=== PATIENT | male | born 1945 | race Caucasian/White ===

== ENCOUNTER 2018-07-23 14:40 | Inpatient (IN) | payer MEDICARE, MEDICAID ==
[~2018-07-23] VITALS: Ht 175.3 cm; Wt 59.0 kg
[~2018-07-23 14:40] MED LIST: ACHD5005 PO; ANXIETY MEDICATION; BUPR150T PO; FLUO20CA25 PO; GABA300T; MORP15TA PO; NAPR-684 PO; OXYC1TAB25 PO; SOLI10TA4 PO; ZOLP10TA5 PO
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
--- OUTSIDE RECORDS SUMMARY | 2018-07-23 14:48 | XMS REPORT ---
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 198292653 Problem Diabetes E11.9 Active 67230701 ALLERGIES No Information ENCOUNTERS Encounter Location Date Diagnosis [place] [address] [address] Feb, Depressive disorder, not elsewhere classified F32.9 and Mild cognitive impairment G31.84 [place] [address] [address] Feb, Foot callus L84 [place] [address] [address]- [address] Jan, Muscular dystrophies G71.0 [place] [address] [address]- 240[address] Jan, [place] [address] 23117- 9334 Jan, [place] [address] [address]- 3166 Jan, Callus of foot L84 ; Nail hypertrophy L60.2 and Self-care deficit for hygiene R46.[address] [address]- [address] December, [facility] [address] [place] [id number] [place] [address] 17379- 6152 December, Callus of foot L84 ; Nail hypertrophy L60.2 ; Self-care deficit for hygiene R46.0 ; Controlled type 2 diabetes mellitus without complication, unspecified whether long-term insulin use E11.9 and Muscular dystrophies G71.0 [facility] [address] [address]- [address] December, Muscular dystrophies G71.0 [facility] [address] [address] December, 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 [facility] [address] [address]- [address] Nov, [facility] [address] [address]- 6141 Nov, [facility] [address] 26[address]- 9519 Nov, Muscular dystrophies G71.0 [place] [address] [address]- 4[address] Oct, Muscular dystrophies G71.0 [facility] [address] [address]67- 9948 Aug, Muscular dystrophies G71.0 [facility] [address] [address] 07 Jul, 2017 Urinary tract infection without hematuria, site unspecified N39.0 [facility] [address] [address] 04 Jul, 2017 Urinary tract infection without hematuria, site unspecified N39.0 [facility] [address] [address]- 1392 May, Muscular dystrophies G71.0 [facility] [address] 34046- 4532 Apr, Muscular dystrophies G71.0 [facility] [address] [place] [id number] [place] [address] 10728- 3680 Mar, Muscular dystrophies G71.0 [facility] [address] [place] [id number] [place] [address] 78777- 0391 Feb, [facility] [address] [place] [id number] [place] [address] 71302- 9684 Feb, Muscular dystrophies G71.0 [facility] [address] [place] [id number] [place] [address] 34055- 5605 Jan, Muscular dystrophies G71.0 and Diabetes E11.9 [facility] [address] [place] [id number] [place] [address] 84909- 7314 Nov, [facility] [address] [place] [id number] [place] [address] 35376- 5205 Nov, [facility] [address] [place] [id number] [place] [address] 81464- 8787 Oct, [facility] [address] [place] [id number] [place] [address] 98035- 8172 Sep, [facility] [id number] [place] [address] 06812- 7264 Sep, [facility] [address] [place] [id number] [place] [address] 05970- 8766 Aug, [facility] [address] [address] Jul, [facility] [address] [place] [id number] [place] [address] 18533- 3833 Jul, [facility] [address] [address]- 9[address] Jun, [facility] [id number] [place] [address] 348396 -4908 May, Dysuria R30.0 and Cystitis N30.90 [facility] [address] [place] [id number] [place] [address] 14531- 4682 May, [facility] [address] [place] [id number] [place] [address] 24562- 6983 May, [facility] [address] [place] [id number] [place] [address] 08264- 0537 May, [facility] [address] [place] [id number] [place] [address] 46659- 9310 May, [facility] [address] [place] [id number] [place] [address] 20416- 6250 Mar, Muscular dystrophies G71.0 [facility] [address] [place] [id number] [place] [address] 30172- 6927 Feb, Muscular dystrophies G71.0 [facility] [address] [place] [id number] [place] [address] 17319- 5055 Feb, [facility] [address] [place] [id number] [place] [address] 07702- 0379 Jan, Muscular dystrophies G71.0 [facility] [address] [place] [id number] [place] [address] 69504- 0843 December, Open bite of left upper arm, initial encounter S41.152A [facility] [address] [place] [id number] [place] [address] 37026 -0911 December, [facility] [address] [place] [id number] [place] [address] 47143- 8495 Nov, [facility] [address] [place] [id number] [place] [address] 51282- 6088 Nov, [facility] [address] [place] [id number] [place] [address] 84426- 5376 Oct, [facility] [address] [place] [id number] [place] [address] 31094- 1234 Oct, Diabetes type 2, controlled E11.9 and Polyneuropathy G62.9 [facility] [address] [place] [id number] [place] [address] 20563- 0513 Sep, [facility] [address] [place] [id number] [place] [address] 36614- 3588 Aug, [facility] [address] [place] [id number] [place] [address] 94072- 8853 Aug, [facility] [address] [place] [id number] [place] [address] 23912- 4355 Jul, [facility] [address] [place] [id number] [place] [address] 14269- 6102 Jul, [facility] [address] [place] [id number] [place] [address] 21933- 4622 Jul, [facility] [address] [place] [id number] [place] [address] 03289- 8833 Jun, [facility] [address] [place] [id number] [place] [address] 37471- 2944 Jun, Foot deformity M21.969 [facility] [address] [place] [id number] [place] [address] 08388- 7533 May, [facility] [address] [place] [id number] [place] [address] 82407- 8857 May, [facility] [address] [place] [id number] [place] [address] 15407- 7941 May, [facility] [address] [place] [id number] [place] [address] 86636- 1469 Apr, Diabetes with renal manifestations, type II or unspecified type, not stated as uncontrolled 250.40 and Unsteady gait 781.2 [facility] [address] [place] [id number] [place] [address] 14664- 6092 16 Apr, 2015 [facility] [address] [place] [id number] [place] [address] 51746- 7309 Apr, [facility] [place] [facility] [address] [id number] [place] [address]- 6079 Mar, [facility] [place] [facility] [address] [id number] [place] [address]- 5674 Feb, [facility] [place] [facility] [address] [id number] [place] [address]- 5593 Jan, [facility] [place] [facility] [address] [id number] [place] [address]- 9449 Jan, [facility] [place] [facility] [address] [id number] [place] [address]- 2618 December, [facility] [place] [facility] [address] [id number] [place] [address]- 2958 Nov, [facility] [place] [facility] [address] [id number] [place] [address]- 4286 Nov, [facility] [place] [facility] [address] [id number] [place] [address]- 5075 Oct, [facility] [place] [facility] [address] [id number] [place] [address]- 1693 Oct, [facility] [place] [facility] [address] [id number] [place] [address]- 5283 Oct, [facility] [place] [facility] [address] [id number] [place] [address]- 9512 Oct, [facility] [place] [facility] [address] [id number] [address]- 2537 Oct, [facility] [place] [facility] [address] [id number] [place] [address]- 1967 Oct, [facility] [place] [facility] [address] [id number] [place] [address]- 5876 Sep, [facility] [place] [facility] [address] [id number] [place] [address]- 7045 Sep, [facility] [place] [facility] [address] [id number] [place] [address]- 2846 Sep, [facility] [place] [facility] [address] [id number] [place] [address]- 1087 Sep, [facility] [place] [facility] [address] [id number] [place] [address]- 4592 Aug, [facility] [place] [facility] [address] [id number] [place] [address]- 3204 Aug, [facility] [place] [facility] [address] [id number] [place] [address]- 6726 Aug, [facility] [place] [facility] [address] [id number] [place] [address]- 3157 Aug, [facility] [place] [facility] [address] [id number] [place] [address]- 4090 Jul, [facility] [place] [facility] [address] [id number] [place] [address]- 2784 Jul, [facility] [place] [facility] [address] [id number] [place] [address]- 9054 Jul, [facility] [place] [facility] [address] [id number] [place] [address]- 1765 Jul, [facility] [place] [facility] [address] [facility] [id number] [place] [address]- 4911 Jun, [facility] [place] [facility] [address] [id number] [place] [address]- 4714 Jun, [facility] [place] [facility] [address] [id number] [place] [address]- 0546 Jun, [facility] [place] [facility] [address] [id number] [place] [address]- 5709 Jun, [facility] [place] [facility] [address] [id number] [place] 9927 May, [facility] [place] [facility] [address] [id number] [place] [address]- 9249 May, [facility] [place] [facility] [address] [id number] [place] [address]- 1496 May, [facility] [place] [facility] [address] [id number] [place] [address]- 5399 May, [facility] [place] [facility] [address] [id number] [place] [address]- 3384 Apr, [facility] [place] [facility] [address] [id number] [place] [address]- 7456 Apr, [facility] [place] [facility] [address] [id number] [place] [address]- 9162 Apr, [facility] [place] [facility] [address] [id number] [place] [address]- 4114 Mar, [facility] [place] [facility] [address] [id number] [place] [address]- 6985 Mar, [facility] [place] [facility] [address] [id number] [place] [address]- 6792 Mar, [facility] [place] [facility] [address] [id number] [place] [address]- 8177 Mar, [facility] [place] [facility] [address] [id number] [place] [address]- 6168 Feb, [facility] [place] [facility] [address] [id number] [place] [address]- 8582 Feb, [facility] [place] [facility] [address] [id number] [place] [address]- 1295 Feb, [facility] [place] [facility] [address] [id number] [place] [address]- 4035 Feb, [facility] [place] [facility] [address] [id number] [place] [address]- 5206 Jan, [facility] [place] [facility] [address] [id number] [place] [address]- 1178 Jan, [facility] [place] [facility] [address] [id number] [place] [address]- 2893 December, [facility] [place] [facility] [address] [id number] [place] [address]- 8283 December, [facility] [place] [facility] [address] [id number] [place] 0980 Nov, [facility] [place] [facility] [address] [id number] [place] [address]- 6441 Nov, [facility] [place] [facility] [address] [id number] [place] [address]- 2980 Oct, [facility] [place] [facility] [address] [id number] [place] [address]- 9321 Oct, [facility] [place] [facility] [address] [id number] [place] [address]- 9480 Oct, [facility] [place] [facility] [address] [id number] [place] [address]- 8785 Oct, [facility] [place] [facility] [address] [id number] [place] [address]- 9850 Sep, [facility] [place] [facility] [address] [id number] [place] [address]- 7256 Sep, [facility] [place] [facility] [address] [id number] [place] [address]- 0304 Aug, [facility] [place] [facility] [address] [id number] [place] [address]- 8555 Aug, [facility] [place] [facility] [address] [id number] [place] [address]- 8390 Aug, [facility] [place] [facility] [address] [id number] [place] [address]- 1625 Aug, [facility] [place] [facility] [address] [id number] [place] [address]- 1164 Aug, [facility] [place] [facility] [address] [id number] [place] [address]- 1317 Aug, [facility] [place] [facility] [address] [id number] [place] [address]- 9966 Jul, [facility] [place] [facility] [address] [id number] [place] [address]- 7379 Jul, [facility] [place] [facility] [address] [id number] [place] [address]- 9885 Jul, [facility] [place] [facility] [address] [id number] [place] [address]- 2632 Jun, [facility] [place] [facility] [address] [id number] [place] [address]- 5136 Jun, [facility] [place] [facility] [address] [id number] [place] [address]- 2993 Jun, [facility] [place] [facility] [address] [id number] [place] [address]- 0850 Jun, [facility] [place] [facility] [address] [id number] [place] [address]- 7635 May, [facility] [place] [facility] [address] [id number] [place] [address]- 6521 May, [facility] [place] [facility] [address] [id number] [place] [address]- 5310 May, [facility] [place] [facility] [address] [id number] [place] 8501 May, [facility] [place] [facility] [address] [id number] [place] [address]- 3177 Apr, 2012 [facility] [place] [facility] [address] [id number] [place] [address]- 6213 Apr, 2012 [facility] [place] [facility] [address] [id number] [place] [address]- 1526 Apr, 2012 [facility] [place] [facility] [address] [id number] [place] [address]- 2546 Apr, 2012 [facility] [place] [facility] [address] [id number] [place] [address]- 1165 Apr, [facility] [address] [id number] [place] [address]- 5839 Mar, [facility] [place] [facility] [address] [id number] [place] [address]- 0178 Mar, [facility] [place] [facility] [address] [id number] [place] [address]- 1809 Mar, [facility] [place] [facility] [address] [id number] [place] [address]- 0202 Mar, [facility] [place] [facility] [address] [id number] [place] [address]- 3353 Feb, [facility] [place] [facility] [address] [id number] [place] [address]- 1317 Feb, [facility] [place] [facility] [address] [id number] [place] [address]- 4547 Jan, [facility] [place] [facility] [address] [id number] [place] [address]- 4329 Jan, [facility] [place] [facility] [address] [id number] [place] [address]- 8729 Jan, [facility] [place] [facility] [address] [id number] [place] [address]- 9125 Jan, [facility] [place] [facility] [address] [id number] [place] [address]- 5573 December, [facility] [place] [facility] [address] [id number], [place] [address]- 1908 December, [facility] [place] [facility] [address] [id number] [place] [address]- 4921 Nov, [facility] [place] [facility] [address] [id number] [place] [address]- 7950 Nov, [facility] [place] [facility] [address] [id number] [place] [address]- 7355 Nov, [facility] [place] [facility] [address] [id number] [place] [address]- 4946 08 Oct, 2012 [facility] [place] [facility] [address] [id number] [place] [address]- 2624 Oct, [facility] [place] [facility] [address] [id number] [place] [address]- 4386 07 Sep, 2012 [facility] [place] [facility] [address] [id number] [place] [address]- 5526 07 Sep, 2012 [facility] [place] [facility] [address] [id number] [place] [address]- 0122 Aug, [facility] [place] [facility] [address] [id number] [place] [address]- 8935 Aug, [facility] [place] [facility] [address] [id number] [place] [address]- 1766 Jul, [facility] [place] [facility] [address] [id number] [place] [address]- 9771 Jul, [facility] [place] [facility] [address] [id number] [place] [address]- 2029 Jul, [facility] [place] [facility] [address] [id number] [place] [address]- 4271 Jul, [facility] [place] [facility] [address] [id number] [place] [address]- 3703 Jul, [facility] [place] [facility] [address] [id number] [place] [address]- 4266 Jul, [facility] [place] [facility] [address] [id number] [place] [address]- 0991 Jun, [facility] [place] [facility] [address] [id number] [place] [address]- 2958 Jun, [facility] [place] [facility] [address] [id number] [place] [address]- 7066 Jun, [facility] [place] [facility] [address] [id number] [place] [address]- 0383 Jun, [facility] [place] [facility] [address] [id number] [place] [address] 2542 Jun, [facility] [place] [facility] [address] [id number] [place] [address]- 6418 Jun, [facility] [place] [facility] [address] [id number] [place] [address]- 9773 May, [facility] [place] [facility] [address] [id number] [place] [address]- 2461 May, [facility] [place] [facility] [address] [id number] [place] [address]- 8931 May, [facility] [place] [facility] [address] [id number] [place] [address]- 2550 May, [facility] [place] [facility] [address] [id number] [place] [address]- 5732 May, [facility] [place] [facility] [address] [id number] [place] [address]- 3202 May, [facility] [place] [facility] [address] [id number] [place] [address]- 5116 May, [facility] [place] [facility] [address] [id number] [place] [address]- 8941 May, [facility] [place] [facility] [address] [id number] [place] [address]- 0388 May, [facility] [place] [facility] [address] [id number] [place] [address]- 0329 Apr, [facility] [place] [facility] [address] [id number] [place] [address]- 3261 Apr, [facility] [place] [facility] [address] [id number] [place] [address]- 0056 Mar, [facility] [place] [facility] [address] [id number] [place] [address]- 2801 Mar, [facility] [place] [facility] [address] [id number] [place] [address]- 4789 15 Mar, 2012 [facility] [place] [facility] [address] [id number] [place] [address]- 0005 Mar, [facility] [place] [facility] [address] [id number] [place] [address]- 1197 Mar, [facility] [place] [facility] [address] [id number] [place] [address]- 8727 Mar, [facility] [place] [facility] [address] [id number] [place] [address] Mar, [facility] [place] [facility] [address] [id number] [place] [address] Mar, [facility] [place] [facility] [address] [id number] [place] [address] Mar, [facility] [place] [facility] [address] [id number] [place] [address] Feb, [facility] [place] [facility] [address] [id number] [place] [address] Feb, [facility] [place] [facility] [address] [id number] [place] [address] Feb, [facility] [place] [facility] [address] [id number] [place] [address] Feb, [facility] [place] [facility] [address] [id number] [place] [address] Jan, [facility] [place] [facility] [address] [id number] [place] [address] December, [facility] [place] [facility] [address] [id number] [place] [address] December, [facility] [place] [facility] [address] [id number] [place] [address] December, [facility] [place] [facility] [address] [id number] [place] [address] Nov, [facility] [place] [facility] [address] [id number] [place] [address] 17 Nov, 2011 [facility] [address] [id number] [place] [address] 16 Nov, 2011 [facility] [place] [facility] [address] [id number] [place] [address] 16 Nov, 2011 [facility] [address] [id number] [place] [address] Oct, [facility] [address] [id number] [place] [address] 15 Sep, 2011 [facility] [address] [id number] [place] [address] 08 Sep, 2011 [facility] [address] [id number] [place] [address] 16 Aug, 2011 [facility] [address] [id number] [place] [address] Aug, [facility] [address] [id number] [place] [address] Aug, [facility] [address] [id number] [place] [address] Aug, [facility] [address] [id number] [place] [address] Aug, [facility] [address] [id number] [place] [address] Jul, [facility] [address] [id number] [place] [address] Jul, [facility] [place] [facility] [address] [id number] [place] [address] Jul, [facility] [facility] [address] [id number] [place] [address] Jul, [facility] [facility] [address] [id number] [place] [address] Jun, [facility] [place] [facility] [address] [id number] [place] [address] 17 Jun, 2011 [facility] [place] [facility] [address] [id number] [place] [address]- [address] 16 Jun, 2011 [facility] [place] [facility] [address] [id number] [place] [address] 16 Jun, 2011 [facility] [place] [facility] [address] [id number] [place] [address]- [address] 28 May, 2011 [facility] [place] [facility] [address] [id number] [place] [address] 28 May, 2011 [facility] [place] [facility] [address] [id number] [place] [address] Aug, [facility] [place] [facility] [address] [id number] [place] [address]- [address] Jul, [facility] [place] [facility] [address] [id number] [place] [address] Jun, [facility] [place] [facility] [address] [id number] [place] [address]36 May, [facility] [place] [facility] [address] [id number] [place] [address]- [address] May, [facility] [place] [facility] [address] [id number] [place] [address] May, [facility] [place] [facility] [address] [id number], [place] [address] December, [facility] [place] [facility] [address] [id number] [place] [address]- [address] Jul, [facility] [place] [facility] [address] [id number] [place] [address]- [address] Jul, [facility] [place] [facility] [address] [id number] [place] [address]- [address]267 Jul, [facility] [place] [facility] [address] [facility] [id number] [place] [address] 30 Jun, 2009 [facility] [address] [facility] [id number], [place] [address] Jun, [facility] [address] [facility] [id number] [address] Jun, [facility] [address] [facility] [id number], [place] [address] Jun, [facility] [address] [facility] [id number] [address] May, IMMUNIZATIONS No Known Immunizations SOCIAL HISTORY Never Assessed REASON FOR VISIT intake PLAN OF CARE VITAL SIGNS MEDICATIONS Medication Instructions Dosage Frequency Start Date End Date Duration Status Gabapentin 300 MG 2 capsules 12h Active Ambien 10 MG Orally Once a day 1 tablet at bedtime 24h 30 days Active VESIcare 10 MG TAKE ONE TABLET BY MOUTH ONCE DAILY 30 Active MS Contin 15 mg Orally Once a day 1 tablet 24h Jan, 28 days Active Percocet 5-325 MG Orally 2 times a day 1 tablet as needed 12h Jan, 28 days Active Finasteride 5 MG TAKE ONE TABLET BY MOUTH ONCE DAILY 30 Active Fluoxetine HCl 20 mg Orally Once a day TAKE ONE CAPSULE BY MOUTH IN THE MORNING 24h 30 Active RESULTS No Results PROCEDURES Procedure Date Ordered Result Body Site [facility] VISIT MENTAL HEALTH ESTAB PT February 12, 2018 Psych diagnostic evaluation, established patient February 12, 2018 INSTRUCTIONS MEDICATIONS ADMINISTERED No Known Medications [...]
--- OUTSIDE RECORDS SUMMARY | 2018-07-23 14:48 | XMS REPORT ---
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 663958890 Problem Unsteady gait R26.81 Active 56090786 Problem Depressive disorder, not elsewhere classified F32.9 Active 28070038 Problem Mild cognitive impairment G31.84 Active [id number] ALLERGIES No Information ENCOUNTERS Encounter Location Date Diagnosis [place] [id number] [place] [address] 16367- 7199 Jun, [place] [id number] [place] [address] 83252- 6551 May, [place] [id number] [place] [address] 35959- 0459 May, Major depressive disorder, single episode, mild F32.0 ; Low back pain M54.5 ; Other chronic pain G89.29 ; Encounter for immunization Z23 and Diabetes E11.9 [facility] [address] [address] Apr, Strain of lumbar region, initial encounter S39.012A [facility] [id number] [place] [address] 79676- 1474 Feb, Depressive disorder, not elsewhere classified F32.9 and Mild cognitive impairment G31.84 [place] [address] 58130- 8727 Feb, Foot callus L84 [place] [address] 36114- 7878 Jan, Muscular dystrophies G71.0 [facility] [address] 07892- 7262 Jan, [place] [address] 96396- 5480 Jan, [facility] [address] 66165- 1169 Jan, Callus of foot L84 ; Nail hypertrophy L60.2 and Self-care deficit for hygiene R46.0 [place] [address] 26370- 0665 December, [place] [address] 52544- 9513 December, Callus of foot L84 ; Nail hypertrophy L60.2 ; Self-care deficit for hygiene R46.0 ; Controlled type 2 diabetes mellitus without complication, 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 [facility] [address] 71781- 9048 Nov, [place] [address] 87434- 9782 Nov, [facility] [address] 34270- 2819 Nov, Muscular dystrophies G71.0 [place] [address] 24826- 8874 Oct, Muscular dystrophies G71.0 [facility] [id number] [place] [address] 07250- 3206 Aug, Muscular dystrophies G71.0 [facility] [id number] [place] [address] 859991 -7931 Jul, Urinary tract infection without hematuria, site unspecified N39.[address] [facility] [id number] [place] [address] 21262 -9996 Jul, Urinary tract infection without hematuria, site unspecified N39.0 [facility] [id number] [place] [address] 21034- 3569 May, Muscular dystrophies G71.0 [facility] [id number] [place] [address] 30834- 9790 Apr, Muscular dystrophies G71.0 [facility] [id number] [place] [address] 46268- 6150 Mar, Muscular dystrophies G71.0 [facility] [id number] [place] [address] 71875- 1136 Feb, [facility] [id number] [place] [address] 93288- 6253 Feb, Muscular dystrophies G71.0 [facility] [id number] [place] [address] 52969- 4749 Jan, Muscular dystrophies G71.0 and Diabetes E11.9 [facility] [id number] [place] [address] 81828- 1394 Nov, [facility] [id number] [place] [address] 74700- 4242 Nov, [facility] [id number] [place] [address] 73815- 9367 Oct, [facility] [id number] [place] [address] 455210- 8339 Sep, [facility] [address] [address]- 6050 Sep, [facility] [id number] [place] [address] 71517- 0180 Aug, [facility] [id number] [place] [address] 742253- 6401 Jul, [facility] [id number] [place] [address] 597385- 2003 Jul, [facility] [id number] [place] [address] 250122- 2501 Jun, [facility] [id number] [place] [address] 06690 -6826 May, Dysuria R30.0 and Cystitis N30.90 [facility] [id number] [place] [address] 40656- 0558 May, [facility] [id number] [place] [address] 19029- 8863 May, [facility] [id number] [place] [address] 65031- 9687 May, [facility] [address] [address]- 1145 May, [facility] [id number] [place] [address] 20835- 2282 Mar, Muscular dystrophies G71.0 [facility] [address] [address]- 9448 Feb, Muscular dystrophies G71.0 [facility] [id number] [place] [address] 161820- 4816 Feb, [facility] [address] [address]- 2173 Jan, Muscular dystrophies G71.0 [facility] [address] [address]- 7233 December, Open bite of left upper arm, initial encounter S41.152A [facility] [address], [place] [address] -9961 December, [facility] [address] [address]- 0724 Nov, [facility] [id number] [address]- 7988 Nov, [facility] [id number] [place] [address] 25896- 9923 Oct, [facility] [id number] [place] [address] 90111- 9285 Oct, Diabetes type 2, controlled E11.9 and Polyneuropathy G62.9 [facility] [id number] [place] [address] 55332- 4518 Sep, [facility] [address] [address]- 5481 Aug, [facility] [id number] [place] [address] 81692- 8478 Aug, [facility] [address] [address]- 6333 Jul, [facility] [id number] [address]- 8480 Jul, [facility] [address], [place] [address]- 9074 Jul, [facility] [address], [place] [address]- 1393 Jun, [facility] [address] [address]- 6451 Jun, Foot deformity M21.969 [facility] [id number] [address]- 7441 May, [facility] [address] [address]- 2756 May, [facility] [id number] [address]- 6224 May, [facility] [id number] [place] [address] 08670- 1669 Apr, Diabetes with renal manifestations, type II or unspecified type, not stated as uncontrolled 250.40 and Unsteady gait 781.2 [facility] [id number] [place] [address] 56928- 5737 Apr, [facility] [id number] [place] [address] 14341- 8336 Apr, [facility] [id number] [place] [address] 83654- 4003 Mar, [facility] [address] [address]- 4664 Feb, [facility] [address] [address]- 7133 Jan, [facility] [address] [address]- 6541 Jan, [facility] [address] [address]- 7708 December, [facility] [address] [address]- 8047 Nov, [facility] [address], [place] [address]- 4262 Nov, [facility] [address], [place] [address]- 8025 Oct, [facility] [address] [address]- 5744 Oct, [facility] [place] [facility] [address] [id number] [place] [address]- 8844 Oct, [facility] [place] [facility] [address] [id number] [place] [address]- 8905 Oct, [facility] [place] [facility] [address] [id number] [place] [address]- 4862 Oct, [facility] [place] [facility] [address] [id number] [place] [address]- 8582 Oct, [facility] [place] [facility] [address] [id number] [place] [address]- 8176 Sep, [facility] [place] [facility] [address] [id number] [place] [address]- 6390 Sep, [facility] [place] [facility] [address] [id number] [place] [address]- 9792 Sep, [facility] [place] [facility] [address] [id number] [place] [address]- 0736 Sep, [facility] [place] [facility] [address] [id number] [place] [address]- 8564 Aug, [facility] [place] [facility] [address] [id number] [place] [address]- 6420 Aug, [facility] [place] [facility] [address] [id number] [place] [address]- 1565 Aug, [facility] [place] [facility] [address] [id number] [place] [address]- 0179 Aug, [facility] [place] [facility] [address] [id number] [place] [address]- 4929 Jul, [facility] [place] [facility] [address] [id number] [place] [address]- 9731 Jul, [facility] [place] [facility] [address] [id number] [place] [address]- 3234 Jul, [facility] [place] [facility] [address] [id number] [address]- 3254 Jul, [facility] [place] [facility] [address] [id number] [place] [address]- 2943 Jun, [facility] [place] [facility] [address] [id number] [place] [address]- 9430 Jun, [facility] [place] [facility] [address] [id number] [place] [address]- 2577 Jun, [facility] [place] [facility] [address] [id number] [place] [address]- 2958 Jun, [facility] [place] [facility] [address] [id number] [place] [address]- 2132 May, [facility] [place] [facility] [address] [id number] [place] [address]- 7545 May, [facility] [place] [facility] [address] [facility] [id number] [place] [address]- 3817 May, [facility] [place] [facility] [address] [id number] [place] [address]- 3740 May, [facility] [place] [facility] [address] [facility] [id number] [place] [address]- 8241 Apr, [facility] [place] [facility] [address] [facility] [id number] [place] [address]- 0307 Apr, [facility] [place] [facility] [address] [id number] [place] [address]- 1380 Apr, [facility] [place] [facility] [address] [id number] [place] [address]- 5977 Mar, [facility] [place] [facility] [address] [id number] [place] [address]- 5445 Mar, [facility] [place] [facility] [address] [id number] [place] [address]- 5777 Mar, [facility] [place] [facility] [address] [facility] [id number] [place] [address]- 0378 Mar, [facility] [place] [facility] [address] [id number] [place] [address]- 3312 Feb, [facility] [place] [facility] [address] [id number] [place] [address]- 9207 Feb, [facility] [place] [facility] [address] [id number] [place] [address]- 3506 Feb, [facility] [place] [facility] [address] [id number] [place] [address]- 6526 Feb, [facility] [place] [facility] [address] [id number] [place] [address]- 4391 Jan, [facility] [place] [facility] [address] [id number] [place] [address]- 2262 Jan, [facility] [place] [facility] [address] [id number] [place] [address]- 9365 December, [facility] [place] [facility] [address] [id number] [place] [address]- 1026 December, [facility] [place] [facility] [address] [id number] [place] [address]- 5896 Nov, [facility] [place] [facility] [address] [id number] [place] [address]- 1729 Nov, [facility] [place] [facility] [address] [id number] [place] [address]- 0241 Oct, [facility] [place] [facility] [address] [id number] [place] [address]- 2643 Oct, [facility] [place] [facility] [address] [id number] [place] [address]- 8331 Oct, [facility] [place] [facility] [address] [id number] [place] [address]- 6829 Oct, [facility] [place] [facility] [address] [id number] [place] [address]- 8346 Sep, [facility] [place] [facility] [address] [id number] [place] [address]- 5648 Sep, [facility] [place] [facility] [address] [id number] [place] [address]- 3364 Aug, [facility] [place] [facility] [address] [id number] [place] [address]- 4016 Aug, [facility] [place] [facility] [address] [facility] [id number] [place] [address]- 9651 Aug, [facility] [place] [facility] [address] [id number] [place] [address]- 4210 Aug, [facility] [place] [facility] [address] [id number] [place] [address]- 8523 Aug, [facility] [place] [facility] [address] [facility] [id number] [place] [address]- 4216 Aug, [facility] [place] [facility] [address] [facility] [id number] [address]- 5143 Jul, [facility] [place] [facility] [address] [id number], [place] [address]- 0220 Jul, [facility] [place] [facility] [address] [facility] [id number] [address]- 2633 Jul, [facility] [place] [facility] [address] [facility] [id number] [address]- 8764 Jun, [facility] [place] [facility] [address] [facility] [id number], [place] [address]- 5028 Jun, [facility] [place] [facility] [address] [id number], [place] [address]- 2546 Jun, [facility] [place] [facility] [address] [id number] [address]- 2543 Jun, [facility] [place] [facility] [address] [facility] [id number] [address]- 2546 May, [facility] [place] [facility] [address] [facility] [id number] [address]- 2546 May, [facility] [place] [facility] [address] [id number] [place] [address]- 4231 May, [facility] [place] [facility] [address] [id number] [place] [address]- 1908 May, [facility] [place] [facility] [address] [id number] [place] [address]- 7876 Apr, 2012 [facility] [place] [facility] [address] [id number] [place] [address]- 9497 Apr, 2012 [facility] [place] [facility] [address] [id number] [place] [address]- 6676 Apr, 2012 [facility] [place] [facility] [address] [id number] [place] [address]- 7714 Apr, [facility] [place] [facility] [address] [id number] [place] [address]- 7348 Apr, [facility] [place] [facility] [address] [id number] [place] [address]- 5533 Mar, [facility] [place] [facility] [address] [id number] [place] [address]- 1081 Mar, [facility] [place] [facility] [address] [id number] [place] [address]- 7926 Mar, [facility] [place] [facility] [address] [id number] [place] [address]- 5290 Mar, [facility] [place] [facility] [address] [id number] [place] [address]- 8443 Feb, [facility] [place] [facility] [address] [id number] [place] [address]- 0842 Feb, [facility] [place] [facility] [address] [id number] [place] [address]- 7425 Jan, [facility] [place] [facility] [address] [id number] [place] [address]- 8246 Jan, [facility] [place] [facility] [address] [id number] [place] [address]- 1795 Jan, [facility] [place] [facility] [address] [id number] [place] [address]- 2101 Jan, [facility] [address] [id number] [place] [address]- 6811 December, [facility] [address] [id number] [place] [address]- 0891 December, [facility] [address] [id number] [place] [address]- 0637 Nov, [facility] [address] [id number] [place] [address]- 5059 Nov, [facility] [address] [id number] [place] [address]- 5135 Nov, [facility] [address] [id number] [place] [address]- 8985 Oct, [facility] [address] [id number] [place] [address]- 0268 Oct, [facility] [address] [id number] [place] [address]- 9019 Sep, [facility] [address] [id number] [place] [address]- 9625 Sep, [facility] [address] [id number] [place] [address]- 5325 Aug, [facility] [address] [id number], [place] [address]- 3694 Aug, [facility] [place] [facility] [address] [id number] [place] [address]- 1733 Jul, [facility] [place] [facility] [address] [id number] [place] [address]- 5782 Jul, [facility] [address] [id number] [place] [address]- 6234 Jul, [facility] [address] [id number] [address]- 5781 Jul, [facility] [place] [facility] [address] [id number] [place] [address]- 3441 Jul, [facility] [place] [facility] [address] [facility] [id number] [place] [address]- 7493 Jul, [facility] [place] [facility] [address] [facility] [id number] [place] [address]- 8317 Jun, [facility] [place] [facility] [address] [id number] [place] [address]- 6167 Jun, [facility] [place] [facility] [address] [facility] [id number] [place] [address]- 8411 Jun, [facility] [place] [facility] [address] [facility] [id number] [place] [address]- 8407 Jun, [facility] [place] [facility] [id number] [place] [address]- 9687 Jun, [facility] [place] [facility] [address] [facility] [id number] [place] [address]- 1168 Jun, [facility] [place] [facility] [address] [facility] [id number], [place] [address]- 4796 May, [facility] [place] [facility] [address] [facility] [id number] [place] [address] May, [facility] [place] [facility] [address] [facility] [id number] [address] May, [facility] [place] [facility] [address] [id number] [address] May, [facility] [place] [facility] [address] [facility] [facility] [id number] [address] May, [facility] [place] [facility] [address] [facility] [facility] [id number], [place] [address] May, [facility] [place] [facility] [address] [facility] [facility] [id number], [place] [address] May, [facility] [place] [facility] [address] [id number] [place] [address] 05 May, 2012 [facility] [place] [facility] [address] [id number] [place] [address] 02 May, 2012 [facility] [place] [facility] [address] [id number] [place] [address] 18 Apr, 2012 [facility] [place] [facility] [address] [id number] [place] [address] 17 Apr, 2012 [facility] [place] [facility] [address] [id number] [place] [address] Mar, [facility] [place] [facility] [address] [id number] [place] [address] Mar, [facility] [place] [facility] [address] [id number] [place] [address] 15 Mar, 2012 [facility] [place] [facility] [address] [id number] [place] [address] 14 Mar, 2012 [facility] [place] [facility] [address] [id number] [place] [address] Mar, [facility] [place] [facility] [address] [id number] [place] [address] Mar, [facility] [place] [facility] [address] [id number] [place] [address] Mar, [facility] [place] [facility] [address] [id number] [place] [address] Mar, [facility] [place] [facility] [address] [id number] [place] [address] Mar, [facility] [place] [facility] [address] [id number] [place] [address] Feb, [facility] [place] [facility] [address] [id number] [place] [address] 16 Feb, 2012 [facility] [place] [facility] [address] [id number] [place] [address] Feb, [facility] [address] [id number] [place] [address] Feb, [facility] [place] [facility] [address] [id number] [place] [address] Jan, [facility] [place] [facility] [address] [id number] [place] [address] December, [facility] [place] [facility] [address] [id number] [place] [address] December, [facility] [place] [facility] [address] [id number] [place] [address] December, [facility] [place] [facility] [address] [id number] [place] [address] Nov, [facility] [place] [facility] [address] [id number] [place] [address] Nov, [facility] [place] [facility] [address] [id number] [place] [address] Nov, [facility] [place] [facility] [address] [id number] [place] [address] 7981 Nov, [facility] [place] [facility] [address] [id number] [place] [address] Oct, [facility] [place] [facility] [address] [id number] [place] [address] 15 Sep, 2011 [facility] [place] [facility] [address] [id number] [place] [address] Sep, [facility] [place] [facility] [address] [id number] [place] [address] Aug, [facility] [place] [facility] [address] [id number] [place] [address]271 Aug, [facility] [place] [facility] [address] [id number] [place] [address] Aug, [facility] [place] [facility] [address] [id number] [place] [address] 10 Aug, 2011 [facility] [address] [id number] [place] [address] Aug, [facility] [place] [facility] [address] [id number] [place] [address]367 30 Jul, 2011 [facility] [place] [facility] [address] [id number] [place] [address] 113[address] 30 Jul, 2011 [facility] [place] [facility] [address] [id number] [place] [address] Jul, [facility] [place] [facility] [address] [id number] [place] [address] 05 Jul, 2011 [facility] [place] [facility] [address] [id number] [place] [address] 29 Jun, 2011 [facility] [place] [facility] [address] [id number] [place] [address]- 4414 17 Jun, 2011 [facility] [place] [facility] [address] [id number] [place] [address]- 4847 16 Jun, 2011 [facility] [place] [facility] [address] [id number] [place] [address]16 16 Jun, 2011 [facility] [place] [facility] [address] [id number] [place] [address] 3119 May, [facility] [place] [facility] [address] [id number] [place] [address] 68[address] 28 May, 2011 [facility] [place] [facility] [address] [id number] [place] [address] Aug, [facility] [place] [facility] [address] [id number] [place] [address] Jul, [facility] [place] [facility] [address] [id number] [place] [address]- 65[address] Jun, [facility] [place] [facility] [address] [id number] [place] [address] May, [facility] [id number] [address] May, [facility] [id number] [address] May, [facility] [facility] [id number] [address] December, [facility] [id number] [place] [id number] Jul, [facility] [id number] [address] Jul, [facility] [id number] [place] [id number] Jul, [facility] [id number] [address] Jun, [facility] [id number] [place] [address] Jun, [facility] [id number] [address] Jun, [facility] [id number] [address] Jun, [facility] [id number] [address] May, IMMUNIZATIONS No Known Immunizations SOCIAL HISTORY Never Assessed REASON FOR VISIT Medication question PLAN OF CARE VITAL SIGNS MEDICATIONS Unknown Medications RESULTS No Results PROCEDURES No Known procedures INSTRUCTIONS MEDICATIONS ADMINISTERED No Known Medications MEDICAL [...]
--- OUTSIDE RECORDS SUMMARY | 2018-07-23 14:49 | XMS REPORT ---
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 081399089 Problem Diabetes E11.9 Active [id number] ALLERGIES No Known Allergies ENCOUNTERS Encounter Location Date Diagnosis [place] [address] [address] Apr, [place] [address] [address]- 6577 Feb, Depressive disorder, not elsewhere classified F32.9 and Mild cognitive impairment G31.84 [place] [address] [place] [id number] [place] [address] 23034- 1382 Feb, Foot callus L84 [place] [address] [address]- [address]233 Jan, Muscular dystrophies G71.0 [place] [address] [address]- 0794 Jan, [place] [address] 98323- 4564 Jan, [place] [address] [address]- 6826 Jan, Callus of foot L84 ; Nail hypertrophy L60.2 and Self-care deficit for hygiene R46.0 [facility] [address] [place] [id number] [place] [address] 40279- 6778 December, [facility] [address] [place] [id number] [place] [address] 29018- 8903 December, Callus of foot L84 ; Nail hypertrophy L60.2 ; Self-care deficit for hygiene R46.0 ; Controlled type 2 diabetes mellitus without complication, unspecified whether long-term insulin use E11.9 and Muscular dystrophies G71.0 [place] [address] [place] [id number] [place] [address] 56029- 3267 December, Muscular dystrophies G71.0 [facility] [address] [place] [id number] [place] [address] 70648 -6728 December, 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 [place] [address] [place] [id number] [place] [address] 26649- 0940 Nov, [place] [address] [place] [id number] [place] [address] 95968- 9333 Nov, [place] [address] [place] [id number] [place] [address] 29320- 6444 Nov, Muscular dystrophies G71.0 [place] [address] [place] [id number] [place] [address] 96760- 0932 Oct, Muscular dystrophies G71.0 [place] [address] [place] [id number] [place] [address] 38209- 7481 Aug, Muscular dystrophies G71.0 [facility] [address] [place] [id number] [place] [address] 84033 -8597 Jul, Urinary tract infection without hematuria, site unspecified N39.0 [facility] [address] [place] [id number] [place] [address] 94087 -1026 04 Jul, 2017 Urinary tract infection without hematuria, site unspecified N39.0 [place] [address] [place] [id number] [place] [address] 34376- 4941 May, Muscular dystrophies G71.0 [facility] [address] [facility] [id number] [place] [address], [place] [address]- 4697 Apr, Muscular dystrophies G71.0 [facility] [address] [facility] [id number] [place] [address], [place] [address]- 2546 Mar, Muscular dystrophies G71.0 [facility] [address] [place] [id number] [place] [address], [place] [address]- 6567 Feb, [facility] [address] [facility] [id number] [place] [address], [place] [address]- 4429 Feb, Muscular dystrophies G71.0 [facility] [address] [place] [id number] [place] [address], [place] [address]- 7956 Jan, Muscular dystrophies G71.0 and Diabetes E11.9 [facility] [address] [place] [id number] [place] [address], [place] [address]- 5611 Nov, [facility] [address] [place] [id number] [place] [address], [place] [address]- 4729 Nov, [facility] [address] [place] [id number] [place] [address], [place] [address]- 9918 Oct, [facility] [address] [address]- 8846 Sep, [facility] [id number] [place] [address], [place] [address]- 7581 Sep, [facility] [address] [address]- 7834 Aug, [facility] [address] [place] [id number] [place] [address], [place] [address]- 8869 Jul, [facility] [address] [place] [address]- 2546 Jul, [facility] [id number] [place] [address] 42778- 5421 Jun, [facility] [address] [place] [id number] [address] May, Dysuria R30.0 and Cystitis N30.90 [facility] [address] [place] [id number] [place] [address] 74009- 6124 May, [facility] [address] [place] [id number] [place] [address] 16230- 6446 May, [facility] [address] [place] [id number] [place] [address] 49540- 8877 May, [facility] [address] [place] [id number] [place] [address] 63326- 7633 May, [facility] [address] [place] [id number] [place] [address] 74305- 6150 Mar, Muscular dystrophies G71.0 [facility] [address] [place] [id number] [place] [address] 19800- 4516 Feb, Muscular dystrophies G71.0 [facility] [address] [place] [id number] [place] [address] 06044- 2465 Feb, [facility] [address] [place] [id number] [place] [address] 42431- 8366 Jan, Muscular dystrophies G71.0 [facility] [address] [place] [id number] [place] [address] 48332- 7482 December, Open bite of left upper arm, initial encounter S41.152A [facility] [address] [address] December, [facility] [address] [place] [id number] [place] [address] 78899- 8719 Nov, [facility] [address] [place] [id number] [place] [address] 58792- 1056 Nov, [facility] [address] [place] [id number] [place] [address] 34865- 0057 Oct, [facility] [id number] [place] [address] 28828- 5793 Oct, Diabetes type 2, controlled E11.9 and Polyneuropathy G62.9 [facility] [address] [place] [id number] [place] [address] 58619- 8496 Sep, [facility] [address] [place] [id number] [place] [address] 81819- 7499 Aug, [facility] [address] [place] [id number] [place] [address] 99086- 7541 Aug, [facility] [address] [place] [id number] [place] [address] 18850- 7877 Jul, [facility] [address] [place] [id number] [place] [address] 90461- 2979 Jul, [facility] [address] [place] [id number] [place] [address] 28762- 6744 Jul, [facility] [address] [place] [id number] [place] [address] 07838- 8714 Jun, [facility] [address] [place] [id number] [place] [address] 90135- 1952 Jun, Foot deformity M21.969 [facility] [address] [place] [id number] [place] [address] 02079- 4885 May, [facility] [address] [place] [id number] [place] [address] 23952- 1395 May, [facility] [id number] [place] [address] 53320- 7656 May, [facility] [address] [place] [id number] [place] [address] 47167- 2946 Apr, Diabetes with renal manifestations, type II or unspecified type, not stated as uncontrolled 250.40 and Unsteady gait 781.2 [facility] [address] [place] [id number] [place] [address] 87977- 3223 Apr, [facility] [place] [facility] [address] [id number] [place] [address]- 4787 09 Apr, 2015 [facility] [place] [facility] [address] [id number] [place] [address]- 8416 Mar, [facility] [place] [facility] [address] [id number] [place] [address]- 3936 Feb, [facility] [place] [facility] [address] [id number] [place] [address]- 1506 Jan, [facility] [place] [facility] [address] [id number] [place] [address]- 0038 Jan, [facility] [place] [facility] [address] [id number] [place] [address]- 5436 December, [facility] [place] [facility] [address] [id number] [place] [address]- 9583 Nov, [facility] [place] [facility] [address] [id number] [place] [address]- 0775 Nov, [facility] [place] [facility] [address] [id number] [place] [address]- 6991 Oct, [facility] [place] [facility] [address] [id number] [address]- 0250 Oct, [facility] [place] [facility] [address] [facility] [id number] [address]- 0556 Oct, [facility] [place] [facility] [address] [id number] [address]- 8896 Oct, [facility] [place] [facility] [address] [id number] [place] [address]- 9781 Oct, [facility] [place] [facility] [address] [id number] [place] [address]- 2636 Oct, [facility] [place] [facility] [address] [id number] [place] [address]- 3996 Sep, [facility] [place] [facility] [address] [id number] [address]- 6632 Sep, [facility] [place] [facility] [address] [id number] [place] [address]- 3420 Sep, [facility] [place] [facility] [address] [id number] [place] [address]- 3024 Sep, [facility] [place] [facility] [address] [id number] [place] [address]- 7661 Aug, [facility] [place] [facility] [address] [id number] [place] [address]- 7851 Aug, [facility] [place] [facility] [address] [id number] [place] [address]- 6364 Aug, [facility] [place] [facility] [address] [id number] [place] [address]- 4013 Aug, [facility] [place] [facility] [address] [id number] [place] [address]- 2857 Jul, [facility] [place] [facility] [address] [id number] [place] [address]- 4469 Jul, [facility] [place] [facility] [address] [id number] [place] [address]- 8758 Jul, [facility] [place] [facility] [address] [facility] [id number] [place] [address]- 1460 Jul, [facility] [place] [facility] [address] [id number] [place] [address]- 8983 Jun, [facility] [place] [facility] [address] [id number] [place] [address]- 6360 Jun, [facility] [place] [facility] [address] [id number] [place] [address]- 9856 Jun, [facility] [place] [facility] [address] [id number] [place] [address]- 7418 Jun, [facility] [place] [facility] [address] [id number] [place] [address]- 6664 May, [facility] [place] [facility] [address] [id number] [place] [address]- 7975 May, [facility] [place] [facility] [address] [id number] [place] [address]- 4271 May, [facility] [place] [facility] [address] [id number] [place] [address]- 4393 May, [facility] [place] [facility] [address] [id number] [place] [address]- 7046 Apr, [facility] [place] [facility] [address] [id number] [place] [address]- 9430 Apr, [facility] [place] [facility] [address] [id number] [place] [address]- 9821 Apr, [facility] [place] [facility] [address] [id number] [place] [address]- 7413 Mar, [facility] [place] [facility] [address] [id number] [place] [address]- 8559 Mar, [facility] [place] [facility] [address] [id number] [place] [address]- 9343 Mar, [facility] [place] [facility] [address] [id number] [place] [address]- 3968 Mar, [facility] [place] [facility] [address] [id number] [place] [address]- 3555 Feb, [facility] [place] [facility] [address] [id number] [place] [address]- 5009 Feb, [facility] [place] [facility] [address] [id number] [place] [address]- 9717 Feb, [facility] [place] [facility] [address] [id number] [place] [address]- 0773 Feb, [facility] [place] [facility] [address] [id number] [place] [address]- 4788 Jan, [facility] [place] [facility] [address] [id number] [address]- 5268 Jan, [facility] [place] [facility] [address] [id number] [place] [address]- 1523 December, [facility] [place] [facility] [address] [id number] [place] [address]- 9828 December, [facility] [place] [facility] [address] [id number] [place] [address]- 0333 Nov, [facility] [place] [facility] [address] [id number] [place] [address]- 9371 Nov, [facility] [place] [facility] [address] [id number] [place] [address]- 3984 Oct, [facility] [place] [facility] [address] [id number] [place] [address]- 8846 Oct, [facility] [place] [facility] [address] [id number] [place] [address]- 0337 Oct, [facility] [place] [facility] [address] [id number] [place] [address]- 5046 Oct, [facility] [place] [facility] [address] [id number] [place] [address]- 3000 Sep, [facility] [place] [facility] [address] [id number] [place] [address]- 4944 Sep, [facility] [place] [facility] [address] [id number] [place] [address]- 1068 Aug, [facility] [place] [facility] [address] [id number] [place] [address]- 3409 Aug, [facility] [place] [facility] [address] [id number] [place] [address]- 3221 Aug, [facility] [place] [facility] [address] [id number] [place] [address]- 0589 Aug, [facility] [place] [facility] [address] [id number] [place] [address]- 6171 Aug, [facility] [place] [facility] [address] [id number] [place] [address]- 1740 Aug, [facility] [address] [id number] [place] [address]- 6202 Jul, [facility] [place] [facility] [address] [id number] [place] [address]- 8280 Jul, [facility] [address] [id number] [place] [address]- 0601 Jul, [facility] [place] [facility] [address] [id number] [place] [address]- 1772 Jun, [facility] [address] [id number] [place] [address]- 0656 Jun, [facility] [address] [id number] [place] [address]- 4124 Jun, [facility] [address] [id number] [place] [address]- 2364 Jun, [facility] [address] [id number] [place] [address]- 6818 May, [facility] [place] [facility] [address] [id number] [place] [address]- 8877 May, [facility] [address] [id number] [place] [address]- 5042 May, [facility] [place] [facility] [address] [id number] [place] [address]- 2044 May, [facility] [address] [id number] [place] [address]- 4132 Apr, [facility] [place] [facility] [address] [id number] [place] [address]- 6043 Apr, 2012 [facility] [place] [facility] [address] [id number] [place] [address]- 6116 Apr, [facility] [place] [facility] [address] [id number] [place] [address]- 0219 Apr, [facility] [place] [facility] [address] [id number] [place] [address]- 9986 Apr, [facility] [place] [facility] [address] [id number] [place] [address]- 5050 Mar, [facility] [place] [facility] [address] [id number] [place] [address]- 5667 Mar, [facility] [place] [facility] [address] [id number] [place] [address]- 1261 Mar, [facility] [place] [facility] [address] [id number] [place] [address]- 8018 Mar, [facility] [place] [facility] [address] [id number] [place] [address]- 4215 Feb, [facility] [place] [facility] [address] [id number] [place] [address]- 5726 Feb, [facility] [place] [facility] [address] [id number] [place] [address]- 3628 Jan, [facility] [place] [facility] [address] [id number] [place] [address]- 2854 Jan, [facility] [place] [facility] [address] [id number] [place] [address]- 9009 Jan, [facility] [place] [facility] [address] [id number] [place] [address]- 6694 Jan, [facility] [place] [facility] [address] [id number] [place] [address]- 0908 December, [facility] [place] [facility] [address] [id number] [place] [address]- 1327 December, [facility] [place] [facility] [address] [id number] [place] [address]- 5889 Nov, [facility] [place] [facility] [address] [id number] [place] [address]- 0582 Nov, [facility] [place] [facility] [address] [id number] [place] [address]- 0445 04 Nov, 2012 [facility] [address] [id number] [place] [address]- 3675 08 Oct, 2012 [facility] [place] [facility] [address] [id number] [place] [address]- 8466 06 Oct, 2012 [facility] [address] [id number] [place] [address]- 2456 07 Sep, 2012 [facility] [place] [facility] [address] [id number] [place] [address]- 1548 07 Sep, 2012 [facility] [address] [id number] [place] [address]- 1372 Aug, [facility] [place] [facility] [address] [id number] [place] [address]- 6417 Aug, [facility] [address] [id number] [place] [address]- 3291 10 Jul, 2012 [facility] [address] [id number] [place] [address]- 3870 Jul, [facility] [address] [id number] [place] [address]- 1137 Jul, [facility] [address] [id number] [place] [address]- 5201 Jul, [facility] [address] [id number] [place] [address]- 6926 Jul, [facility] [place] [facility] [address] [id number] [place] [address]- 7370 Jul, [facility] [place] [facility] [address] [id number] [place] [address]- 5748 Jun, [facility] [place] [facility] [address] [id number] [place] [address]- 3131 Jun, [facility] [place] [facility] [address] [id number] [place] [address]- 9233 Jun, [facility] [place] [facility] [address] [id number] [place] [address]- 7125 Jun, [facility] [place] [facility] [address] [id number] [place] [address]- 5143 Jun, [facility] [place] [facility] [address] [id number] [place] [address]- 2184 Jun, [facility] [place] [facility] [address] [id number] [place] [address]- 4160 May, [facility] [place] [facility] [address] [id number] [place] [address]- 3317 May, [facility] [place] [facility] [address] [id number] [place] [address]- 7330 May, [facility] [place] [facility] [address] [id number] [place] [address]- 5476 May, [facility] [place] [facility] [address] [id number] [place] [address]- 1233 May, [facility] [place] [facility] [address] [id number] [place] [address]- 7842 May, [facility] [place] [facility] [address] [id number] [place] [address]- 5[address] May, [facility] [place] [facility] [address] [id number] [place] [address] May, [facility] [place] [facility] [address] [id number] [place] [address] May, [facility] [place] [facility] [address] [id number] [place] [address] Apr, [facility] [place] [facility] [address] [id number] [place] [address] Apr, [facility] [place] [facility] [address] [id number] [place] [address] Mar, [facility] [place] [facility] [address] [id number] [place] [address] Mar, [facility] [place] [facility] [address] [id number] [place] [address] Mar, [facility] [place] [facility] [address] [id number] [place] [address] Mar, [facility] [place] [facility] [address] [id number] [place] [address] Mar, [facility] [place] [facility] [address] [id number] [place] [address] Mar, [facility] [place] [facility] [address] [id number] [place] [address] Mar, [facility] [place] [facility] [address] [id number] [place] [address] Mar, [facility] [place] [facility] [address] [id number] [place] [address] Mar, [facility] [place] [facility] [address] [id number] [place] [address] Feb, [facility] [place] [facility] [address] [id number] [place] [address] Feb, [facility] [place] [facility] [address] [id number] [place] [address] Feb, [facility] [place] [facility] [address] [id number] [place] [address] Feb, [facility] [place] [facility] [address] [id number] [place] [address] Jan, [facility] [place] [facility] [address] [id number] [place] [address] December, [facility] [place] [facility] [address] [id number] [place] [address]- [address] December, [facility] [place] [facility] [address] [id number] [place] [address]- [address] December, [facility] [place] [facility] [address] [id number] [place] [address] 19 Nov, 2011 [facility] [address] [id number] [place] [address] 17 Nov, 2011 [facility] [address] [id number] [place] [address]- [address]16 16 Nov, 2011 [facility] [address] [id number] [place] [address] 16 Nov, 2011 [facility] [address] [id number] [place] [address] 07 Oct, 2011 [facility] [address] [id number] [place] [address] 15 Sep, 2011 [facility] [address] [id number] [place] [address] 08 Sep, 2011 [facility] [address] [id number] [place] [address] 16 Aug, 2011 [facility] [address] [id number] [place] [address]- [address]98 Aug, [facility] [address] [id number] [place] [address] Aug, [facility] [address] [id number] [place] [address] Aug, [facility] [address] [id number] [place] [address] Aug, [facility] [address] [id number] [place] [address] Jul, [facility] [place] [facility] [address] [id number] [place] [address]- [address] Jul, [facility] [address] [id number] [place] [address]- [address] Jul, [facility] [address] [id number] [place] [address]- [address] Jul, [facility] [place] [facility] [address] [id number] [place] [address]- [address] 29 Jun, 2011 [facility] [place] [facility] [address] [id number] [place] [address]- [address]36 Jun, [facility] [place] [facility] [address] [id number] [place] [address]- [address] Jun, [facility] [place] [facility] [address] [id number] [place] [address]- [address] Jun, [facility] [place] [facility] [address] [id number] [place] [address] May, [facility] [place] [facility] [address] [id number] [place] [address] 8614 May, [facility] [place] [facility] [address] [id number] [place] [address] Aug, [facility] [place] [facility] [address] [id number] [place] [address]- [address] Jul, [facility] [place] [facility] [address] [id number] [place] [address]- 3068 Jun, [facility] [place] [facility] [address] [id number] [place] [address]388 May, [facility] [place] [facility] [address] [id number] [place] [address]- 7925 May, [facility] [place] [facility] [address] [id number] [place] [address]- 9418 May, [facility] [place] [facility] [address] [id number] [place] [address] December, [facility] [place] [facility] [address] [id number] [place] [address]- [address] Jul, [facility] [place] [facility] [address] [id number] [place] [address]- 133[address] Jul, [facility] [place] [facility] [address] [id number] [place] [address] Jul, [facility] [id number] [address] Jun, [facility] [address] [id number] [address] Jun, [facility] [id number] [place] [address] Jun, [facility] [id number] [place] [address] Jun, [facility] [id number] [place] [address]- [birth year] May, IMMUNIZATIONS No Known Immunizations SOCIAL HISTORY Never Assessed REASON FOR VISIT Callus Debulking -Manjit KESSLER PLAN OF CARE Activity Details Follow Up 2 Months Reason:callus debulking Future/Pending Procedure DEBRIDE SKIN TISSUE VITAL SIGNS Height 69 in 2018-02-06 Weight 141 lbs 2018-02-06 Temperature 98.1 degrees Fahrenheit 2018-02-06 Heart Rate 64 bpm 2018-02-06 Respiratory Rate 20 2018-02-06 Oximetry on room air:96 % 2018-02-06 BMI 20.82 kg/m2 2018-02-06 Blood pressure systolic 110 mmHg 2018-02-06 Blood pressure diastolic 60 mmHg 2018-02-06 MEDICATIONS Medication Instructions Dosage Frequency Start Date End Date Duration Status MS Contin 15 mg Orally Once a day 1 tablet 24h Jan, 28 days Active Percocet 5-325 MG Orally 2 times a day 1 tablet as needed 12h Jan, 28 days Active Ambien 10 MG Orally Once a day 1 tablet at bedtime 24h 30 days Active VESIcare 10 MG TAKE ONE TABLET BY MOUTH ONCE DAILY 30 Active Fluoxetine HCl 20 mg Orally Once a day TAKE ONE CAPSULE BY MOUTH IN THE MORNING 24h 30 Active Finasteride 5 MG TAKE ONE TABLET BY MOUTH ONCE DAILY 30 Active Gabapentin 300 MG 2 capsules 12h Active RESULTS No Results PROCEDURES Procedure Date Ordered Result Body Site DEBRIDE SKIN/TISSUE February 06, 2018 [facility] VISIT ESTABLISHED PATIENT February 06, 2018 INSTRUCTIONS MEDICATIONS ADMINISTERED No Known Medications [...]
--- OUTSIDE RECORDS SUMMARY | 2018-07-23 14:49 | XMS REPORT ---
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 619781003 Problem Diabetes E11.9 Active [id number] ALLERGIES No Information ENCOUNTERS Encounter Location Date Diagnosis [place] [address] [address] Apr, [place] [address] 279[address]- 8889 Feb, Depressive disorder, not elsewhere classified F32.9 and Mild cognitive impairment G31.84 [place] [address] [place] [id number] [place] [address] 05131- 3373 Feb, Foot callus L84 [place] [address] [address]- 5960 Jan, Muscular dystrophies G71.0 [place] [address] [address]157- 5331 Jan, [place] [address] [address]- 7354 Jan, [place] [address] 7[address]- 3792 Jan, Callus of foot L84 ; Nail hypertrophy L60.2 and Self-care deficit for hygiene R46.0 [facility] [address] [place] [id number] [place] [address] 15147- 7942 December, [facility] [address] [place] [id number] [place] [address] 85827- 4088 December, Callus of foot L84 ; Nail hypertrophy L60.2 ; Self-care deficit for hygiene R46.0 ; Controlled type 2 diabetes mellitus without complication, unspecified whether skilled nursing insulin use E11.9 and Muscular dystrophies G71.0 [facility] [address] [place] [id number] [place] [address] 09086- 3013 December, Muscular dystrophies G71.0 [facility] [address] [place] [id number] [place] [address] 68795 -0791 December, 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 [place] [address] [place] [id number] [place] [address] 47487- 8286 Nov, [place] [address] [place] [id number] [place] [address] 24384- 6330 Nov, [place] [address] [place] [id number] [place] [address] 38156- 0017 Nov, Muscular dystrophies G71.0 [facility] [address] [place] [id number] [place] [address] 38939- 5275 Oct, Muscular dystrophies G71.0 [place] [address] [place] [id number] [place] [address] 78809- 8028 Aug, Muscular dystrophies G71.0 [facility] [address] [place] [id number] [place] [address] 27267 -4544 Jul, Urinary tract infection without hematuria, site unspecified N39.0 [facility] [address] [place] [id number] [place] [address] 08164 -2055 04 Jul, 2017 Urinary tract infection without hematuria, site unspecified N39.0 [facility] [address] [place] [id number] [place] [address] 67433- 6709 May, Muscular dystrophies G71.0 [facility] [address] [facility] [id number] [place] [address]- 6666 Apr, Muscular dystrophies G71.0 [facility] [address] [facility] [id number] [place] [address]- 5146 Mar, Muscular dystrophies G71.0 [facility] [address] [place] [id number] [place] [address], [place] [address]- 0721 Feb, [facility] [address] [facility] [id number] [place] [address], [place] [address]- 0256 Feb, Muscular dystrophies G71.0 [facility] [address] [place] [id number] [place] [address], [place]- 4504 Jan, Muscular dystrophies G71.0 and Diabetes E11.9 [facility] [address] [place] [id number] [place] [address], [place] [address]- 2849 Nov, [facility] [id number] [place] [address]- 4564 Nov, [facility] [id number] [place] [address], [place] 3472 Oct, [facility] [id number] [place] [address]- 7685 Sep, [facility] [id number] [place] [address]- 9646 Sep, [facility] [address] [place] [id number] [address]- 6313 Aug, [facility] [id number] [place] [address]- 7924 Jul, [facility] [id number] [place] [address]- 8936 Jul, [facility] [address] [address]- 6521 Jun, [facility] [address] [address]774 May, Dysuria R30.0 and Cystitis N30.90 [facility] [address] [place] [id number] [place] [address] 32178- 0726 May, [facility] [address] [place] [id number] [place] [address] 39209- 6283 May, [facility] [address] [place] [id number] [place] [address] 40055- 0219 May, [facility] [address] [place] [id number] [place] [address] 28554- 1977 May, [facility] [address] [place] [id number] [place] [address] 13875- 1310 Mar, Muscular dystrophies G71.0 [facility] [address] [place] [id number] [place] [address] 05039- 3012 Feb, Muscular dystrophies G71.0 [facility] [address] [place] [id number] [place] [address] 08895- 1643 Feb, [facility] [address] [place] [id number] [place] [address] 02489- 0228 Jan, Muscular dystrophies G71.0 [facility] [address] [place] [id number] [place] [address] 42264- 4590 December, Open bite of left upper arm, initial encounter S41.152A [facility] [address] [address]695 December, [facility] [address] [place] [id number] [place] [address] 85268- 7096 Nov, [facility] [address] [place] [id number] [place] [address] 87268- 2719 Nov, [facility] [address] [place] [id number] [place] [address] 76887- 6134 Oct, [facility] [id number] [place] [address] 51720- 6018 Oct, Diabetes type 2, controlled E11.9 and Polyneuropathy G62.9 [facility] [address] [place] [id number] [place] [address] 76077- 5271 Sep, [facility] [address] [place] [id number] [place] [address] 43573- 9330 Aug, [facility] [address] [place] [id number] [place] [address] 74162- 2118 Aug, [facility] [address] [place] [id number] [place] [address] 27014- 9336 Jul, [facility] [address] [place] [id number] [place] [address] 67101- 6450 Jul, [facility] [address] [place] [id number] [place] [address] 40656- 6473 Jul, [facility] [address] [place] [id number] [place] [address] 68877- 5008 Jun, [facility] [address] [place] [id number] [place] [address] 25215- 6240 Jun, Foot deformity M21.969 [facility] [address] [place] [id number] [place] [address] 68622- 4551 May, [facility] [address] [place] [id number] [place] [address] 39719- 8352 May, [facility] [id number] [place] [address] 23488- 4780 May, [facility] [address] [place] [id number] [place] [address] 77656- 0640 Apr, Diabetes with renal manifestations, type II or unspecified type, not stated as uncontrolled 250.40 and Unsteady gait 781.2 [facility] [address] [place] [id number] [place] [address] 11899- 4284 Apr, [facility] [place] [facility] [address] [id number] [place] [address]- 5340 09 Apr, 2015 [facility] [place] [facility] [address] [id number] [place] [address]- 7106 Mar, [facility] [place] [facility] [address] [id number] [place] [address] 2546 Feb, [facility] [place] [facility] [address] [id number] [place] [address] 2548 Jan, [facility] [place] [facility] [address] [id number] [place] [address]- 5002 Jan, [facility] [place] [facility] [address] [id number] [place] [address]- 2493 December, [facility] [place] [facility] [address] [id number] [place] [address]- 8449 Nov, [facility] [place] [facility] [address] [id number] [place] [address]- 0675 Nov, [facility] [place] [facility] [address] [id number] [place] [address]- 2533 Oct, [facility] [place] [facility] [address] [id number] [place] [address]- 4072 Oct, [facility] [place] [facility] [address] [id number] [place] [address]- 4877 Oct, [facility] [place] [facility] [address] [id number] [address]- 3924 Oct, [facility] [place] [facility] [address] [id number] [place] [address]- 6447 Oct, [facility] [place] [facility] [address] [id number] [place] [address]- 1946 Oct, [facility] [place] [facility] [address] [id number] [address]- 0556 Sep, [facility] [place] [facility] [address] [id number] [address]- 9941 Sep, [facility] [place] [facility] [address] [id number] [place] [address]- 4229 Sep, [facility] [place] [facility] [address] [id number] [place] [address]- 7625 Sep, [facility] [place] [facility] [address] [id number] [place] [address]- 7228 Aug, [facility] [place] [facility] [address] [id number] [place] [address]- 9492 Aug, [facility] [place] [facility] [address] [id number] [place] [address]- 2595 Aug, [facility] [place] [facility] [address] [id number] [place] [address]- 7914 Aug, [facility] [place] [facility] [address] [id number] [place] [address]- 4073 Jul, [facility] [place] [facility] [address] [id number] [place] [address]- 9561 Jul, [facility] [place] [facility] [address] [id number] [place] [address]- 5787 Jul, [facility] [place] [facility] [address] [facility] [id number] [place] [address]- 2537 Jul, [facility] [place] [facility] [address] [id number] [place] [address]- 4605 Jun, [facility] [place] [facility] [address] [id number] [place] [address]- 2486 Jun, [facility] [place] [facility] [address] [id number] [place] [address]- 3607 Jun, [facility] [place] [facility] [address] [id number] [place] [address]- 8320 Jun, [facility] [place] [facility] [address] [facility] [id number] [place] [address]- 3465 May, [facility] [place] [facility] [address] [id number] [place] [address]- 9646 May, [facility] [place] [facility] [address] [id number] [place] [address]- 9850 May, [facility] [place] [facility] [address] [id number] [place] 2427 May, [facility] [place] [facility] [address] [id number] [place] [address]- 2869 Apr, [facility] [place] [facility] [address] [id number] [place] [address]- 7727 Apr, [facility] [place] [facility] [address] [id number] [place] [address]- 3826 Apr, [facility] [place] [facility] [address] [id number] [place] [address]- 8226 Mar, [facility] [place] [facility] [address] [id number] [place] [address]- 0714 Mar, [facility] [place] [facility] [address] [id number] [place] [address]- 4058 Mar, [facility] [place] [facility] [address] [id number] [place] [address]- 9103 Mar, [facility] [place] [facility] [address] [id number] [place] [address]- 0086 Feb, [facility] [place] [facility] [address] [id number] [place] [address]- 8904 Feb, [facility] [place] [facility] [address] [id number] [place] [address]- 0293 Feb, [facility] [place] [facility] [address] [id number] [place] [address]- 1843 Feb, [facility] [place] [facility] [address] [id number] [place] [address]- 7740 Jan, [facility] [place] [facility] [address] [id number] [place] [address]- 4731 Jan, [facility] [place] [facility] [address] [id number] [place] [address]- 6560 December, [facility] [place] [facility] [address] [id number] [place] [address]- 3254 December, [facility] [place] [facility] [address] [id number] [place] [address]- 4297 Nov, [facility] [place] [facility] [address] [id number] [place] [address]- 9905 Nov, [facility] [place] [facility] [address] [id number] [place] [address]- 2089 Oct, [facility] [place] [facility] [address] [id number] [place] [address]- 2303 Oct, [facility] [place] [facility] [address] [id number] [place] [address]- 5815 Oct, [facility] [place] [facility] [address] [id number] [place] [address]- 7170 Oct, [facility] [place] [facility] [address] [id number] [place] [address]- 2268 Sep, [facility] [place] [facility] [address] [id number] [place] [address]- 7100 Sep, [facility] [place] [facility] [address] [id number] [place] [address]- 9787 Aug, [facility] [place] [facility] [address] [id number] [place] [address]- 0939 Aug, [facility] [place] [facility] [address] [id number] [place] [address]- 4417 Aug, [facility] [place] [facility] [address] [id number] [place] [address]- 4861 Aug, [facility] [place] [facility] [address] [id number] [place] [address]- 1756 Aug, [facility] [place] [facility] [address] [id number] [place] [address]- 2582 Aug, [facility] [address] [id number] [place] [address]- 7270 Jul, [facility] [place] [facility] [address] [id number] [place] [address]- 5102 Jul, [facility] [address] [id number] [place] [address]- 4191 Jul, [facility] [place] [facility] [address] [id number] [place] [address]- 1341 Jun, [facility] [address] [id number] [place] [address]- 0358 Jun, [facility] [address] [id number] [place] [address]- 3364 Jun, [facility] [address] [id number] [place] [address]- 4681 Jun, [facility] [address] [id number] [place] [address]- 5335 May, [facility] [address] [id number] [place] [address]- 5477 May, [facility] [address] [id number] [place] [address]- 7386 May, [facility] [place] [facility] [address] [id number] [place] [address]- 4011 May, [facility] [address] [id number] [place] [address]- 8994 Apr, [facility] [place] [facility] [address] [id number] [place] [address]- 0738 Apr, [facility] [place] [facility] [address] [id number] [place] [address]- 7387 Apr, [facility] [place] [facility] [address] [id number] [place] [address]- 5919 Apr, [facility] [place] [facility] [address] [id number] [place] [address]- 9307 Apr, [facility] [place] [facility] [address] [id number] [place] [address]- 7076 Mar, [facility] [place] [facility] [address] [id number] [place] [address]- 1295 Mar, [facility] [place] [facility] [address] [id number] [place] [address]- 4289 Mar, [facility] [place] [facility] [address] [id number] [place] 4833 Mar, [facility] [place] [facility] [address] [id number] [place] [address]- 2308 Feb, [facility] [place] [facility] [address] [id number] [place] [address]- 8860 Feb, [facility] [place] [facility] [address] [id number] [place] [address]- 9157 Jan, [facility] [place] [facility] [address] [id number] [place] [address]- 0111 Jan, [facility] [place] [facility] [address] [id number] [place] [address]- 3535 Jan, [facility] [place] [facility] [address] [id number], [place] [address]- 7787 Jan, [facility] [place] [facility] [address] [id number], [place] [address]- 6880 December, [facility] [place] [facility] [address] [id number] [place] [address]- 1188 December, [facility] [place] [facility] [address] [id number] [place] [address]- 6358 Nov, [facility] [place] [facility] [address] [id number], [place] [address]- 1138 Nov, [facility] [place] [facility] [address] [id number], [place] [address]- 3439 04 Nov, 2012 [facility] [address] [id number] [place] [address]- 2342 08 Oct, 2012 [facility] [place] [facility] [address] [id number] [place] [address]- 6906 06 Oct, 2012 [facility] [address] [id number] [place] [address]- 0126 07 Sep, 2012 [facility] [place] [facility] [address] [id number] [place] [address]- 2114 07 Sep, 2012 [facility] [address] [id number] [place] [address]- 6461 08 Aug, 2012 [facility] [place] [facility] [address] [facility] [id number] [place] [address]- 6689 Aug, [facility] [address] [id number] [place] [address]- 9632 10 Jul, 2012 [facility] [place] [facility] [address] [id number] [place] [address]- 9416 Jul, [facility] [address] [id number] [place] [address]- 5999 Jul, [facility] [address] [facility] [id number] [place] [address]- 7979 Jul, [facility] [address] [id number] [place] [address]- 4477 Jul, [facility] [place] [facility] [address] [facility] [id number] [place] [address]- 2543 Jul, [facility] [place] [facility] [address] [id number] [place] [address]- 2474 Jun, [facility] [place] [facility] [address] [id number] [place] [address]- 8723 Jun, [facility] [place] [facility] [address] [facility] [id number] [place] [address]- 0173 Jun, [facility] [place] [facility] [address] [id number] [place] [address]- 8745 Jun, [facility] [place] [facility] [address] [id number] [place] [address]- 2407 Jun, [facility] [place] [facility] [address] [id number] [place] [address]- 0117 Jun, [facility] [place] [facility] [address] [id number] [place] [address]- 8733 May, [facility] [place] [facility] [address] [id number] [place] [address]- 2324 May, [facility] [place] [facility] [address] [id number] [place] [address]- 2625 May, [facility] [place] [facility] [address] [id number] [place] [address]- 0593 May, [facility] [place] [facility] [address] [id number] [place] [address] May, [facility] [place] [facility] [address] [id number] [place] [address] May, [facility] [place] [facility] [address] [id number] [place] [address] May, [facility] [place] [facility] [address] [id number] [place] [address] May, [facility] [place] [facility] [address] [id number] [place] [address] May, [facility] [place] [facility] [address] [id number] [place] [address] Apr, [facility] [place] [facility] [address] [id number] [place] [address] Apr, [facility] [place] [facility] [address] [id number] [place] [address] Mar, [facility] [place] [facility] [address] [id number] [place] [address] Mar, [facility] [place] [facility] [address] [id number] [place] [address] Mar, [facility] [place] [facility] [address] [id number] [place] [address] Mar, [facility] [place] [facility] [address] [id number] [place] [address] Mar, [facility] [place] [facility] [address] [id number] [place] [address] Mar, [facility] [place] [facility] [address] [id number] [place] [address] Mar, [facility] [place] [facility] [address] [id number] [place] [address] Mar, [facility] [place] [facility] [address] [id number] [place] [address] Mar, [facility] [place] [facility] [address] [id number] [place] [address] Feb, [facility] [place] [facility] [address] [id number] [place] [address] Feb, [facility] [place] [facility] [address] [id number] [place] [address] Feb, [facility] [place] [facility] [address] [id number] [place] [address] Feb, [facility] [place] [facility] [address] [id number] [place] [address] Jan, [facility] [place] [facility] [address] [id number] [place] [address] December, [facility] [place] [facility] [address] [id number] [place] [address] December, [facility] [place] [facility] [address] [id number] [place] [address] December, [facility] [place] [facility] [address] [id number] [place] [address] 19 Nov, 2011 [facility] [address] [id number] [place] [address] 17 Nov, 2011 [facility] [address] [id number] [place] [address] 16 Nov, 2011 [facility] [address] [id number] [place] [address]- [address]16 16 Nov, 2011 [facility] [address] [id number] [place] [address]- [address] Oct, [facility] [address] [id number] [place] [address] 15 Sep, 2011 [facility] [address] [id number] [place] [address] 08 Sep, 2011 [facility] [address] [id number] [place] [address] 16 Aug, 2011 [facility] [address] [id number] [place] [address] Aug, [facility] [address] [id number] [place] [address] Aug, [facility] [address] [id number] [place] [address] Aug, [facility] [address] [id number] [place] [address] Aug, [facility] [address] [id number] [place] [address] Jul, [facility] [address] [id number] [place] [address] Jul, [facility] [address] [id number] [place] [address] Jul, [facility] [address] [id number] [place] [address] Jul, [facility] [place] [facility] [address] [id number] [place] [address]- [address] 29 Jun, 2011 [facility] [place] [facility] [address] [id number] [place] [address]- [address] Jun, [facility] [place] [facility] [address] [id number] [place] [address]- [address] Jun, [facility] [place] [facility] [address] [id number] [place] [address] Jun, [facility] [place] [facility] [address] [id number] [place] [address]- [address] May, [facility] [place] [facility] [address] [id number] [place] [address] May, [facility] [place] [facility] [address] [id number] [place] [address]257 Aug, [facility] [place] [facility] [address] [id number] [place] [address] Jul, [facility] [place] [facility] [address] [id number] [place] [address]- 49[address] Jun, [facility] [place] [facility] [address] [id number], [place] [address] May, [facility] [place] [facility] [address] [id number], [place] [address] May, [facility] [place] [facility] [address] [id number], [place] [address] May, [facility] [place] [facility] [address] [id number] [place] [address] 287[address] December, [facility] [place] [facility] [address] [id number] [place] [address]60 Jul, [facility] [place] [facility] [address] [id number], [place] [address] Jul, [facility] [place] [facility] [address] [id number], [place] [address] Jul, [facility] [address] [facility] [id number] [address] Jun, [facility] [address] [facility] [id number], [place] [address] Jun, [facility] [address] [facility] [id number], [place] [address] Jun, [facility] [address] [facility] [id number], [place] [address] Jun, [facility] [address] [facility] [id number], [place] [address] May, IMMUNIZATIONS No Known Immunizations SOCIAL HISTORY Never Assessed REASON FOR VISIT Controlled Med Refill PLAN OF CARE VITAL SIGNS MEDICATIONS Medication Instructions Dosage Frequency Start Date End Date Duration Status MS Contin 15 mg Orally Once a day 1 tablet 24h Jan, 28 days Active Percocet 5-325 MG Orally 2 times a day 1 tablet as needed 12h Jan, 28 days Active RESULTS No Results PROCEDURES No Known procedures [...]
--- OUTSIDE RECORDS SUMMARY | 2018-07-23 14:49 | XMS REPORT ---
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 731178708 Problem Diabetes E11.9 Active 16352303 ALLERGIES No Information ENCOUNTERS Encounter Location Date Diagnosis [place] [address] [address]- [address] Apr, [place] [address] 4[address]- 6984 Feb, Depressive disorder, not elsewhere classified F32.9 and Mild cognitive impairment G31.84 [place] [address] [place] [id number] [place] [address] 11130- 6161 Feb, Foot callus L84 [place] [address] 30523- 3679 Jan, Muscular dystrophies G71.0 [place] [address] 39302- 6242 Jan, [place] [address] 78379- 2657 Jan, [place] [address] 42308- 1478 Jan, Callus of foot L84 ; Nail hypertrophy L60.2 and Self-care deficit for hygiene R46.0 [facility] [address] [place] [id number] [place] [address] 75300- 3724 December, [facility] [address] [place] [id number] [place] [address] 84483- 6926 December, Callus of foot L84 ; Nail hypertrophy L60.2 ; Self-care deficit for hygiene R46.0 ; Controlled type 2 diabetes mellitus without complication, unspecified whether snf insulin use E11.9 and Muscular dystrophies G71.0 [facility] [address] [place] [id number] [place] [address] 59465- 2489 December, Muscular dystrophies G71.[address] 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 [place] [address] [place] [id number] [place] [address] 13357- 2010 Nov, [place] [address] [place] [id number] [place] [address] 61493- 5145 Nov, [place] [address] [place] [id number] [place] [address] 53377- 7458 Nov, Muscular dystrophies G71.0 [facility] [address] [place] [id number] [place] [address] 27213- 0210 Oct, Muscular dystrophies G71.0 [place] [address] [place] [id number] [place] [address] 59221- 6218 Aug, Muscular dystrophies G71.0 [facility] [address] [place] [id number] [place] [address] 38160 -6121 Jul, Urinary tract infection without hematuria, site unspecified N39.[address] [facility] [address] [place] [id number] [place] [address] 99491 -3643 04 Jul, 2017 Urinary tract infection without hematuria, site unspecified N39.0 [facility] [address] [place] [id number] [place] [address] 89771- 3199 May, Muscular dystrophies G71.0 [facility] [address] [facility] [id number] [place] [address]- 7656 Apr, Muscular dystrophies G71.0 [facility] [address] [facility] [id number] [place] [address]- 8586 Mar, Muscular dystrophies G71.0 [facility] [address] [place] [address] [id number] [place] [address], [place] [address]- 7688 Feb, [facility] [address] [facility] [id number] [place] [address], [place] [address]- 5836 Feb, Muscular dystrophies G71.0 [facility] [address] [place] [id number] [place] [address], [place] 9271 Jan, Muscular dystrophies G71.0 and Diabetes E11.9 [facility] [address] [place] [id number] [place] [address], [place] [address]- 5708 Nov, [facility] [id number] [place] [address]- 2852 Nov, [facility] [id number] [place] [address], [place]- 4255 Oct, [facility] [id number] [place] [address]- 9762 Sep, [facility] [id number] [place] [address]- 6225 Sep, [facility] [address] [place] [id number] [address] 1898 Aug, [facility] [id number] [place] [address]- 9681 Jul, [facility] [id number] [address]- 3716 Jul, [facility] [address] [address]- 6117 Jun, [facility] [address] [address]5 May, Dysuria R30.0 and Cystitis N30.90 [facility] [address] [place] [id number] [place] [address] 37347- 3624 May, [facility] [address] [place] [id number] [place] [address] 48439- 8872 May, [facility] [address] [place] [id number] [place] [address] 19306- 3129 May, [facility] [address] [place] [id number] [place] [address] 95097- 5503 May, [facility] [address] [place] [id number] [place] [address] 08002- 8064 Mar, Muscular dystrophies G71.0 [facility] [address] [place] [id number] [place] [address] 85026- 4111 Feb, Muscular dystrophies G71.0 [facility] [address] [place] [id number] [place] [address] 08981- 2460 Feb, [facility] [address] [place] [id number] [place] [address] 02201- 1119 Jan, Muscular dystrophies G71.0 [facility] [address] [place] [id number] [place] [address] 51969- 0878 December, Open bite of left upper arm, initial encounter S41.152A [facility] [address] [address] December, [facility] [address] [place] [id number] [place] [address] 25568- 4037 Nov, [facility] [address] [place] [id number] [place] [address] 29471- 5842 Nov, [facility] [address] [place] [id number] [place] [address] 16076- 4732 Oct, [facility] [id number] [place] [address] 95663- 3192 Oct, Diabetes type 2, controlled E11.9 and Polyneuropathy G62.9 [facility] [address] [place] [id number] [place] [address] 10566- 6950 Sep, [facility] [address] [place] [id number] [place] [address] 49574- 8201 Aug, [facility] [address] [place] [id number] [place] [address] 11077- 7647 Aug, [facility] [address] [place] [id number] [place] [address] 12946- 2683 Jul, [facility] [address] [place] [id number] [place] [address] 39001- 5650 Jul, [facility] [address] [place] [id number] [place] [address] 31411- 4398 Jul, [facility] [address] [place] [id number] [place] [address] 97166- 6748 Jun, [facility] [address] [place] [id number] [place] [address] 43689- 3271 Jun, Foot deformity M21.969 [facility] [address] [place] [id number] [place] [address] 40594- 4742 May, [facility] [address] [place] [id number] [place] [address] 66315- 0126 May, [facility] [id number] [place] [address] 23122- 0073 May, [facility] [address] [place] [id number] [place] [address] 99661- 7136 Apr, Diabetes with renal manifestations, type II or unspecified type, not stated as uncontrolled 250.40 and Unsteady gait 781.2 [facility] [address] [place] [id number] [place] [address] 00815- 2310 Apr, [facility] [place] [facility] [address] [id number] [place] [address]- 0957 09 Apr, 2015 [facility] [place] [facility] [address] [id number] [place] [address]- 9506 Mar, [facility] [place] [facility] [address] [id number] [place] [address] 2546 Feb, [facility] [place] [facility] [address] [id number] [place] [address] 2545 Jan, [facility] [place] [facility] [address] [id number] [place] [address]- 0420 Jan, [facility] [place] [facility] [address] [id number] [place] [address]- 7109 December, [facility] [place] [facility] [address] [id number] [place] [address]- 6362 Nov, [facility] [place] [facility] [address] [id number] [place] [address]- 4687 Nov, [facility] [place] [facility] [address] [id number] [place] [address]- 2535 Oct, [facility] [place] [facility] [address] [id number] [place] [address]- 6758 Oct, [facility] [place] [facility] [address] [id number] [place] [address]- 3156 Oct, [facility] [place] [facility] [address] [id number], [place] [address]- 2266 Oct, [facility] [place] [facility] [address] [id number] [place] [address]- 7927 Oct, [facility] [place] [facility] [address] [id number] [place] [address]- 6226 Oct, [facility] [place] [facility] [address] [id number], [place] [address]- 4506 Sep, [facility] [place] [facility] [address] [id number], [place] [address]- 3155 Sep, [facility] [place] [facility] [address] [id number] [place] [address]- 0872 Sep, [facility] [place] [facility] [address] [id number] [place] [address]- 7209 Sep, [facility] [place] [facility] [address] [id number] [place] [address]- 7460 Aug, [facility] [place] [facility] [address] [id number] [place] [address]- 2156 Aug, [facility] [place] [facility] [address] [id number] [place] [address]- 8043 Aug, [facility] [place] [facility] [address] [id number] [place] [address]- 7485 Aug, [facility] [place] [facility] [address] [id number] [place] [address]- 8392 Jul, [facility] [place] [facility] [address] [id number] [place] [address]- 5260 Jul, [facility] [place] [facility] [address] [id number] [place] [address]- 6995 Jul, [facility] [place] [facility] [address] [facility] [id number] [place] [address]- 4940 Jul, [facility] [place] [facility] [address] [id number] [place] [address]- 1184 Jun, [facility] [place] [facility] [address] [id number] [place] [address]- 8154 Jun, [facility] [place] [facility] [address] [id number] [place] [address]- 3598 Jun, [facility] [place] [facility] [address] [id number] [place] [address]- 6065 Jun, [facility] [place] [facility] [address] [facility] [id number] [place] [address]- 7727 May, [facility] [place] [facility] [address] [id number] [place] [address]- 0765 May, [facility] [place] [facility] [address] [id number] [place] [address]- 3651 May, [facility] [place] [facility] [address] [id number] [place] 6801 May, [facility] [place] [facility] [address] [id number] [place] [address]- 8320 Apr, [facility] [place] [facility] [address] [id number] [place] [address]- 2273 Apr, [facility] [place] [facility] [address] [id number] [place] [address]- 5563 Apr, [facility] [place] [facility] [address] [id number] [place] [address]- 6237 Mar, [facility] [place] [facility] [address] [id number] [place] [address]- 8276 Mar, [facility] [place] [facility] [address] [id number] [place] [address]- 9438 Mar, [facility] [place] [facility] [address] [id number] [place] [address]- 8817 Mar, [facility] [place] [facility] [address] [id number] [place] [address]- 6219 Feb, [facility] [place] [facility] [address] [id number] [place] [address]- 5386 Feb, [facility] [place] [facility] [address] [id number] [place] [address]- 6084 Feb, [facility] [place] [facility] [address] [id number] [place] [address]- 4985 Feb, [facility] [place] [facility] [address] [id number] [place] [address]- 3952 Jan, [facility] [place] [facility] [address] [id number] [place] [address]- 7720 Jan, [facility] [place] [facility] [address] [id number] [place] [address]- 1864 December, [facility] [place] [facility] [address] [id number] [place] [address]- 4969 December, [facility] [place] [facility] [address] [id number] [place] [address]- 2814 Nov, [facility] [place] [facility] [address] [id number] [place] [address]- 3883 Nov, [facility] [place] [facility] [address] [id number] [place] [address]- 5412 Oct, [facility] [place] [facility] [address] [id number] [place] [address]- 2700 Oct, [facility] [place] [facility] [address] [id number] [place] [address]- 9050 Oct, [facility] [place] [facility] [address] [id number] [place] [address]- 3534 Oct, [facility] [place] [facility] [address] [id number] [place] [address]- 1893 Sep, [facility] [place] [facility] [address] [id number] [place] [address]- 8210 Sep, [facility] [place] [facility] [address] [id number] [place] [address]- 6017 Aug, [facility] [place] [facility] [address] [id number] [place] [address]- 0402 Aug, [facility] [place] [facility] [address] [id number] [place] [address]- 5518 Aug, [facility] [place] [facility] [address] [id number] [place] [address]- 4592 Aug, [facility] [place] [facility] [address] [id number] [place] [address]- 2945 Aug, [facility] [place] [facility] [address] [id number] [place] [address]- 7513 Aug, [facility] [address] [id number] [place] [address]- 3623 Jul, [facility] [place] [facility] [address] [id number] [place] [address]- 7009 Jul, [facility] [address] [id number] [place] [address]- 5628 Jul, [facility] [place] [facility] [address] [id number] [place] [address]- 1006 Jun, [facility] [address] [id number] [place] [address]- 7426 Jun, [facility] [address] [id number] [place] [address]- 9604 Jun, [facility] [address] [id number] [place] [address]- 8118 Jun, [facility] [address] [id number] [place] [address]- 3952 May, [facility] [address] [id number] [place] [address]- 6359 May, [facility] [address] [id number] [place] [address]- 4845 May, [facility] [place] [facility] [address] [id number] [place] [address]- 2873 May, [facility] [address] [id number] [place] [address]- 8477 Apr, [facility] [place] [facility] [address] [id number] [place] [address]- 3308 Apr, [facility] [place] [facility] [address] [id number] [place] [address]- 6545 Apr, [facility] [place] [facility] [address] [id number] [place] [address]- 9346 Apr, [facility] [place] [facility] [address] [id number] [place] [address]- 8707 Apr, [facility] [place] [facility] [address] [id number] [place] [address]- 4504 Mar, [facility] [place] [facility] [address] [id number] [place] [address]- 9336 Mar, [facility] [place] [facility] [address] [id number] [place] [address]- 8761 Mar, [facility] [place] [facility] [address] [id number] [place] 5705 Mar, [facility] [place] [facility] [address] [id number] [place] [address]- 6597 Feb, [facility] [place] [facility] [address] [id number] [place] [address]- 5806 Feb, [facility] [place] [facility] [address] [id number] [place] [address]- 0803 Jan, [facility] [place] [facility] [address] [id number] [place] [address]- 5127 Jan, [facility] [place] [facility] [address] [id number] [place] [address]- 3506 Jan, [facility] [place] [facility] [address] [id number], [place] [address]- 5958 Jan, [facility] [place] [facility] [address] [id number], [place] [address]- 7635 December, [facility] [place] [facility] [address] [id number] [place] [address]- 6844 December, [facility] [place] [facility] [address] [id number] [place] [address]- 4433 Nov, [facility] [place] [facility] [address] [id number], [place] [address]- 6805 Nov, [facility] [place] [facility] [address] [id number], [place] [address]- 6434 04 Nov, 2012 [facility] [address] [id number] [place] [address]- 3015 08 Oct, 2012 [facility] [place] [facility] [address] [id number] [place] [address]- 1726 06 Oct, 2012 [facility] [address] [id number] [place] [address]- 9586 07 Sep, 2012 [facility] [place] [facility] [address] [id number] [place] [address]- 4438 07 Sep, 2012 [facility] [address] [id number] [place] [address]- 0373 08 Aug, 2012 [facility] [place] [facility] [address] [facility] [id number] [place] [address]- 6712 Aug, [facility] [address] [id number] [place] [address]- 0790 10 Jul, 2012 [facility] [place] [facility] [address] [id number] [place] [address]- 3061 Jul, [facility] [address] [id number] [place] [address]- 6860 Jul, [facility] [address] [facility] [id number] [place] [address]- 7630 Jul, [facility] [address] [id number] [place] [address]- 7128 Jul, [facility] [place] [facility] [address] [facility] [id number] [place] [address]- 254 Jul, [facility] [place] [facility] [address] [id number] [place] [address]- 3451 Jun, [facility] [place] [facility] [address] [id number] [place] [address]- 6013 Jun, [facility] [place] [facility] [address] [facility] [id number] [place] [address]- 2379 Jun, [facility] [place] [facility] [address] [id number] [place] [address]- 5198 Jun, [facility] [place] [facility] [address] [id number] [place] [address]- 8746 Jun, [facility] [place] [facility] [address] [id number] [place] [address]- 6116 Jun, [facility] [place] [facility] [address] [id number] [place] [address]- 7496 May, [facility] [place] [facility] [address] [id number] [place] [address]- 2355 May, [facility] [place] [facility] [address] [id number] [place] [address]- 2993 May, [facility] [place] [facility] [address] [id number] [place] [address]- 8359 May, [facility] [place] [facility] [address] [id number] [place] [address]- 1818 May, [facility] [place] [facility] [address] [id number] [place] [address]- 2201 May, [facility] [place] [facility] [address] [id number] [place] [address]- 3580 May, [facility] [place] [facility] [address] [id number] [place] [address]- 7701 May, [facility] [place] [facility] [address] [id number] [place] [address]- 1070 May, [facility] [place] [facility] [address] [id number] [place] [address]- 6567 Apr, [facility] [place] [facility] [address] [id number] [place] [address]- 9584 Apr, [facility] [place] [facility] [address] [id number] [place] [address]- 3701 Mar, [facility] [place] [facility] [address] [id number] [place] [address]- 5784 Mar, [facility] [place] [facility] [address] [id number] [place] [address]- 4628 Mar, [facility] [place] [facility] [address] [id number] [place] [address] Mar, [facility] [place] [facility] [address] [id number] [place] [address] Mar, [facility] [place] [facility] [address] [id number] [place] [address] Mar, [facility] [place] [facility] [address] [id number] [place] [address] Mar, [facility] [place] [facility] [address] [id number] [place] [address] Mar, [facility] [place] [facility] [address] [id number] [place] [address] Mar, [facility] [place] [facility] [address] [id number] [place] [address] Feb, [facility] [place] [facility] [address] [id number] [place] [address] Feb, [facility] [place] [facility] [address] [id number] [place] [address] Feb, [facility] [place] [facility] [address] [id number] [place] [address] Feb, [facility] [place] [facility] [address] [id number] [place] [address] Jan, [facility] [place] [facility] [address] [id number] [place] [address] December, [facility] [place] [facility] [address] [id number] [place] [address] December, [facility] [place] [facility] [address] [id number] [place] [address] December, [facility] [place] [facility] [address] [id number] [place] [address] 19 Nov, 2011 [facility] [address] [id number] [place] [address] 17 Nov, 2011 [facility] [address] [id number] [place] [address] 16 Nov, 2011 [facility] [address] [id number] [place] [address] 16 Nov, 2011 [facility] [address] [id number] [place] [address] Oct, [facility] [address] [id number] [place] [address] 15 Sep, 2011 [facility] [address] [id number] [place] [address] 08 Sep, 2011 [facility] [address] [id number] [place] [address] 16 Aug, 2011 [facility] [address] [id number] [place] [address] Aug, [facility] [address] [id number] [place] [address] Aug, [facility] [address] [id number] [place] [address] Aug, [facility] [address] [id number] [place] [address] Aug, [facility] [address] [id number] [place] [address] Jul, [facility] [address] [id number] [place] [address] Jul, [facility] [address] [id number] [place] [address] Jul, [facility] [address] [id number] [place] [address] Jul, [facility] [place] [facility] [address] [id number] [place] [address] 29 Jun, 2011 [facility] [place] [facility] [address] [id number] [place] [address] Jun, [facility] [place] [facility] [address] [id number] [place] [address] Jun, [facility] [place] [facility] [address] [id number] [place] [address] Jun, [facility] [place] [facility] [address] [id number] [place] [address] May, [facility] [place] [facility] [address] [id number] [place] [address] May, [facility] [place] [facility] [address] [id number] [place] [address] Aug, [facility] [place] [facility] [address] [id number] [place] [address] Jul, [facility] [place] [facility] [address] [id number] [place] [address] Jun, [facility] [place] [facility] [address] [id number], [place] [address] May, [facility] [place] [facility] [address] [id number], [place] [address] May, [facility] [place] [facility] [address] [id number], [place] [address] May, [facility] [place] [facility] [address] [id number] [place] [address] December, [facility] [place] [facility] [address] [id number] [place] [address] Jul, [facility] [place] [facility] [address] [id number], [place] [address] Jul, [facility] [place] [facility] [address] [id number], [place] [address] Jul, [facility] [address] [facility] [id number], [place] [address] Jun, [facility] [address] [facility] [id number], [place] [address] Jun, [facility] [address] [facility] [id number], [place] [address] Jun, [facility] [address] [id number], [place] [address] Jun, [facility] [address] [facility] [id number], [place] [address] May, IMMUNIZATIONS No Known Immunizations SOCIAL HISTORY Never Assessed REASON FOR VISIT Requests return call PLAN OF CARE VITAL SIGNS MEDICATIONS Unknown [...]
[2018-07-23] MEDS ORDERED: NS IV 500 ML 500 ML IV ONE (14:50)
[2018-07-23] MEDS ORDERED: TETANUS,DIPTH,PERTUSS P/F (BOOSTRIX) 0.5 ML VIAL IM STA (14:50)
[2018-07-23] MEDS ORDERED: L.E.T. SYRINGE 5 ML MM STA (14:50)
--- OUTSIDE RECORDS SUMMARY | 2018-07-23 14:50 | XMS REPORT ---
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 590767093 Problem Diabetes E11.9 Active 26619375 ALLERGIES No Known Allergies ENCOUNTERS Encounter Location Date Diagnosis [place] [address] [address] Apr, [place] [address] [address] Feb, Depressive disorder, not elsewhere classified F32.9 and Mild cognitive impairment G31.84 [place] [address] [place] [id number] [place] [address] 58933- 8928 Feb, Foot callus L84 [place] [address] [address] Jan, Muscular dystrophies G71.0 [place] [address] [address]- 6[address] Jan, [place] [address] [address]- [address] Jan, [place] [address] [address]- [address] Jan, Callus of foot L84 ; Nail hypertrophy L60.2 and Self-care deficit for hygiene R46.0 [facility] [address] [place] [id number] [place] [address] 57494- 2653 December, [facility] [address] [place] [id number] [place] [address] 86121- 8432 December, Callus of foot L84 ; Nail hypertrophy L60.2 ; Self-care deficit for hygiene R46.0 ; Controlled type 2 diabetes mellitus without complication, unspecified whether usp insulin use E11.9 and Muscular dystrophies G71.0 [place] [address] [place] [id number] [place] [address] 77421- 7797 December, Muscular dystrophies G71.0 [facility] [address] [place] [id number] [place] [address] 00496 -7012 December, 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 [place] [address] [place] [id number] [place] [address] 99753- 4939 Nov, [place] [address] [place] [id number] [place] [address] 17298- 1374 Nov, [place] [address] [place] [id number] [place] [address] 84068- 9443 Nov, Muscular dystrophies G71.0 [place] [address] [place] [id number] [place] [address] 67008- 7764 Oct, Muscular dystrophies G71.0 [place] [address] [place] [id number] [place] [address] 14525- 3448 Aug, Muscular dystrophies G71.0 [facility] [address] [place] [id number] [place] [address] 13708 -6978 Jul, Urinary tract infection without hematuria, site unspecified N39.0 [facility] [address] [place] [id number] [place] [address] 61338 -7236 04 Jul, 2017 Urinary tract infection without hematuria, site unspecified N39.0 [place] [address] [place] [id number] [place] [address] 80140- 4101 May, Muscular dystrophies G71.0 [facility] [address] [facility] [id number] [place] [address], [place] [address]- 0733 Apr, Muscular dystrophies G71.0 [facility] [address] [facility] [id number] [place] [address], [place] [address]- 2546 Mar, Muscular dystrophies G71.0 [facility] [address] [place] [id number] [place] [address], [place] [address]- 8986 Feb, [facility] [address] [facility] [id number] [place] [address], [place] [address]- 4034 Feb, Muscular dystrophies G71.0 [facility] [address] [place] [id number] [place] [address], [place] [address]- 2862 Jan, Muscular dystrophies G71.0 and Diabetes E11.9 [facility] [address] [place] [id number] [place] [address], [place] [address]- 6164 Nov, [facility] [address] [place] [id number] [place] [address], [place] [address]- 5549 Nov, [facility] [address] [place] [id number] [place] [address], [place] [address]- 0153 Oct, [facility] [id number] [place] [address]- 0924 Sep, [facility] [id number] [place] [address], [place] [address]- 3527 Sep, [facility] [address] [address]- 7443 Aug, [facility] [address] [place] [id number] [place] [address], [place] [address]- 9116 Jul, [facility] [id number] [place] [address]- 2546 Jul, [facility] [id number] [place] [address] 62630- 5067 Jun, [facility] [address] [place] [id number] [address] May, Dysuria R30.0 and Cystitis N30.90 [facility] [address] [place] [id number] [place] [address] 68789- 3667 May, [facility] [address] [place] [id number] [place] [address] 22394- 3829 May, [facility] [address] [place] [id number] [place] [address] 18352- 7619 May, [facility] [address] [place] [id number] [place] [address] 80162- 3230 May, [facility] [address] [place] [id number] [place] [address] 78521- 7301 Mar, Muscular dystrophies G71.0 [facility] [address] [place] [id number] [place] [address] 19136- 0331 Feb, Muscular dystrophies G71.0 [facility] [address] [place] [id number] [place] [address] 93027- 8902 Feb, [facility] [address] [place] [id number] [place] [address] 29606- 1368 Jan, Muscular dystrophies G71.0 [facility] [address] [place] [id number] [place] [address] 68666- 3910 December, Open bite of left upper arm, initial encounter S41.152A [facility] [address] [address] December, [facility] [address] [place] [id number] [place] [address] 24180- 0347 Nov, [facility] [address] [place] [id number] [place] [address] 07340- 5904 Nov, [facility] [address] [place] [id number] [place] [address] 68391- 4192 Oct, [facility] [id number] [place] [address] 64549- 9812 Oct, Diabetes type 2, controlled E11.9 and Polyneuropathy G62.9 [facility] [address] [place] [id number] [place] [address] 28503- 5923 Sep, [facility] [address] [place] [id number] [place] [address] 95803- 3342 Aug, [facility] [address] [place] [id number] [place] [address] 25278- 1345 Aug, [facility] [address] [place] [id number] [place] [address] 28841- 0437 Jul, [facility] [address] [place] [id number] [place] [address] 22024- 1213 Jul, [facility] [address] [place] [id number] [place] [address] 84793- 2695 Jul, [facility] [address] [place] [id number] [place] [address] 61994- 3096 Jun, [facility] [address] [place] [id number] [place] [address] 07417- 3585 Jun, Foot deformity M21.969 [facility] [address] [place] [id number] [place] [address] 90664- 4155 May, [facility] [address] [place] [id number] [place] [address] 62707- 0002 May, [facility] [id number] [place] [address] 92908- 8093 May, [facility] [address] [place] [id number] [place] [address] 04472- 9277 Apr, Diabetes with renal manifestations, type II or unspecified type, not stated as uncontrolled 250.40 and Unsteady gait 781.2 [facility] [address] [place] [id number] [place] [address] 22572- 3823 Apr, [facility] [place] [facility] [address] [id number] [place] [address]- 0509 09 Apr, 2015 [facility] [place] [facility] [address] [id number] [place] [address]- 9576 Mar, [facility] [place] [facility] [address] [id number] [place] [address]- 1076 Feb, [facility] [place] [facility] [address] [id number] [place] [address]- 5706 Jan, [facility] [place] [facility] [address] [id number] [place] [address]- 1835 Jan, [facility] [place] [facility] [address] [id number] [place] [address]- 6116 December, [facility] [place] [facility] [address] [id number] [place] [address]- 8341 Nov, [facility] [place] [facility] [address] [id number] [place] [address]- 6782 Nov, [facility] [place] [facility] [address] [id number] [place] [address]- 4674 Oct, [facility] [place] [facility] [address] [id number] [place] [address]- 7259 Oct, [facility] [place] [facility] [address] [facility] [id number] [address]- 4356 Oct, [facility] [place] [facility] [address] [id number] [address]- 7556 Oct, [facility] [place] [facility] [address] [id number] [place] [address]- 5265 Oct, [facility] [place] [facility] [address] [id number] [place] [address]- 4316 Oct, [facility] [place] [facility] [address] [id number] [place] [address]- 5316 Sep, [facility] [place] [facility] [address] [id number] [place] [address]- 1640 Sep, [facility] [place] [facility] [address] [id number] [place] [address]- 1810 Sep, [facility] [place] [facility] [address] [id number] [place] [address]- 1379 Sep, [facility] [place] [facility] [address] [id number] [place] [address]- 5276 Aug, [facility] [place] [facility] [address] [id number] [place] [address]- 0777 Aug, [facility] [place] [facility] [address] [id number] [place] [address]- 6732 Aug, [facility] [place] [facility] [address] [id number] [place] [address]- 3309 Aug, [facility] [place] [facility] [address] [id number] [place] [address]- 8621 Jul, [facility] [place] [facility] [address] [id number] [place] [address]- 6669 Jul, [facility] [place] [facility] [address] [id number] [place] [address]- 0581 Jul, [facility] [place] [facility] [address] [facility] [id number] [place] [address]- 4047 Jul, [facility] [place] [facility] [address] [id number] [place] [address]- 2550 Jun, [facility] [place] [facility] [address] [id number] [place] [address]- 0327 Jun, [facility] [place] [facility] [address] [id number] [place] [address]- 9451 Jun, [facility] [place] [facility] [address] [id number] [place] [address]- 1391 Jun, [facility] [place] [facility] [address] [id number] [place] [address]- 8685 May, [facility] [place] [facility] [address] [id number] [place] [address]- 5864 May, [facility] [place] [facility] [address] [id number] [place] [address]- 4185 May, [facility] [place] [facility] [address] [id number] [place] [address]- 9274 May, [facility] [place] [facility] [address] [id number] [place] [address]- 1848 Apr, [facility] [place] [facility] [address] [id number] [place] [address]- 1645 Apr, [facility] [place] [facility] [address] [id number] [place] [address]- 1799 Apr, [facility] [place] [facility] [address] [id number] [place] [address]- 4720 Mar, [facility] [place] [facility] [address] [id number] [place] [address]- 9916 Mar, [facility] [place] [facility] [address] [id number] [place] [address]- 3576 Mar, [facility] [place] [facility] [address] [id number] [place] [address]- 6770 Mar, [facility] [place] [facility] [address] [id number] [place] [address]- 3490 Feb, [facility] [place] [facility] [address] [id number] [place] [address]- 2982 Feb, [facility] [place] [facility] [address] [id number] [place] [address]- 9481 Feb, [facility] [place] [facility] [address] [id number] [place] [address]- 9751 Feb, [facility] [place] [facility] [address] [id number] [place] [address]- 1942 Jan, [facility] [place] [facility] [address] [id number] [address]- 1936 Jan, [facility] [place] [facility] [address] [id number] [place] [address]- 6618 December, [facility] [place] [facility] [address] [id number] [place] [address]- 6525 December, [facility] [place] [facility] [address] [id number] [place] [address]- 6039 Nov, [facility] [place] [facility] [address] [id number] [place] [address]- 3347 Nov, [facility] [place] [facility] [address] [id number] [place] [address]- 4958 Oct, [facility] [place] [facility] [address] [id number] [place] [address]- 1696 Oct, [facility] [place] [facility] [address] [id number] [place] [address]- 3279 Oct, [facility] [place] [facility] [address] [id number] [place] [address]- 6432 Oct, [facility] [place] [facility] [address] [id number] [place] [address]- 0219 Sep, [facility] [place] [facility] [address] [id number] [place] [address]- 9710 Sep, [facility] [place] [facility] [address] [id number] [place] [address]- 4609 Aug, [facility] [place] [facility] [address] [id number] [place] [address]- 2259 Aug, [facility] [place] [facility] [address] [id number] [place] [address]- 6744 Aug, [facility] [place] [facility] [address] [id number] [place] [address]- 4931 Aug, [facility] [place] [facility] [address] [id number] [place] [address]- 1434 Aug, [facility] [place] [facility] [address] [id number] [place] [address]- 7915 Aug, [facility] [address] [id number] [place] [address]- 9683 Jul, [facility] [place] [facility] [address] [id number] [place] [address]- 3092 Jul, [facility] [address] [id number] [place] [address]- 2567 Jul, [facility] [place] [facility] [address] [id number] [place] [address]- 6167 Jun, [facility] [address] [id number] [place] [address]- 2039 Jun, [facility] [address] [id number] [place] [address]- 7414 Jun, [facility] [address] [id number] [place] [address]- 8107 Jun, [facility] [address] [id number] [place] [address]- 4654 May, [facility] [place] [facility] [address] [id number] [place] [address]- 7965 May, [facility] [address] [id number] [place] [address]- 9283 May, [facility] [place] [facility] [address] [id number] [place] [address]- 7811 May, [facility] [address] [id number] [place] [address]- 9212 Apr, [facility] [place] [facility] [address] [id number] [place] [address]- 5774 Apr, 2012 [facility] [place] [facility] [address] [id number] [place] [address]- 7143 Apr, [facility] [place] [facility] [address] [id number] [place] [address]- 8277 Apr, [facility] [place] [facility] [address] [id number] [place] [address]- 2682 Apr, [facility] [place] [facility] [address] [id number] [place] [address]- 6600 Mar, [facility] [place] [facility] [address] [id number] [place] [address]- 6246 Mar, [facility] [place] [facility] [address] [id number] [place] [address]- 9415 Mar, [facility] [place] [facility] [address] [id number] [place] [address]- 0547 Mar, [facility] [place] [facility] [address] [id number] [place] [address]- 2168 Feb, [facility] [place] [facility] [address] [id number] [place] [address]- 4781 Feb, [facility] [place] [facility] [address] [id number] [place] [address]- 4205 Jan, [facility] [place] [facility] [address] [id number] [place] [address]- 9395 Jan, [facility] [place] [facility] [address] [id number] [place] [address]- 8001 Jan, [facility] [place] [facility] [address] [id number] [place] [address]- 0501 Jan, [facility] [place] [facility] [address] [id number] [place] [address]- 0721 December, [facility] [place] [facility] [address] [id number] [place] [address]- 8941 December, [facility] [place] [facility] [address] [id number] [place] [address]- 6091 Nov, [facility] [place] [facility] [address] [id number] [place] [address]- 3039 Nov, [facility] [place] [facility] [address] [id number] [place] [address]- 3026 04 Nov, 2012 [facility] [address] [id number] [place] [address]- 1545 08 Oct, 2012 [facility] [place] [facility] [address] [id number] [place] [address]- 8196 06 Oct, 2012 [facility] [address] [id number] [place] [address]- 5446 07 Sep, 2012 [facility] [place] [facility] [address] [id number] [place] [address]- 7633 07 Sep, 2012 [facility] [address] [id number] [place] [address]- 1374 Aug, [facility] [place] [facility] [address] [id number] [place] [address]- 0097 Aug, [facility] [address] [id number] [place] [address]- 6584 10 Jul, 2012 [facility] [address] [id number] [place] [address]- 3839 Jul, [facility] [address] [id number] [place] [address]- 6636 Jul, [facility] [address] [id number] [place] [address]- 4976 Jul, [facility] [address] [id number] [place] [address]- 4316 Jul, [facility] [place] [facility] [address] [id number] [place] [address]- 4565 Jul, [facility] [place] [facility] [address] [id number] [place] [address]- 8192 Jun, [facility] [place] [facility] [address] [id number] [place] [address]- 4364 Jun, [facility] [place] [facility] [address] [id number] [place] [address]- 1012 Jun, [facility] [place] [facility] [address] [id number] [place] [address]- 7447 Jun, [facility] [place] [facility] [address] [id number] [place] [address]- 0011 Jun, [facility] [place] [facility] [address] [id number] [place] [address]- 0262 Jun, [facility] [place] [facility] [address] [id number] [place] [address]- 4330 May, [facility] [place] [facility] [address] [id number] [place] [address]- 0004 May, [facility] [place] [facility] [address] [id number] [place] [address]- 7301 May, [facility] [place] [facility] [address] [id number] [place] [address]- 5692 May, [facility] [place] [facility] [address] [id number] [place] [address]- 3645 May, [facility] [place] [facility] [address] [id number] [place] [address]- 8988 May, [facility] [place] [facility] [address] [id number] [place] [address]- 3745 May, [facility] [place] [facility] [address] [id number] [place] [address]- 0108 May, [facility] [place] [facility] [address] [id number] [place] [address]- 1620 May, [facility] [place] [facility] [address] [id number] [place] [address] Apr, [facility] [place] [facility] [address] [id number] [place] [address] Apr, [facility] [place] [facility] [address] [id number] [place] [address] Mar, [facility] [place] [facility] [address] [id number] [place] [address] Mar, [facility] [place] [facility] [address] [id number] [place] [address] Mar, [facility] [place] [facility] [address] [id number] [place] [address] Mar, [facility] [place] [facility] [address] [id number] [place] [address] Mar, [facility] [place] [facility] [address] [id number] [place] [address] Mar, [facility] [place] [facility] [address] [id number] [place] [address] Mar, [facility] [place] [facility] [address] [id number] [place] [address] Mar, [facility] [place] [facility] [address] [id number] [place] [address] Mar, [facility] [place] [facility] [address] [id number] [place] [address] Feb, [facility] [place] [facility] [address] [id number] [place] [address] Feb, [facility] [place] [facility] [address] [id number] [place] [address] Feb, [facility] [place] [facility] [address] [id number] [place] [address] Feb, [facility] [place] [facility] [address] [id number] [place] [address] Jan, [facility] [place] [facility] [address] [id number] [place] [address] December, [facility] [place] [facility] [address] [id number] [place] [address]- [address] December, [facility] [place] [facility] [address] [id number] [place] [address]- [address] December, [facility] [place] [facility] [address] [id number] [place] [address] 19 Nov, 2011 [facility] [address] [id number] [place] [address] 17 Nov, 2011 [facility] [address] [id number] [place] [address] 16 Nov, 2011 [facility] [address] [id number] [place] [address] 16 Nov, 2011 [facility] [address] [id number] [place] [address] 07 Oct, 2011 [facility] [address] [id number] [place] [address] 15 Sep, 2011 [facility] [address] [id number] [place] [address] 08 Sep, 2011 [facility] [address] [id number] [place] [address] 16 Aug, 2011 [facility] [address] [id number] [place] [address] Aug, [facility] [address] [id number] [place] [address] Aug, [facility] [address] [id number] [place] [address] Aug, [facility] [address] [id number] [place] [address] Aug, [facility] [address] [id number] [place] [address] Jul, [facility] [place] [facility] [address] [id number] [place] [address] Jul, [facility] [address] [id number] [place] [address] Jul, [facility] [address] [id number] [place] [address] Jul, [facility] [place] [facility] [address] [id number] [place] [address] 29 Jun, 2011 [facility] [place] [facility] [address] [id number] [place] [address] Jun, [facility] [place] [facility] [address] [id number] [place] [address] Jun, [facility] [place] [facility] [address] [id number] [place] [address] Jun, [facility] [place] [facility] [address] [id number] [place] [address] May, [facility] [place] [facility] [address] [id number] [place] [address] May, [facility] [place] [facility] [address] [id number] [place] [address] Aug, [facility] [place] [facility] [address] [id number] [place] [address] Jul, [facility] [place] [facility] [address] [id number] [place] [address] Jun, [facility] [place] [facility] [address] [id number] [place] [address] May, [facility] [place] [facility] [address] [id number] [place] [address] May, [facility] [place] [facility] [address] [id number] [place] [address] May, [facility] [place] [facility] [address] [id number] [place] [address] December, [facility] [place] [facility] [address] [id number] [place] [address] Jul, [facility] [place] [facility] [address] [id number] [place] [address] Jul, [facility] [place] [facility] [address] [id number] [place] [address] Jul, [facility] [id number] [address] Jun, [facility] [address] [id number] [address] Jun, [facility] [id number] [address] Jun, [facility] [id number] [place] [phone] Jun, [facility] [id number] [place] [phone] May, IMMUNIZATIONS No Known Immunizations SOCIAL HISTORY Never Assessed REASON FOR VISIT Callus Debulking - Nan KESSLER PLAN OF CARE Activity Details Future/Pending Procedure DEBRIDE SKIN TISSUE Future/Pending Procedure TRIM NAIL(S) VITAL SIGNS Height 69 in 2018-01-09 Weight 136.6 lbs 2018-01-09 Temperature 97.8 degrees Fahrenheit 2018-01-09 Heart Rate 60 bpm 2018-01-09 Respiratory Rate 20 2018-01-09 BMI 20.17 kg/m2 2018-01-09 Blood pressure systolic 100 mmHg 2018-01-09 Blood pressure diastolic 52 mmHg 2018-01-09 MEDICATIONS Medication Instructions Dosage Frequency Start Date End Date Duration Status Ambien 10 MG Orally Once a day 1 tablet at bedtime 24h 30 days Active MS Contin 15 mg Orally Once a day 1 tablet 24h Nov, 28 days Active Percocet 5-325 MG Orally 2 times a day 1 tablet as needed 12h Nov, 28 days Active Gabapentin 300 MG 2 capsules 12h Active Fluoxetine HCl 20 mg Orally Once a day TAKE ONE CAPSULE BY MOUTH IN THE MORNING 24h 30 Active VESIcare 10 MG TAKE ONE TABLET BY MOUTH ONCE DAILY 30 Active Finasteride 5 MG TAKE ONE TABLET BY MOUTH ONCE DAILY 30 Active RESULTS No Results PROCEDURES Procedure Date Ordered Result Body Site DEBRIDE SKIN/TISSUE January 09, 2018 TRIM NAIL(S) January 09, 2018 [facility] VISIT ESTABLISHED PATIENT January 09, 2018 INSTRUCTIONS MEDICATIONS ADMINISTERED No Known Medications [...]
--- OUTSIDE RECORDS SUMMARY | 2018-07-23 14:50 | XMS REPORT ---
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 532982585 Problem Diabetes E11.9 Active 38575317 ALLERGIES No Information ENCOUNTERS Encounter Location Date Diagnosis [place] [address] [address]- [address] Apr, [place] [address] 10988- 0453 Feb, Depressive disorder, not elsewhere classified F32.9 and Mild cognitive impairment G31.84 [place] [address] [address] [place] [id number] [place] [address] 35821- 5944 Feb, Foot callus L84 [place] [address] 17011- 5080 Jan, Muscular dystrophies G71.0 [place] [address] 73176- 6636 Jan, [place] [address] 40440- 0669 Jan, [place] [address] 48780- 2507 Jan, Callus of foot L84 ; Nail hypertrophy L60.2 and Self-care deficit for hygiene R46.0 [facility] [address] [place] [id number] [place] [address] 12595- 6572 December, [facility] [address] [place] [id number] [place] [address] 79989- 2792 December, Callus of foot L84 ; Nail hypertrophy L60.2 ; Self-care deficit for hygiene R46.0 ; Controlled type 2 diabetes mellitus without complication, unspecified whether prison insulin use E11.9 and Muscular dystrophies G71.0 [facility] [address] [place] [id number] [place] [address] 23520- 4499 December, Muscular dystrophies G71.0 [facility] [address] [place] [id number] [place] [address] 09930 -8237 December, 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 [place] [address] [place] [id number] [place] [address] 59103- 4773 Nov, [place] [address] [place] [id number] [place] [address] 04245- 5129 Nov, [place] [address] [place] [id number] [place] [address] 63837- 4584 Nov, Muscular dystrophies G71.0 [facility] [address] [place] [id number] [place] [address] 33164- 9315 Oct, Muscular dystrophies G71.0 [place] [address] [place] [id number] [place] [address] 80990- 7519 Aug, Muscular dystrophies G71.0 [facility] [address] [place] [id number] [place] [address] 02433 -9215 Jul, Urinary tract infection without hematuria, site unspecified N39.0 [facility] [address] [place] [id number] [place] [address] 14977 -2736 04 Jul, 2017 Urinary tract infection without hematuria, site unspecified N39.0 [facility] [address] [place] [id number] [place] [address] 47419- 1550 May, Muscular dystrophies G71.0 [facility] [address] [facility] [id number] [place] [address]- 1165 Apr, Muscular dystrophies G71.0 [facility] [address] [facility] [id number] [place] [address]- 5866 Mar, Muscular dystrophies G71.0 [facility] [address] [place] [id number] [place] [address], [place] [address]- 6925 Feb, [facility] [address] [facility] [id number] [place] [address], [place] [address]- 5469 Feb, Muscular dystrophies G71.0 [facility] [address] [place] [id number] [place] [address], [place] 3789 Jan, Muscular dystrophies G71.0 and Diabetes E11.9 [facility] [address] [place] [id number] [place] [address], [place] [address]- 5616 Nov, [facility] [id number] [place] [address]- 4656 Nov, [facility] [id number] [place] [address], [place] 1198 Oct, [facility] [id number] [place] [address]- 1518 Sep, [facility] [id number] [place] [address]- 0777 Sep, [facility] [address] [place] [id number] [address]- 7807 Aug, [facility] [id number] [place] [address]- 3916 Jul, [facility] [id number] [place] [address]- 1736 Jul, [facility] [id number] [address]- 1015 Jun, [facility] [address] [address]97 May, Dysuria R30.0 and Cystitis N30.90 [facility] [address] [place] [id number] [place] [address] 83225- 2680 May, [facility] [address] [place] [id number] [place] [address] 05805- 3689 May, [facility] [address] [place] [id number] [place] [address] 43147- 3077 May, [facility] [address] [place] [id number] [place] [address] 73387- 8482 May, [facility] [address] [place] [id number] [place] [address] 76111- 0097 Mar, Muscular dystrophies G71.0 [facility] [address] [place] [id number] [place] [address] 13962- 7177 Feb, Muscular dystrophies G71.0 [facility] [address] [place] [id number] [place] [address] 95432- 7662 Feb, [facility] [address] [place] [id number] [place] [address] 63414- 3112 Jan, Muscular dystrophies G71.0 [facility] [address] [place] [id number] [place] [address] 08623- 0759 December, Open bite of left upper arm, initial encounter S41.152A [facility] [address] [address] -7476 December, [facility] [address] [place] [id number] [place] [address] 15208- 1399 Nov, [facility] [address] [place] [id number] [place] [address] 37078- 8513 Nov, [facility] [address] [place] [id number] [place] [address] 96489- 2615 Oct, [facility] [id number] [place] [address] 81365- 9730 Oct, Diabetes type 2, controlled E11.9 and Polyneuropathy G62.9 [facility] [address] [place] [id number] [place] [address] 26194- 4075 Sep, [facility] [address] [place] [id number] [place] [address] 71038- 8698 Aug, [facility] [address] [place] [id number] [place] [address] 24206- 8721 Aug, [facility] [address] [place] [id number] [place] [address] 33426- 8242 Jul, [facility] [address] [place] [id number] [place] [address] 48735- 2247 Jul, [facility] [address] [place] [id number] [place] [address] 80643- 1453 Jul, [facility] [address] [place] [id number] [place] [address] 41821- 1124 Jun, [facility] [address] [place] [id number] [place] [address] 79891- 1593 Jun, Foot deformity M21.969 [facility] [address] [place] [id number] [place] [address] 22420- 1717 May, [facility] [address] [place] [id number] [place] [address] 05770- 8133 May, [facility] [address] [place] [address] 04171- 6060 May, [facility] [address] [place] [id number] [place] [address] 43451- 5581 Apr, Diabetes with renal manifestations, type II or unspecified type, not stated as uncontrolled 250.40 and Unsteady gait 781.2 [facility] [address] [place] [id number] [place] [address] 97690- 2734 Apr, [facility] [place] [facility] [address] [id number] [place] [address]- 8928 09 Apr, 2015 [facility] [place] [facility] [address] [id number] [place] [address]- 7746 Mar, [facility] [place] [facility] [address] [id number] [place] [address] 2546 Feb, [facility] [place] [facility] [address] [id number] [place] [address] 2549 Jan, [facility] [place] [facility] [address] [id number] [place] [address]- 1570 Jan, [facility] [place] [facility] [address] [id number] [place] [address]- 1855 December, [facility] [place] [facility] [address] [id number] [place] [address]- 5302 Nov, [facility] [place] [facility] [address] [id number] [place] [address]- 6049 Nov, [facility] [place] [facility] [address] [id number] [place] [address]- 2077 Oct, [facility] [place] [facility] [address] [id number] [place] [address]- 3424 Oct, [facility] [place] [facility] [address] [id number] [place] [address]- 1969 Oct, [facility] [place] [facility] [address] [id number], [place] [address]- 3445 Oct, [facility] [place] [facility] [address] [id number] [place] [address]- 3082 Oct, [facility] [place] [facility] [address] [id number] [place] [address]- 0416 Oct, [facility] [place] [facility] [address] [id number], [place] [address]- 4426 Sep, [facility] [place] [facility] [address] [id number], [place] [address]- 8531 Sep, [facility] [place] [facility] [address] [id number] [place] [address]- 7417 Sep, [facility] [place] [facility] [address] [id number] [place] [address]- 9243 Sep, [facility] [place] [facility] [address] [id number] [place] [address]- 3542 Aug, [facility] [place] [facility] [address] [id number] [place] [address]- 3880 Aug, [facility] [place] [facility] [address] [id number] [place] [address]- 3690 Aug, [facility] [place] [facility] [address] [id number] [place] [address]- 6616 Aug, [facility] [place] [facility] [address] [id number] [place] [address]- 8512 Jul, [facility] [place] [facility] [address] [id number] [place] [address]- 7696 Jul, [facility] [place] [facility] [address] [id number] [place] [address]- 8335 Jul, [facility] [place] [facility] [address] [facility] [id number] [place] [address]- 9027 Jul, [facility] [place] [facility] [address] [id number] [place] [address]- 7697 Jun, [facility] [place] [facility] [address] [id number] [place] [address]- 2433 Jun, [facility] [place] [facility] [address] [id number] [place] [address]- 1840 Jun, [facility] [place] [facility] [address] [id number] [place] [address]- 9476 Jun, [facility] [place] [facility] [address] [facility] [id number] [place] [address]- 8329 May, [facility] [place] [facility] [address] [id number] [place] [address]- 6754 May, [facility] [place] [facility] [address] [id number] [place] [address]- 6614 May, [facility] [place] [facility] [address] [id number] [place] 5631 May, [facility] [place] [facility] [address] [id number] [place] [address]- 0652 Apr, [facility] [place] [facility] [address] [id number] [place] [address]- 0643 Apr, [facility] [place] [facility] [address] [id number] [place] [address]- 1131 Apr, [facility] [place] [facility] [address] [id number] [place] [address]- 4265 Mar, [facility] [place] [facility] [address] [id number] [place] [address]- 6699 Mar, [facility] [place] [facility] [address] [id number] [place] [address]- 4168 Mar, [facility] [place] [facility] [address] [id number] [place] [address]- 1985 Mar, [facility] [place] [facility] [address] [id number] [place] [address]- 0064 Feb, [facility] [place] [facility] [address] [id number] [place] [address]- 2666 Feb, [facility] [place] [facility] [address] [id number] [place] [address]- 9074 Feb, [facility] [place] [facility] [address] [id number] [place] [address]- 6894 Feb, [facility] [place] [facility] [address] [id number] [place] [address]- 6436 Jan, [facility] [place] [facility] [address] [id number] [place] [address]- 1511 Jan, [facility] [place] [facility] [address] [id number] [place] [address]- 4894 December, [facility] [place] [facility] [address] [id number] [place] [address]- 9331 December, [facility] [place] [facility] [address] [id number] [place] [address]- 7764 Nov, [facility] [place] [facility] [address] [id number] [place] [address]- 0914 Nov, [facility] [place] [facility] [address] [id number] [place] [address]- 4890 Oct, [facility] [place] [facility] [address] [id number] [place] [address]- 5705 Oct, [facility] [place] [facility] [address] [id number] [place] [address]- 8335 Oct, [facility] [place] [facility] [address] [id number] [place] [address]- 2342 Oct, [facility] [place] [facility] [address] [id number] [place] [address]- 0323 Sep, [facility] [place] [facility] [address] [id number] [place] [address]- 8618 Sep, [facility] [place] [facility] [address] [id number] [place] [address]- 9508 Aug, [facility] [place] [facility] [address] [id number] [place] [address]- 1321 Aug, [facility] [place] [facility] [address] [id number] [place] [address]- 0056 Aug, [facility] [place] [facility] [address] [id number] [place] [address]- 2598 Aug, [facility] [place] [facility] [address] [id number] [place] [address]- 2878 Aug, [facility] [place] [facility] [address] [id number] [place] [address]- 0559 Aug, [facility] [address] [id number] [place] [address]- 1451 Jul, [facility] [place] [facility] [address] [id number] [place] [address]- 6742 Jul, [facility] [address] [id number] [place] [address]- 2950 Jul, [facility] [place] [facility] [address] [id number] [place] [address]- 8510 Jun, [facility] [address] [id number] [place] [address]- 6559 Jun, [facility] [address] [id number] [place] [address]- 2601 Jun, [facility] [address] [id number] [place] [address]- 7814 Jun, [facility] [address] [id number] [place] [address]- 0770 May, [facility] [address] [id number] [place] [address]- 7242 May, [facility] [address] [id number] [place] [address]- 9217 May, [facility] [place] [facility] [address] [id number] [place] [address]- 6775 May, [facility] [address] [id number] [place] [address]- 7491 Apr, [facility] [place] [facility] [address] [id number] [place] [address]- 7666 Apr, [facility] [place] [facility] [address] [id number] [place] [address]- 8299 Apr, [facility] [place] [facility] [address] [id number] [place] [address]- 3535 Apr, [facility] [place] [facility] [address] [id number] [place] [address]- 9333 Apr, [facility] [place] [facility] [address] [id number] [place] [address]- 9083 Mar, [facility] [place] [facility] [address] [id number] [place] [address]- 8309 Mar, [facility] [place] [facility] [address] [id number] [place] [address]- 3578 Mar, [facility] [place] [facility] [address] [id number] [place] 0410 Mar, [facility] [place] [facility] [address] [id number] [place] [address]- 1420 Feb, [facility] [place] [facility] [address] [id number] [place] [address]- 5122 Feb, [facility] [place] [facility] [address] [id number] [place] [address]- 4308 Jan, [facility] [place] [facility] [address] [id number] [place] [address]- 1369 Jan, [facility] [place] [facility] [address] [id number] [place] [address]- 0452 Jan, [facility] [place] [facility] [address] [id number], [place] [address]- 0558 Jan, [facility] [place] [facility] [address] [id number], [place] [address]- 1031 December, [facility] [place] [facility] [address] [id number] [place] [address]- 7291 December, [facility] [place] [facility] [address] [id number] [place] [address]- 6114 Nov, [facility] [place] [facility] [address] [id number], [place] [address]- 0254 Nov, [facility] [place] [facility] [address] [id number], [place] [address]- 6738 04 Nov, 2012 [facility] [address] [id number] [place] [address]- 0516 08 Oct, 2012 [facility] [place] [facility] [address] [id number] [place] [address]- 2516 06 Oct, 2012 [facility] [address] [id number] [place] [address]- 7076 07 Sep, 2012 [facility] [place] [facility] [address] [id number] [place] [address]- 8375 07 Sep, 2012 [facility] [address] [id number] [place] [address]- 1115 08 Aug, 2012 [facility] [place] [facility] [address] [facility] [id number] [place] [address]- 9517 Aug, [facility] [address] [id number] [place] [address]- 6640 10 Jul, 2012 [facility] [place] [facility] [address] [id number] [place] [address]- 9028 Jul, [facility] [address] [id number] [place] [address]- 1995 Jul, [facility] [address] [facility] [id number] [place] [address]- 6908 Jul, [facility] [address] [id number] [place] [address]- 4617 Jul, [facility] [place] [facility] [address] [facility] [id number] [place] [address]- 2548 Jul, [facility] [place] [facility] [address] [id number] [place] [address]- 8373 Jun, [facility] [place] [facility] [address] [id number] [place] [address]- 1612 Jun, [facility] [place] [facility] [address] [facility] [id number] [place] [address]- 3176 Jun, [facility] [place] [facility] [address] [id number] [place] [address]- 4373 Jun, [facility] [place] [facility] [address] [id number] [place] [address]- 9922 Jun, [facility] [place] [facility] [address] [id number] [place] [address]- 7561 Jun, [facility] [place] [facility] [address] [id number] [place] [address]- 0607 May, [facility] [place] [facility] [address] [id number] [place] [address]- 8365 May, [facility] [place] [facility] [address] [id number] [place] [address]- 0608 May, [facility] [place] [facility] [address] [id number] [place] [address]- 3471 May, [facility] [place] [facility] [address] [id number] [place] [address]- 1635 May, [facility] [place] [facility] [address] [id number] [place] [address]- 4939 May, [facility] [place] [facility] [address] [id number] [place] [address] May, [facility] [place] [facility] [address] [id number] [place] [address] May, [facility] [place] [facility] [address] [id number] [place] [address] May, [facility] [place] [facility] [address] [id number] [place] [address] Apr, [facility] [place] [facility] [address] [id number] [place] [address] Apr, [facility] [place] [facility] [address] [id number] [place] [address] Mar, [facility] [place] [facility] [address] [id number] [place] [address] Mar, [facility] [place] [facility] [address] [id number] [place] [address] Mar, [facility] [place] [facility] [address] [id number] [place] [address] Mar, [facility] [place] [facility] [address] [id number] [place] [address] Mar, [facility] [place] [facility] [address] [id number] [place] [address] 1984 Mar, [facility] [place] [facility] [address] [id number] [place] [address] Mar, [facility] [place] [facility] [address] [id number] [place] [address] Mar, [facility] [place] [facility] [address] [id number] [place] [address] Mar, [facility] [place] [facility] [address] [id number] [place] [address] Feb, [facility] [place] [facility] [address] [id number] [place] [address] Feb, [facility] [place] [facility] [address] [id number] [place] [address] Feb, [facility] [place] [facility] [address] [id number] [place] [address] Feb, [facility] [place] [facility] [address] [id number] [place] [address] Jan, [facility] [place] [facility] [address] [id number] [place] [address] December, [facility] [place] [facility] [address] [id number] [place] [address] December, [facility] [place] [facility] [address] [id number] [place] [address]- [address] December, [facility] [place] [facility] [address] [id number] [place] [address] 19 Nov, 2011 [facility] [address] [id number] [place] [address] 17 Nov, 2011 [facility] [address] [id number] [place] [address] 16 Nov, 2011 [facility] [address] [id number] [place] [address] 16 Nov, 2011 [facility] [address] [id number] [place] [address] Oct, [facility] [address] [id number] [place] [address] 15 Sep, 2011 [facility] [address] [id number] [place] [address] 08 Sep, 2011 [facility] [address] [id number] [place] [address] 16 Aug, 2011 [facility] [address] [id number] [place] [address] Aug, [facility] [address] [id number] [place] [address] Aug, [facility] [address] [id number] [place] [address] Aug, [facility] [address] [id number] [place] [address] Aug, [facility] [address] [id number] [place] [address] Jul, [facility] [address] [id number] [place] [address] Jul, [facility] [address] [id number] [place] [address] Jul, [facility] [address] [id number] [place] [address] Jul, [facility] [place] [facility] [address] [id number] [place] [address]- [address] 29 Jun, 2011 [facility] [place] [facility] [address] [id number] [place] [address]- [address] Jun, [facility] [place] [facility] [address] [id number] [place] [address]- [address] Jun, [facility] [place] [facility] [address] [id number] [place] [address]- [address] Jun, [facility] [place] [facility] [address] [id number] [place] [address]90 May, [facility] [place] [facility] [address] [id number] [place] [address]- 8466 May, [facility] [place] [facility] [address] [id number] [place] [address]- [address]60 Aug, [facility] [place] [facility] [address] [id number] [place] [address]- [address] Jul, [facility] [place] [facility] [address] [id number] [place] [address]- [address] Jun, [facility] [place] [facility] [address] [id number], [place] [address] May, [facility] [place] [facility] [address] [id number], [place] [address] May, [facility] [place] [facility] [address] [id number], [place] [address] May, [facility] [place] [facility] [address] [id number] [place] [address] December, [facility] [place] [facility] [address] [id number] [place] [address] Jul, [facility] [place] [facility] [address] [id number], [place] [address] Jul, [facility] [place] [facility] [address] [id number], [place] [address] Jul, [facility] [address] [facility] [id number], [place] [address] Jun, [facility] [address] [id number], [place] [address] Jun, [facility] [address] [facility] [id number] [address] Jun, [facility] [address] [id number], [place] [address] Jun, [facility] [address] [facility] [id number], [place] [address] May, IMMUNIZATIONS No Known Immunizations SOCIAL HISTORY Never Assessed REASON FOR VISIT / PLAN OF CARE VITAL SIGNS MEDICATIONS Unknown [...]
--- OUTSIDE RECORDS SUMMARY | 2018-07-23 14:51 | XMS REPORT ---
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 219224049 Problem Diabetes E11.9 Active 02076092 ALLERGIES No Information ENCOUNTERS Encounter Location Date Diagnosis [place] [address] [address] Apr, [place] [address] [address]- 24[address] Feb, Depressive disorder, not elsewhere classified F32.9 and Mild cognitive impairment G31.84 [place] [address] [place] [id number] [place] [address] 70320- 8201 Feb, Foot callus L84 [place] [address] [address]- 3999 Jan, Muscular dystrophies G71.0 [place] [address] 06332- 0753 Jan, [place] [address] 6[address]98- 4428 Jan, [place] [address] 62777- 2202 Jan, Callus of foot L84 ; Nail hypertrophy L60.2 and Self-care deficit for hygiene R46.0 [facility] [address] [place] [id number] [place] [address] 00026- 3556 December, [facility] [address] [place] [id number] [place] [address] 36155- 8770 December, Callus of foot L84 ; Nail hypertrophy L60.2 ; Self-care deficit for hygiene R46.0 ; Controlled type 2 diabetes mellitus without complication, unspecified whether intermediate insulin use E11.9 and Muscular dystrophies G71.0 [facility] [address] [place] [id number] [place] [address] 54265- 3234 December, Muscular dystrophies G71.0 [facility] [address] [place] [id number] [place] [address] 84002 -3981 December, 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 [place] [address] [place] [id number] [place] [address] 91896- 2603 Nov, [place] [address] [place] [id number] [place] [address] 12951- 5681 Nov, [place] [address] [place] [id number] [place] [address] 20093- 2451 Nov, Muscular dystrophies G71.0 [facility] [address] [place] [id number] [place] [address] 57644- 4902 Oct, Muscular dystrophies G71.0 [place] [address] [place] [id number] [place] [address] 93701- 2982 Aug, Muscular dystrophies G71.0 [facility] [address] [place] [id number] [place] [address] 67564 -3543 Jul, Urinary tract infection without hematuria, site unspecified N39.0 [facility] [address] [place] [id number] [place] [address] 98907 -9483 04 Jul, 2017 Urinary tract infection without hematuria, site unspecified N39.0 [facility] [address] [place] [id number] [place] [address] 93895- 3828 May, Muscular dystrophies G71.0 [facility] [address] [facility] [id number] [place] [address]- 8912 Apr, Muscular dystrophies G71.0 [facility] [address] [facility] [id number] [place] [address]- 4966 Mar, Muscular dystrophies G71.0 [facility] [address] [place] [id number] [place] [address], [place] [address]- 9854 Feb, [facility] [address] [facility] [id number] [place] [address], [place] [address]- 1566 Feb, Muscular dystrophies G71.0 [facility] [address] [place] [id number] [place] [address], [place] [address] Jan, Muscular dystrophies G71.0 and Diabetes E11.9 [facility] [address] [place] [id number] [place] [address], [place] [address]- 0780 Nov, [facility] [id number] [place] [address]- 0810 Nov, [facility] [id number] [place] [address], [place] 7951 Oct, [facility] [id number] [place] [address]- 8771 Sep, [facility] [id number] [place] [address]- 0748 Sep, [facility] [address] [place] [id number] [address]- 8259 Aug, [facility] [id number] [place] [address]- 3980 Jul, [facility] [id number] [place] [address]- 8016 Jul, [facility] [address] [address]- 6226 Jun, [facility] [address] [address] May, Dysuria R30.0 and Cystitis N30.90 [facility] [address] [place] [id number] [place] [address] 22088- 0135 May, [facility] [address] [place] [id number] [place] [address] 55284- 8098 May, [facility] [address] [place] [id number] [place] [address] 26373- 7510 May, [facility] [address] [place] [id number] [place] [address] 45495- 4091 May, [facility] [address] [place] [id number] [place] [address] 50239- 0919 Mar, Muscular dystrophies G71.0 [facility] [address] [place] [id number] [place] [address] 29620- 7199 Feb, Muscular dystrophies G71.0 [facility] [address] [place] [id number] [place] [address] 73061- 2964 Feb, [facility] [address] [place] [id number] [place] [address] 79345- 3273 Jan, Muscular dystrophies G71.0 [facility] [address] [place] [id number] [place] [address] 02118- 5475 December, Open bite of left upper arm, initial encounter S41.152A [facility] [address] [address] December, [facility] [address] [place] [id number] [place] [address] 73489- 8072 Nov, [facility] [address] [place] [id number] [place] [address] 15103- 8794 Nov, [facility] [address] [place] [id number] [place] [address] 71483- 2998 Oct, [facility] [id number] [place] [address] 96907- 3419 Oct, Diabetes type 2, controlled E11.9 and Polyneuropathy G62.9 [facility] [address] [place] [id number] [place] [address] 55913- 1912 Sep, [facility] [address] [place] [id number] [place] [address] 69811- 2044 Aug, [facility] [address] [place] [id number] [place] [address] 27336- 7737 Aug, [facility] [address] [place] [id number] [place] [address] 61953- 1651 Jul, [facility] [address] [place] [id number] [place] [address] 62435- 5096 Jul, [facility] [address] [place] [id number] [place] [address] 93617- 6809 Jul, [facility] [address] [place] [id number] [place] [address] 02129- 5510 Jun, [facility] [address] [place] [id number] [place] [address] 42476- 3747 Jun, Foot deformity M21.969 [facility] [address] [place] [id number] [place] [address] 03997- 5339 May, [facility] [address] [place] [id number] [place] [address] 01885- 4921 May, [facility] [id number] [place] [address] 84413- 5396 May, [facility] [address] [place] [id number] [place] [address] 47864- 6522 Apr, Diabetes with renal manifestations, type II or unspecified type, not stated as uncontrolled 250.40 and Unsteady gait 781.2 [facility] [address] [place] [id number] [place] [address] 31281- 9793 Apr, [facility] [place] [facility] [address] [id number] [place] [address]- 0530 09 Apr, 2015 [facility] [place] [facility] [address] [id number] [place] [address]- 8696 Mar, [facility] [place] [facility] [address] [id number] [place] [address] 2546 Feb, [facility] [place] [facility] [address] [id number] [place] [address] 2548 Jan, [facility] [place] [facility] [address] [id number] [place] [address]- 6409 Jan, [facility] [place] [facility] [address] [id number] [place] [address]- 6333 December, [facility] [place] [facility] [address] [id number] [place] [address]- 2611 Nov, [facility] [place] [facility] [address] [id number] [place] [address]- 0811 Nov, [facility] [place] [facility] [address] [id number] [place] [address]- 4498 Oct, [facility] [place] [facility] [address] [id number] [place] [address]- 6009 Oct, [facility] [place] [facility] [address] [id number] [place] [address]- 7255 Oct, [facility] [place] [facility] [address] [id number] [address]- 9957 Oct, [facility] [place] [facility] [address] [id number] [place] [address]- 2179 Oct, [facility] [place] [facility] [address] [id number] [place] [address]- 9866 Oct, [facility] [place] [facility] [address] [id number] [address]- 7656 Sep, [facility] [place] [facility] [address] [id number] [address]- 3467 Sep, [facility] [place] [facility] [address] [id number] [place] [address]- 3889 Sep, [facility] [place] [facility] [address] [id number] [place] [address]- 1891 Sep, [facility] [place] [facility] [address] [id number] [place] [address]- 5802 Aug, [facility] [place] [facility] [address] [id number] [place] [address]- 2057 Aug, [facility] [place] [facility] [address] [id number] [place] [address]- 7832 Aug, [facility] [place] [facility] [address] [id number] [place] [address]- 7618 Aug, [facility] [place] [facility] [address] [id number] [place] [address]- 0537 Jul, [facility] [place] [facility] [address] [id number] [place] [address]- 1033 Jul, [facility] [place] [facility] [address] [id number] [place] [address]- 5465 Jul, [facility] [place] [facility] [address] [facility] [id number] [place] [address]- 4454 Jul, [facility] [place] [facility] [address] [id number] [place] [address]- 3897 Jun, [facility] [place] [facility] [address] [id number] [place] [address]- 7983 Jun, [facility] [place] [facility] [address] [id number] [place] [address]- 3866 Jun, [facility] [place] [facility] [address] [id number] [place] [address]- 9236 Jun, [facility] [place] [facility] [address] [facility] [id number] [place] [address]- 8850 May, [facility] [place] [facility] [address] [id number] [place] [address]- 6690 May, [facility] [place] [facility] [address] [id number] [place] [address]- 7661 May, [facility] [place] [facility] [address] [id number] [place] 0333 May, [facility] [place] [facility] [address] [id number] [place] [address]- 4137 Apr, [facility] [place] [facility] [address] [id number] [place] [address]- 3544 Apr, [facility] [place] [facility] [address] [id number] [place] [address]- 5164 Apr, [facility] [place] [facility] [address] [id number] [place] [address]- 6552 Mar, [facility] [place] [facility] [address] [id number] [place] [address]- 1378 Mar, [facility] [place] [facility] [address] [id number] [place] [address]- 1528 Mar, [facility] [place] [facility] [address] [id number] [place] [address]- 6621 Mar, [facility] [place] [facility] [address] [id number] [place] [address]- 5681 Feb, [facility] [place] [facility] [address] [id number] [place] [address]- 7576 Feb, [facility] [place] [facility] [address] [id number] [place] [address]- 4550 Feb, [facility] [place] [facility] [address] [id number] [place] [address]- 6058 Feb, [facility] [place] [facility] [address] [id number] [place] [address]- 0388 Jan, [facility] [place] [facility] [address] [id number] [place] [address]- 5516 Jan, [facility] [place] [facility] [address] [id number] [place] [address]- 7759 December, [facility] [place] [facility] [address] [id number] [place] [address]- 2563 December, [facility] [place] [facility] [address] [id number] [place] [address]- 0417 Nov, [facility] [place] [facility] [address] [id number] [place] [address]- 7894 Nov, [facility] [place] [facility] [address] [id number] [place] [address]- 8182 Oct, [facility] [place] [facility] [address] [id number] [place] [address]- 8139 Oct, [facility] [place] [facility] [address] [id number] [place] [address]- 9428 Oct, [facility] [place] [facility] [address] [id number] [place] [address]- 4609 Oct, [facility] [place] [facility] [address] [id number] [place] [address]- 0333 Sep, [facility] [place] [facility] [address] [id number] [place] [address]- 1763 Sep, [facility] [place] [facility] [address] [id number] [place] [address]- 3672 Aug, [facility] [place] [facility] [address] [id number] [place] [address]- 6898 Aug, [facility] [place] [facility] [address] [id number] [place] [address]- 9697 Aug, [facility] [place] [facility] [address] [id number] [place] [address]- 9709 Aug, [facility] [place] [facility] [address] [id number] [place] [address]- 8295 Aug, [facility] [place] [facility] [address] [id number] [place] [address]- 1727 Aug, [facility] [address] [id number] [place] [address]- 6188 Jul, [facility] [place] [facility] [address] [id number] [place] [address]- 0947 Jul, [facility] [address] [id number] [place] [address]- 8087 Jul, [facility] [place] [facility] [address] [id number] [place] [address]- 9317 Jun, [facility] [address] [id number] [place] [address]- 5057 Jun, [facility] [address] [id number] [place] [address]- 5475 Jun, [facility] [address] [id number] [place] [address]- 1177 Jun, [facility] [address] [id number] [place] [address]- 7762 May, [facility] [address] [id number] [place] [address]- 7769 May, [facility] [address] [id number] [place] [address]- 1075 May, [facility] [place] [facility] [address] [id number] [place] [address]- 2974 May, [facility] [address] [id number] [place] [address]- 7441 Apr, [facility] [place] [facility] [address] [id number] [place] [address]- 3703 Apr, [facility] [place] [facility] [address] [id number] [place] [address]- 2219 Apr, [facility] [place] [facility] [address] [id number] [place] [address]- 3930 Apr, [facility] [place] [facility] [address] [id number] [place] [address]- 4068 Apr, [facility] [place] [facility] [address] [id number] [place] [address]- 9756 Mar, [facility] [place] [facility] [address] [id number] [place] [address]- 0824 Mar, [facility] [place] [facility] [address] [id number] [place] [address]- 0734 Mar, [facility] [place] [facility] [address] [id number] [place] 0705 Mar, [facility] [place] [facility] [address] [id number] [place] [address]- 6880 Feb, [facility] [place] [facility] [address] [id number] [place] [address]- 7438 Feb, [facility] [place] [facility] [address] [id number] [place] [address]- 1956 Jan, [facility] [place] [facility] [address] [id number] [place] [address]- 0480 Jan, [facility] [place] [facility] [address] [id number] [place] [address]- 0122 Jan, [facility] [place] [facility] [address] [id number] [address]- 5736 Jan, [facility] [place] [facility] [address] [id number], [place] [address]- 0902 December, [facility] [place] [facility] [address] [id number] [place] [address]- 7258 December, [facility] [place] [facility] [address] [id number] [place] [address]- 2171 Nov, [facility] [place] [facility] [address] [id number], [place] [address]- 9713 Nov, [facility] [place] [facility] [address] [id number], [place] [address]- 3870 04 Nov, 2012 [facility] [address] [id number] [place] [address]- 0032 08 Oct, 2012 [facility] [place] [facility] [address] [id number] [place] [address]- 7926 06 Oct, 2012 [facility] [address] [id number] [place] [address]- 1356 07 Sep, 2012 [facility] [place] [facility] [address] [id number] [place] [address]- 4361 07 Sep, 2012 [facility] [address] [id number] [place] [address]- 7376 08 Aug, 2012 [facility] [place] [facility] [address] [facility] [id number] [place] [address]- 0688 Aug, [facility] [address] [id number] [place] [address]- 1124 10 Jul, 2012 [facility] [place] [facility] [address] [id number] [place] [address]- 2072 Jul, [facility] [address] [id number] [place] [address]- 4505 Jul, [facility] [address] [facility] [id number] [place] [address]- 5119 Jul, [facility] [address] [id number] [place] [address]- 6615 Jul, [facility] [place] [facility] [address] [facility] [id number] [place] [address]- 2549 Jul, [facility] [place] [facility] [address] [id number] [place] [address]- 7832 Jun, [facility] [place] [facility] [address] [id number] [place] [address]- 3272 Jun, [facility] [place] [facility] [address] [facility] [id number] [place] [address]- 7116 Jun, [facility] [place] [facility] [address] [id number] [place] [address]- 1644 Jun, [facility] [place] [facility] [address] [id number] [place] [address]- 1272 Jun, [facility] [place] [facility] [address] [id number] [place] [address]- 1388 Jun, [facility] [place] [facility] [address] [id number] [place] [address]- 9412 May, [facility] [place] [facility] [address] [id number] [place] [address]- 2379 May, [facility] [place] [facility] [address] [id number] [place] [address]- 9987 May, [facility] [place] [facility] [address] [id number] [place] [address]- 0425 May, [facility] [place] [facility] [address] [id number] [place] [address]- 0821 May, [facility] [place] [facility] [address] [id number] [place] [address]- 9562 May, [facility] [place] [facility] [address] [id number] [place] [address]- 0539 May, [facility] [place] [facility] [address] [id number] [place] [address]- 4649 May, [facility] [place] [facility] [address] [id number] [place] [address]- 5663 May, [facility] [place] [facility] [address] [id number] [place] [address] Apr, [facility] [place] [facility] [address] [id number] [place] [address] Apr, [facility] [place] [facility] [address] [id number] [place] [address] Mar, [facility] [place] [facility] [address] [id number] [place] [address] Mar, [facility] [place] [facility] [address] [id number] [place] [address] Mar, [facility] [place] [facility] [address] [id number] [place] [address] Mar, [facility] [place] [facility] [address] [id number] [place] [address] Mar, [facility] [place] [facility] [address] [id number] [place] [address] Mar, [facility] [place] [facility] [address] [id number] [place] [address] Mar, [facility] [place] [facility] [address] [id number] [place] [address] Mar, [facility] [place] [facility] [address] [id number] [place] [address] Mar, [facility] [place] [facility] [address] [id number] [place] [address] Feb, [facility] [place] [facility] [address] [id number] [place] [address] Feb, [facility] [place] [facility] [address] [id number] [place] [address] Feb, [facility] [place] [facility] [address] [id number] [place] [address] 9084 Feb, [facility] [place] [facility] [address] [id number] [place] [address] Jan, [facility] [place] [facility] [address] [id number] [place] [address] December, [facility] [place] [facility] [address] [id number] [place] [address] December, [facility] [place] [facility] [address] [id number] [place] [address] December, [facility] [place] [facility] [address] [id number] [place] [address] 19 Nov, 2011 [facility] [address] [id number] [place] [address] 17 Nov, 2011 [facility] [address] [id number] [place] [address] 16 Nov, 2011 [facility] [address] [id number] [place] [address] 16 Nov, 2011 [facility] [address] [id number] [place] [address] Oct, [facility] [address] [id number] [place] [address] 15 Sep, 2011 [facility] [address] [id number] [place] [address] 08 Sep, 2011 [facility] [address] [id number] [place] [address] 16 Aug, 2011 [facility] [address] [id number] [place] [address] Aug, [facility] [address] [id number] [place] [address] Aug, [facility] [address] [id number] [place] [address] Aug, [facility] [address] [id number] [place] [address] 9465 Aug, [facility] [address] [id number] [place] [address]959 Jul, [facility] [address] [id number] [place] [address] Jul, [facility] [address] [id number] [place] [address]46 Jul, [facility] [address] [id number] [place] [address]- [address] Jul, [facility] [place] [facility] [address] [id number] [place] [address] 29 Jun, 2011 [facility] [place] [facility] [address] [id number] [place] [address]- [address] Jun, [facility] [place] [facility] [address] [id number] [place] [address] Jun, [facility] [place] [facility] [address] [id number] [place] [address] Jun, [facility] [place] [facility] [address] [id number] [place] [address] May, [facility] [place] [facility] [address] [id number] [place] [address] May, [facility] [place] [facility] [address] [id number] [place] [address] Aug, [facility] [place] [facility] [address] [id number] [place] [address] Jul, [facility] [place] [facility] [address] [id number] [place] [address] Jun, [facility] [place] [facility] [address] [id number], [place] [address] May, [facility] [place] [facility] [address] [id number], [place] [address] May, [facility] [place] [facility] [address] [id number], [place] [address] May, [facility] [place] [facility] [address] [id number] [place] [address] December, [facility] [place] [facility] [address] [id number] [place] [address]- [address] Jul, [facility] [place] [facility] [address] [id number], [place] [address] Jul, [facility] [place] [facility] [address] [id number], [place] [address] Jul, [facility] [address] [facility] [id number], [place] [address] Jun, [facility] [address] [facility] [id number], [place] [address] Jun, [facility] [address] [facility] [id number], [place] [address] Jun, [facility] [address] [id number], [place] [address] Jun, [facility] [address] [facility] [id number] [id number] May, IMMUNIZATIONS No Known Immunizations SOCIAL HISTORY Never Assessed REASON FOR VISIT Lab results PLAN OF CARE VITAL SIGNS MEDICATIONS Unknown [...]
--- OUTSIDE RECORDS SUMMARY | 2018-07-23 14:51 | XMS REPORT ---
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 243578025 Problem Diabetes E11.9 Active 31732084 ALLERGIES No Known Allergies ENCOUNTERS Encounter Location Date Diagnosis [place] [address] [address] Apr, [place] [address] 85094- 9798 Feb, Depressive disorder, not elsewhere classified F32.9 and Mild cognitive impairment G31.84 [place] [address] [address] [place] [id number] [place] [address] 61240- 9555 Feb, Foot callus L84 [place] [address] 60862- 4695 Jan, Muscular dystrophies G71.0 [place] [address] 95558- 3635 Jan, [place] [address] 28920- 4228 Jan, [place] [address] 18742- 1237 Jan, Callus of foot L84 ; Nail hypertrophy L60.2 and Self-care deficit for hygiene R46.0 [facility] [address] [place] [id number] [place] [address] 49273- 3355 December, [facility] [address] [place] [id number] [place] [address] 09014- 4144 December, Callus of foot L84 ; Nail hypertrophy L60.2 ; Self-care deficit for hygiene R46.0 ; Controlled type 2 diabetes mellitus without complication, unspecified whether chcf insulin use E11.9 and Muscular dystrophies G71.0 [place] [address] [place] [id number] [place] [address] 22231- 1106 December, Muscular dystrophies G71.0 [facility] [address] [place] [id number] [place] [address] 49172 -1068 December, 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 [place] [address] [place] [id number] [place] [address] 35524- 8458 Nov, [place] [address] [place] [id number] [place] [address] 77742- 3403 Nov, [place] [address] [place] [id number] [place] [address] 57706- 5664 Nov, Muscular dystrophies G71.0 [place] [address] [place] [id number] [place] [address] 49715- 3827 Oct, Muscular dystrophies G71.0 [place] [address] [place] [id number] [place] [address] 42167- 0013 Aug, Muscular dystrophies G71.0 [facility] [address] [place] [id number] [place] [address] 28114 -2293 Jul, Urinary tract infection without hematuria, site unspecified N39.0 [facility] [address] [place] [id number] [place] [address] 43489 -6514 04 Jul, 2017 Urinary tract infection without hematuria, site unspecified N39.0 [place] [address] [place] [id number] [place] [address] 52946- 9328 May, Muscular dystrophies G71.0 [facility] [address] [facility] [id number] [place] [address], [place] [address]- 3589 Apr, Muscular dystrophies G71.0 [facility] [address] [facility] [id number] [place] [address], [place] [address]- 2546 Mar, Muscular dystrophies G71.0 [facility] [address] [place] [id number] [place] [address], [place] [address]- 8636 Feb, [facility] [address] [facility] [id number] [place] [address], [place] [address]- 8605 Feb, Muscular dystrophies G71.0 [facility] [address] [place] [id number] [place] [address], [place] [address]- 3180 Jan, Muscular dystrophies G71.0 and Diabetes E11.9 [facility] [address] [place] [id number] [place] [address], [place] [address]- 6322 Nov, [facility] [address] [place] [id number] [place] [address], [place] [address]- 6435 Nov, [facility] [address] [place] [id number] [place] [address], [place] [address]- 4162 Oct, [facility] [id number] [place] [address]- 8380 Sep, [facility] [id number] [place] [address], [place] [address]- 8533 Sep, [facility] [id number] [address]- 9586 Aug, [facility] [address] [place] [id number] [place] [address], [place] [address]- 1277 Jul, [facility] [address] [place] [address]- 2546 Jul, [facility] [id number] [place] [address] 66099- 8605 Jun, [facility] [address] [place] [id number] [address] May, Dysuria R30.0 and Cystitis N30.90 [facility] [address] [place] [id number] [place] [address] 68148- 7463 May, [facility] [address] [place] [id number] [place] [address] 99715- 9505 May, [facility] [address] [place] [id number] [place] [address] 76853- 9288 May, [facility] [address] [place] [id number] [place] [address] 07184- 0881 May, [facility] [address] [place] [id number] [place] [address] 80943- 2212 Mar, Muscular dystrophies G71.0 [facility] [address] [place] [id number] [place] [address] 95330- 7948 Feb, Muscular dystrophies G71.0 [facility] [address] [place] [id number] [place] [address] 58077- 2572 Feb, [facility] [address] [place] [id number] [place] [address] 59450- 7082 Jan, Muscular dystrophies G71.0 [facility] [address] [place] [id number] [place] [address] 39254- 1802 December, Open bite of left upper arm, initial encounter S41.152A [facility] [address] [address] December, [facility] [address] [place] [id number] [place] [address] 47395- 7203 Nov, [facility] [address] [place] [id number] [place] [address] 53550- 6039 Nov, [facility] [address] [place] [id number] [place] [address] 42176- 4127 Oct, [facility] [id number] [place] [address] 51504- 6825 Oct, Diabetes type 2, controlled E11.9 and Polyneuropathy G62.9 [facility] [address] [place] [id number] [place] [address] 02911- 3238 Sep, [facility] [address] [place] [id number] [place] [address] 34614- 5542 Aug, [facility] [address] [place] [id number] [place] [address] 09838- 0723 Aug, [facility] [address] [place] [id number] [place] [address] 91301- 0991 Jul, [facility] [address] [place] [id number] [place] [address] 86035- 7350 Jul, [facility] [address] [place] [id number] [place] [address] 14628- 4234 Jul, [facility] [address] [place] [id number] [place] [address] 76721- 3537 Jun, [facility] [address] [place] [id number] [place] [address] 73052- 9634 Jun, Foot deformity M21.969 [facility] [address] [place] [id number] [place] [address] 33266- 3353 May, [facility] [address] [place] [id number] [place] [address] 18337- 1846 May, [facility] [id number] [place] [address] 97724- 4407 May, [facility] [address] [place] [id number] [place] [address] 59035- 1279 Apr, Diabetes with renal manifestations, type II or unspecified type, not stated as uncontrolled 250.40 and Unsteady gait 781.2 [facility] [address] [place] [id number] [place] [address] 04756- 3902 Apr, [facility] [place] [facility] [address] [id number] [place] [address]- 5205 09 Apr, 2015 [facility] [place] [facility] [address] [id number] [place] [address]- 1296 Mar, [facility] [place] [facility] [address] [id number] [place] [address]- 3386 Feb, [facility] [place] [facility] [address] [id number] [place] [address]- 1196 Jan, [facility] [place] [facility] [address] [id number] [place] [address]- 0137 Jan, [facility] [place] [facility] [address] [id number] [place] [address]- 3386 December, [facility] [place] [facility] [address] [id number] [place] [address]- 2222 Nov, [facility] [place] [facility] [address] [id number] [place] [address]- 2607 Nov, [facility] [place] [facility] [address] [id number] [place] [address]- 6006 Oct, [facility] [place] [facility] [address] [id number], [place] [address]- 3370 Oct, [facility] [place] [facility] [address] [facility] [id number], [place] [address]- 7386 Oct, [facility] [place] [facility] [address] [id number], [place] [address]- 5966 Oct, [facility] [place] [facility] [address] [id number] [place] [address]- 3157 Oct, [facility] [place] [facility] [address] [id number] [place] [address]- 2156 Oct, [facility] [place] [facility] [address] [id number], [place] [address]- 7856 Sep, [facility] [place] [facility] [address] [id number], [place] [address]- 4364 Sep, [facility] [place] [facility] [address] [id number] [place] [address]- 0748 Sep, [facility] [place] [facility] [address] [id number] [place] [address]- 1859 Sep, [facility] [place] [facility] [address] [id number] [place] [address]- 2107 Aug, [facility] [place] [facility] [address] [id number] [place] [address]- 3367 Aug, [facility] [place] [facility] [address] [id number] [place] [address]- 5456 Aug, [facility] [place] [facility] [address] [id number] [place] [address]- 7848 Aug, [facility] [place] [facility] [address] [id number] [place] [address]- 9832 Jul, [facility] [place] [facility] [address] [id number] [place] [address]- 9335 Jul, [facility] [place] [facility] [address] [id number] [place] [address]- 9591 Jul, [facility] [place] [facility] [address] [facility] [id number] [place] [address]- 5931 Jul, [facility] [place] [facility] [address] [id number] [place] [address]- 1364 Jun, [facility] [place] [facility] [address] [id number] [place] [address]- 0740 Jun, [facility] [place] [facility] [address] [id number] [place] [address]- 9412 Jun, [facility] [place] [facility] [address] [id number] [place] [address]- 8258 Jun, [facility] [place] [facility] [address] [id number] [place] [address]- 6531 May, [facility] [place] [facility] [address] [id number] [place] [address]- 8839 May, [facility] [place] [facility] [address] [id number] [place] [address]- 9318 May, [facility] [place] [facility] [address] [id number] [place] [address]- 6877 May, [facility] [place] [facility] [address] [id number] [place] [address]- 8842 Apr, [facility] [place] [facility] [address] [id number] [place] [address]- 1457 Apr, [facility] [place] [facility] [address] [id number] [place] [address]- 5133 Apr, [facility] [place] [facility] [address] [id number] [place] [address]- 8296 Mar, [facility] [place] [facility] [address] [id number] [place] [address]- 5930 Mar, [facility] [place] [facility] [address] [id number] [place] [address]- 5260 Mar, [facility] [place] [facility] [address] [id number] [place] [address]- 4807 Mar, [facility] [place] [facility] [address] [id number] [place] [address]- 9706 Feb, [facility] [place] [facility] [address] [id number] [place] [address]- 5881 Feb, [facility] [place] [facility] [address] [id number] [place] [address]- 0650 Feb, [facility] [place] [facility] [address] [id number] [place] [address]- 6515 Feb, [facility] [place] [facility] [address] [id number] [place] [address]- 7996 Jan, [facility] [place] [facility] [address] [id number], [place] [address]- 5678 Jan, [facility] [place] [facility] [address] [id number] [place] [address]- 7524 December, [facility] [place] [facility] [address] [id number] [place] [address]- 6623 December, [facility] [place] [facility] [address] [id number] [place] [address]- 4062 Nov, [facility] [place] [facility] [address] [id number] [place] [address]- 1675 Nov, [facility] [place] [facility] [address] [id number] [place] [address]- 6559 Oct, [facility] [place] [facility] [address] [id number] [place] [address]- 2802 Oct, [facility] [place] [facility] [address] [id number] [place] [address]- 3265 Oct, [facility] [place] [facility] [address] [id number] [place] [address]- 1247 Oct, [facility] [place] [facility] [address] [id number] [place] [address]- 1404 Sep, [facility] [place] [facility] [address] [id number] [place] [address]- 1035 Sep, [facility] [place] [facility] [address] [id number], [place] [address]- 9421 Aug, [facility] [place] [facility] [address] [id number] [place] [address]- 3809 Aug, [facility] [place] [facility] [address] [id number] [place] [address]- 9101 Aug, [facility] [place] [facility] [address] [id number] [place] [address]- 7722 Aug, [facility] [place] [facility] [address] [id number] [place] [address]- 8682 Aug, [facility] [place] [facility] [address] [id number] [place] [address]- 4122 Aug, [facility] [address] [id number] [place] [address]- 4354 Jul, [facility] [place] [facility] [address] [id number] [place] [address]- 3298 Jul, [facility] [address] [id number] [place] [address]- 1851 Jul, [facility] [place] [facility] [address] [id number] [place] [address]- 9384 Jun, [facility] [address] [id number] [place] [address]- 8394 Jun, [facility] [address] [id number] [place] [address]- 1566 Jun, [facility] [address] [id number] [place] [address]- 6651 Jun, [facility] [address] [id number] [place] [address]- 3282 May, [facility] [place] [facility] [address] [id number] [place] [address]- 5102 May, [facility] [address] [id number] [place] [address]- 0581 May, [facility] [place] [facility] [address] [id number] [place] [address]- 8795 May, [facility] [address] [id number] [place] [address]- 3754 Apr, [facility] [place] [facility] [address] [id number] [place] [address]- 3898 Apr, 2012 [facility] [place] [facility] [address] [id number] [place] [address]- 6345 Apr, [facility] [place] [facility] [address] [id number] [place] [address]- 1500 Apr, [facility] [place] [facility] [address] [id number] [place] [address]- 7969 Apr, [facility] [place] [facility] [address] [id number] [place] [address]- 7056 Mar, [facility] [place] [facility] [address] [id number] [place] [address]- 8813 Mar, [facility] [place] [facility] [address] [id number] [place] [address]- 3112 Mar, [facility] [place] [facility] [address] [id number] [place] [address]- 0303 Mar, [facility] [place] [facility] [address] [id number] [place] [address]- 8955 Feb, [facility] [place] [facility] [address] [id number] [place] [address]- 8319 Feb, [facility] [place] [facility] [address] [id number] [place] [address]- 6956 Jan, [facility] [place] [facility] [address] [id number] [place] [address]- 1936 Jan, [facility] [place] [facility] [address] [id number] [place] [address]- 9647 Jan, [facility] [place] [facility] [address] [id number] [place] [address]- 1413 Jan, [facility] [place] [facility] [address] [id number] [place] [address]- 1755 December, [facility] [place] [facility] [address] [id number] [place] [address]- 3636 December, [facility] [place] [facility] [address] [id number] [place] [address]- 1843 Nov, [facility] [place] [facility] [address] [id number] [place] [address]- 9509 Nov, [facility] [place] [facility] [address] [id number] [place] [address]- 3503 04 Nov, 2012 [facility] [address] [id number] [place] [address]- 4568 08 Oct, 2012 [facility] [place] [facility] [address] [id number] [place] [address]- 8796 06 Oct, 2012 [facility] [address] [id number] [place] [address]- 4156 07 Sep, 2012 [facility] [place] [facility] [address] [id number] [place] [address]- 7796 07 Sep, 2012 [facility] [address] [id number] [place] [address]- 0383 Aug, [facility] [place] [facility] [address] [id number] [place] [address]- 0538 Aug, [facility] [address] [id number] [place] [address]- 4859 10 Jul, 2012 [facility] [address] [id number] [place] [address]- 8508 Jul, [facility] [address] [id number] [place] [address]- 9066 Jul, [facility] [address] [id number] [place] [address]- 7459 Jul, [facility] [address] [id number] [place] [address]- 2666 Jul, [facility] [place] [facility] [address] [id number] [place] [address]- 4073 Jul, [facility] [place] [facility] [address] [id number] [place] [address]- 1220 Jun, [facility] [place] [facility] [address] [id number] [place] [address]- 1542 Jun, [facility] [place] [facility] [address] [id number] [place] [address]- 1004 Jun, [facility] [place] [facility] [address] [id number] [place] [address]- 6897 Jun, [facility] [place] [facility] [address] [id number] [place] [address]- 6529 Jun, [facility] [place] [facility] [address] [id number] [place] [address]- 9259 Jun, [facility] [place] [facility] [address] [id number] [place] [address]- 4371 May, [facility] [place] [facility] [address] [id number] [place] [address]- 2247 May, [facility] [place] [facility] [address] [id number] [place] [address]- 7336 May, [facility] [place] [facility] [address] [id number] [place] [address]- 1792 May, [facility] [place] [facility] [address] [id number] [place] [address]- 2598 May, [facility] [place] [facility] [address] [id number] [place] [address]- 4555 May, [facility] [place] [facility] [address] [id number] [place] [address]- 1625 May, [facility] [place] [facility] [address] [id number] [place] [address]- 3123 May, [facility] [place] [facility] [address] [id number] [place] [address]- 0409 May, [facility] [place] [facility] [address] [id number] [place] [address]- 9832 Apr, [facility] [place] [facility] [address] [id number] [place] [address] Apr, [facility] [place] [facility] [address] [id number] [place] [address] Mar, [facility] [place] [facility] [address] [id number] [place] [address] Mar, [facility] [place] [facility] [address] [id number] [place] [address] Mar, [facility] [place] [facility] [address] [id number] [place] [address] Mar, [facility] [place] [facility] [address] [id number] [place] [address] Mar, [facility] [place] [facility] [address] [id number] [place] [address] Mar, [facility] [place] [facility] [address] [id number] [place] [address] Mar, [facility] [place] [facility] [address] [id number] [place] [address] Mar, [facility] [place] [facility] [address] [id number] [place] [address] Mar, [facility] [place] [facility] [address] [id number] [place] [address] Feb, [facility] [place] [facility] [address] [id number] [place] [address] Feb, [facility] [place] [facility] [address] [id number] [place] [address] Feb, [facility] [place] [facility] [address] [id number] [place] [address] Feb, [facility] [place] [facility] [address] [id number] [place] [address] Jan, [facility] [place] [facility] [address] [id number] [place] [address] December, [facility] [place] [facility] [address] [id number] [place] [address] December, [facility] [place] [facility] [address] [id number] [place] [address] December, [facility] [place] [facility] [address] [id number] [place] [address] 19 Nov, 2011 [facility] [address] [id number] [place] [address] 17 Nov, 2011 [facility] [address] [id number] [place] [address] 16 Nov, 2011 [facility] [address] [id number] [place] [address] 16 Nov, 2011 [facility] [address] [id number] [place] [address] 07 Oct, 2011 [facility] [address] [id number] [place] [address] 15 Sep, 2011 [facility] [address] [id number] [place] [address] 08 Sep, 2011 [facility] [address] [id number] [place] [address] 16 Aug, 2011 [facility] [address] [id number] [place] [address] Aug, [facility] [address] [id number] [place] [address] Aug, [facility] [address] [id number] [place] [address] Aug, [facility] [address] [id number] [place] [address] Aug, [facility] [address] [id number] [place] [address] Jul, [facility] [place] [facility] [address] [id number] [place] [address] Jul, [facility] [address] [id number] [place] [address] Jul, [facility] [address] [id number] [place] [address] Jul, [facility] [place] [facility] [address] [id number] [place] [address] 29 Jun, 2011 [facility] [place] [facility] [address] [id number] [place] [address] Jun, [facility] [place] [facility] [address] [id number] [place] [address] Jun, [facility] [place] [facility] [address] [id number] [place] [address] Jun, [facility] [place] [facility] [address] [id number] [place] [address] May, [facility] [place] [facility] [address] [id number] [place] [address] May, [facility] [place] [facility] [address] [id number] [place] [address] Aug, [facility] [place] [facility] [address] [id number] [place] [address] Jul, [facility] [place] [facility] [address] [id number] [place] [address] Jun, [facility] [place] [facility] [address] [id number] [place] [address] May, [facility] [place] [facility] [address] [id number] [place] [address] May, [facility] [place] [facility] [address] [id number] [place] [address] May, [facility] [place] [facility] [address] [id number] [place] [address] December, [facility] [place] [facility] [address] [id number] [place] [address] Jul, [facility] [place] [facility] [address] [id number] [place] [address] Jul, [facility] [place] [facility] [address] [id number] [address] Jul, [facility] [id number] [address] Jun, [facility] [id number] [address] Jun, [facility] [id number] [address] Jun, [facility] [id number] [place] [address] Jun, [facility] [id number] [place] [address] May, IMMUNIZATIONS No Known Immunizations SOCIAL HISTORY Never Assessed REASON FOR VISIT pain management WB-MA, Big toe on the right foot is causing pain PLAN OF CARE VITAL SIGNS Height 69 in 2017-12-21 Weight 134 lbs 2017-12-21 Temperature 98.2 degrees Fahrenheit 2017-12-21 Heart Rate 68 bpm 2017-12-21 Respiratory Rate 20 2017-12-21 BMI 19.79 kg/m2 2017-12-21 Blood pressure systolic 108 mmHg 2017-12-21 Blood pressure diastolic 64 mmHg 2017-12-21 MEDICATIONS Medication Instructions Dosage Frequency Start Date [...] TABLET BY MOUTH ONCE DAILY 30 Active VESIcare 10 MG TAKE ONE TABLET BY MOUTH ONCE DAILY 30 Active Ambien 10 MG Orally Once a day 1 tablet at bedtime 24h 30 days Active RESULTS No Results PROCEDURES Procedure Date Ordered Result Body Site [facility] VISIT ESTABLISHED PATIENT December 21, 2017 ADINA VILLAFANA* December 21, 2017 LAB NOT BILLED BY [facility] December 21, 2017 INSTRUCTIONS MEDICATIONS ADMINISTERED No Known Medications MEDICAL [...]
--- OUTSIDE RECORDS SUMMARY | 2018-07-23 14:52 | XMS REPORT ---
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 728278720 Problem Diabetes E11.9 Active 14050973 ALLERGIES No Information ENCOUNTERS Encounter Location Date Diagnosis [place] [address] [address] Apr, [place] [address] [address]- 1406 Feb, Depressive disorder, not elsewhere classified F32.9 and Mild cognitive impairment G31.84 [place] [address] [place] [id number] [place] [address]7040- 7340 Feb, Foot callus L84 [place] [address] [address]- 2006 Jan, Muscular dystrophies G71.0 [place] [address] 7[address]- 0104 Jan, [place] [address] [address]- 3961 Jan, [place] [address] 88679- 7503 Jan, Callus of foot L84 ; Nail hypertrophy L60.2 and Self-care deficit for hygiene R46.0 [facility] [address] [place] [id number] [place] [address] 78921- 8919 December, [facility] [address] [place] [id number] [place] [address] 05109- 1841 December, Callus of foot L84 ; Nail hypertrophy L60.2 ; Self-care deficit for hygiene R46.0 ; Controlled type 2 diabetes mellitus without complication, unspecified whether detention insulin use E11.9 and Muscular dystrophies G71.0 [facility] [address] [place] [id number] [place] [address] 28072- 2652 December, Muscular dystrophies G71.0 [facility] [address] [place] [id number] [place] [address] 46644 -0196 December, 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 [place] [address] [id number] [place] [address] 03326- 7692 Nov, [place] [address] [id number] [place] [address] 89693- 3021 Nov, [place] [address] [place] [id number] [place] [address] 76652- 8177 Nov, Muscular dystrophies G71.0 [facility] [address] [place] [id number] [place] [address] 46795- 6016 Oct, Muscular dystrophies G71.0 [place] [address] [id number] [place] [address] 58301- 3535 Aug, Muscular dystrophies G71.0 [facility] [address] [place] [place] [id number] [place] [address] 84277 -2520 Jul, Urinary tract infection without hematuria, site unspecified N39.0 [facility] [address] [place] [place] [id number] [place] [address] 82017 -4047 04 Jul, 2017 Urinary tract infection without hematuria, site unspecified N39.0 [facility] [address] [place] [id number] [place] [address] 38716- 2674 May, Muscular dystrophies G71.0 [facility] [address] [facility] [id number] [place] [address]- 2275 Apr, Muscular dystrophies G71.0 [facility] [address] [facility] [id number] [place] [address]- 5756 Mar, Muscular dystrophies G71.0 [facility] [address] [place] [id number] [place] [address], [place] [address]- 7230 Feb, [facility] [address] [facility] [id number] [place] [address], [place] [address]- 7343 Feb, Muscular dystrophies G71.0 [facility] [address] [place] [id number] [place] [address], [place] [address] Jan, Muscular dystrophies G71.0 and Diabetes E11.9 [facility] [address] [place] [id number] [place] [address], [place] [address]- 2717 Nov, [facility] [id number] [place] [address]- 4043 Nov, [facility] [id number] [place] [address], [place]- 8949 Oct, [facility] [id number] [place] [address]- 5326 Sep, [facility] [id number] [place] [address]- 1127 Sep, [facility] [address] [id number] [address] 6677 Aug, [facility] [id number] [place] [address]- 9244 Jul, [facility] [id number] [place] [address]- 6456 Jul, [facility] [id number] [address]- 0729 Jun, [facility] [id number] [address] May, Dysuria R30.0 and Cystitis N30.90 [facility] [address] [place] [id number] [place] [address] 01613- 3363 May, [facility] [address] [place] [id number] [place] [address] 61938- 7513 May, [facility] [address] [place] [id number] [place] [address] 73711- 2418 May, [facility] [address] [place] [id number] [place] [address] 93631- 5344 May, [facility] [address] [place] [id number] [place] [address] 71535- 3985 Mar, Muscular dystrophies G71.0 [facility] [address] [place] [id number] [place] [address] 38533- 5110 Feb, Muscular dystrophies G71.0 [facility] [address] [place] [id number] [place] [address] 59781- 0341 Feb, [facility] [address] [place] [id number] [place] [address] 39320- 7395 Jan, Muscular dystrophies G71.0 [facility] [address] [place] [id number] [place] [address] 25875- 6909 December, Open bite of left upper arm, initial encounter S41.152A [facility] [id number] [address] December, [facility] [address] [place] [id number] [place] [address] 54187- 8976 Nov, [facility] [address] [place] [id number] [place] [address] 27763- 1366 Nov, [facility] [address] [place] [id number] [place] [address] 21281- 1643 Oct, [facility] [id number] [place] [address] 98707- 5676 Oct, Diabetes type 2, controlled E11.9 and Polyneuropathy G62.9 [facility] [address] [place] [id number] [place] [address] 64118- 3378 Sep, [facility] [address] [place] [id number] [place] [address] 70339- 0063 Aug, [facility] [address] [place] [id number] [place] [address] 08976- 5769 Aug, [facility] [address] [place] [id number] [place] [address] 57826- 8266 Jul, [facility] [address] [place] [id number] [place] [address] 81785- 0077 Jul, [facility] [address] [place] [id number] [place] [address] 94474- 9356 Jul, [facility] [address] [place] [id number] [place] [address] 95710- 7552 Jun, [facility] [address] [place] [id number] [place] [address] 83715- 8462 Jun, Foot deformity M21.969 [facility] [address] [place] [id number] [place] [address] 83177- 2391 May, [facility] [address] [place] [id number] [place] [address] 73641- 3113 May, [facility] [id number] [place] [address] 84695- 6348 May, [facility] [address] [place] [id number] [place] [address] 73244- 5544 Apr, Diabetes with renal manifestations, type II or unspecified type, not stated as uncontrolled 250.40 and Unsteady gait 781.2 [facility] [address] [place] [id number] [place] [address] 30938- 6599 Apr, [facility] [place] [facility] [address] [id number] [place] [address]- 7335 09 Apr, 2015 [facility] [place] [facility] [address] [id number] [place] [address]- 7916 Mar, [facility] [place] [facility] [address] [id number] [place] [address] 2546 Feb, [facility] [place] [facility] [address] [id number] [place] [address] 2545 Jan, [facility] [place] [facility] [address] [id number] [place] [address]- 2067 Jan, [facility] [place] [facility] [address] [id number] [place] [address]- 6457 December, [facility] [place] [facility] [address] [id number] [place] [address]- 4976 Nov, [facility] [place] [facility] [address] [id number] [place] [address]- 0683 Nov, [facility] [place] [facility] [address] [id number] [place] [address]- 7368 Oct, [facility] [place] [facility] [address] [id number] [place] [address]- 7960 Oct, [facility] [place] [facility] [address] [id number] [place] [address]- 7429 Oct, [facility] [place] [facility] [address] [id number] [address]- 6894 Oct, [facility] [place] [facility] [address] [id number] [place] [address]- 4803 Oct, [facility] [place] [facility] [address] [id number] [place] [address]- 5296 Oct, [facility] [place] [facility] [address] [id number] [address]- 8196 Sep, [facility] [place] [facility] [address] [id number] [address]- 9095 Sep, [facility] [place] [facility] [address] [id number] [place] [address]- 6113 Sep, [facility] [place] [facility] [address] [id number] [place] [address]- 5777 Sep, [facility] [place] [facility] [address] [id number] [place] [address]- 4330 Aug, [facility] [place] [facility] [address] [id number] [place] [address]- 7190 Aug, [facility] [place] [facility] [address] [id number] [place] [address]- 0199 Aug, [facility] [place] [facility] [address] [id number] [place] [address]- 3944 Aug, [facility] [place] [facility] [address] [id number] [place] [address]- 2987 Jul, [facility] [place] [facility] [address] [id number] [place] [address]- 9467 Jul, [facility] [place] [facility] [address] [id number] [place] [address]- 3458 Jul, [facility] [place] [facility] [address] [facility] [id number] [place] [address]- 6018 Jul, [facility] [place] [facility] [address] [id number] [place] [address]- 3609 Jun, [facility] [place] [facility] [address] [id number] [place] [address]- 1970 Jun, [facility] [place] [facility] [address] [id number] [place] [address]- 2625 Jun, [facility] [place] [facility] [address] [id number] [place] [address]- 6984 Jun, [facility] [place] [facility] [address] [facility] [id number] [place] [address]- 4370 May, [facility] [place] [facility] [address] [id number] [place] [address]- 6112 May, [facility] [place] [facility] [address] [id number] [place] [address]- 0629 May, [facility] [place] [facility] [address] [id number] [place] 2718 May, [facility] [place] [facility] [address] [id number] [place] [address]- 9257 Apr, [facility] [place] [facility] [address] [id number] [place] [address]- 3619 Apr, [facility] [place] [facility] [address] [id number] [place] [address]- 9664 Apr, [facility] [place] [facility] [address] [id number] [place] [address]- 8633 Mar, [facility] [place] [facility] [address] [id number] [place] [address]- 5716 Mar, [facility] [place] [facility] [address] [id number] [place] [address]- 0890 Mar, [facility] [place] [facility] [address] [id number] [place] [address]- 3438 Mar, [facility] [place] [facility] [address] [id number] [place] [address]- 2926 Feb, [facility] [place] [facility] [address] [id number] [place] [address]- 5944 Feb, [facility] [place] [facility] [address] [id number] [place] [address]- 9387 Feb, [facility] [place] [facility] [address] [id number] [place] [address]- 8726 Feb, [facility] [place] [facility] [address] [id number] [place] [address]- 6158 Jan, [facility] [place] [facility] [address] [id number] [place] [address]- 5319 Jan, [facility] [place] [facility] [address] [id number] [place] [address]- 2667 December, [facility] [place] [facility] [address] [id number] [place] [address]- 7264 December, [facility] [place] [facility] [address] [id number] [place] [address]- 0155 Nov, [facility] [place] [facility] [address] [id number] [place] [address]- 6895 Nov, [facility] [place] [facility] [address] [id number] [place] [address]- 1762 Oct, [facility] [place] [facility] [address] [id number] [place] [address]- 4942 Oct, [facility] [place] [facility] [address] [id number] [place] [address]- 0202 Oct, [facility] [place] [facility] [address] [id number] [place] [address]- 5400 Oct, [facility] [place] [facility] [address] [id number] [place] [address]- 8217 Sep, [facility] [place] [facility] [address] [id number] [place] [address]- 8204 Sep, [facility] [place] [facility] [address] [id number] [place] [address]- 0700 Aug, [facility] [place] [facility] [address] [id number] [place] [address]- 2948 Aug, [facility] [place] [facility] [address] [id number] [place] [address]- 3475 Aug, [facility] [place] [facility] [address] [id number] [place] [address]- 1136 Aug, [facility] [place] [facility] [address] [id number] [place] [address]- 8008 Aug, [facility] [place] [facility] [address] [id number] [place] [address]- 4509 Aug, [facility] [address] [id number] [place] [address]- 3489 Jul, [facility] [place] [facility] [address] [id number] [place] [address]- 6495 Jul, [facility] [address] [id number] [place] [address]- 5819 Jul, [facility] [place] [facility] [address] [id number] [place] [address]- 8942 Jun, [facility] [address] [id number] [place] [address]- 6267 Jun, [facility] [address] [id number] [place] [address]- 4983 Jun, [facility] [address] [id number] [place] [address]- 9658 Jun, [facility] [address] [id number] [place] [address]- 6843 May, [facility] [address] [id number] [place] [address]- 8143 May, [facility] [address] [id number] [place] [address]- 8665 May, [facility] [place] [facility] [address] [id number] [place] [address]- 9679 May, [facility] [address] [id number] [place] [address]- 2467 Apr, [facility] [place] [facility] [address] [id number] [place] [address]- 9402 Apr, [facility] [place] [facility] [address] [id number] [place] [address]- 4980 Apr, [facility] [place] [facility] [address] [id number] [place] [address]- 6372 Apr, [facility] [place] [facility] [address] [id number] [place] [address]- 8500 Apr, [facility] [place] [facility] [address] [id number] [place] [address]- 0728 Mar, [facility] [place] [facility] [address] [id number] [place] [address]- 0635 Mar, [facility] [place] [facility] [address] [id number] [place] [address]- 5414 Mar, [facility] [place] [facility] [address] [id number] [place] 9565 Mar, [facility] [place] [facility] [address] [id number] [place] [address]- 0421 Feb, [facility] [place] [facility] [address] [id number] [place] [address]- 5412 Feb, [facility] [place] [facility] [address] [id number] [place] [address]- 0444 Jan, [facility] [place] [facility] [address] [id number] [place] [address]- 3719 Jan, [facility] [place] [facility] [address] [id number] [place] [address]- 8392 Jan, [facility] [place] [facility] [address] [id number] [address]- 2757 Jan, [facility] [place] [facility] [address] [id number] [address]- 4411 December, [facility] [place] [facility] [address] [id number] [place] [address]- 1063 December, [facility] [place] [facility] [address] [id number] [place] [address]- 5790 Nov, [facility] [place] [facility] [address] [id number] [address]- 5178 Nov, [facility] [place] [facility] [address] [id number] [address]- 2373 04 Nov, 2012 [facility] [address] [id number] [place] [address]- 9038 08 Oct, 2012 [facility] [place] [facility] [address] [id number] [place] [address]- 4236 06 Oct, 2012 [facility] [address] [id number] [place] [address]- 1546 07 Sep, 2012 [facility] [place] [facility] [address] [id number] [place] [address]- 6004 07 Sep, 2012 [facility] [address] [id number] [place] [address]- 2262 08 Aug, 2012 [facility] [place] [facility] [address] [facility] [id number] [place] [address]- 9566 Aug, [facility] [address] [id number] [place] [address]- 4365 10 Jul, 2012 [facility] [place] [facility] [address] [id number] [place] [address]- 1823 Jul, [facility] [address] [id number] [place] [address]- 4962 Jul, [facility] [address] [facility] [id number] [place] [address]- 3304 Jul, [facility] [address] [id number] [place] [address]- 9855 Jul, [facility] [place] [facility] [address] [facility] [id number] [place] [address]- 2548 Jul, [facility] [place] [facility] [address] [id number] [place] [address]- 7638 Jun, [facility] [place] [facility] [address] [id number] [place] [address]- 6131 Jun, [facility] [place] [facility] [address] [facility] [id number] [place] [address] Jun, [facility] [place] [facility] [address] [id number] [place] [address] Jun, [facility] [place] [facility] [address] [id number] [place] [address] Jun, [facility] [place] [facility] [address] [id number] [place] [address] Jun, [facility] [place] [facility] [address] [id number] [place] [address] May, [facility] [place] [facility] [address] [id number] [place] [address] May, [facility] [place] [facility] [address] [id number] [place] [address] May, [facility] [place] [facility] [address] [id number] [place] [address] May, [facility] [place] [facility] [address] [id number] [place] [address] May, [facility] [place] [facility] [address] [id number] [place] [address] May, [facility] [place] [facility] [address] [id number] [place] [address] May, [facility] [place] [facility] [address] [id number] [place] [address] May, [facility] [place] [facility] [address] [id number] [place] [address] May, [facility] [place] [facility] [address] [id number] [place] [address] Apr, [facility] [place] [facility] [address] [id number] [place] [address] Apr, [facility] [place] [facility] [address] [id number] [place] [address] Mar, [facility] [place] [facility] [address] [id number] [place] [address] Mar, [facility] [place] [facility] [address] [id number] [place] [address] Mar, [facility] [place] [facility] [address] [id number] [place] [address]- [address] Mar, [facility] [place] [facility] [address] [id number] [place] [address]- [address] Mar, [facility] [place] [facility] [address] [id number] [place] [address] Mar, [facility] [place] [facility] [address] [id number] [place] [address]- [address] Mar, [facility] [place] [facility] [address] [id number] [place] [address]- [address] Mar, [facility] [place] [facility] [address] [id number] [place] [address] Mar, [facility] [place] [facility] [address] [id number] [place] [address] Feb, [facility] [place] [facility] [address] [id number] [place] [address] Feb, [facility] [place] [facility] [address] [id number] [place] [address] Feb, [facility] [place] [facility] [address] [id number] [place] [address] Feb, [facility] [place] [facility] [address] [id number] [place] [address] Jan, [facility] [place] [facility] [address] [id number] [place] [address]- [address] December, [facility] [place] [facility] [address] [id number] [place] [address] December, [facility] [place] [facility] [address] [id number] [place] [address]- [address] December, [facility] [place] [facility] [address] [id number] [place] [address] 19 Nov, 2011 [facility] [address] [id number] [place] [address] 17 Nov, 2011 [facility] [address] [id number] [place] [address]- [address] 16 Nov, 2011 [facility] [address] [id number] [place] [address] 16 Nov, 2011 [facility] [address] [id number] [place] [address] Oct, [facility] [address] [id number] [place] [address] 15 Sep, 2011 [facility] [address] [id number] [place] [address]- [address] 08 Sep, 2011 [facility] [address] [id number] [place] [address] 16 Aug, 2011 [facility] [address] [id number] [place] [address] Aug, [facility] [address] [id number] [place] [address] Aug, [facility] [address] [id number] [place] [address]- [address] Aug, [facility] [address] [id number] [place] [address]- [address] Aug, [facility] [address] [id number] [place] [address]- [address] Jul, [facility] [address] [id number] [place] [address] Jul, [facility] [address] [id number] [place] [address]- [address] Jul, [facility] [address] [id number] [place] [address]- [address] Jul, [facility] [place] [facility] [address] [id number] [place] [address]- [address] 29 Jun, 2011 [facility] [place] [facility] [address] [id number] [place] [address]- 87[address] Jun, [facility] [place] [facility] [address] [id number] [place] [address]- [address] Jun, [facility] [place] [facility] [address] [id number] [place] [address]- [address] Jun, [facility] [place] [facility] [address] [id number] [place] [address] May, [facility] [place] [facility] [address] [id number] [place] [address] May, [facility] [place] [facility] [address] [id number] [place] [address] Aug, [facility] [place] [facility] [address] [id number] [place] [address] Jul, [facility] [place] [facility] [address] [id number] [place] [address] Jun, [facility] [place] [facility] [address] [id number] [address] May, [facility] [place] [facility] [address] [id number] [place] [address] May, [facility] [place] [facility] [address] [id number] [place] [address] May, [facility] [place] [facility] [address] [id number] [place] [address] December, [facility] [place] [facility] [address] [id number] [place] [address] Jul, [facility] [place] [facility] [address] [id number] [place] [address] Jul, [facility] [place] [facility] [address] [id number] [place] [address] Jul, [facility] [address] [facility] [id number] [place] [address] Jun, [facility] [address] [facility] [id number] [place] [address] Jun, [facility] [address] [facility] [id number] [place] [address] Jun, [facility] [address] [facility] [id number] [place] [address] Jun, [facility] [address] [facility] [id number] [place] [address] May, IMMUNIZATIONS No Known Immunizations SOCIAL HISTORY Never Assessed REASON FOR VISIT Refill request PLAN OF CARE VITAL SIGNS MEDICATIONS Medication Instructions Dosage Frequency Start Date End Date Duration Status Percocet 5-325 MG Orally 2 times a day 1 tablet as needed 12h December, 28 days Active MS Contin 15 mg Orally Once a day 1 tablet 24h December, 28 days Active RESULTS No Results PROCEDURES [...]
--- OUTSIDE RECORDS SUMMARY | 2018-07-23 14:52 | XMS REPORT ---
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 525973366 Problem Diabetes E11.9 Active 53238160 ALLERGIES No Known Allergies ENCOUNTERS Encounter Location Date Diagnosis [place] [address] [address] Apr, [place] [address] 8[address]59- 2877 Feb, Depressive disorder, not elsewhere classified F32.9 and Mild cognitive impairment G31.84 [place] [address] 73393- 4409 Feb, Foot callus L84 [place] [address] 28203- 7493 Jan, Muscular dystrophies G71.0 [place] [address] 04972- 4795 Jan, [place] [address] 66165- 6955 Jan, [place] [address] 8[address]69- 5374 Jan, Callus of foot L84 ; Nail hypertrophy L60.2 and Self-care deficit for hygiene R46.0 [facility] [address] [place] [id number] [place] [address] 77668- 0327 December, [facility] [address] [address]- 7788 December, Callus of foot L84 ; Nail hypertrophy L60.2 ; Self-care deficit for hygiene R46.0 ; Controlled type 2 diabetes mellitus without complication, unspecified whether chcf insulin use E11.9 and Muscular dystrophies G71.0 [facility] [address] [place] [id number] [place] [address] 85323- 2353 December, Muscular dystrophies G71.0 [facility] [address] [place] [id number] [place] [address] 12198 -0245 December, 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 [place] [address] 94386- 2997 Nov, [facility] [address] [place] [id number] [place] [address] 93930- 7982 Nov, [place] [address] [place] [id number] [place] [address] 40802- 7688 Nov, Muscular dystrophies G71.0 [place] [address] [place] [id number] [place] [address] 94614- 0469 Oct, Muscular dystrophies G71.0 [facility] [address] [place] [id number] [place] [address] 79713- 2493 Aug, Muscular dystrophies G71.0 [facility] [address] [place] [address] [id number] [place] [address] 57914 -7428 07 Jul, 2017 Urinary tract infection without hematuria, site unspecified N39.0 [facility] [address] [place] [id number] [place] [address] 79612 -4962 Jul, Urinary tract infection without hematuria, site unspecified N39.0 [facility] [address] [place] [address]- 6371 May, Muscular dystrophies G71.0 [facility] [address] [place] [id number] [place] [address] 980546- 5551 Apr, Muscular dystrophies G71.0 [facility] [id number] [place] [address] 59113- 7733 Mar, Muscular dystrophies G71.0 [facility] [address] [place] [address] [id number] [place] [address] 87925- 1649 Feb, [facility] [address] [place] [id number] [place] [address] 248935- 4768 Feb, Muscular dystrophies G71.0 [facility] [address] [place] [id number] [place] [address] 30143- 9374 Jan, Muscular dystrophies G71.0 and Diabetes E11.9 [facility] [address] [place] [id number] [place] [address] 14423- 0158 Nov, [facility] [address] [place] [id number] [place] [address] 32178- 0430 Nov, [facility] [address] [place] [id number] [place] [address] 81415- 8286 Oct, [facility] [address] [address] Sep, [facility] [address] [address]- 1652 Sep, [facility] [address] [address]19 Aug, [facility] [address] [place] [id number] [place] [address] 63108- 6226 Jul, [facility] [id number] [address]- 5983 Jul, [facility] [address] [place] [id number] [place] [address] 33612- 7956 Jun, [facility] [id number] [place] [address] 50508 -3309 May, Dysuria R30.0 and Cystitis N30.90 [facility] [address] [place] [id number] [place] [address] 53066- 3884 May, [facility] [address] [place] [id number] [place] [address] 15715- 9985 May, [facility] [address] [place] [id number] [place] [address] 82177- 4651 May, [facility] [address] [place] [id number] [place] [address] 16278- 5661 May, [facility] [address] [place] [id number] [place] [address] 55932- 3870 Mar, Muscular dystrophies G71.0 [facility] [address] [place] [id number] [place] [address] 18216- 4495 Feb, Muscular dystrophies G71.0 [facility] [id number] [place] [address] 20235- 5822 Feb, [facility] [address] [place] [id number] [place] [address] 17008- 9213 Jan, Muscular dystrophies G71.0 [facility] [id number] [place] [address] 56139- 6905 December, Open bite of left upper arm, initial encounter S41.152A [facility] [id number] [address] -7331 December, [facility] [address] [id number] [place] [address] 60382- 1955 Nov, [facility] [id number] [place] [address] 67858- 3398 Nov, [facility] [address] [place] [id number] [place] [address] 59313- 5022 Oct, [facility] [address] [place] [id number] [place] [address] 46899- 1079 Oct, Diabetes type 2, controlled E11.9 and Polyneuropathy G62.9 [facility] [address] [place] [id number] [place] [address] 49616- 7625 Sep, [facility] [address] 50159- 7273 Aug, [facility] [address] [place] [id number] [place] [address] 85083- 6666 Aug, [facility] [address] [place] [id number] [place] [address] 06321- 7798 Jul, [facility] [address] [place] [id number] [place] [address] 83718- 0072 Jul, [facility] [address] [place] [id number] [place] [address] 67212- 3984 Jul, [facility] [address] [place] [id number] [place] [address] 79999- 3359 Jun, [facility] [address] [place] [id number] [place] [address] 39701- 5040 Jun, Foot deformity M21.969 [facility] [address] [place] [id number] [place] [address] 80154- 4204 May, [facility] [address] [id number] [place] [address] 13913- 2862 May, [facility] [address] [place] [id number] [place] [address] 33504- 1122 May, [facility] [address] [id number] [place] [address] 73072- 0238 Apr, Diabetes with renal manifestations, type II or unspecified type, not stated as uncontrolled 250.40 and Unsteady gait 781.2 [facility] [address] [place] [id number] [place] [address] 93510- 7419 16 Apr, 2015 [facility] [place] [facility] [address] [id number] [place] [address]- 3746 Apr, [facility] [place] [facility] [address] [id number] [place] [address]- 9400 Mar, [facility] [place] [facility] [address] [facility] [id number] [place] [address]- 4866 Feb, [facility] [place] [facility] [address] [id number] [place] [address]- 7585 Jan, [facility] [place] [facility] [address] [id number] [place] [address]- 5043 Jan, [facility] [place] [facility] [address] [id number] [place] [address]- 3548 December, [facility] [place] [facility] [address] [facility] [id number] [place] [address]- 0443 Nov, [facility] [place] [facility] [address] [facility] [id number] [place] [address]- 1302 Nov, [facility] [place] [facility] [address] [facility] [id number] [place] [address]- 6957 Oct, [facility] [place] [facility] [address] [facility] [id number] [place] [address]- 7521 Oct, [facility] [place] [facility] [address] [facility] [id number] [place] [address]- 7676 Oct, [facility] [place] [facility] [address] [facility] [id number] [place] [address]- 0991 Oct, [facility] [place] [facility] [address] [id number] [place] [address]- 2374 Oct, [facility] [place] [facility] [address] [facility] [id number] [place] [address]- 4002 Oct, [facility] [place] [facility] [address] [facility] [id number] [place] [address]- 3827 Sep, [facility] [place] [facility] [address] [id number] [place] [address]- 9715 Sep, [facility] [place] [facility] [address] [id number] [place] [address]- 1900 Sep, [facility] [place] [facility] [address] [id number] [place] [address]- 5792 Sep, [facility] [place] [facility] [address] [id number] [place] [address]- 2534 Aug, [facility] [place] [facility] [address] [id number] [place] [address]- 0742 Aug, [facility] [place] [facility] [address] [id number] [place] [address]- 4640 Aug, [facility] [place] [facility] [address] [id number] [place] [address]- 0699 Aug, [facility] [place] [facility] [address] [id number] [place] [address]- 1226 Jul, [facility] [place] [facility] [address] [id number] [place] [address]- 6270 Jul, [facility] [place] [facility] [address] [id number] [place] [address]- 4628 Jul, [facility] [place] [facility] [address] [id number] [place] [address]- 5183 Jul, [facility] [place] [facility] [address] [id number] [place] [address]- 9582 Jun, [facility] [place] [facility] [address] [id number] [place] [address]- 0804 Jun, [facility] [place] [facility] [address] [id number] [place] [address]- 1245 Jun, [facility] [place] [facility] [address] [id number] [place] [address]- 5904 Jun, [facility] [place] [facility] [address] [id number] [place] [address]- 4226 May, [facility] [place] [facility] [address] [id number] [place] [address]- 1996 May, [facility] [place] [facility] [address] [id number] [place] [address]- 1068 May, [facility] [place] [facility] [address] [id number] [place] 1436 May, [facility] [place] [facility] [address] [id number] [place] [address]- 9268 Apr, [facility] [place] [facility] [address] [id number] [place] [address]- 5206 Apr, [facility] [place] [facility] [address] [id number] [place] [address]- 0770 Apr, [facility] [place] [facility] [address] [id number] [place] [address]- 6824 Mar, [facility] [place] [facility] [address] [id number] [place] [address]- 1026 Mar, [facility] [place] [facility] [address] [id number] [place] [address]- 1559 Mar, [facility] [place] [facility] [address] [id number] [place] [address]- 8979 Mar, [facility] [place] [facility] [address] [id number] [place] [address]- 5663 Feb, [facility] [place] [facility] [address] [id number] [place] [address]- 7911 Feb, [facility] [place] [facility] [address] [id number] [place] [address]- 8192 Feb, [facility] [place] [facility] [address] [id number] [place] [address]- 4879 Feb, [facility] [place] [facility] [address] [id number] [place] [address]- 5925 Jan, [facility] [place] [facility] [address] [id number] [place] [address]- 0306 Jan, [facility] [address] [id number] [place] [address]- 7256 December, [facility] [place] [facility] [address] [id number] [place] [address]- 8833 December, [facility] [address] [id number] [place] [address]- 8326 Nov, [facility] [place] [facility] [address] [id number] [place] [address]- 2352 Nov, [facility] [address] [id number] [place] [address]- 0702 Oct, [facility] [address] [id number] [place] [address]- 7034 Oct, [facility] [address] [id number] [place] [address]- 3445 Oct, [facility] [address] [id number] [place] [address]- 1732 Oct, [facility] [address] [id number] [place] [address]- 9991 Sep, [facility] [address] [id number] [place] [address]- 8468 Sep, [facility] [place] [facility] [address] [id number] [place] [address]- 2205 Aug, [facility] [place] [facility] [address] [id number] [place] [address]- 7498 Aug, [facility] [place] [facility] [address] [id number] [place] [address]- 1240 Aug, [facility] [place] [facility] [address] [id number] [place] [address]- 6666 Aug, [facility] [place] [facility] [address] [id number] [place] [address]- 0890 Aug, [facility] [place] [facility] [address] [id number] [place] [address]- 0091 Aug, [facility] [place] [facility] [address] [id number] [place] [address]- 4822 Jul, [facility] [place] [facility] [address] [id number] [place] [address]- 9148 Jul, [facility] [place] [facility] [address] [id number] [place] [address]- 0060 Jul, [facility] [place] [facility] [address] [id number] [place] [address]- 4147 Jun, [facility] [place] [facility] [address] [id number] [place] [address]- 9193 Jun, [facility] [place] [facility] [address] [id number] [place] [address]- 3457 Jun, [facility] [place] [facility] [address] [id number] [place] [address]- 2185 Jun, [facility] [place] [facility] [address] [id number] [place] [address]- 1122 May, [facility] [place] [facility] [address] [id number] [place] [address]- 8029 May, [facility] [place] [facility] [address] [id number] [place] [address]- 7256 May, [facility] [place] [facility] [address] [id number] [place] [address]- 9959 May, [facility] [place] [facility] [address] [id number] [place] [address]- 9046 Apr, [facility] [place] [facility] [address] [id number] [place] [address]- 6603 Apr, [facility] [place] [facility] [address] [id number] [place] [address]- 4787 Apr, [facility] [place] [facility] [address] [id number] [place] [address]- 2192 Apr, [facility] [address] [id number] [place] [address]- 3855 Apr, [facility] [place] [facility] [address] [id number] [place] [address]- 5218 Mar, [facility] [address] [id number] [place] [address]- 3466 Mar, [facility] [place] [facility] [address] [id number] [place] [address]- 6182 Mar, [facility] [address] [id number] [place] [address]- 7238 Mar, [facility] [place] [facility] [address] [id number] [place] [address]- 8020 Feb, [facility] [address] [id number] [place] [address]- 7093 Feb, [facility] [place] [facility] [address] [id number] [place] [address]- 2730 Jan, [facility] [place] [facility] [address] [id number] [place] [address]- 3016 Jan, [facility] [place] [facility] [address] [id number] [place] [address]- 8887 Jan, [facility] [place] [facility] [address] [id number] [place] [address]- 2433 Jan, [facility] [place] [facility] [address] [id number] [place] [address]- 5288 December, [facility] [place] [facility] [address] [id number] [place] [address]- 9523 December, [facility] [place] [facility] [address] [id number] [place] [address]- 2109 Nov, [facility] [place] [facility] [address] [id number] [place] [address]- 3739 Nov, [facility] [place] [facility] [address] [id number] [place] [address]- 1055 04 Nov, 2012 [facility] [place] [facility] [address] [id number] [place] [address]- 1361 08 Oct, 2012 [facility] [place] [facility] [address] [id number] [place] [address]- 2438 Oct, [facility] [place] [facility] [address] [id number] [place] [address]- 2226 07 Sep, 2012 [facility] [place] [facility] [address] [id number] [place] [address]- 2641 Sep, [facility] [place] [facility] [address] [id number] [place] [address]- 8008 Aug, [facility] [address] [id number] [place] [address]- 5331 Aug, [facility] [address] [id number] [place] [address]- 4796 Jul, [facility] [place] [facility] [address] [id number] [place] [address]- 3568 Jul, [facility] [place] [facility] [address] [id number] [place] [address]- 9729 Jul, [facility] [place] [facility] [address] [id number] [place] [address]- 4424 Jul, [facility] [place] [facility] [address] [id number] [place] [address]- 9083 Jul, [facility] [place] [facility] [address] [id number] [place] [address] Jul, [facility] [place] [facility] [address] [id number] [place] [address] Jun, [facility] [place] [facility] [address] [id number] [place] [address] Jun, [facility] [place] [facility] [address] [id number] [place] [address] Jun, [facility] [place] [facility] [address] [id number] [place] [address] Jun, [facility] [place] [facility] [address] [id number] [place] [address] Jun, [facility] [place] [facility] [address] [facility] [id number] [place] [address] Jun, [facility] [place] [facility] [address] [id number] [place] [address] May, [facility] [place] [facility] [address] [id number] [place] [address] May, [facility] [place] [facility] [address] [id number] [place] [address] May, [facility] [place] [facility] [address] [facility] [id number] [place] [address] May, [facility] [place] [facility] [address] [id number] [place] [address] May, [facility] [place] [facility] [address] [id number] [place] [address] May, [facility] [place] [facility] [address] [id number] [place] [address] May, [facility] [place] [facility] [address] [id number] [place] [address] May, [facility] [place] [facility] [address] [id number] [place] [address] May, [facility] [place] [facility] [address] [id number] [place] [address] Apr, [facility] [place] [facility] [address] [facility] [id number] [place] [address] Apr, [facility] [place] [facility] [address] [facility] [id number] [place] [address] Mar, [facility] [place] [facility] [address] [id number] [place] [address] Mar, [facility] [address] [id number] [place] [address] Mar, [facility] [address] [id number] [place] [address] Mar, [facility] [address] [id number] [place] [address] Mar, [facility] [address] [id number] [place] [address] Mar, [facility] [address] [id number] [place] [address] Mar, [facility] [address] [id number] [place] [address] Mar, [facility] [address] [id number] [place] [address] Mar, [facility] [address] [id number] [place] [address] Feb, [facility] [address] [id number] [place] [address] Feb, [facility] [address] [id number] [place] [address] Feb, [facility] [place] [facility] [address] [id number] [place] [address] Feb, [facility] [address] [id number] [place] [address] Jan, [facility] [place] [facility] [address] [id number] [place] [address] December, [facility] [place] [facility] [address] [id number] [place] [address] December, [facility] [address] [id number] [place] [address]- [address] December, [facility] [address] [id number] [place] [address] Nov, [facility] [place] [facility] [address] [id number] [place] [address] Nov, [facility] [place] [facility] [address] [id number] [place] [address]- [address] 16 Nov, 2011 [facility] [place] [facility] [address] [id number] [place] [address] Nov, [facility] [place] [facility] [address] [id number] [place] [address]- [address] Oct, [facility] [place] [facility] [address] [id number] [place] [address]- [address] 15 Sep, 2011 [facility] [place] [facility] [address] [id number] [place] [address]- [address] Sep, [facility] [place] [facility] [address] [id number] [place] [address]- [address] Aug, [facility] [place] [facility] [address] [id number] [place] [address]- [address] Aug, [facility] [place] [facility] [address] [id number] [place] [address]- [address] Aug, [facility] [place] [facility] [address] [id number] [place] [address] Aug, [facility] [place] [facility] [address] [id number] [place] [address]- 8536 Aug, [facility] [place] [facility] [address] [id number] [place] [address]- [address] Jul, [facility] [place] [facility] [address] [id number] [place] [address]- [address] Jul, [facility] [place] [facility] [address] [id number] [place] [address]- 39[address] Jul, [facility] [place] [facility] [address] [id number] [place] [address]- [address] 05 Jul, 2011 [facility] [place] [facility] [address] [id number] [place] [address]- [address] 29 Jun, 2011 [facility] [place] [facility] [address] [id number] [place] [address]- [address] 17 Jun, 2011 [facility] [place] [facility] [address] [id number] [place] [address]- [address]26 Jun, [facility] [place] [facility] [address] [id number] [place] [address]- 87[address] Jun, [facility] [place] [facility] [address] [id number] [place] [address]- [address] May, [facility] [place] [facility] [address] [id number] [place] [address]- [address] May, [facility] [place] [facility] [address] [id number] [place] [address]- [address] Aug, [facility] [place] [facility] [address] [id number] [place] [address]- 14[address] Jul, [facility] [place] [facility] [address] [id number] [place] [address]- [address] Jun, [facility] [place] [facility] [address] [id number] [place] [address] May, [facility] [place] [facility] [address] [id number] [place] [address] May, [facility] [place] [facility] [address] [id number] [place] [address] May, [facility] [place] [facility] [address] [id number] [place] [address] December, [facility] [place] [facility] [address] [id number] [place] [address] Jul, [facility] [place] [facility] [address] [id number] [place] [address] Jul, [facility] [place] [facility] [address] [facility] [id number] [place] [address] Jul, [facility] [address] [facility] [id number] [place] [address] Jun, [facility] [address] [facility] [id number] [place] [address] Jun, [facility] [address] [facility] [id number] [place] [address] Jun, [facility] [address] [facility] [id number] [place] [address] Jun, [facility] [address] [facility] [id number] [place] [address] May, IMMUNIZATIONS No Known Immunizations SOCIAL HISTORY Never Assessed REASON FOR VISIT right great toe pain for 4 months. put a cushion in his shoe...and it was too tight. edwin PLAN OF CARE Activity Details Follow Up keep scheduled appointment Reason: VITAL SIGNS Height 69 in 2017-12-08 Weight 134.0 lbs 2017-12-08 Temperature 98.5 degrees Fahrenheit 2017-12-08 Heart Rate 82 bpm 2017-12-08 Respiratory Rate 20 2017-12-08 BMI 19.79 kg/m2 2017-12-08 Blood pressure systolic 108 mmHg 2017-12-08 Blood pressure diastolic 62 mmHg 2017-12-08 MEDICATIONS Medication Instructions Dosage Frequency Start Date End Date Duration Status Finasteride 5 MG TAKE ONE TABLET BY MOUTH ONCE DAILY 30 Active Ambien 10 MG Orally Once a day 1 tablet at bedtime 24h 30 days Active Gabapentin 300 MG 2 capsules 12h Active VESIcare 10 MG TAKE ONE TABLET BY MOUTH ONCE DAILY 30 Active MS Contin 15 mg Orally Once a day 1 tablet 24h Nov, 28 days Active Fluoxetine HCl 20 mg Orally Once a day TAKE ONE CAPSULE BY MOUTH IN THE MORNING 24h 30 Active Percocet 5-325 MG Orally 2 times a day 1 tablet as needed 12h Nov, 28 days Active RESULTS No Results PROCEDURES Procedure Date Ordered Result Body Site [facility] VISIT ESTABLISHED PATIENT December 08, 2017 INSTRUCTIONS MEDICATIONS ADMINISTERED No Known Medications [...]
--- OUTSIDE RECORDS SUMMARY | 2018-07-23 14:53 | XMS REPORT ---
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 360741637 Problem Diabetes E11.9 Active 13867904 ALLERGIES No Information ENCOUNTERS Encounter Location Date Diagnosis [place] [address] [address] Apr, [place] [address] [address]- 47[address] Feb, Depressive disorder, not elsewhere classified F32.9 and Mild cognitive impairment G31.84 [place] [address] [place] [id number] [place] [address] 50293- 8201 Feb, Foot callus L84 [place] [address] [address]- 1025 Jan, Muscular dystrophies G71.0 [place] [address] [address]- 5410 Jan, [place] [address] [address]408- 3387 Jan, [place] [address] [address]- 1459 Jan, Callus of foot L84 ; Nail hypertrophy L60.2 and Self-care deficit for hygiene R46.0 [facility] [address] [place] [id number] [place] [address] 58254- 0130 December, [facility] [address] [place] [id number] [place] [address] 47947- 4994 December, Callus of foot L84 ; Nail hypertrophy L60.2 ; Self-care deficit for hygiene R46.0 ; Controlled type 2 diabetes mellitus without complication, unspecified whether intermediate insulin use E11.9 and Muscular dystrophies G71.0 [facility] [address] [place] [id number] [place] [address] 58220- 0022 December, Muscular dystrophies G71.[address] [facility] [address] [place] [id number] [place] [address] 32453 -2126 December, 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 [place] [address] [place] [id number] [place] [address] 73526- 0709 Nov, [place] [address] [place] [id number] [place] [address] 67127- 8733 Nov, [place] [address] [place] [id number] [place] [address] 16284- 0470 Nov, Muscular dystrophies G71.0 [facility] [address] [place] [id number] [place] [address] 80848- 5264 Oct, Muscular dystrophies G71.0 [place] [address] [place] [id number] [place] [address] 24616- 0547 Aug, Muscular dystrophies G71.0 [facility] [address] [place] [id number] [place] [address] 60418 -3636 Jul, Urinary tract infection without hematuria, site unspecified N39.[address] [facility] [address] [place] [id number] [place] [address] 65324 -2137 04 Jul, 2017 Urinary tract infection without hematuria, site unspecified N39.0 [facility] [address] [place] [id number] [place] [address] 14040- 3859 May, Muscular dystrophies G71.0 [facility] [address] [facility] [id number] [place] [address]- 9455 Apr, Muscular dystrophies G71.0 [facility] [address] [facility] [id number] [place] [address]- 3016 Mar, Muscular dystrophies G71.0 [facility] [address] [place] [id number] [place] [address], [place] [address]- 6733 Feb, [facility] [address] [facility] [id number] [place] [address], [place] [address]- 6076 Feb, Muscular dystrophies G71.0 [facility] [address] [place] [id number] [place] [address], [place] [address] Jan, Muscular dystrophies G71.0 and Diabetes E11.9 [facility] [address] [place] [id number] [place] [address], [place] [address]- 1501 Nov, [facility] [id number] [place] [address]- 1787 Nov, [facility] [id number] [place] [address], [place] 7430 Oct, [facility] [id number] [place] [address]- 2429 Sep, [facility] [id number] [place] [address]- 9747 Sep, [facility] [address] [place] [id number] [address]- 8707 Aug, [facility] [id number] [place] [address]- 6194 Jul, [facility] [address] [place] [address]- 2066 Jul, [facility] [address] [address]- 6823 Jun, [facility] [id number] [address] May, Dysuria R30.0 and Cystitis N30.90 [facility] [address] [place] [id number] [place] [address] 49316- 5379 May, [facility] [address] [place] [id number] [place] [address] 08890- 5030 May, [facility] [address] [place] [id number] [place] [address] 70705- 8166 May, [facility] [address] [place] [id number] [place] [address] 04373- 6900 May, [facility] [address] [place] [id number] [place] [address] 87867- 8917 Mar, Muscular dystrophies G71.0 [facility] [address] [place] [id number] [place] [address] 82637- 1775 Feb, Muscular dystrophies G71.0 [facility] [address] [place] [id number] [place] [address] 19564- 9781 Feb, [facility] [address] [place] [id number] [place] [address] 91269- 0765 Jan, Muscular dystrophies G71.0 [facility] [address] [place] [id number] [place] [address] 58123- 3602 December, Open bite of left upper arm, initial encounter S41.152A [facility] [address] [address] December, [facility] [address] [place] [id number] [place] [address] 89006- 8464 Nov, [facility] [address] [place] [id number] [place] [address] 66167- 0188 Nov, [facility] [address] [place] [id number] [place] [address] 47948- 7616 Oct, [facility] [id number] [place] [address] 73417- 6646 Oct, Diabetes type 2, controlled E11.9 and Polyneuropathy G62.9 [facility] [address] [place] [id number] [place] [address] 52318- 9315 Sep, [facility] [address] [place] [id number] [place] [address] 15440- 4107 Aug, [facility] [address] [place] [id number] [place] [address] 08980- 8700 Aug, [facility] [address] [place] [id number] [place] [address] 27586- 9446 Jul, [facility] [address] [place] [id number] [place] [address] 67781- 0411 Jul, [facility] [address] [place] [id number] [place] [address] 62458- 1082 Jul, [facility] [address] [place] [id number] [place] [address] 19070- 9355 Jun, [facility] [address] [place] [id number] [place] [address] 31611- 5467 Jun, Foot deformity M21.969 [facility] [address] [place] [id number] [place] [address] 19416- 3894 May, [facility] [address] [place] [id number] [place] [address] 00132- 8392 May, [facility] [id number] [place] [address] 84972- 1242 May, [facility] [address] [place] [id number] [place] [address] 86730- 2741 Apr, Diabetes with renal manifestations, type II or unspecified type, not stated as uncontrolled 250.40 and Unsteady gait 781.2 [facility] [address] [place] [id number] [place] [address] 07564- 7350 Apr, [facility] [place] [facility] [address] [id number] [place] [address]- 7211 09 Apr, 2015 [facility] [place] [facility] [address] [id number] [place] [address]- 6276 Mar, [facility] [place] [facility] [address] [id number] [place] [address] 2546 Feb, [facility] [place] [facility] [address] [id number] [place] [address] 2544 Jan, [facility] [place] [facility] [address] [id number] [place] [address]- 3016 Jan, [facility] [place] [facility] [address] [id number] [place] [address]- 1082 December, [facility] [place] [facility] [address] [id number] [place] [address]- 2832 Nov, [facility] [place] [facility] [address] [id number] [place] [address]- 1344 Nov, [facility] [place] [facility] [address] [id number] [place] [address]- 9875 Oct, [facility] [place] [facility] [address] [id number] [place] [address]- 9977 Oct, [facility] [place] [facility] [address] [id number] [place] [address]- 6122 Oct, [facility] [place] [facility] [address] [id number] [address]- 2338 Oct, [facility] [place] [facility] [address] [id number] [place] [address]- 6914 Oct, [facility] [place] [facility] [address] [id number] [place] [address]- 0436 Oct, [facility] [place] [facility] [address] [id number] [address]- 2006 Sep, [facility] [place] [facility] [address] [id number], [place] [address]- 6133 Sep, [facility] [place] [facility] [address] [id number] [place] [address]- 3429 Sep, [facility] [place] [facility] [address] [id number] [place] [address]- 4920 Sep, [facility] [place] [facility] [address] [id number] [place] [address]- 3310 Aug, [facility] [place] [facility] [address] [id number] [place] [address]- 1701 Aug, [facility] [place] [facility] [address] [id number] [place] [address]- 1828 Aug, [facility] [place] [facility] [address] [id number] [place] [address]- 6898 Aug, [facility] [place] [facility] [address] [id number] [place] [address]- 8480 Jul, [facility] [place] [facility] [address] [id number] [place] [address]- 5899 Jul, [facility] [place] [facility] [address] [id number] [place] [address]- 7954 Jul, [facility] [place] [facility] [address] [facility] [id number] [place] [address]- 9876 Jul, [facility] [place] [facility] [address] [id number] [place] [address]- 5277 Jun, [facility] [place] [facility] [address] [id number] [place] [address]- 8084 Jun, [facility] [place] [facility] [address] [id number] [place] [address]- 4565 Jun, [facility] [place] [facility] [address] [id number] [place] [address]- 4827 Jun, [facility] [place] [facility] [address] [facility] [id number] [place] [address]- 0750 May, [facility] [place] [facility] [address] [id number] [place] [address]- 7545 May, [facility] [place] [facility] [address] [id number] [place] [address]- 5448 May, [facility] [place] [facility] [address] [id number] [place] 4028 May, [facility] [place] [facility] [address] [id number] [place] [address]- 5006 Apr, [facility] [place] [facility] [address] [id number] [place] [address]- 0438 Apr, [facility] [place] [facility] [address] [id number] [place] [address]- 7700 Apr, [facility] [place] [facility] [address] [id number] [place] [address]- 9249 Mar, [facility] [place] [facility] [address] [id number] [place] [address]- 4818 Mar, [facility] [place] [facility] [address] [id number] [place] [address]- 7350 Mar, [facility] [place] [facility] [address] [id number] [place] [address]- 0573 Mar, [facility] [place] [facility] [address] [id number] [place] [address]- 6578 Feb, [facility] [place] [facility] [address] [id number] [place] [address]- 5750 Feb, [facility] [place] [facility] [address] [id number] [place] [address]- 9157 Feb, [facility] [place] [facility] [address] [id number] [place] [address]- 8434 Feb, [facility] [place] [facility] [address] [id number] [place] [address]- 5684 Jan, [facility] [place] [facility] [address] [id number] [place] [address]- 4642 Jan, [facility] [place] [facility] [address] [id number] [place] [address]- 8507 December, [facility] [place] [facility] [address] [id number] [place] [address]- 4836 December, [facility] [place] [facility] [address] [id number] [place] [address]- 5329 Nov, [facility] [place] [facility] [address] [id number] [place] [address]- 8367 Nov, [facility] [place] [facility] [address] [id number] [place] [address]- 3400 Oct, [facility] [place] [facility] [address] [id number] [place] [address]- 5459 Oct, [facility] [place] [facility] [address] [id number] [place] [address]- 1453 Oct, [facility] [place] [facility] [address] [id number] [place] [address]- 6379 Oct, [facility] [place] [facility] [address] [id number] [place] [address]- 6313 Sep, [facility] [place] [facility] [address] [id number] [place] [address]- 4327 Sep, [facility] [place] [facility] [address] [id number] [place] [address]- 0581 Aug, [facility] [place] [facility] [address] [id number] [place] [address]- 2404 Aug, [facility] [place] [facility] [address] [id number] [place] [address]- 4118 Aug, [facility] [place] [facility] [address] [id number] [place] [address]- 1730 Aug, [facility] [place] [facility] [address] [id number] [place] [address]- 5552 Aug, [facility] [place] [facility] [address] [id number] [place] [address]- 6484 Aug, [facility] [address] [id number] [place] [address]- 1617 Jul, [facility] [place] [facility] [address] [id number] [place] [address]- 4745 Jul, [facility] [address] [id number] [place] [address]- 9028 Jul, [facility] [place] [facility] [address] [id number] [place] [address]- 4731 Jun, [facility] [address] [id number] [place] [address]- 8106 Jun, [facility] [address] [id number] [place] [address]- 3118 Jun, [facility] [address] [id number] [place] [address]- 9858 Jun, [facility] [address] [id number] [place] [address]- 9532 May, [facility] [address] [id number] [place] [address]- 2336 May, [facility] [address] [id number] [place] [address]- 9218 May, [facility] [place] [facility] [address] [id number] [place] [address]- 3764 May, [facility] [address] [id number] [place] [address]- 7575 Apr, [facility] [place] [facility] [address] [id number] [place] [address]- 5685 Apr, [facility] [place] [facility] [address] [id number] [place] [address]- 2632 Apr, [facility] [place] [facility] [address] [id number] [place] [address]- 6258 Apr, [facility] [place] [facility] [address] [id number] [place] [address]- 4330 Apr, [facility] [place] [facility] [address] [id number] [place] [address]- 9087 Mar, [facility] [place] [facility] [address] [id number] [place] [address]- 8173 Mar, [facility] [place] [facility] [address] [id number] [place] [address]- 4203 Mar, [facility] [place] [facility] [address] [id number] [place] 4452 Mar, [facility] [place] [facility] [address] [id number] [place] [address]- 9214 Feb, [facility] [place] [facility] [address] [id number] [place] [address]- 3208 Feb, [facility] [place] [facility] [address] [id number] [place] [address]- 0769 Jan, [facility] [place] [facility] [address] [id number] [place] [address]- 7174 Jan, [facility] [place] [facility] [address] [id number] [place] [address]- 1839 Jan, [facility] [place] [facility] [address] [id number], [place] [address]- 2455 Jan, [facility] [place] [facility] [address] [id number], [place] [address]- 5807 December, [facility] [place] [facility] [address] [id number] [place] [address]- 8241 December, [facility] [place] [facility] [address] [id number] [place] [address]- 2432 Nov, [facility] [place] [facility] [address] [id number], [place] [address]- 6719 Nov, [facility] [place] [facility] [address] [id number], [place] [address]- 8057 04 Nov, 2012 [facility] [address] [id number] [place] [address]- 2997 08 Oct, 2012 [facility] [place] [facility] [address] [id number] [place] [address]- 4076 06 Oct, 2012 [facility] [address] [id number] [place] [address]- 0456 07 Sep, 2012 [facility] [place] [facility] [address] [id number] [place] [address]- 7659 07 Sep, 2012 [facility] [address] [id number] [place] [address]- 7749 08 Aug, 2012 [facility] [place] [facility] [address] [facility] [id number] [place] [address]- 8001 Aug, [facility] [address] [id number] [place] [address]- 2655 10 Jul, 2012 [facility] [place] [facility] [address] [id number] [place] [address]- 2001 Jul, [facility] [address] [id number] [place] [address]- 0588 Jul, [facility] [address] [facility] [id number] [place] [address]- 3541 Jul, [facility] [address] [id number] [place] [address]- 4094 Jul, [facility] [place] [facility] [address] [facility] [id number] [place] [address]- 254 Jul, [facility] [place] [facility] [address] [id number] [place] [address]- 5447 Jun, [facility] [place] [facility] [address] [id number] [place] [address]- 7374 Jun, [facility] [place] [facility] [address] [facility] [id number] [place] [address]- 3702 Jun, [facility] [place] [facility] [address] [id number] [place] [address]- 2328 Jun, [facility] [place] [facility] [address] [id number] [place] [address]- 0038 Jun, [facility] [place] [facility] [address] [id number] [place] [address]- 9974 Jun, [facility] [place] [facility] [address] [id number] [place] [address]- 7294 May, [facility] [place] [facility] [address] [id number] [place] [address]- 7732 May, [facility] [place] [facility] [address] [id number] [place] [address]- 2512 May, [facility] [place] [facility] [address] [id number] [place] [address]- 3450 May, [facility] [place] [facility] [address] [id number] [place] [address]- 2730 May, [facility] [place] [facility] [address] [id number] [place] [address]- 6094 May, [facility] [place] [facility] [address] [id number] [place] [address]- 7906 May, [facility] [place] [facility] [address] [id number] [place] [address]- 1610 May, [facility] [place] [facility] [address] [id number] [place] [address]- 2712 May, [facility] [place] [facility] [address] [id number] [place] [address]- 0651 Apr, [facility] [place] [facility] [address] [id number] [place] [address] Apr, [facility] [place] [facility] [address] [id number] [place] [address] Mar, [facility] [place] [facility] [address] [id number] [place] [address] Mar, [facility] [place] [facility] [address] [id number] [place] [address] Mar, [facility] [place] [facility] [address] [id number] [place] [address] Mar, [facility] [place] [facility] [address] [id number] [place] [address] Mar, [facility] [place] [facility] [address] [id number] [place] [address] Mar, [facility] [place] [facility] [address] [id number] [place] [address] Mar, [facility] [place] [facility] [address] [id number] [place] [address] Mar, [facility] [place] [facility] [address] [id number] [place] [address] Mar, [facility] [place] [facility] [address] [id number] [place] [address] Feb, [facility] [place] [facility] [address] [id number] [place] [address] Feb, [facility] [place] [facility] [address] [id number] [place] [address] Feb, [facility] [place] [facility] [address] [id number] [place] [address] Feb, [facility] [place] [facility] [address] [id number] [place] [address] Jan, [facility] [place] [facility] [address] [id number] [place] [address] December, [facility] [place] [facility] [address] [id number] [place] [address] December, [facility] [place] [facility] [address] [id number] [place] [address] December, [facility] [place] [facility] [address] [id number] [place] [address] 19 Nov, 2011 [facility] [address] [id number] [place] [address] 17 Nov, 2011 [facility] [address] [id number] [place] [address] 16 Nov, 2011 [facility] [address] [id number] [place] [address] 16 Nov, 2011 [facility] [address] [id number] [place] [address] Oct, [facility] [address] [id number] [place] [address] 15 Sep, 2011 [facility] [address] [id number] [place] [address] 08 Sep, 2011 [facility] [address] [id number] [place] [address] 16 Aug, 2011 [facility] [address] [id number] [place] [address] Aug, [facility] [address] [id number] [place] [address] Aug, [facility] [address] [id number] [place] [address] Aug, [facility] [address] [id number] [place] [address] Aug, [facility] [address] [id number] [place] [address] Jul, [facility] [address] [id number] [place] [address] Jul, [facility] [address] [id number] [place] [address] Jul, [facility] [address] [id number] [place] [address] Jul, [facility] [place] [facility] [address] [id number] [place] [address] 29 Jun, 2011 [facility] [place] [facility] [address] [id number] [place] [address] Jun, [facility] [place] [facility] [address] [id number] [place] [address] Jun, [facility] [place] [facility] [address] [id number] [place] [address] Jun, [facility] [place] [facility] [address] [id number] [place] [address] May, [facility] [place] [facility] [address] [id number] [place] [address] May, [facility] [place] [facility] [address] [id number] [place] [address] Aug, [facility] [place] [facility] [address] [id number] [place] [address] Jul, [facility] [place] [facility] [address] [id number] [place] [address] Jun, [facility] [place] [facility] [address] [id number], [place] [address] May, [facility] [place] [facility] [address] [id number], [place] [address] May, [facility] [place] [facility] [address] [id number], [place] [address] May, [facility] [place] [facility] [address] [id number] [place] [address] December, [facility] [place] [facility] [address] [id number] [place] [address] Jul, [facility] [place] [facility] [address] [id number], [place] [address] Jul, [facility] [place] [facility] [address] [id number], [place] [address] Jul, [facility] [address] [facility] [id number], [place] [address] Jun, [facility] [address] [id number], [place] [address] [address] Jun, [facility] [address] [facility] [id number], [place] [address], [facility] [address] [id number] [id number] Jun, [facility] [address] [facility] [id number] [address] May, IMMUNIZATIONS No Known Immunizations SOCIAL HISTORY Never Assessed REASON FOR VISIT Controlled Med Refill PLAN OF CARE VITAL SIGNS MEDICATIONS Unknown [...]
--- OUTSIDE RECORDS SUMMARY | 2018-07-23 14:53 | XMS REPORT ---
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 911102057 Problem Diabetes E11.9 Active 92295497 ALLERGIES No Information ENCOUNTERS Encounter Location Date Diagnosis [place] [address] [address] Apr, [place] [address] [address]66- 4532 Feb, Depressive disorder, not elsewhere classified F32.9 and Mild cognitive impairment G31.84 [place] [address] [place] [id number] [place] [address]20- 4407 Feb, Foot callus L84 [place] [address] [address]- 6936 Jan, Muscular dystrophies G71.0 [place] [address] [address]- 3219 Jan, [place] [address] 114[address]- 9501 Jan, [place] [address] 6[address]- 2587 Jan, Callus of foot L84 ; Nail hypertrophy L60.2 and Self-care deficit for hygiene R46.0 [facility] [address] [place] [id number] [place] [address] 31274- 8236 December, [facility] [address] [place] [id number] [place] [address] 66578- 3754 December, Callus of foot L84 ; Nail hypertrophy L60.2 ; Self-care deficit for hygiene R46.0 ; Controlled type 2 diabetes mellitus without complication, unspecified whether senior care insulin use E11.9 and Muscular dystrophies G71.0 [facility] [address] [place] [id number] [place] [address] 15201- 3864 December, Muscular dystrophies G71.0 [facility] [address] [place] [id number] [place] [address] 65468 -0656 December, 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 [place] [address] [place] [id number] [place] [address] 74157- 5656 Nov, [place] [address] [place] [id number] [place] [address] 35347- 3339 Nov, [place] [address] [place] [id number] [place] [address] 63334- 6236 Nov, Muscular dystrophies G71.0 [facility] [address] [place] [id number] [place] [address] 02883- 3054 Oct, Muscular dystrophies G71.0 [place] [address] [place] [id number] [place] [address] 35337- 5651 Aug, Muscular dystrophies G71.0 [facility] [address] [place] [id number] [place] [address] 13044 -4754 Jul, Urinary tract infection without hematuria, site unspecified N39.0 [facility] [address] [place] [id number] [place] [address] 28316 -1644 04 Jul, 2017 Urinary tract infection without hematuria, site unspecified N39.0 [facility] [address] [place] [id number] [place] [address] 65093- 4361 May, Muscular dystrophies G71.0 [facility] [address] [facility] [id number] [place] [address]- 4159 Apr, Muscular dystrophies G71.0 [facility] [address] [facility] [id number] [place] [address]- 0956 Mar, Muscular dystrophies G71.0 [facility] [address] [place] [id number] [place] [address], [place] [address]- 5053 Feb, [facility] [address] [facility] [id number] [place] [address], [place] [address]- 2204 Feb, Muscular dystrophies G71.0 [facility] [address] [place] [id number] [place] [address], [place] 1723 Jan, Muscular dystrophies G71.0 and Diabetes E11.9 [facility] [address] [place] [id number] [place] [address], [place] [address]- 3554 Nov, [facility] [id number] [place] [address]- 3750 Nov, [facility] [id number] [place] [address], [place] 2491 Oct, [facility] [id number] [place] [address]- 2886 Sep, [facility] [id number] [place] [address]- 5625 Sep, [facility] [address] [place] [id number] [address]- 6950 Aug, [facility] [id number] [place] [address]- 1516 Jul, [facility] [id number] [place] [address]- 4426 Jul, [facility] [id number] [address]- 4152 Jun, [facility] [id number] [address] May, Dysuria R30.0 and Cystitis N30.90 [facility] [address] [place] [id number] [place] [address] 25745- 8913 May, [facility] [address] [place] [id number] [place] [address] 82355- 3399 May, [facility] [address] [place] [id number] [place] [address] 91790- 9922 May, [facility] [address] [place] [id number] [place] [address] 50373- 4176 May, [facility] [address] [place] [id number] [place] [address] 96041- 7364 Mar, Muscular dystrophies G71.0 [facility] [address] [place] [id number] [place] [address] 93767- 9067 Feb, Muscular dystrophies G71.0 [facility] [address] [place] [id number] [place] [address] 43644- 1512 Feb, [facility] [address] [place] [id number] [place] [address] 30080- 0894 Jan, Muscular dystrophies G71.0 [facility] [address] [place] [id number] [place] [address] 13424- 0800 December, Open bite of left upper arm, initial encounter S41.152A [facility] [address] [address] December, [facility] [address] [place] [id number] [place] [address] 54926- 0307 Nov, [facility] [address] [place] [id number] [place] [address] 84426- 9357 Nov, [facility] [address] [place] [id number] [place] [address] 12887- 0408 Oct, [facility] [id number] [place] [address] 53922- 2434 Oct, Diabetes type 2, controlled E11.9 and Polyneuropathy G62.9 [facility] [address] [place] [id number] [place] [address] 55871- 4264 Sep, [facility] [address] [place] [id number] [place] [address] 30521- 1135 Aug, [facility] [address] [place] [id number] [place] [address] 77157- 3773 Aug, [facility] [address] [place] [id number] [place] [address] 11160- 6091 Jul, [facility] [address] [place] [id number] [place] [address] 23096- 9016 Jul, [facility] [address] [place] [id number] [place] [address] 13733- 8459 Jul, [facility] [address] [place] [id number] [place] [address] 64086- 4867 Jun, [facility] [address] [place] [id number] [place] [address] 72617- 7910 Jun, Foot deformity M21.969 [facility] [address] [place] [id number] [place] [address] 59322- 6393 May, [facility] [address] [place] [id number] [place] [address] 07768- 8382 May, [facility] [id number] [place] [address] 52775- 5135 May, [facility] [address] [place] [id number] [place] [address] 32101- 8804 Apr, Diabetes with renal manifestations, type II or unspecified type, not stated as uncontrolled 250.40 and Unsteady gait 781.2 [facility] [address] [place] [id number] [place] [address] 23608- 7397 Apr, [facility] [place] [facility] [address] [id number] [place] [address]- 0985 09 Apr, 2015 [facility] [place] [facility] [address] [id number] [place] [address]- 7106 Mar, [facility] [place] [facility] [address] [id number] [place] [address] 2546 Feb, [facility] [place] [facility] [address] [id number] [place] [address] 2541 Jan, [facility] [place] [facility] [address] [id number] [place] [address]- 1904 Jan, [facility] [place] [facility] [address] [id number] [place] [address]- 3256 December, [facility] [place] [facility] [address] [id number] [place] [address]- 3473 Nov, [facility] [place] [facility] [address] [id number] [place] [address]- 4589 Nov, [facility] [place] [facility] [address] [id number] [place] [address]- 8481 Oct, [facility] [place] [facility] [address] [id number] [place] [address]- 0097 Oct, [facility] [place] [facility] [address] [id number] [place] [address]- 5576 Oct, [facility] [place] [facility] [address] [id number], [place] [address]- 9307 Oct, [facility] [place] [facility] [address] [id number] [place] [address]- 3308 Oct, [facility] [place] [facility] [address] [id number] [place] [address]- 2256 Oct, [facility] [place] [facility] [address] [id number], [place] [address]- 1686 Sep, [facility] [place] [facility] [address] [id number], [place] [address]- 1591 Sep, [facility] [place] [facility] [address] [id number] [place] [address]- 6927 Sep, [facility] [place] [facility] [address] [id number] [place] [address]- 0230 Sep, [facility] [place] [facility] [address] [id number] [place] [address]- 2753 Aug, [facility] [place] [facility] [address] [id number] [place] [address]- 3996 Aug, [facility] [place] [facility] [address] [id number] [place] [address]- 3037 Aug, [facility] [place] [facility] [address] [id number] [place] [address]- 6707 Aug, [facility] [place] [facility] [address] [id number] [place] [address]- 2001 Jul, [facility] [place] [facility] [address] [id number] [place] [address]- 2752 Jul, [facility] [place] [facility] [address] [id number] [place] [address]- 6293 Jul, [facility] [place] [facility] [address] [facility] [id number] [place] [address]- 3149 Jul, [facility] [place] [facility] [address] [id number] [place] [address]- 4251 Jun, [facility] [place] [facility] [address] [id number] [place] [address]- 1804 Jun, [facility] [place] [facility] [address] [id number] [place] [address]- 5541 Jun, [facility] [place] [facility] [address] [id number] [place] [address]- 5752 Jun, [facility] [place] [facility] [address] [facility] [id number] [place] [address]- 7015 May, [facility] [place] [facility] [address] [id number] [place] [address]- 4150 May, [facility] [place] [facility] [address] [id number] [place] [address]- 5515 May, [facility] [place] [facility] [address] [id number] [place] 5359 May, [facility] [place] [facility] [address] [id number] [place] [address]- 2358 Apr, [facility] [place] [facility] [address] [id number] [place] [address]- 2791 Apr, [facility] [place] [facility] [address] [id number] [place] [address]- 5197 Apr, [facility] [place] [facility] [address] [id number] [place] [address]- 5319 Mar, [facility] [place] [facility] [address] [id number] [place] [address]- 9359 Mar, [facility] [place] [facility] [address] [id number] [place] [address]- 5001 Mar, [facility] [place] [facility] [address] [id number] [place] [address]- 5404 Mar, [facility] [place] [facility] [address] [id number] [place] [address]- 2970 Feb, [facility] [place] [facility] [address] [id number] [place] [address]- 2075 Feb, [facility] [place] [facility] [address] [id number] [place] [address]- 8137 Feb, [facility] [place] [facility] [address] [id number] [place] [address]- 3000 Feb, [facility] [place] [facility] [address] [id number] [place] [address]- 1813 Jan, [facility] [place] [facility] [address] [id number] [place] [address]- 1446 Jan, [facility] [place] [facility] [address] [id number] [place] [address]- 3922 December, [facility] [place] [facility] [address] [id number] [place] [address]- 6010 December, [facility] [place] [facility] [address] [id number] [place] [address]- 5582 Nov, [facility] [place] [facility] [address] [id number] [place] [address]- 2403 Nov, [facility] [place] [facility] [address] [id number] [place] [address]- 5158 Oct, [facility] [place] [facility] [address] [id number] [place] [address]- 4606 Oct, [facility] [place] [facility] [address] [id number] [place] [address]- 5965 Oct, [facility] [place] [facility] [address] [id number] [place] [address]- 9632 Oct, [facility] [place] [facility] [address] [id number] [place] [address]- 6684 Sep, [facility] [place] [facility] [address] [id number] [place] [address]- 5409 Sep, [facility] [place] [facility] [address] [id number] [place] [address]- 1374 Aug, [facility] [place] [facility] [address] [id number] [place] [address]- 0928 Aug, [facility] [place] [facility] [address] [id number] [place] [address]- 4393 Aug, [facility] [place] [facility] [address] [id number] [place] [address]- 1477 Aug, [facility] [place] [facility] [address] [id number] [place] [address]- 6849 Aug, [facility] [place] [facility] [address] [id number] [place] [address]- 5535 Aug, [facility] [address] [id number] [place] [address]- 7753 Jul, [facility] [place] [facility] [address] [id number] [place] [address]- 0453 Jul, [facility] [address] [id number] [place] [address]- 4332 Jul, [facility] [place] [facility] [address] [id number] [place] [address]- 7856 Jun, [facility] [address] [id number] [place] [address]- 4939 Jun, [facility] [address] [id number] [place] [address]- 8414 Jun, [facility] [address] [id number] [place] [address]- 4995 Jun, [facility] [address] [id number] [place] [address]- 4989 May, [facility] [address] [id number] [place] [address]- 9608 May, [facility] [address] [id number] [place] [address]- 8034 May, [facility] [place] [facility] [address] [id number] [place] [address]- 5196 May, [facility] [address] [id number] [place] [address]- 9095 Apr, [facility] [place] [facility] [address] [id number] [place] [address]- 1301 Apr, [facility] [place] [facility] [address] [id number] [place] [address]- 0955 Apr, [facility] [place] [facility] [address] [id number] [place] [address]- 1560 Apr, [facility] [place] [facility] [address] [id number] [place] [address]- 4968 Apr, [facility] [place] [facility] [address] [id number] [place] [address]- 0119 Mar, [facility] [place] [facility] [address] [id number] [place] [address]- 0015 Mar, [facility] [place] [facility] [address] [id number] [place] [address]- 3190 Mar, [facility] [place] [facility] [address] [id number] [place] 5371 Mar, [facility] [place] [facility] [address] [id number] [place] [address]- 1538 Feb, [facility] [place] [facility] [address] [id number] [place] [address]- 4058 Feb, [facility] [place] [facility] [address] [id number] [place] [address]- 0242 Jan, [facility] [place] [facility] [address] [id number] [place] [address]- 5962 Jan, [facility] [place] [facility] [address] [id number] [place] [address]- 9558 Jan, [facility] [place] [facility] [address] [id number], [place] [address]- 2411 Jan, [facility] [place] [facility] [address] [id number], [place] [address]- 8599 December, [facility] [place] [facility] [address] [id number] [place] [address]- 2520 December, [facility] [place] [facility] [address] [id number] [place] [address]- 1776 Nov, [facility] [place] [facility] [address] [id number], [place] [address]- 4003 Nov, [facility] [place] [facility] [address] [id number], [place] [address]- 7668 04 Nov, 2012 [facility] [address] [id number] [place] [address]- 7176 08 Oct, 2012 [facility] [place] [facility] [address] [id number] [place] [address]- 3606 06 Oct, 2012 [facility] [address] [id number] [place] [address]- 8776 07 Sep, 2012 [facility] [place] [facility] [address] [id number] [place] [address]- 4947 07 Sep, 2012 [facility] [address] [id number] [place] [address]- 7817 08 Aug, 2012 [facility] [place] [facility] [address] [facility] [id number] [place] [address]- 3281 Aug, [facility] [address] [id number] [place] [address]- 5238 10 Jul, 2012 [facility] [place] [facility] [address] [id number] [place] [address]- 1690 Jul, [facility] [address] [id number] [place] [address]- 6436 Jul, [facility] [address] [facility] [id number] [place] [address]- 3831 Jul, [facility] [address] [id number] [place] [address]- 6913 Jul, [facility] [place] [facility] [address] [facility] [id number] [place] [address]- 2544 Jul, [facility] [place] [facility] [address] [id number] [place] [address]- 9290 Jun, [facility] [place] [facility] [address] [id number] [place] [address]- 6503 Jun, [facility] [place] [facility] [address] [facility] [id number] [place] [address]- 6206 Jun, [facility] [place] [facility] [address] [id number] [place] [address] Jun, [facility] [place] [facility] [address] [id number] [place] [address] Jun, [facility] [place] [facility] [address] [id number] [place] [address] Jun, [facility] [place] [facility] [address] [id number] [place] [address] May, [facility] [place] [facility] [address] [id number] [place] [address] May, [facility] [place] [facility] [address] [id number] [place] [address] May, [facility] [place] [facility] [address] [id number] [place] [address] May, [facility] [place] [facility] [address] [id number] [place] [address] May, [facility] [place] [facility] [address] [id number] [place] [address] May, [facility] [place] [facility] [address] [id number] [place] [address] May, [facility] [place] [facility] [address] [id number] [place] [address] May, [facility] [place] [facility] [address] [id number] [place] [address]- [address] May, [facility] [place] [facility] [address] [id number] [place] [address]- [address] Apr, [facility] [place] [facility] [address] [id number] [place] [address] Apr, [facility] [place] [facility] [address] [id number] [place] [address] Mar, [facility] [place] [facility] [address] [id number] [place] [address] Mar, [facility] [place] [facility] [address] [id number] [place] [address]- [address] Mar, [facility] [place] [facility] [address] [id number] [place] [address]- [address]84 Mar, [facility] [place] [facility] [address] [id number] [place] [address]- [address]990 Mar, [facility] [place] [facility] [address] [id number] [place] [address]- [address] Mar, [facility] [place] [facility] [address] [id number] [place] [address]- [address] Mar, [facility] [place] [facility] [address] [id number] [place] [address]- [address] Mar, [facility] [place] [facility] [address] [id number] [place] [address] Mar, [facility] [place] [facility] [address] [id number] [place] [address] Feb, [facility] [place] [facility] [address] [id number] [place] [address] Feb, [facility] [place] [facility] [address] [id number] [place] [address] Feb, [facility] [place] [facility] [address] [id number] [place] [address]268 Feb, [facility] [place] [facility] [address] [id number] [place] [address] Jan, [facility] [place] [facility] [address] [id number] [place] [address]- [address] December, [facility] [place] [facility] [address] [id number] [place] [address]- [address] December, [facility] [place] [facility] [address] [id number] [place] [address]- [address] December, [facility] [place] [facility] [address] [id number] [place] [address] 19 Nov, 2011 [facility] [address] [id number] [place] [address] 17 Nov, 2011 [facility] [address] [id number] [place] [address] 16 Nov, 2011 [facility] [address] [id number] [place] [address] 16 Nov, 2011 [facility] [address] [id number] [place] [address] Oct, [facility] [address] [id number] [place] [address]- [address] 15 Sep, 2011 [facility] [address] [id number] [place] [address]- [address] 08 Sep, 2011 [facility] [address] [id number] [place] [address] 16 Aug, 2011 [facility] [address] [id number] [place] [address] Aug, [facility] [address] [id number] [place] [address]- [address] Aug, [facility] [address] [id number] [place] [address] Aug, [facility] [address] [id number] [place] [address] Aug, [facility] [address] [id number] [place] [address] Jul, [facility] [address] [id number] [place] [address]- [address] Jul, [facility] [address] [id number] [place] [address]- [address]46 Jul, [facility] [address] [id number] [place] Jul, [facility] [place] [facility] [address] [id number] [place] [address]- [address] 29 Jun, 2011 [facility] [place] [facility] [address] [id number] [place] [address]- [address] Jun, [facility] [place] [facility] [address] [id number] [place] [address]- [address]30 Jun, [facility] [place] [facility] [address] [id number] [place] [address] Jun, [facility] [facility] [address] [id number] [place] [address] May, [facility] [place] [facility] [address] [id number] [place] [address] May, [facility] [place] [facility] [address] [id number] [place] [address] Aug, [facility] [place] [facility] [address] [id number] [place] [address] Jul, [facility] [place] [facility] [address] [id number] [place] [address] Jun, [facility] [place] [facility] [address] [id number], [place] [address] May, [facility] [place] [facility] [address] [id number], [place] [address] May, [facility] [place] [facility] [address] [id number], [place] [address] May, [facility] [place] [facility] [address] [id number] [place] [address] December, [facility] [place] [facility] [address] [id number] [place] [address] Jul, [facility] [place] [facility] [address] [id number], [place] [address] Jul, [facility] [place] [facility] [address] [id number][place] [address] Jul, [facility] [address] [facility] [id number], [place] [address] Jun, [facility] [address] [id number], [place] [address] Jun, [facility] [address] [facility] [id number], [place] [address] Jun, [facility] [address] [id number], [place] [address] Jun, [facility] [address] [facility] [id number], [place] [address] May, IMMUNIZATIONS No Known Immunizations SOCIAL HISTORY Never Assessed REASON FOR VISIT Refill request/UNABLE TO CONTACT PLAN OF CARE VITAL SIGNS MEDICATIONS Unknown [...]
--- OUTSIDE RECORDS SUMMARY | 2018-07-23 14:54 | XMS REPORT ---
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 814134346 Problem Diabetes E11.9 Active [id number] ALLERGIES No Information ENCOUNTERS Encounter Location Date Diagnosis [place] [address] [address] Apr, [facility] [address] [place] [id number] [place] [address] 61420- 8368 Feb, [place] [address] [place] [id number] [place] [address] 02586- 1136 Feb, Depressive disorder, not elsewhere classified F32.9 and Mild cognitive impairment G31.84 [facility] [place] [id number] [place] [address] 38261- 9182 Feb, Foot callus L84 [facility] [place] [id number] [place] [address] 89226- 4913 Jan, Muscular dystrophies G71.0 [facility] [place] [address] 18380- 4974 Jan, [facility] [place] [address] 97850- 3248 Jan, [facility] [place] [address] 24516- 2984 Jan, Callus of foot L84 ; Nail hypertrophy L60.2 and Self-care deficit for hygiene R46.0 [place] [address] [place] [id number] [place] [address] 42322- 5089 December, [place] [address] [place] [id number] [place] [address] 93793- 6601 December, Callus of foot L84 ; Nail hypertrophy L60.2 ; Self-care deficit for hygiene R46.0 ; Controlled type 2 diabetes mellitus without complication, unspecified whether skilled nursing insulin use E11.9 and Muscular dystrophies G71.0 [place] [address] [place] [id number] [place] [address] 34834- 9288 December, Muscular dystrophies G71.0 [facility] [address] [place] [id number] [place] [address] 15874 -0521 December, 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 [place] [address] [place] [id number] [place] [address] 38102- 0786 Nov, [place] [address] [place] [address] [id number] [place] [address] 38954- 8596 Nov, [place] [address] [place] [id number] [place] [address] 41264- 9051 Nov, Muscular dystrophies G71.0 [place] [address] [place] [id number] [place] [address] 29335- 6429 Oct, Muscular dystrophies G71.0 [place] [address] [place] [id number] [place] [address] 29944- 8462 Aug, Muscular dystrophies G71.0 [facility] [address] [place] [id number] [place] [address] 10195 -0384 07 Jul, 2017 Urinary tract infection without hematuria, site unspecified N39.0 [facility] [id number] [place] [address] 14183 -4621 Jul, Urinary tract infection without hematuria, site unspecified N39.0 [facility] [place] [address] [place] [address] [id number] [address]- 5030 May, Muscular dystrophies G71.0 [facility] [place] [id number] [place] [address] 221029- 5604 Apr, Muscular dystrophies G71.0 [facility] [place] [id number] [place] [address] 53968- 7393 Mar, Muscular dystrophies G71.0 [facility] [place] [address] [facility] [id number] [place] [address], [place] [address]- 6699 Feb, [facility] [place] [address] [place] [address] [id number] [place] [address], [place] [address]- 2624 Feb, Muscular dystrophies G71.0 [facility] [place] [address] [place] [address] [id number] [place] [address], [place] [address]- 9099 Jan, Muscular dystrophies G71.0 and Diabetes E11.9 [facility] [place] [id number] [place] [address]- 7246 Nov, [facility] [place] [address] [place] [address] [id number] [place] [address], [place] [address]- 8335 Nov, [facility] [place] [address] [address]- 2427 Oct, [facility] [place] [address] [place] [address]- 7189 Sep, [facility] [place] [address] [address]- 2910 Sep, [facility] [id number] [place] [address], [place]- 1365 Aug, [facility] [place] [address] [address]- 3896 Jul, [facility] [place] [id number] [place] [address] 93462- 5561 Jul, [facility] [place] [id number] [place] [address] 24671- 2407 Jun, [facility] [id number] [place] [address] 70054 -7737 May, Dysuria R30.0 and Cystitis N30.90 [facility] [place] [id number] [place] [address] 77420- 9978 May, [facility] [place] [id number] [place] [address] 46932- 9168 May, [facility] [place] [id number] [place] [address] 24196- 2593 May, [facility] [id number] [place] [address] 31324- 3577 May, [facility] [place] [id number] [place] [address] 82522- 3633 Mar, Muscular dystrophies G71.0 [facility] [place] [address] [place] [address] [id number] [place] [address] 38319- 5004 Feb, Muscular dystrophies G71.0 [facility] [place] [address] [place] [id number] [place] [address] 60344- 7475 Feb, [facility] [place] [address] [id number] [place] [address] 44848- 7994 Jan, Muscular dystrophies G71.0 [facility] [place] [address] [place] [address] [id number] [place] [address] 00902- 3728 December, Open bite of left upper arm, initial encounter S41.152A [facility] [address] [id number] [place] [address] 97601 -8360 December, [facility] [place] [id number] [place] [address] 64335- 7391 Nov, [facility] [place] [id number] [place] [address] 38371- 5647 Nov, [facility] [place] [address] [address]- 2450 Oct, [facility] [place] [id number] [place] [address] 97396- 0552 Oct, Diabetes type 2, controlled E11.9 and Polyneuropathy G62.9 [facility] [place] [address] [id number] [place] [address] 24378- 7318 Sep, [facility] [place] [id number] [place] [address] 72650- 7586 Aug, [facility] [place] [id number] [place] [address] 00881- 8784 Aug, [facility] [place] [id number] [place] [address] 79840- 6324 Jul, [facility] [place] [id number] [place] [address] 54514- 5206 Jul, [facility] [place] [id number] [place] [address] 30348- 3852 Jul, [facility] [id number] [place] [address] 62739- 1614 Jun, [facility] [place] [id number] [place] [address] 76722- 9908 Jun, Foot deformity M21.969 [facility] [place] [id number] [place] [address] 06574- 9777 May, [facility] [place] [address] [place] [address] 96149- 7566 May, [facility] [id number] [place] [address] 684883- 6025 May, [facility] [id number]- 0395 Apr, Diabetes with renal manifestations, type II or unspecified type, not stated as uncontrolled 250.40 and Unsteady gait 781.2 [facility] [place] [facility] [address] [id number] [place] [address]- 5222 16 Apr, 2015 [facility] [place] [facility] [address] [id number] [place] [address]- 2979 09 Apr, 2015 [facility] [place] [facility] [address] [id number] [place] [address]- 1911 Mar, [facility] [place] [facility] [address] [id number] [place] [address]- 4879 Feb, [facility] [place] [facility] [address] [id number] [place] [address]- 2083 Jan, [facility] [place] [facility] [address] [id number] [place] [address]- 6174 Jan, [facility] [place] [facility] [address] [id number] [place] [address]- 5579 December, [facility] [place] [facility] [address] [id number] [place] [address]- 2134 Nov, [facility] [place] [facility] [address] [id number] [place] [address]- 3939 Nov, [facility] [place] [facility] [address] [id number] [place] [address]- 8945 Oct, [facility] [place] [facility] [address] [id number] [place] [address]- 7908 Oct, [facility] [place] [facility] [address] [id number], [place] [address]- 7625 Oct, [facility] [place] [facility] [address] [id number] [place] [address]- 6626 Oct, [facility] [place] [facility] [address] [id number] [place] 6641 Oct, [facility] [place] [facility] [address] [id number], [place] [address]- 6369 Oct, [facility] [place] [facility] [address] [id number] [address]- 3345 Sep, [facility] [place] [facility] [address] [id number] [place] [address]- 9356 Sep, [facility] [place] [facility] [address] [id number] [place] [address]- 8074 Sep, [facility] [place] [facility] [address] [id number] [place] [address]- 4513 Sep, [facility] [place] [facility] [address] [id number] [place] [address]- 0689 Aug, [facility] [place] [facility] [address] [id number] [place] [address]- 8018 Aug, [facility] [place] [facility] [address] [id number] [place] [address]- 1853 Aug, [facility] [place] [facility] [address] [facility] [id number] [place] [address]- 6538 Aug, [facility] [place] [facility] [address] [id number] [place] [address]- 3149 Jul, [facility] [place] [facility] [address] [id number] [place] [address]- 4673 Jul, [facility] [place] [facility] [address] [facility] [id number] [place] [address]- 2733 Jul, [facility] [place] [facility] [address] [id number] [place] [address]- 0895 Jul, [facility] [place] [facility] [address] [id number] [place] [address]- 5707 Jun, [facility] [place] [facility] [address] [id number] [place] [address]- 1003 Jun, [facility] [place] [facility] [address] [facility] [id number] [place] [address]- 2063 Jun, [facility] [place] [facility] [address] [facility] [id number] [place] [address]- 0504 Jun, [facility] [place] [facility] [address] [id number] [place] [address]- 7776 May, [facility] [place] [facility] [address] [id number] [place] [address]- 7123 May, [facility] [place] [facility] [address] [id number] [place] 4416 May, [facility] [place] [facility] [address] [id number] [place] [address]- 0708 May, [facility] [place] [facility] [address] [id number] [place] [address]- 4632 Apr, [facility] [place] [facility] [address] [id number] [place] [address]- 6380 Apr, [facility] [place] [facility] [address] [id number] [place] [address]- 4484 Apr, [facility] [place] [facility] [address] [id number] [place] [address]- 7219 Mar, [facility] [place] [facility] [address] [id number] [place] [address]- 5767 Mar, [facility] [place] [facility] [address] [id number] [place] [address]- 7419 Mar, [facility] [place] [facility] [address] [id number] [place] [address]- 1928 Mar, [facility] [place] [facility] [address] [id number] [place] [address]- 6550 Feb, [facility] [place] [facility] [address] [id number] [place] [address]- 2734 Feb, [facility] [place] [facility] [address] [id number] [place] [address]- 6593 Feb, [facility] [place] [facility] [address] [id number] [place] [address]- 3282 Feb, [facility] [place] [facility] [address] [id number] [place] [address]- 5054 Jan, [facility] [place] [facility] [address] [id number] [place] [address]- 8852 Jan, [facility] [place] [facility] [address] [id number] [place] [address]- 6889 December, [facility] [place] [facility] [address] [id number] [place] [address]- 8220 December, [facility] [place] [facility] [address] [id number] [place] [address]- 0071 Nov, [facility] [place] [facility] [address] [id number] [place] [address]- 8471 Nov, [facility] [place] [facility] [address] [id number] [place] [address]- 7219 Oct, [facility] [place] [facility] [address] [id number] [place] [address]- 7887 Oct, [facility] [place] [facility] [address] [id number] [place] [address]- 2139 Oct, [facility] [place] [facility] [address] [id number] [place] [address]- 3860 Oct, [facility] [place] [facility] [address] [id number] [place] [address]- 8343 Sep, [facility] [place] [facility] [address] [id number] [place] [address]- 5348 Sep, [facility] [place] [facility] [address] [id number] [place] [address]- 1305 Aug, [facility] [place] [facility] [address] [id number] [place] [address]- 2625 Aug, [facility] [place] [facility] [address] [id number] [place] [address]- 2540 Aug, [facility] [place] [facility] [address] [id number] [place] [address]- 4983 Aug, [facility] [place] [facility] [address] [id number] [place] [address]- 2542 Aug, [facility] [address] [id number] [place] [address]- 5520 Aug, [facility] [place] [facility] [address] [id number] [place] [address]- 2546 Jul, [facility] [address] [id number] [place] [address]- 3515 Jul, [facility] [place] [facility] [address] [id number] [place] [address]- 1467 Jul, [facility] [address] [id number] [place] [address]- 2350 Jun, [facility] [address] [id number] [place] [address]- 3007 Jun, [facility] [address] [id number] [place] [address]- 1569 Jun, [facility] [address] [id number] [place] [address]- 8756 Jun, [facility] [address] [id number] [place] [address]- 3152 May, [facility] [address] [id number] [place] [address]- 4765 May, [facility] [place] [facility] [address] [id number] [place] [address]- 2549 May, [facility] [place] [facility] [address] [id number] [place] [address]- 2542 May, [facility] [place] [facility] [address] [id number] [place] [address]- 4586 Apr, [facility] [place] [facility] [address] [id number] [place] [address]- 2546 Apr, [facility] [place] [facility] [address] [id number] [place] [address]- 5884 Apr, [facility] [place] [facility] [address] [id number] [place] [address]- 7565 Apr, [facility] [place] [facility] [address] [id number] [place] [address]- 3424 Apr, [facility] [place] [facility] [address] [id number] [place] [address]- 5131 Mar, [facility] [place] [facility] [address] [id number] [place] [address]- 5680 Mar, [facility] [place] [facility] [address] [id number] [place] [address]- 4510 Mar, [facility] [place] [facility] [address] [id number] [place] [address]- 5049 Mar, [facility] [place] [facility] [address] [id number] [place] [address]- 9231 Feb, [facility] [place] [facility] [address] [id number] [place] [address]- 7775 Feb, [facility] [place] [facility] [address] [id number] [place] [address]- 2276 Jan, [facility] [place] [facility] [address] [id number], [place] [address]- 6890 Jan, [facility] [place] [facility] [address] [id number], [place] [address]- 7018 Jan, [facility] [place] [facility] [address] [id number], [place] [address]- 4501 Jan, [facility] [place] [facility] [address] [id number] [place] [address]- 5036 December, [facility] [place] [facility] [address] [id number], [place] [address]- 5683 December, [facility] [place] [facility] [address] [id number], [place] [address]- 5002 Nov, [facility] [place] [facility] [address] [id number], [place] [address]- 6362 Nov, [facility] [address] [id number] [place] [address]- 0481 Nov, [facility] [place] [facility] [address] [id number] [place] [address]- 7946 Oct, [facility] [address] [id number] [place] [address]- 2026 Oct, [facility] [place] [facility] [address] [id number] [place] [address]- 7263 Sep, [facility] [address] [id number] [place] [address] Sep, [facility] [address] [id number] [place] [address] Aug, [facility] [address] [id number] [place] [address] Aug, [facility] [address] [id number] [place] [address] Jul, [facility] [address] [id number] [place] [address] Jul, [facility] [address] [facility] [id number] [place] [address] Jul, [facility] [address] [id number] [place] [address] Jul, [facility] [place] [facility] [address] [id number] [place] [address] Jul, [facility] [place] [facility] [address] [id number] [place] [address] Jul, [facility] [place] [facility] [address] [id number] [place] [address] Jun, [facility] [place] [facility] [address] [facility] [id number] [place] [address] Jun, [facility] [place] [facility] [address] [id number] [place] [address] Jun, [facility] [place] [facility] [address] [id number] [place] [address] Jun, [facility] [place] [facility] [address] [id number] [place] [address] Jun, [facility] [place] [facility] [address] [id number] [place] [address] Jun, [facility] [place] [facility] [address] [id number] [place] [address] May, [facility] [place] [facility] [address] [id number] [place] [address] May, [facility] [place] [facility] [address] [id number] [place] [address] May, [facility] [place] [facility] [address] [id number] [place] [address] May, [facility] [place] [facility] [address] [id number] [place] [address] May, [facility] [place] [facility] [address] [id number] [place] [address] May, [facility] [place] [facility] [address] [facility] [id number] [place] [address]- [address] May, [facility] [place] [facility] [address] [id number] [place] [address] May, [facility] [place] [facility] [address] [id number] [place] [address] May, [facility] [place] [facility] [address] [id number] [place] [address] 18 Apr, 2012 [facility] [place] [facility] [address] [id number] [place] [address] 17 Apr, 2012 [facility] [place] [facility] [address] [id number] [place] [address] Mar, [facility] [place] [facility] [address] [id number] [place] [address] Mar, [facility] [place] [facility] [address] [id number] [place] [address] Mar, [facility] [place] [facility] [address] [id number] [place] [address] Mar, [facility] [place] [facility] [address] [id number] [place] [address] Mar, [facility] [place] [facility] [address] [id number] [place] [address] Mar, [facility] [place] [facility] [address] [id number] [place] [address] Mar, [facility] [place] [facility] [address] [id number] [place] [address] Mar, [facility] [place] [facility] [address] [id number] [place] [address] Mar, [facility] [place] [facility] [address] [id number] [place] [address] Feb, [facility] [place] [facility] [address] [id number] [place] [address] Feb, [facility] [place] [facility] [address] [id number] [place] [address] Feb, [facility] [place] [facility] [address] [id number] [place] [address] Feb, [facility] [place] [facility] [address] [id number] [place] [address] Jan, [facility] [place] [facility] [address] [id number] [place] [address] December, [facility] [place] [facility] [address] [id number] [place] [address] December, [facility] [place] [facility] [address] [id number] [place] [address] 16 Dec, 2011 [facility] [address] [id number] [place] [address] 19 Nov, 2011 [facility] [address] [id number] [place] [address] 17 Nov, 2011 [facility] [address] [id number] [place] [address] 16 Nov, 2011 [facility] [address] [id number] [place] [address]- [address]46 16 Nov, 2011 [facility] [address] [id number] [place] [address] Oct, [facility] [address] [id number] [place] [address] 15 Sep, 2011 [facility] [address] [id number] [place] [address] 08 Sep, 2011 [facility] [address] [id number] [place] [address] 16 Aug, 2011 [facility] [address] [id number] [place] [address] Aug, [facility] [address] [id number] [place] [address] Aug, [facility] [address] [id number] [place] [address] Aug, [facility] [facility] [address] [id number] [place] [address] Aug, [facility] [address] [id number] [place] [address] Jul, [facility] [address] [id number] [place] [address] Jul, [facility] [address] [id number] [place] [address] Jul, [facility] [place] [facility] [address] [id number] [place] [address] Jul, [facility] [place] [facility] [address] [id number] [place] [address] Jun, [facility] [place] [facility] [address] [id number] [place] [address] 17 Jun, 2011 [facility] [place] [facility] [address] [id number] [place] [address] Jun, [facility] [place] [facility] [address] [id number] [place] [address] Jun, [facility] [place] [facility] [address] [id number] [place] [address] May, [facility] [place] [facility] [address] [id number] [place] [address] May, [facility] [place] [facility] [address] [id number] [place] [address] Aug, [facility] [place] [facility] [address] [id number] [place] [address] Jul, [facility] [place] [facility] [address] [id number], [place] [address] Jun, [facility] [place] [facility] [address] [id number], [place] [address] May, [facility] [place] [facility] [address] [id number], [place] [address] May, [facility] [place] [facility] [address] [id number] [place] [address] May, [facility] [place] [facility] [address] [id number], [place] [address] December, [facility] [place] [facility] [address] [id number], [place] [address] Jul, [facility] [place] [facility] [address] [id number], [place] [address] Jul, [facility] [place] [address] [facility] [id number], [place] [address] Jul, [facility] [place] [address] [facility] [id number], [place] [address] Jun, [facility] [place] [address] [facility] [id number], [place] [address] Jun, [facility] [place] [address] [facility] [id number], [place] [address] Jun, [facility] [place] [address] [facility] [id number], [place] [address] Jun, [facility] [place] [address] [facility] [id number], [place] [address] May, IMMUNIZATIONS No Known Immunizations SOCIAL HISTORY Never Assessed REASON FOR VISIT Controlled Med Refill PLAN OF CARE VITAL SIGNS MEDICATIONS Medication Instructions Dosage Frequency Start Date End Date Duration Status MS Contin 15 mg Orally Once a day 1 tablet 24h Oct, 28 days Active Percocet 5-325 MG Orally 2 times a day 1 tablet as needed 12h Oct, Nov, 28 days Active RESULTS No Results [...]
--- OUTSIDE RECORDS SUMMARY | 2018-07-23 14:54 | XMS REPORT ---
Author PATO Spring Organization [employer] Address Unknown Phone Unavailable Care Team Providers Care Filter Changing Technician Name Role Phone PATO ANAYA CP Unavailable Allergies No Known Allergies Problems Problem Type Condition Code Onset Dates Condition Status Problem Unsteady gait R26.81 Active Problem Diabetes E11.9 Active Problem Muscular dystrophies G71.0 Active Medications No Known Medications Results No Known Results Summary Purpose [employer] Submission
--- OUTSIDE RECORDS SUMMARY | 2018-07-23 14:54 | XMS REPORT ---
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 838525745 Problem Diabetes E11.9 Active [id number] ALLERGIES No Information ENCOUNTERS Encounter Location Date Diagnosis [place] [address] [address] Apr, [place] [address] [address]- [address] Feb, Depressive disorder, not elsewhere classified F32.9 and Mild cognitive impairment G31.84 [place] [address] [place] [id number] [place] [address] 97691- 4530 Feb, Foot callus L84 [place] [address] [address]- 5448 Jan, Muscular dystrophies G71.0 [place] [address] [address]- 1317 Jan, [place] [address] [address]- 1815 Jan, [place] [address] [address]- 4737 Jan, Callus of foot L84 ; Nail hypertrophy L60.2 and Self-care deficit for hygiene R46.0 [facility] [address] [place] [id number] [place] [address] 51077- 4557 December, [facility] [address] [place] [id number] [place] [address] 56321- 9606 December, Callus of foot L84 ; Nail hypertrophy L60.2 ; Self-care deficit for hygiene R46.0 ; Controlled type 2 diabetes mellitus without complication, unspecified whether halfway insulin use E11.9 and Muscular dystrophies G71.0 [facility] [address] [place] [id number] [place] [address] 01333- 6344 December, Muscular dystrophies G71.0 [facility] [address] [place] [id number] [place] [address] 99052 -3349 December, 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 [place] [address] [place] [id number] [place] [address] 35047- 4373 Nov, [place] [address] [place] [id number] [place] [address] 01531- 6586 Nov, [place] [address] [place] [id number] [place] [address] 51148- 6625 Nov, Muscular dystrophies G71.0 [facility] [address] [place] [id number] [place] [address] 73987- 0227 Oct, Muscular dystrophies G71.0 [place] [address] [place] [id number] [place] [address] 27821- 8899 Aug, Muscular dystrophies G71.0 [facility] [address] [place] [id number] [place] [address] 85930 -5353 Jul, Urinary tract infection without hematuria, site unspecified N39.0 [facility] [address] [place] [id number] [place] [address] 47783 -5031 04 Jul, 2017 Urinary tract infection without hematuria, site unspecified N39.0 [facility] [address] [place] [id number] [place] [address] 01511- 5283 May, Muscular dystrophies G71.0 [facility] [address] [facility] [id number] [place] [address]- 5756 Apr, Muscular dystrophies G71.0 [facility] [address] [facility] [id number] [place] [address]- 1886 Mar, Muscular dystrophies G71.0 [facility] [address] [place] [id number] [place] [address], [place] [address]- 5473 Feb, [facility] [address] [facility] [id number] [place] [address], [place] [address]- 7591 Feb, Muscular dystrophies G71.0 [facility] [address] [place] [id number] [place] [address], [place]- 9713 Jan, Muscular dystrophies G71.0 and Diabetes E11.9 [facility] [address] [place] [id number] [place] [address], [place] [address]- 3661 Nov, [facility] [id number] [place] [address]- 8980 Nov, [facility] [id number] [place] [address], [place]- 6835 Oct, [facility] [id number] [place] [address]- 5690 Sep, [facility] [id number] [place] [address]- 9763 Sep, [facility] [address] [place] [id number] [address]- 6892 Aug, [facility] [id number] [place] [address]- 7307 Jul, [facility] [id number] [place] [address]- 4706 Jul, [facility] [address] [address]- 8958 Jun, [facility] [address] [address] May, Dysuria R30.0 and Cystitis N30.90 [facility] [address] [place] [id number] [place] [address] 30029- 1793 May, [facility] [address] [place] [id number] [place] [address] 75920- 5308 May, [facility] [address] [place] [id number] [place] [address] 01305- 1077 May, [facility] [address] [place] [id number] [place] [address] 24633- 6339 May, [facility] [address] [place] [id number] [place] [address] 06353- 6620 Mar, Muscular dystrophies G71.0 [facility] [address] [place] [id number] [place] [address] 29241- 5474 Feb, Muscular dystrophies G71.0 [facility] [address] [place] [id number] [place] [address] 36416- 0810 Feb, [facility] [address] [place] [id number] [place] [address] 48938- 8665 Jan, Muscular dystrophies G71.0 [facility] [address] [place] [id number] [place] [address] 50690- 6626 December, Open bite of left upper arm, initial encounter S41.152A [facility] [address] [address] December, [facility] [address] [place] [id number] [place] [address] 65289- 2742 Nov, [facility] [address] [place] [id number] [place] [address] 94416- 2016 Nov, [facility] [address] [place] [id number] [place] [address] 27558- 0489 Oct, [facility] [id number] [place] [address] 13330- 6354 Oct, Diabetes type 2, controlled E11.9 and Polyneuropathy G62.9 [facility] [address] [place] [id number] [place] [address] 52261- 2915 Sep, [facility] [address] [place] [id number] [place] [address] 93617- 8548 Aug, [facility] [address] [place] [id number] [place] [address] 50176- 5307 Aug, [facility] [address] [place] [id number] [place] [address] 63030- 1281 Jul, [facility] [address] [place] [id number] [place] [address] 07708- 2331 Jul, [facility] [address] [place] [id number] [place] [address] 06608- 4033 Jul, [facility] [address] [place] [id number] [place] [address] 41259- 7814 Jun, [facility] [address] [place] [id number] [place] [address] 71292- 2205 Jun, Foot deformity M21.969 [facility] [address] [place] [id number] [place] [address] 18514- 6757 May, [facility] [address] [place] [id number] [place] [address] 10175- 9866 May, [facility] [id number] [place] [address] 31141- 5546 May, [facility] [address] [place] [id number] [place] [address] 63119- 0628 Apr, Diabetes with renal manifestations, type II or unspecified type, not stated as uncontrolled 250.40 and Unsteady gait 781.2 [facility] [address] [place] [id number] [place] [address] 47073- 3088 Apr, [facility] [place] [facility] [address] [id number] [place] [address]- 2817 09 Apr, 2015 [facility] [place] [facility] [address] [id number] [place] [address]- 6666 Mar, [facility] [place] [facility] [address] [id number] [place] [address] 2546 Feb, [facility] [place] [facility] [address] [id number] [place] [address] 2542 Jan, [facility] [place] [facility] [address] [id number] [place] [address]- 8413 Jan, [facility] [place] [facility] [address] [id number] [place] [address]- 7978 December, [facility] [place] [facility] [address] [id number] [place] [address]- 0199 Nov, [facility] [place] [facility] [address] [id number] [place] [address]- 0819 Nov, [facility] [place] [facility] [address] [id number] [place] [address]- 6686 Oct, [facility] [place] [facility] [address] [id number] [place] [address]- 0231 Oct, [facility] [place] [facility] [address] [id number] [place] [address]- 1106 Oct, [facility] [place] [facility] [address] [id number], [place] [address]- 8584 Oct, [facility] [place] [facility] [address] [id number] [place] [address]- 9709 Oct, [facility] [place] [facility] [address] [id number] [place] [address]- 7386 Oct, [facility] [place] [facility] [address] [id number], [place] [address]- 5536 Sep, [facility] [place] [facility] [address] [id number], [place] [address]- 2577 Sep, [facility] [place] [facility] [address] [id number] [place] [address]- 7562 Sep, [facility] [place] [facility] [address] [id number] [place] [address]- 7225 Sep, [facility] [place] [facility] [address] [id number] [place] [address]- 0619 Aug, [facility] [place] [facility] [address] [id number] [place] [address]- 6225 Aug, [facility] [place] [facility] [address] [id number] [place] [address]- 2187 Aug, [facility] [place] [facility] [address] [id number] [place] [address]- 3735 Aug, [facility] [place] [facility] [address] [id number] [place] [address]- 8363 Jul, [facility] [place] [facility] [address] [id number] [place] [address]- 7831 Jul, [facility] [place] [facility] [address] [id number] [place] [address]- 9059 Jul, [facility] [place] [facility] [address] [facility] [id number] [place] [address]- 6590 Jul, [facility] [place] [facility] [address] [id number] [place] [address]- 6535 Jun, [facility] [place] [facility] [address] [id number] [place] [address]- 5420 Jun, [facility] [place] [facility] [address] [id number] [place] [address]- 4390 Jun, [facility] [place] [facility] [address] [id number] [place] [address]- 4519 Jun, [facility] [place] [facility] [address] [facility] [id number] [place] [address]- 8294 May, [facility] [place] [facility] [address] [id number] [place] [address]- 1568 May, [facility] [place] [facility] [address] [id number] [place] [address]- 8810 May, [facility] [place] [facility] [address] [id number] [place] 7311 May, [facility] [place] [facility] [address] [id number] [place] [address]- 9560 Apr, [facility] [place] [facility] [address] [id number] [place] [address]- 9322 Apr, [facility] [place] [facility] [address] [id number] [place] [address]- 0187 Apr, [facility] [place] [facility] [address] [id number] [place] [address]- 6556 Mar, [facility] [place] [facility] [address] [id number] [place] [address]- 3477 Mar, [facility] [place] [facility] [address] [id number] [place] [address]- 1753 Mar, [facility] [place] [facility] [address] [id number] [place] [address]- 8259 Mar, [facility] [place] [facility] [address] [id number] [place] [address]- 7416 Feb, [facility] [place] [facility] [address] [id number] [place] [address]- 8129 Feb, [facility] [place] [facility] [address] [id number] [place] [address]- 2986 Feb, [facility] [place] [facility] [address] [id number] [place] [address]- 3703 Feb, [facility] [place] [facility] [address] [id number] [place] [address]- 8162 Jan, [facility] [place] [facility] [address] [id number] [place] [address]- 6324 Jan, [facility] [place] [facility] [address] [id number] [place] [address]- 9059 December, [facility] [place] [facility] [address] [id number] [place] [address]- 4066 December, [facility] [place] [facility] [address] [id number] [place] [address]- 5227 Nov, [facility] [place] [facility] [address] [id number] [place] [address]- 4803 Nov, [facility] [place] [facility] [address] [id number] [place] [address]- 2165 Oct, [facility] [place] [facility] [address] [id number] [place] [address]- 7803 Oct, [facility] [place] [facility] [address] [id number] [place] [address]- 6142 Oct, [facility] [place] [facility] [address] [id number] [place] [address]- 5317 Oct, [facility] [place] [facility] [address] [id number] [place] [address]- 0799 Sep, [facility] [place] [facility] [address] [id number] [place] [address]- 7061 Sep, [facility] [place] [facility] [address] [id number] [place] [address]- 2405 Aug, [facility] [place] [facility] [address] [id number] [place] [address]- 8767 Aug, [facility] [place] [facility] [address] [id number] [place] [address]- 5179 Aug, [facility] [place] [facility] [address] [id number] [place] [address]- 3364 Aug, [facility] [place] [facility] [address] [id number] [place] [address]- 0519 Aug, [facility] [place] [facility] [address] [id number] [place] [address]- 1550 Aug, [facility] [address] [id number] [place] [address]- 2504 Jul, [facility] [place] [facility] [address] [id number] [place] [address]- 5475 Jul, [facility] [address] [id number] [place] [address]- 5696 Jul, [facility] [place] [facility] [address] [id number] [place] [address]- 9027 Jun, [facility] [address] [id number] [place] [address]- 7698 Jun, [facility] [address] [id number] [place] [address]- 2011 Jun, [facility] [address] [id number] [place] [address]- 1836 Jun, [facility] [address] [id number] [place] [address]- 3561 May, [facility] [address] [id number] [place] [address]- 3260 May, [facility] [address] [id number] [place] [address]- 9902 May, [facility] [place] [facility] [address] [id number] [place] [address]- 8930 May, [facility] [address] [id number] [place] [address]- 4152 Apr, [facility] [place] [facility] [address] [id number] [place] [address]- 4646 Apr, [facility] [place] [facility] [address] [id number] [place] [address]- 8405 Apr, [facility] [place] [facility] [address] [id number] [place] [address]- 9114 Apr, [facility] [place] [facility] [address] [id number] [place] [address]- 7559 Apr, [facility] [place] [facility] [address] [id number] [place] [address]- 4206 Mar, [facility] [place] [facility] [address] [id number] [place] [address]- 8331 Mar, [facility] [place] [facility] [address] [id number] [place] [address]- 8401 Mar, [facility] [place] [facility] [address] [id number] [place] 7909 Mar, [facility] [place] [facility] [address] [id number] [place] [address]- 0881 Feb, [facility] [place] [facility] [address] [id number] [place] [address]- 8357 Feb, [facility] [place] [facility] [address] [id number] [place] [address]- 7980 Jan, [facility] [place] [facility] [address] [id number] [place] [address]- 8544 Jan, [facility] [place] [facility] [address] [id number] [place] [address]- 6007 Jan, [facility] [place] [facility] [address] [id number], [place] [address]- 8956 Jan, [facility] [place] [facility] [address] [id number], [place] [address]- 8524 December, [facility] [place] [facility] [address] [id number] [place] [address]- 1741 December, [facility] [place] [facility] [address] [id number] [place] [address]- 6213 Nov, [facility] [place] [facility] [address] [id number], [place] [address]- 9373 Nov, [facility] [place] [facility] [address] [id number], [place] [address]- 2331 04 Nov, 2012 [facility] [address] [id number] [place] [address]- 5418 08 Oct, 2012 [facility] [place] [facility] [address] [id number] [place] [address]- 5986 06 Oct, 2012 [facility] [address] [id number] [place] [address]- 8136 07 Sep, 2012 [facility] [place] [facility] [address] [id number] [place] [address]- 5174 07 Sep, 2012 [facility] [address] [id number] [place] [address]- 0319 08 Aug, 2012 [facility] [place] [facility] [address] [facility] [id number] [place] [address]- 4303 Aug, [facility] [address] [id number] [place] [address]- 6149 10 Jul, 2012 [facility] [place] [facility] [address] [id number] [place] [address]- 8071 Jul, [facility] [address] [id number] [place] [address]- 477[address] Jul, [facility] [address] [facility] [id number] [place] [address] Jul, [facility] [address] [id number] [place] [address] Jul, [facility] [place] [facility] [address] [facility] [id number] [place] [address] Jul, [facility] [place] [facility] [address] [id number] [place] [address] Jun, [facility] [place] [facility] [address] [id number] [place] [address] Jun, [facility] [place] [facility] [address] [facility] [id number] [place] [address] Jun, [facility] [place] [facility] [address] [id number] [place] [address] Jun, [facility] [place] [facility] [address] [id number] [place] [address] Jun, [facility] [place] [facility] [address] [id number] [place] [address] Jun, [facility] [place] [facility] [address] [id number] [place] [address] May, [facility] [place] [facility] [address] [id number] [place] [address] May, [facility] [place] [facility] [address] [id number] [place] [address] May, [facility] [place] [facility] [address] [id number] [place] [address] May, [facility] [place] [facility] [address] [id number] [place] [address] May, [facility] [place] [facility] [address] [id number] [place] [address] May, [facility] [place] [facility] [address] [id number] [place] [address] May, [facility] [place] [facility] [address] [id number] [place] [address] May, [facility] [place] [facility] [address] [id number] [place] [address] May, [facility] [place] [facility] [address] [id number] [place] [address]- [address] Apr, [facility] [place] [facility] [address] [id number] [place] [address] Apr, [facility] [place] [facility] [address] [id number] [place] [address] Mar, [facility] [place] [facility] [address] [id number] [place] [address] Mar, [facility] [place] [facility] [address] [id number] [place] [address]- [address] Mar, [facility] [place] [facility] [address] [id number] [place] [address] Mar, [facility] [place] [facility] [address] [id number] [place] [address] Mar, [facility] [place] [facility] [address] [id number] [place] [address] Mar, [facility] [place] [facility] [address] [id number] [place] [address]- [address] Mar, [facility] [place] [facility] [address] [id number] [place] [address]- [address] Mar, [facility] [place] [facility] [address] [id number] [place] [address] Mar, [facility] [place] [facility] [address] [id number] [place] [address] Feb, [facility] [place] [facility] [address] [id number] [place] [address] Feb, [facility] [place] [facility] [address] [id number] [place] [address]- [address] Feb, [facility] [place] [facility] [address] [id number] [place] [address] Feb, [facility] [place] [facility] [address] [id number] [place] [address] Jan, [facility] [place] [facility] [address] [id number] [place] [address] December, [facility] [place] [facility] [address] [id number] [place] [address] December, [facility] [place] [facility] [address] [id number] [place] [address] December, [facility] [place] [facility] [address] [id number] [place] [address]- [address] 19 Nov, 2011 [facility] [address] [id number] [place] [address] 17 Nov, 2011 [facility] [address] [id number] [place] [address]- [address] 16 Nov, 2011 [facility] [address] [id number] [place] [address]- [address] 16 Nov, 2011 [facility] [address] [id number] [place] [address] Oct, [facility] [address] [id number] [place] [address] 15 Sep, 2011 [facility] [address] [id number] [place] [address]- [address] 08 Sep, 2011 [facility] [address] [id number] [place] [address]- [address] 16 Aug, 2011 [facility] [address] [id number] [place] [address]- [address] Aug, [facility] [address] [id number] [place] [address] Aug, [facility] [address] [id number] [place] [address] 299[address] Aug, [facility] [address] [id number] [place] [address] Aug, [facility] [address] [id number] [place] [address] Jul, [facility] [address] [id number] [place] [address]- [address] Jul, [facility] [address] [id number] [place] [address]- 2546 Jul, [facility] [address] [id number] [place] [address] 1616 Jul, [facility] [place] [facility] [address] [id number] [place] [address]- [address] 29 Jun, 2011 [facility] [place] [facility] [address] [id number] [place] [address]- [address] Jun, [facility] [place] [facility] [address] [id number] [place] [address]- [address] Jun, [facility] [place] [facility] [address] [id number] [place] [address] Jun, [facility] [place] [facility] [address] [id number] [place] [address] May, [facility] [place] [facility] [address] [id number] [place] [address] May, [facility] [place] [facility] [address] [id number] [place] [address] Aug, [facility] [place] [facility] [address] [id number] [place] [address] Jul, [facility] [place] [facility] [address] [id number] [place] [address] Jun, [facility] [place] [facility] [address] [id number], [place] [address] May, [facility] [place] [facility] [address] [id number], [place] [address] May, [facility] [place] [facility] [address] [id number], [place] [address] May, [facility] [place] [facility] [address] [id number] [place] [address] December, [facility] [place] [facility] [address] [id number] [place] [address] Jul, [facility] [place] [facility] [address] [id number], [place] [address] Jul, [facility] [place] [facility] [address] [id number], [place] [address] Jul, [facility] [address] [facility] [id number], [place] [address] Jun, [facility] [address] [facility] [id number], [place] [address] Jun, [facility] [address] [facility] [id number], [place] [address] Jun, [facility] [address] [facility] [id number], [place] [address] Jun, [facility] [address] [facility] [id number], [place] [address] May, IMMUNIZATIONS No Known Immunizations SOCIAL HISTORY Never Assessed REASON FOR VISIT Controlled Med Refill PLAN OF CARE VITAL SIGNS MEDICATIONS Medication Instructions Dosage Frequency Start Date End Date Duration Status Percocet 5-325 MG Orally 2 times a day 1 tablet as needed 12h Nov, 28 days Active Fluoxetine HCl 20 mg Orally Once a day TAKE ONE CAPSULE BY MOUTH IN THE MORNING 24h 30 Active MS Contin 15 mg Orally Once a day 1 tablet 24h Nov, 28 days Active RESULTS No Results [...]
--- OUTSIDE RECORDS SUMMARY | 2018-07-23 14:54 | XMS REPORT ---
Author PATO Spring Organization [employer] Address Unknown Phone Unavailable Care Team Providers Care Public Address System Mechanic Name Role Phone PATO ANAYA CP Unavailable Allergies No Known Allergies Problems Problem Type Condition Code Onset Dates Condition Status Problem Unsteady gait R26.81 Active Problem Muscular dystrophies G71.0 Active Medications No Known Medications Results No Known Results Summary Purpose [employer] Submission
--- OUTSIDE RECORDS SUMMARY | 2018-07-23 14:55 | XMS REPORT ---
Author PATO Spring [facility] [employer] Address Unknown Phone Unavailable Care Team Providers Care Poker Machine Attendant Name Role Phone PATO ANAYA CP Unavailable Allergies, Adverse Reactions, Alerts Substance Reaction Event Type N.K.D.A. Info Not Available Non Drug Allergy Problems Problem Type Condition ICD-9 Code Onset Dates Condition Status Assessment Unsteady gait 781.2 Active Problem Dysthymic disorder 300.4 Active Problem Actinic keratosis 702.0 Active Problem Diabetes with renal manifestations, type II or unspecified type, not stated as uncontrolled 250.40 Active Problem Unspecified fall E888.9 Active Assessment Diabetes with renal manifestations, type II or unspecified type, not stated as uncontrolled 250.40 Active Problem Other specified disease of nail 703.8 Active Problem Pain in joint, forearm 719.43 Active Medications Medication Code System Code Instructions Start Date End Date Status Dosage Fluoxetine HCl [facility] 89560030507 20 MG TAKE ONE CAPSULE BY MOUTH ONCE DAILY IN THE MORNING MS Contin [facility] [address]-02 15 MG MUST COME TO APPT ON 04/27October 29, 2014 1 capsule by Oral route every 12 hours Ambien [facility] [address]-44 10 MG Orally Once a day 1 tablet at bedtime Percocet [facility] [address]-43 5-325 MG Orally every 6 hrs December 24, 2014 1 tablet as needed Gabapentin [facility] 73623925167 300 MG TAKE TWO CAPSULES BY MOUTH TWICE DAILY NEEDED FOR PAIN VESIcare [facility] 27810234700 10 MG TAKE ONE TABLET BY MOUTH DAILY Procedures Procedure Coding System Code Date [facility] VISIT ESTABLISHED PATIENT CPT-4 G0467 Apr 27, 2015 Office Visit, Est Pt., Level 3 CPT-4 69790 Apr 27, 2015 GLYCATED HEMOGLOBIN TEST CPT-4 68804 Apr 27, 2015 Vital Signs Date/Time: Apr 27, 2015 Temperature 97.2 F Weight 148 lbs Height 69 in BMI 21.85 Index Blood Pressure Diastolic 72 mmHg Blood Pressure Systolic 126 mmHg Cardiac Monitoring Heart Rate 52 bpm Results Name Result Date Reference Range Unit Abnormality Flag A1C (IN HOUSE) Summary Purpose [employer] Submission
--- OUTSIDE RECORDS SUMMARY | 2018-07-23 14:55 | XMS REPORT ---
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 638100271 Problem Diabetes E11.9 Active 77932206 Problem Unsteady gait R26.81 Active 95799318 Problem Muscular dystrophies G71.0 Active 97218735 ALLERGIES No Information ENCOUNTERS Encounter Location Date Diagnosis [place] [address] [address] Jan, [place] [address] [address]- [address] December, [place] [address] [address] December, Callus of foot L84 ; Nail hypertrophy L60.2 ; Self-care deficit for hygiene R46.0 ; Controlled type 2 diabetes mellitus without complication, unspecified whether custodial insulin use E11.9 [address] G[address].0 [facility] [address] [place] [id number] [place] [address] 78996- 1335 December, Muscular dystrophies G71.0 [facility] [address] [address] December, 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 [facility] [address] 18177- 2517 Nov, [facility] [address] 14807- 0206 Nov, [facility] [id number] [place] [address] 80671- 7439 Nov, Muscular dystrophies G71.0 [facility] [address] [place] [id number] [place] [address] 91480- 1515 Oct, Muscular dystrophies G71.0 [facility] [address] [place] [id number] [place] [address] 39721- 2443 Aug, Muscular dystrophies G71.0 [facility] [address] [place] [id number] [place] [address] 19283 -1567 Jul, Urinary tract infection without hematuria, site unspecified N39.0 [facility] [address] [place] [id number] [place] [address]49 -9003 Jul, Urinary tract infection without hematuria, site unspecified N39.0 [facility] [address] [place] [id number] [place] [address] 92860- 7398 May, Muscular dystrophies G71.0 [facility] [address] [place] [id number] [place] [address] 76887- 6824 Apr, Muscular dystrophies G71.0 [facility] [address] [place] [id number] [place] [address] 84009- 8600 Mar, Muscular dystrophies G71.0 [facility] [id number] [place] [address] 24454- 3600 Feb, [facility] [address] [place] [id number] [place] [address] 29119- 6018 Feb, Muscular dystrophies G71.0 [facility] [address] [place] [id number] [place] [address] 32335- 5611 Jan, Muscular dystrophies G71.[address] [facility] [address] [place] [id number] [place] [address] 10791- 1945 Nov, [facility] [address] [place] [id number] [place] [address] 02891- 2561 Nov, [facility] [id number] [place] [address] 9172 Oct, [facility] [address] [address]21 Sep, [facility] [id number] [place] [address] 4654 Sep, [facility] [address] [place] [id number] [place] [address] 109055- 6011 Aug, [facility] [address] [place] [address] 372390- 3981 Jul, [facility] [address] [place] [id number] [place] [address] 56934- 1077 Jul, [facility] [address] [place] [id number] [place] [address] 52513- 3745 Jun, [facility] [address] [address] May, Dysuria R30.[address] [facility] [address] [address]- 9895 May, [facility] [address] [address] 1820 May, [facility] [address] [address] 5[address] May, [facility] [address] [address]- 4383 May, [facility] [address] [place] [id number] [place] [address] 73438- 3123 Mar, Muscular dystrophies G71.0 [facility] [address] [address]- 7838 Feb, Muscular dystrophies G71.0 [facility] [address], [place] [address]- 3300 Feb, [facility] [address] [place] [address] 36248- 8837 Jan, Muscular dystrophies G71.0 [facility] [address] [address]- 7974 December, Open bite of left upper arm, initial encounter S41.152A [facility] [address] [place] [id number] [address] December, [facility] [address] [place] [id number] [place] [address] 17015- 9275 Nov, [facility] [address] [place] [id number] [place] [address] 72945- 6555 Nov, [facility] [address] [place] [id number] [place] [address] 23989- 1510 Oct, [facility] [address] [place] [id number] [place] [address] 52959- 8581 Oct, Diabetes type 2, controlled E11.[address] [facility] [address] [place] [id number] [place] [address] 91370- 3690 Sep, [facility] [address] [address] 7697 Aug, [facility] [address] [place] [id number] [place] [address] 92332- 0482 Aug, [facility] [address] [address] 2981 Jul, [facility] [address] [place] [id number] [place] [address] 27688- 8532 Jul, [facility] [address] [address] 5140 Jul, [facility] [address] [place] [id number] [place] [address] 10873- 8926 Jun, [facility] [address] [address]- 3296 Jun, Foot deformity M21.969 [facility] [address] 5[address] May, [facility] [address] [place] [address] 90201- 6593 May, [facility] [address] [place] [id number] [place] [address] 94663- 6079 May, [facility] [address] [place] [id number] [place] [address] 96578- 7604 Apr, Diabetes with renal manifestations, type II or unspecified type, not stated as uncontrolled 250.40 and Unsteady gait 781.2 [facility] [address] [place] [id number] [place] [address] 59631- 2183 Apr, [facility] [address] [place] [id number] [address]- 7819 Apr, [facility] [address] [place] [id number] [place] [address] 34997- 7795 Mar, [facility] [address] [address]- 5754 Feb, [facility] [address] [address]- 7496 Jan, [facility] [address] [address]- 2095 Jan, [facility] [address] [address]- 7423 December, [facility] [address] [place] [id number] [address]- 5364 Nov, [facility] [address], [place] [address]- 0218 Nov, [facility] [place] [facility] [address] [id number] [place] [address]- 5002 Oct, [facility] [place] [facility] [address] [id number] [place] [address]- 8664 Oct, [facility] [place] [facility] [address] [id number] [place] [address]- 7041 Oct, [facility] [place] [facility] [address] [id number] [place] [address]- 6999 Oct, [facility] [place] [facility] [address] [id number] [place] [address]- 6450 Oct, [facility] [place] [facility] [address] [id number] [place] [address]- 1747 Oct, [facility] [place] [facility] [address] [id number] [place] [address]- 5982 Sep, [facility] [place] [facility] [address] [id number] [place] [address]- 0098 Sep, [facility] [place] [facility] [address] [id number] [place] [address]- 0711 Sep, [facility] [place] [facility] [address] [id number] [place] [address]- 0510 Sep, [facility] [place] [facility] [address] [id number] [place] [address]- 0182 Aug, [facility] [place] [facility] [address] [id number] [place] [address]- 5890 Aug, [facility] [place] [facility] [address] [id number] [place] [address]- 5318 Aug, [facility] [place] [facility] [address] [id number] [place] [address]- 1556 Aug, [facility] [place] [facility] [address] [id number] [place] [address]- 6955 Jul, [facility] [place] [facility] [address] [id number] [place] [address]- 1983 Jul, [facility] [place] [facility] [address] [id number] [place] [address]- 6268 Jul, [facility] [place] [facility] [address] [id number] [place] 5127 Jul, [facility] [place] [facility] [address] [id number] [place] [address]- 4931 Jun, [facility] [place] [facility] [address] [id number] [place] [address]- 2205 Jun, [facility] [place] [facility] [address] [id number] [place] [address]- 5753 Jun, [facility] [place] [facility] [address] [id number] [place] [address]- 9890 Jun, [facility] [place] [facility] [address] [id number] [place] [address]- 3633 May, [facility] [place] [facility] [address] [id number] [place] [address]- 2002 May, [facility] [place] [facility] [address] [id number] [place] [address]- 4724 May, [facility] [place] [facility] [address] [id number] [place] [address]- 6941 May, [facility] [place] [facility] [address] [id number] [address]- 5374 Apr, [facility] [place] [facility] [address] [id number] [place] [address]- 3725 Apr, [facility] [place] [facility] [address] [id number] [place] [address]- 5356 Apr, [facility] [place] [facility] [address] [id number] [place] [address]- 5385 Mar, [facility] [place] [facility] [address] [id number] [place] [address]- 7921 Mar, [facility] [place] [facility] [address] [id number] [place] [address]- 7705 Mar, [facility] [place] [facility] [address] [id number] [place] [address]- 8934 Mar, [facility] [place] [facility] [address] [id number] [place] [address]- 9655 Feb, [facility] [place] [facility] [address] [id number] [place] [address]- 2779 Feb, [facility] [place] [facility] [address] [id number] [place] [address]- 0217 Feb, [facility] [place] [facility] [address] [id number] [place] [address]- 2246 Feb, [facility] [place] [facility] [address] [id number] [place] [address]- 7035 Jan, [facility] [place] [facility] [address] [id number] [place] [address]- 8030 Jan, [facility] [address] [id number] [place] [address]- 5007 December, [facility] [place] [facility] [address] [id number] [place] [address]- 7233 December, [facility] [place] [facility] [address] [id number] [place] [address]- 0139 Nov, [facility] [place] [facility] [address] [id number] [place] [address]- 1291 Nov, [facility] [place] [facility] [address] [id number] [place] [address]- 7618 Oct, [facility] [place] [facility] [address] [id number] [place] [address]- 2226 Oct, [facility] [place] [facility] [address] [id number] [place] [address]- 2666 Oct, [facility] [place] [facility] [address] [id number] [place] [address]- 6265 Oct, [facility] [place] [facility] [address] [id number] [place] [address]- 4284 Sep, [facility] [place] [facility] [address] [id number] [place] [address]- 7278 Sep, [facility] [place] [facility] [address] [id number] [place] [address]- 0240 Aug, [facility] [place] [facility] [address] [id number] [place] [address]- 2518 Aug, [facility] [place] [facility] [address] [id number] [place] [address]- 0802 Aug, [facility] [place] [facility] [address] [id number] [place] [address]- 6936 Aug, [facility] [place] [facility] [address] [facility] [id number] [place] [address]- 9614 Aug, [facility] [place] [facility] [address] [id number], [place] [address]- 8209 Aug, [facility] [place] [facility] [address] [id number] [place] [address]- 7483 Jul, [facility] [place] [facility] [address] [id number], [place] [address]- 8465 Jul, [facility] [place] [facility] [address] [id number], [place] [address]- 9603 Jul, [facility] [place] [facility] [address] [id number], [place] [address]- 7361 Jun, [facility] [place] [facility] [address] [id number] [place] [address]- 9725 Jun, [facility] [place] [facility] [address] [id number], [place] [address]- 5234 Jun, [facility] [place] [facility] [address] [facility] [id number], [place] [address]- 6072 Jun, [facility] [place] [facility] [address] [id number] [place] [address]- 8431 16 May, 2012 [facility] [address] [id number] [place] [address]- 9320 16 May, 2012 [facility] [place] [facility] [address] [id number] [place] [address]- 6696 May, [facility] [place] [facility] [address] [id number] [place] [address]- 4396 May, [facility] [place] [facility] [address] [id number] [place] [address]- 3127 10 Apr, 2012 [facility] [place] [facility] [address] [id number] [place] [address]- 2928 10 Apr, 2012 [facility] [place] [facility] [address] [id number] [place] [address]- 9729 Apr, 2012 [facility] [place] [facility] [address] [id number] [place] [address]- 1946 06 Apr, 2012 [facility] [place] [facility] [address] [id number] [place] [address]- 2092 Apr, [facility] [place] [facility] [address] [id number] [place] [address]- 7100 Mar, [facility] [place] [facility] [address] [id number] [place] [address]- 4724 Mar, [facility] [place] [facility] [address] [id number] [place] [address]- 5638 Mar, [facility] [place] [facility] [address] [id number] [place] [address]- 8171 Mar, [facility] [place] [facility] [address] [id number] [place] [address]- 2087 Feb, [facility] [place] [facility] [address] [id number] [place] [address]- 2827 Feb, [facility] [place] [facility] [address] [id number] [place] [address]- 9361 Jan, [facility] [place] [facility] [address] [id number] [place] [address]- 6403 Jan, [facility] [address] [id number] [place] [address]- 3707 Jan, [facility] [address] [id number] [place] [address]- 0812 Jan, [facility] [address] [id number] [place] [address]- 4241 December, [facility] [address] [id number] [place] [address]- 3221 December, [facility] [address] [id number] [place] [address]- 5449 Nov, [facility] [address] [id number] [place] [address]- 2887 Nov, [facility] [address] [id number] [place] [address]- 0055 Nov, [facility] [address] [id number] [place] [address]- 2689 Oct, [facility] [address] [id number] [place] [address]- 9321 Oct, [facility] [address] [id number] [place] [address]- 4954 Sep, [facility] [address] [id number] [place] [address]- 1449 Sep, [facility] [place] [facility] [address] [id number] [place] [address]- 7817 Aug, [facility] [place] [facility] [address] [id number] [place] [address]- 5751 Aug, [facility] [place] [facility] [address] [id number] [place] [address]- 2897 Jul, [facility] [place] [facility] [address] [id number], [place] [address]- 0469 Jul, [facility] [place] [facility] [address] [id number] [place] [address]- 4410 Jul, [facility] [place] [facility] [address] [id number] [place] [address]- 2605 Jul, [facility] [place] [facility] [address] [id number] [place] [address]- 2618 Jul, [facility] [place] [facility] [address] [id number] [place] [address]- 7725 Jul, [facility] [place] [facility] [address] [id number] [place] [address]- 6541 Jun, [facility] [place] [facility] [address] [id number] [place] [address]- 2023 Jun, [facility] [place] [facility] [address] [id number] [place] [address]- 4174 Jun, [facility] [place] [facility] [address] [id number] [place] [address]- 7916 Jun, [facility] [place] [facility] [address] [id number] [place] [address]- 1220 Jun, [facility] [place] [facility] [address] [id number] [place] [address]- 9656 Jun, [facility] [place] [facility] [address] [id number], [place] [address]- 7844 May, [facility] [place] [facility] [address] [id number], [place] [address]- 1710 May, [facility] [place] [facility] [address] [id number] [place] [address] May, [facility] [place] [facility] [address] [id number] [place] [address] May, [facility] [place] [facility] [address] [id number] [place] [address] 18 May, 2012 [facility] [place] [facility] [address] [id number] [place] [address] 18 May, 2012 [facility] [place] [facility] [address] [id number] [place] [address] 08 May, 2012 [facility] [place] [facility] [address] [id number] [place] [address] 05 May, 2012 [facility] [place] [facility] [address] [id number] [place] [address] May, [facility] [place] [facility] [address] [id number] [place] [address] 18 Apr, 2012 [facility] [place] [facility] [address] [id number] [place] [address] Apr, [facility] [place] [facility] [address] [id number] [place] [address] Mar, [facility] [place] [facility] [address] [id number] [place] [address] Mar, [facility] [place] [facility] [address] [id number] [place] [address] 15 Mar, 2012 [facility] [place] [facility] [address] [id number] [place] [address] 14 Mar, 2012 [facility] [place] [facility] [address] [id number] [place] [address] Mar, [facility] [place] [facility] [address] [id number] [place] [address] Mar, [facility] [place] [facility] [address] [id number] [place] [address] 47[address] Mar, [facility] [place] [facility] [address] [id number] [place] [address]79 Mar, [facility] [place] [facility] [address] [id number] [place] [address] Mar, [facility] [place] [facility] [address] [id number] [place] [address] 40[address] Feb, [facility] [address] [id number] [place] [address] Feb, [facility] [place] [facility] [address] [id number] [place] [address] Feb, [facility] [place] [facility] [address] [id number] [place] [address] Feb, [facility] [place] [facility] [address] [id number] [place] [address] Jan, [facility] [place] [facility] [address] [id number] [place] [address] 12[address] December, [facility] [place] [facility] [address] [id number] [place] [address] December, [facility] [place] [facility] [address] [id number] [place] [address] December, [facility] [place] [facility] [address] [id number] [place] [address] Nov, [facility] [place] [facility] [address] [id number] [place] [address] Nov, [facility] [place] [facility] [address] [id number] [place] [address]60 Nov, [facility] [place] [facility] [address] [id number] [place] [address] Nov, [facility] [place] [facility] [address] [id number] [place] [address] 1426 Oct, [facility] [place] [facility] [address] [id number] [place] [address] Sep, [facility] [place] [facility] [address] [id number] [place] [address] 08 Sep, 2011 [facility] [place] [facility] [address] [id number] [place] [address] Aug, [facility] [place] [facility] [address] [id number] [place] [address]- [address]149 12 Aug, 2011 [facility] [address] [id number] [place] [address]- [address] 11 Aug, 2011 [facility] [place] [facility] [address] [id number] [place] [address] 6654 10 Aug, 2011 [facility] [address] [id number] [place] [address]- 119[address] 04 Aug, 2011 [facility] [place] [facility] [address] [id number] [place] [address]- 97[address] 30 Jul, 2011 [facility] [place] [facility] [address] [id number] [place] [address] 30 Jul, 2011 [facility] [place] [facility] [address] [id number] [place] [address]- [address] 19 Jul, 2011 [facility] [place] [facility] [address] [id number] [place] [address]- [address] 05 Jul, 2011 [facility] [place] [facility] [address] [id number] [place] [address]- [address] 29 Jun, 2011 [facility] [place] [facility] [address] [id number] [place] [address]- [address] 17 Jun, 2011 [facility] [place] [facility] [address] [id number] [place] [address]- 5817 16 Jun, 2011 [facility] [place] [facility] [address] [id number] [place] [address]- 2574 16 Jun, 2011 [facility] [place] [facility] [address] [id number] [place] [address] 8072 May, [facility] [place] [facility] [address] [id number] [place] [address]- 5462 May, [facility] [place] [facility] [address] [id number] [place] [address]158 Aug, [facility] [place] [facility] [address] [id number] [place] [address] Jul, [facility] [id number] [address] Jun, [facility] [id number] [address] May, [facility] [id number] [address] May, [facility] [id number] [place] [address] May, [facility] [address] [facility] [id number] [address] December, [facility] [id number] [place] [address]- [address]15 Jul, [facility] [id number] [address]82 Jul, [facility] [id number] Jul, [facility] [id number] [address] Jun, [facility] [facility] [id number] [address] Jun, [facility] [id number] [address], [facility] [id number] [address], [facility] [id number], [place] [address] May, IMMUNIZATIONS No Known Immunizations SOCIAL HISTORY Never Assessed REASON FOR VISIT PLAN OF CARE VITAL SIGNS MEDICATIONS Medication Instructions Dosage Frequency Start Date End Date Duration Status Bactrim DS 800-160 MG Orally Twice a day 1 tablet 12h 07 Jul, 2017Jul 5 days Active RESULTS No Results PROCEDURES No [...]
--- OUTSIDE RECORDS SUMMARY | 2018-07-23 14:55 | XMS REPORT ---
Author BEENA Sandoval [facility] [place] eClinicalWorks Address Unknown Phone Unavailable Care Team Providers Care Glass Laminating Operator Name Role Phone BEENA DE LA ROSA CP Unavailable Allergies, Adverse Reactions, Alerts Substance Reaction Event Type N.K.D.A. Info Not Available Non Drug Allergy Problems Problem Type Condition Code Onset Dates Condition Status Problem Dysthymic disorder 300.4 Active Problem Actinic keratosis 702.0 Active Problem Diabetes with renal manifestations, type II or unspecified type, not stated as uncontrolled 250.40 Active Problem Unspecified fall E888.9 Active Assessment Foot deformity M21.969 Active Problem Other specified disease of nail 703.8 Active Problem Pain in joint, forearm 719.43 Active Medications Medication Code System Code Instructions Start Date End Date Status Dosage Ambien [facility] [address]-97 10 MG Orally Once a day 1 tablet at bedtime Percocet [facility] [address]-38 5-325 MG Orally every 6 hrs December 24, 2014 1 tablet as needed MS Contin [facility] [address]-72 15 MG October 29, 2014 1 capsule by Oral route every 12 hours Gabapentin [facility] 14883353586 300 MG TAKE TWO CAPSULES BY MOUTH TWICE DAILY NEEDED FOR PAIN Fluoxetine HCl [facility] 37887430262 20 MG TAKE ONE CAPSULE BY MOUTH ONCE DAILY IN THE MORNING VESIcare [facility] 61388831469 10 MG TAKE ONE TABLET BY MOUTH DAILY Procedures Procedure Coding System Code Date Office Visit, Est Pt., Level 2 CPT-4 82471 Jun 22, 2015 [facility] VISIT ESTABLISHED PATIENT CPT-4 G0467 Jun 22, 2015 Vital Signs Date/Time: Jun 22, 2015 Temperature 98.1 F Weight 146.0 lbs Height 69 in BMI 21.56 Index Blood Pressure Diastolic 60 mmHg Blood Pressure Systolic 120 mmHg Cardiac Monitoring Heart Rate 56 bpm Results No Known Results Summary Purpose eClinicalWorks Submission
--- OUTSIDE RECORDS SUMMARY | 2018-07-23 14:56 | XMS REPORT ---
Author PATO Spring Organization eClinicalWorks Address Unknown Phone Unavailable Care Team Providers Care Pharmacy Operations Coordinator Name Role Phone PATO ANAYA CP Unavailable Allergies No Known Allergies Problems Problem Type Condition Code Onset Dates Condition Status Problem Dysthymic disorder 300.4 Active Problem Actinic keratosis 702.0 Active Problem Diabetes with renal manifestations, type II or unspecified type, not stated as uncontrolled 250.40 Active Problem Unspecified fall E888.9 Active Problem Other specified disease of nail 703.8 Active Problem Pain in joint, forearm 719.43 Active Medications No Known Medications Results No Known Results Summary Purpose eClinicalWorks Submission
--- OUTSIDE RECORDS SUMMARY | 2018-07-23 14:56 | XMS REPORT ---
Author PATO Spring Organization eClinicalWorks Address Unknown Phone Unavailable Care Team Providers Care Portfolio Accountant Name Role Phone PATO ANAYA CP Unavailable Allergies No Known Allergies Problems Problem Type Condition ICD-9 Code Onset Dates Condition Status Problem Dysthymic disorder 300.4 Active Problem Actinic keratosis 702.0 Active Problem Diabetes with renal manifestations, type II or unspecified type, not stated as uncontrolled 250.40 Active Problem Unspecified fall E888.9 Active Problem Other specified disease of nail 703.8 Active Problem Pain in joint, forearm 719.43 Active Medications Medication Code System Code Instructions Start Date End Date Status Dosage MS Contin [facility] [address]-83 15 MG MUST COME TO APPT ON 04/27October 29, 2014 1 capsule by Oral route every 12 hours Percocet [facility] [address]-55 5-325 MG Orally every 6 hrs December 24, 2014 1 tablet as needed Ambien [facility] [address]-88 10 MG Orally Once a day 1 tablet at bedtime Results No Known Results Summary Purpose eClinicalWorks Submission
--- OUTSIDE RECORDS SUMMARY | 2018-07-23 14:56 | XMS REPORT ---
Author PATO Spring Organization eClinical[employer] Address Unknown Phone Unavailable Care Team Providers Care Product Responsibility Liaison Name Role Phone PATO ANAYA CP Unavailable Allergies No Known Allergies Problems Problem Type Condition Code Onset Dates Condition Status Problem Unsteady gait R26.81 Active Problem Diabetes E11.9 Active Problem Muscular dystrophies G71.0 Active Medications No Known Medications Results No Known Results Summary Purpose eClinicalWorks Submission
--- OUTSIDE RECORDS SUMMARY | 2018-07-23 14:56 | XMS REPORT ---
Author PATO pSring Organization eClinicalWorks Address Unknown Phone Unavailable Care Team Providers Care Acoustical Engineer Name Role Phone PATO ANAYA CP Unavailable Allergies No Known Allergies Problems Problem Type Condition Code Onset Dates Condition Status Problem Unsteady gait R26.81 Active Problem Diabetes E11.9 Active Problem Muscular dystrophies G71.0 Active Medications No Known Medications Results No Known Results Summary Purpose eClinicalWorks Submission
--- OUTSIDE RECORDS SUMMARY | 2018-07-23 14:56 | XMS REPORT ---
Author Author PATO ANAYA [facility] Address [address] [place] [address] Care Team Providers Care Safety Consultant Name Role Phone PATO ANAYA Unavailable PROBLEMS Type Condition ICD9-CM Code [id number] Code Onset Dates Condition Status SNOMED Code Problem Diabetes E11.9 Active 26245186 Problem Unsteady gait R26.81 Active 39132311 Problem Muscular dystrophies G71.0 Active 96594700 ALLERGIES Unknown Allergies SOCIAL HISTORY No smoking Hx information available PLAN OF CARE VITAL SIGNS MEDICATIONS Medication Instructions Dosage Frequency Start Date End Date Duration Status Percocet 5-325 MG Orally every 6 hrs 1 tablet as needed 6h Aug, 28 days Active MS Contin 15 MG Orally every 12 hrs 1 tablet 12h Aug, 28 days Active RESULTS No Results PROCEDURES No Known procedures IMMUNIZATIONS No Known Immunizations
--- OUTSIDE RECORDS SUMMARY | 2018-07-23 14:56 | XMS REPORT ---
Author Author PATO ANAYA Organization eClinicalWorks Address Unknown Phone Unavailable Care Team Providers Care As400 Operator Name Role Phone PATO ANAYA CP Unavailable Allergies No Known Allergies Problems Problem Type Condition Code Onset Dates Condition Status Problem Unsteady gait R26.81 Active Problem Diabetes E11.9 Active Problem Muscular dystrophies G71.0 Active Medications Medication Code System Code Instructions Start Date End Date Status Dosage Percocet [facility] [address]-85 5-325 MG Orally every 6 hrs December 24, 2014 1 tablet as needed MS Contin [facility] [address]-39 15 MG every 12 hrs October 29, 2014 1 capsule Ambien [facility] [address]-93 10 MG Orally Once a day 1 tablet at bedtime Results No Known Results Summary Purpose eClinicalWorks Submission
--- OUTSIDE RECORDS SUMMARY | 2018-07-23 14:56 | XMS REPORT ---
Author Author PATO ANAYA [facility] Address [address] [place] [address] Care Team Providers Care Service Liaison Representative Name Role Phone PATO ANAYA Unavailable PROBLEMS Type Condition ICD9-CM Code [id number] Code Onset Dates Condition Status SNOMED Code Problem Diabetes E11.9 Active 86022755 Problem Unsteady gait R26.81 Active 00009728 Problem Muscular dystrophies G71.0 Active 80815396 ALLERGIES Unknown Allergies SOCIAL HISTORY No smoking Hx information available PLAN OF CARE VITAL SIGNS MEDICATIONS Medication Instructions Dosage Frequency Start Date End Date Duration Status MS Contin 15 MG Orally every 12 hrs 1 tablet 12h Aug, 28 days Active Percocet 5-325 MG Orally every 6 hrs 1 tablet as needed 6h Aug, 28 days Active RESULTS No Results PROCEDURES No Known procedures IMMUNIZATIONS No Known Immunizations
--- OUTSIDE RECORDS SUMMARY | 2018-07-23 14:56 | XMS REPORT ---
Author Author PATO ANAYA Organization eClinicalWorks Address Unknown Phone Unavailable Care Team Providers Care Community Health Nursing Director Name Role Phone PATO ANAYA CP Unavailable Allergies No Known Allergies Problems Problem Type Condition Code Onset Dates Condition Status Problem Unsteady gait R26.81 Active Problem Diabetes E11.9 Active Problem Muscular dystrophies G71.0 Active Medications Medication Code System Code Instructions Start Date End Date Status Dosage Percocet [facility] [address]-17 5-325 MG Orally every 6 hrs December 24, 2014 1 tablet as needed Results No Known Results Summary Purpose eClinicalWorks Submission
--- OUTSIDE RECORDS SUMMARY | 2018-07-23 14:56 | XMS REPORT ---
Author Author PATO ANAYA Organization [facility] Address [address] [place] [address] Care Team Providers Care Tow Truck Dispatcher Name Role Phone PATO ANAYA Unavailable PROBLEMS Type Condition ICD9-CM Code [id number] Code Onset Dates Condition Status SNOMED Code Problem Diabetes E11.9 Active 02670974 Problem Unsteady gait R26.81 Active 06672624 Problem Muscular dystrophies G71.0 Active 09351461 ALLERGIES No Information SOCIAL HISTORY Never Assessed PLAN OF CARE VITAL SIGNS MEDICATIONS Medication Instructions Dosage Frequency Start Date End Date Duration Status Percocet 5-325 MG Orally every 6 hrs 1 tablet as needed 6h Sep, 28 days Active MS Contin 15 MG Orally every 12 hrs 1 tablet 12h Sep, 28 days Active RESULTS No Results PROCEDURES No Known procedures IMMUNIZATIONS No Known Immunizations MEDICAL (GENERAL) HISTORY Type Description Date Medical [...]
--- OUTSIDE RECORDS SUMMARY | 2018-07-23 14:56 | XMS REPORT ---
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 441759428 Problem Diabetes E11.9 Active 76631329 Problem Unsteady gait R26.81 Active 36839324 Problem Muscular dystrophies G71.0 Active 13148023 ALLERGIES No Information ENCOUNTERS Encounter Location Date Diagnosis [facility] [id number] [place] [address] 75106- 0675 Feb, [facility] [id number] [place] [address] 08938- 8854 Feb, [facility] [address] 42471- 7933 Jan, [facility] [address] 51419- 6395 Jan, Callus of foot L84 ; Nail hypertrophy L60.2 and Self-care deficit for hygiene R46.0 [facility] [id number] [place] [address] 12878- 3384 December, [facility] [id number] [place] [address] 34865- 7025 December, Callus of foot L84 ; Nail hypertrophy L60.2 ; Self-care deficit for hygiene R46.0 ; Controlled type 2 diabetes mellitus without complication, unspecified whether snf insulin use E11.9 and Muscular dystrophies G71.0 [facility] [id number] [place] [address] 73402- 6671 December, Muscular dystrophies G71.0 [facility] [address] [address] December, 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 [facility] [id number] [place] [address] 35189- 1285 Nov, [facility] [id number] [place] [address] 52546- 6572 Nov, [facility] [id number] [place] [address] 89974- 7301 Nov, Muscular dystrophies G71.0 [facility] [id number] [place] [address] 73055- 8543 Oct, Muscular dystrophies G71.0 [facility] [id number] [place] [address] 07120- 4840 Aug, Muscular dystrophies G71.0 [facility] [id number] [place] [address] 45354 -2764 Jul, Urinary tract infection without hematuria, site unspecified N39.0 [facility] [id number] [place] [address] 26618 -1776 Jul, Urinary tract infection without hematuria, site unspecified N39.0 [facility] [id number] [place] [address] 57837- 5401 May, Muscular dystrophies G71.0 [facility] [id number] [place] [address] 42838- 1008 Apr, Muscular dystrophies G71.0 [facility] [id number] [place] [address] 74927- 9798 Mar, Muscular dystrophies G71.0 [facility] [id number] [place] [address] 05099- 7902 Feb, [facility] [id number] [place] [address] 92061- 8296 Feb, Muscular dystrophies G71.0 [facility] [id number] [place] [address] 88011- 8538 Jan, Muscular dystrophies G71.0 and Diabetes E11.9 [facility] [id number] [place] [address], [place] [address]- 6546 Nov, [facility] [id number] [place] [address] 18210- 5842 Nov, [facility] [id number] [place] [address], [place] [address]- 6739 Oct, [facility] [id number] [place] [address], [place] [address]- 9714 Sep, [facility] [id number] [place] [address] 86878- 3469 Sep, [facility] [id number] [place] [address] 94495- 3560 Aug, [facility] [id number] [place] [address] 14271- 6894 Jul, [facility] [id number] [place] [address] 78020- 8936 Jul, [facility] [address] [address]- 1869 Jun, [facility] [id number] [place] [address] 37350 -8557 May, Dysuria R30.0 and Cystitis N30.90 [facility] [id number] [address]- 7511 May, [facility] [id number] [place] [address] 61328- 8015 May, [facility] [id number] [address]- 6090 May, [facility] [address] [address]- 1613 May, [facility] [id number] [place] [address] 26156- 8974 Mar, Muscular dystrophies G71.0 [facility] [id number] [place] [address] 17631- 4037 Feb, Muscular dystrophies G71.0 [facility] [id number] [place] [address] 88477- 4035 Feb, [facility] [id number] [place] [address] 49440- 7492 Jan, Muscular dystrophies G71.0 [facility] [id number] [place] [address] 50369- 3057 December, Open bite of left upper arm, initial encounter S41.152A [facility] [id number] [place] [address] 57871 -2103 December, [facility] [id number] [place] [address] 95405- 6071 Nov, [facility] [id number] [place] [address] 28715- 2542 Nov, [facility] [id number] [place] [address] 60245- 7971 Oct, [facility] [id number] [place] [address] 07279- 8648 Oct, Diabetes type 2, controlled E11.9 and Polyneuropathy G62.9 [facility] [id number] [place] [address] 43047- 7276 Sep, [facility] [id number] [place] [address] 33112- 5486 Aug, [facility] [address] [address]- 0867 Aug, [facility] [id number] [address]- 4249 Jul, [facility] [id number] [place] [address] 76999- 5128 Jul, [facility] [id number] [address]- 5876 Jul, [facility] [id number] [place] [address] 29648- 1583 Jun, [facility] [id number] [place] [address] 41573- 6655 Jun, Foot deformity M21.969 [facility] [id number] [place] [address] 07138- 8956 May, [facility] [id number] [place] [address] 04481- 2236 May, [facility] [id number] [place] [address] 27674- 8956 May, [facility] [id number] [place] [address] 499385- 2997 Apr, Diabetes with renal manifestations, type II or unspecified type, not stated as uncontrolled 250.40 and Unsteady gait 781.2 [facility] [address] [address]- 0873 Apr, [facility] [id number] [address]- 7056 Apr, [facility] [id number] [place] [address] 73707- 5339 Mar, [facility] [id number] [place] [address] 97169- 6726 Feb, [facility] [address] [address]- 1626 Jan, [facility] [id number] [place] [address] 04604- 1799 Jan, [facility] [place] [facility] [address] [id number] [place] [address]- 5506 December, [facility] [place] [facility] [address] [id number] [place] [address]- 5447 Nov, [facility] [place] [facility] [address] [id number] [place] 0039 Nov, [facility] [place] [facility] [address] [id number] [place] [address]- 2313 Oct, [facility] [place] [facility] [address] [id number] [place] [address]- 4734 Oct, [facility] [place] [facility] [address] [id number] [place] [address]- 1539 Oct, [facility] [place] [facility] [address] [id number] [place] [address]- 5508 Oct, [facility] [place] [facility] [address] [id number] [place] [address]- 8120 Oct, [facility] [place] [facility] [address] [id number] [place] [address]- 0035 Oct, [facility] [place] [facility] [address] [id number] [place] [address]- 6966 Sep, [facility] [place] [facility] [address] [id number] [address]- 3930 Sep, [facility] [place] [facility] [address] [id number] [address]- 7396 Sep, [facility] [place] [facility] [address] [id number] [place] [address]- 0994 Sep, [facility] [place] [facility] [address] [id number] 3889 Aug, [facility] [place] [facility] [address] [id number] [place] [address]- 8227 Aug, [facility] [place] [facility] [address] [id number] [place] [address]- 2738 Aug, [facility] [address] [id number] [place] [address]- 3252 Aug, [facility] [place] [facility] [address] [id number] [place] 6240 Jul, [facility] [place] [facility] [address] [id number] [place] [address]- 8388 Jul, [facility] [place] [facility] [address] [id number] [place] [address]- 2111 Jul, [facility] [place] [facility] [address] [id number] [place] 6197 Jul, [facility] [place] [facility] [address] [id number] [place] [address]- 2006 Jun, [facility] [place] [facility] [address] [id number] [place] [address]- 1469 Jun, [facility] [place] [facility] [address] [id number] [place] [address]- 7948 Jun, [facility] [place] [facility] [address] [id number] [place] [address]- 8362 Jun, [facility] [address] [id number] [place] [address]- 3426 May, [facility] [place] [facility] [address] [id number] [place] [address]- 9526 May, [facility] [place] [facility] [address] [id number] [place] [address]- 5071 May, [facility] [place] [facility] [address] [id number] [place] [address]- 0267 May, [facility] [place] [facility] [address] [id number] [place] [address]- 6296 Apr, [facility] [place] [facility] [address] [id number] [place] 9582 Apr, [facility] [place] [facility] [address] [id number] [place] [address]- 4622 Apr, [facility] [place] [facility] [address] [id number] [place] [address]- 1130 Mar, [facility] [place] [facility] [address] [id number] [place] [address]- 6100 Mar, [facility] [place] [facility] [address] [id number] [place] [address]- 1090 Mar, [facility] [place] [facility] [address] [id number] [place] [address]- 0813 Mar, [facility] [place] [facility] [address] [id number] [place] [address]- 7397 Feb, [facility] [place] [facility] [address] [id number] [place] [address]- 7658 Feb, [facility] [place] [facility] [address] [id number] [place] [address]- 4765 Feb, [facility] [place] [facility] [address] [id number] [place] [address]- 7300 Feb, [facility] [place] [facility] [address] [id number] [place] [address]- 1875 Jan, [facility] [place] [facility] [address] [id number] [place] [address]- 1664 Jan, [facility] [place] [facility] [address] [id number] [place] [address]- 8892 December, [facility] [place] [facility] [address] [id number] [place] [address]- 1406 December, [facility] [place] [facility] [address] [id number] [place] [address]- 1870 Nov, [facility] [place] [facility] [address] [id number] [place] [address]- 3811 Nov, [facility] [place] [facility] [address] [id number] [address]- 8572 Oct, [facility] [place] [facility] [address] [id number] [place] [address]- 8172 Oct, [facility] [place] [facility] [address] [id number] [place] [address]- 3836 Oct, [facility] [place] [facility] [address] [id number] [place] [address]- 2262 Oct, [facility] [place] [facility] [address] [id number] [place] [address]- 0240 Sep, [facility] [place] [facility] [address] [id number] [place] [address]- 1436 Sep, [facility] [place] [facility] [address] [id number] [place] [address]- 4584 Aug, [facility] [place] [facility] [address] [id number] [place] [address]- 3954 Aug, [facility] [place] [facility] [address] [id number] [place] [address]- 8856 Aug, [facility] [place] [facility] [address] [id number] [place] [address]- 4133 Aug, [facility] [place] [facility] [address] [facility] [id number] [place] [address]- 0123 Aug, [facility] [place] [facility] [address] [id number] [place] [address]- 1672 Aug, [facility] [place] [facility] [address] [id number] [address]- 7695 Jul, [facility] [place] [facility] [address] [id number] [place] [address]- 7381 Jul, [facility] [place] [facility] [address] [id number] [place] [address]- 1561 Jul, [facility] [place] [facility] [address] [id number] [address]- 0195 Jun, [facility] [place] [facility] [address] [id number] [place] [address]- 9836 Jun, [facility] [place] [facility] [address] [id number] [place] [address]- 8475 Jun, [facility] [place] [facility] [address] [id number] [place] [address]- 3801 Jun, [facility] [place] [facility] [address] [id number] [place] [address]- 1959 May, [facility] [place] [facility] [address] [id number] [place] [address]- 3880 May, [facility] [place] [facility] [address] [id number] [place] [address]- 8578 May, [facility] [place] [facility] [address] [id number] [place] [address]- 1098 May, [facility] [place] [facility] [address] [id number] [place] [address]- 8833 Apr, [facility] [place] [facility] [address] [id number] [place] [address]- 3978 Apr, [facility] [place] [facility] [address] [id number] [place] [address]- 5407 Apr, [facility] [place] [facility] [address] [id number] [place] [address]- 7161 Apr, [facility] [place] [facility] [address] [id number] [place] [address]- 2260 Apr, [facility] [place] [facility] [address] [id number] [place] [address]- 6404 Mar, [facility] [place] [facility] [address] [id number] [place] [address]- 7779 Mar, [facility] [place] [facility] [address] [id number] [place] [address]- 7573 Mar, [facility] [place] [facility] [address] [id number] [place] [address]- 4686 Mar, [facility] [place] [facility] [address] [id number] [place] [address]- 0151 Feb, [facility] [place] [facility] [address] [id number] [place] [address]- 1147 Feb, [facility] [place] [facility] [address] [id number] [place] [address]- 4181 Jan, [facility] [place] [facility] [address] [id number] [place] [address]- 0570 Jan, [facility] [place] [facility] [address] [id number] [place] [address]- 4587 Jan, [facility] [place] [facility] [address] [id number] [place] [address]- 0951 Jan, [facility] [place] [facility] [address] [id number] [place] [address]- 9752 December, [facility] [place] [facility] [address] [id number] [place] [address]- 9190 December, [facility] [place] [facility] [address] [id number] [place] [address]- 0800 Nov, [facility] [place] [facility] [address] [id number] [place] [address]- 9782 Nov, [facility] [place] [facility] [address] [id number] [address]- 6506 Nov, [facility] [place] [facility] [address] [id number] [place] [address]- 4351 Oct, [facility] [place] [facility] [address] [id number] [place] [address]- 5173 Oct, [facility] [place] [facility] [address] [id number] [place] [address]- 6495 Sep, [facility] [place] [facility] [address] [id number] [place] [address]- 1360 Sep, [facility] [place] [facility] [address] [id number] [place] [address]- 5593 08 Aug, 2012 [facility] [address] [id number] [place] [address]- 0468 Aug, [facility] [place] [facility] [address] [id number] [place] [address]- 8886 Jul, [facility] [address] [id number] [place] [address]- 3995 Jul, [facility] [place] [facility] [address] [id number] [place] [address]- 2197 Jul, [facility] [address] [id number] [place] [address]- 5826 Jul, [facility] [place] [facility] [address] [id number] [place] [address]- 2448 Jul, [facility] [place] [facility] [address] [id number] [place] [address]- 4623 Jul, [facility] [address] [id number] [place] [address]- 7557 Jun, [facility] [place] [facility] [address] [id number] [place] [address]- 1944 Jun, [facility] [address] [id number] [place] [address]- 5578 Jun, [facility] [place] [facility] [address] [id number] [place] [address]- 0538 Jun, [facility] [place] [facility] [address] [id number] [place] [address]- 0811 Jun, [facility] [place] [facility] [address] [id number] [place] [address]- 8267 Jun, [facility] [place] [facility] [address] [id number] [place] [address]- 0996 May, [facility] [place] [facility] [address] [id number] [place] [address]- 4267 May, [facility] [place] [facility] [address] [id number] [place] [address]- 0379 May, [facility] [place] [facility] [address] [id number] [place] [address]- 5050 May, [facility] [place] [facility] [address] [id number] [place] [address]- 8225 May, [facility] [place] [facility] [address] [id number] [place] [address]- 4913 May, [facility] [place] [facility] [address] [id number] [place] [address]- 2959 May, [facility] [place] [facility] [address] [id number] [place] [address] May, [facility] [place] [facility] [address] [id number] [place] [address] May, [facility] [place] [facility] [address] [id number] [place] [address] Apr, [facility] [place] [facility] [address] [id number] [place] [address] 17 Apr, 2012 [facility] [place] [facility] [address] [id number] [address] Mar, [facility] [place] [facility] [address] [id number] [address] Mar, [facility] [place] [facility] [address] [id number] [place] [address] 15 Mar, 2012 [facility] [place] [facility] [address] [id number] [place] [address] 14 Mar, 2012 [facility] [place] [facility] [address] [id number] [address] 13 Mar, 2012 [facility] [place] [facility] [address] [id number] [address] 07 Mar, 2012 [facility] [place] [facility] [address] [id number] [address] Mar, [facility] [address] [id number] [place] [address] Mar, [facility] [place] [facility] [address] [id number] [place] [address] Mar, [facility] [address] [id number] [place] [address] Feb, [facility] [place] [facility] [address] [id number] [place] [address] Feb, [facility] [address] [id number] [place] [address] Feb, [facility] [address] [id number] [place] [address] Feb, [facility] [address] [id number] [place] [address] Jan, [facility] [address] [id number] [place] [address] December, [facility] [address] [id number] [place] [address] December, [facility] [address] [id number] [place] [address] December, [facility] [address] [id number] [place] [address] Nov, [facility] [place] [facility] [address] [id number] [place] [address] Nov, [facility] [place] [facility] [address] [id number] [place] [address] Nov, [facility] [place] [facility] [address] [id number] [place] [address] Nov, [facility] [place] [facility] [address] [id number] [place] [address] Oct, [facility] [place] [facility] [address] [id number] [place] [address] 15 Sep, 2011 [facility] [place] [facility] [address] [id number] [place] [address] 08 Sep, 2011 [facility] [place] [facility] [address] [id number] [place] [address] 16 Aug, 2011 [facility] [place] [facility] [address] [id number] [place] [address] Aug, [facility] [place] [facility] [address] [id number] [place] [address] Aug, [facility] [place] [facility] [address] [id number] [place] [address] Aug, [facility] [place] [facility] [address] [id number] [place] [address] Aug, [facility] [place] [facility] [address] [id number] [place] [address]- 47[address] 30 Jul, 2011 [facility] [place] [facility] [address] [id number] [place] [address] 30 Jul, 2011 [facility] [place] [facility] [address] [id number] [place] [address] Jul, [facility] [place] [facility] [address] [id number] [place] [address] 05 Jul, 2011 [facility] [place] [facility] [address] [id number] [place] [address] 29 Jun, 2011 [facility] [place] [facility] [address] [id number] [place] [address] 17 Jun, 2011 [facility] [place] [facility] [address] [id number] [place] [address] 16 Jun, 2011 [facility] [place] [facility] [address] [id number] [place] [address] 16 Jun, 2011 [facility] [place] [facility] [address] [id number] [place] [address] 2012 May, [facility] [place] [facility] [address] [id number] [place] [address] 28 May, 2011 [facility] [place] [facility] [address] [id number] [place] [address] Aug, [facility] [place] [facility] [address] [id number] [place] [address] Jul, [facility] [place] [facility] [address] [id number] [place] [address] Jun, [facility] [place] [facility] [address] [id number] [place] [address] May, [facility] [place] [facility] [address] [id number] [place] [address]- 8548 May, [facility] [place] [facility] [address] [id number] [place] [address] May, [facility] [place] [facility] [address] [id number] [place] [address] December, [facility] [place] [facility] [address] [id number] [place] [address] Jul, [facility] [place] [facility] [address] [id number] [place] [address] Jul, [facility] [place] [facility] [address] [id number] [address] Jul, [facility] [place] [facility] [address] [id number] [address] 30 Jun, 2009 [facility] [place] [facility] [address] [id number] [place] [address] Jun, [facility] [place] [facility] [address] [id number] [place] [address]- [address] Jun, [facility] [place] [facility] [address] [id number] [place] [address]- [address] Jun, [facility] [place] [facility] [address] [facility] [facility] [id number] [place], [place] [id number] 13 May, 2009 IMMUNIZATIONS No Known Immunizations SOCIAL HISTORY Never [...]
--- OUTSIDE RECORDS SUMMARY | 2018-07-23 14:57 | XMS REPORT ---
Author Author PATO ANAYA Organization [facility] Address [address] [place] [address] Care Team Providers Care Client Administrator Name Role Phone PATO ANAYA Unavailable PROBLEMS Type Condition ICD9-CM Code [id number] Code Onset Dates Condition Status SNOMED Code Problem Diabetes E11.9 Active 42130262 Problem Unsteady gait R26.81 Active 62181207 Problem Muscular dystrophies G71.0 Active 84421864 ALLERGIES No Information SOCIAL HISTORY Never Assessed PLAN OF CARE VITAL SIGNS MEDICATIONS Medication Instructions Dosage Frequency Start Date End Date Duration Status MS Contin 15 MG Orally every 12 hrs 1 tablet 12h Oct, 28 days Active Percocet 5-325 MG Orally every 6 hrs 1 tablet as needed 6h Oct, 28 days Active RESULTS No Results PROCEDURES [...]
--- OUTSIDE RECORDS SUMMARY | 2018-07-23 14:57 | XMS REPORT ---
Author PATO Spring Organization [employer] Address Unknown Phone Unavailable Care Team Providers Care Watch Technician Name Role Phone PATO ANAYA CP Unavailable Allergies No Known Allergies Problems Problem Type Condition Code Onset Dates Condition Status Problem Unsteady gait R26.81 Active Problem Diabetes E11.9 Active Problem Muscular dystrophies G71.0 Active Medications No Known Medications Results No Known Results Summary Purpose [employer] Submission
--- OUTSIDE RECORDS SUMMARY | 2018-07-23 14:57 | XMS REPORT ---
Author Author PATO ANAYA Organization [facility] Address [address] [place] [address] Care Team Providers Care Canvas Baster Jumpbasting Name Role Phone PATO ANAYA Unavailable PROBLEMS Type Condition ICD9-CM Code [id number] Code Onset Dates Condition Status SNOMED Code Problem Diabetes E11.9 Active 02442656 Problem Unsteady gait R26.81 Active 10069853 Problem Muscular dystrophies G71.0 Active 44239827 ALLERGIES No Information ENCOUNTERS Encounter Location Date Diagnosis [facility] [address] [address] Oct, Muscular dystrophies G71.0 [facility] [address] [address] Aug, Muscular dystrophies G71.0 [facility] [address] [address] 07 Jul, 2017 Urinary tract infection without hematuria, site unspecified N39.0 [facility] [id number] [place] [address]21 -[address]83 Jul, Urinary tract infection without hematuria, site unspecified N39.0 [facility] [id number] [place] [address] 69396- 1793 May, Muscular dystrophies G71.0 [facility] [address] [address]- [address] Apr, Muscular dystrophies G71.0 [facility] [address] [address]- [address] Mar, Muscular dystrophies G71.0 [facility] [address] [address]- [address] Feb, [facility] [id number] [place] [address] 77048- 7182 Feb, Muscular dystrophies G71.0 [facility] [id number] [place] [address] 10836- 0946 Jan, Muscular dystrophies G71.0 and Diabetes E11.9 [facility] [id number] [place] [address] 96715- 9427 Nov, [facility] [id number] [place] [address] 76487- 4474 Nov, [facility] [id number] [place] [address] 02276- 9428 Oct, [facility] [id number] [place] [address] 990118- 7630 Sep, [facility] [id number] [place] [address] 438406- 8333 Sep, [facility] [id number] [place] [address] 78121- 2474 Aug, [facility] [id number] [place] [address] 89483- 9221 Jul, [facility] [id number] [place] [address] 57914- 1482 Jul, [facility] [id number] [place] [address] 477073- 4441 Jun, [facility] [id number] [place] [address] 10720 -3549 May, Dysuria R30.0 and Cystitis N30.90 [facility] [address] [id number] [address] 1316 May, [facility] [id number] [place] [address] 31992- 6530 May, [facility] [address] [address] 8016 May, [facility] [id number] [place] [address] 68455- 2224 May, [facility] [id number] [place] [address] 60781- 9428 Mar, Muscular dystrophies G71.0 [facility] [id number] [place] [address] 34361- 8357 Feb, Muscular dystrophies G71.0 [facility] [id number] [place] [address] 34048- 0873 Feb, [facility] [id number] [place] [address] 73049- 0717 Jan, Muscular dystrophies G71.0 [facility] [id number] [place] [address] 12707- 1040 December, Open bite of left upper arm, initial encounter S41.152A [facility] [id number] [place] [address] 25266 -3767 December, [facility] [id number] [place] [address] 55758- 4624 Nov, [facility] [address] [address]- 1297 Nov, [facility] [id number] [place] [address] 88415- 1555 Oct, [facility] [id number] [place] [address] 09475- 3652 Oct, Diabetes type 2, controlled E11.9 and Polyneuropathy G62.9 [facility] [address] [address]- 2457 Sep, [facility] [id number] [place] [address] 98599- 6723 Aug, [facility] [address] [address]- 9000 Aug, [facility] [id number] [place] [address] 999129- 2247 Jul, [facility] [id number] [place] [address] 009344- 1661 Jul, [facility] [id number] [place] [address] 882477- 6233 Jul, [facility] [id number] [place] [address] 71237- 4953 Jun, [facility] [id number] [place] [address] 81712- 8339 Jun, Foot deformity M21.969 [facility] [id number] [place] [address] 23646- 1318 May, [facility] [id number] [place] [address] 75554- 9144 May, [facility] [id number] [place] [address] 96400- 3330 May, [facility] [id number] [place] [address] 99987- 6816 Apr, Diabetes with renal manifestations, type II or unspecified type, not stated as uncontrolled 250.40 and Unsteady gait 781.2 [facility] [id number] [address]- 7499 Apr, [facility] [id number] [place] [address] 51288- 2148 Apr, [facility] [id number] [place] [address] 12143- 9248 Mar, [facility] [id number] [place] [address] 17386- 4103 Feb, [facility] [id number] [place] [address] 79971- 0220 Jan, [facility] [place] [facility] [address] [id number] [place] [address]- 4321 Jan, [facility] [place] [facility] [address] [facility] [id number] [place] [address]- 1622 December, [facility] [place] [facility] [address] [facility] [id number] [place] [address]- 9505 Nov, [facility] [place] [facility] [address] [facility] [id number] [place] [address]- 7991 Nov, [facility] [place] [facility] [id number] [place] [address]- 2677 Oct, [facility] [place] [facility] [address] [facility] [id number] [place] [address]- 3617 Oct, [facility] [place] [facility] [address] [address]- 6692 Oct, [facility] [place] [facility] [address] [facility] [id number] [place] [address]- 4622 Oct, [facility] [place] [facility] [address] [id number] [place] [address]- 9698 Oct, [facility] [place] [facility] [address] [id number] [place] [address]- 6839 Oct, [facility] [place] [facility] [address] [facility] [id number], [place] [address]- 1935 Sep, [facility] [place] [facility] [address] [facility] [id number], [place] [address]- 9858 Sep, [facility] [place] [facility] [address] [facility] [id number] [place] [address]- 9985 Sep, [facility] [place] [facility] [address] [facility] [id number], [place] [address]- 8350 Sep, [facility] [place] [facility] [address] [id number] [address]- 4537 Aug, [facility] [place] [facility] [address] [id number] [place] [address]- 8733 Aug, [facility] [place] [facility] [address] [id number] [place] [address]- 0719 Aug, [facility] [place] [facility] [address] [id number] [place] [address]- 5273 Aug, [facility] [place] [facility] [address] [id number] [place] [address]- 4084 Jul, [facility] [place] [facility] [address] [id number] [place] [address]- 3426 Jul, [facility] [place] [facility] [address] [id number] [place] [address]- 1044 Jul, [facility] [place] [facility] [address] [id number] [place] [address]- 7873 Jul, [facility] [place] [facility] [address] [id number] [place] [address]- 8851 Jun, [facility] [place] [facility] [address] [id number] [place] [address]- 8117 Jun, [facility] [place] [facility] [address] [id number] [place] [address]- 5010 Jun, [facility] [place] [facility] [address] [id number] [place] [address]- 6168 Jun, [facility] [place] [facility] [address] [id number] [place] [address]- 9154 May, [facility] [place] [facility] [address] [id number] [place] [address]- 6488 May, [facility] [place] [facility] [address] [id number] [place] [address]- 3058 May, [facility] [place] [facility] [address] [id number] [place] [address]- 0674 May, [facility] [place] [facility] [address] [id number] [place] [address]- 4188 Apr, [facility] [place] [facility] [address] [id number] [place] [address]- 3904 Apr, [facility] [place] [facility] [address] [id number] [place] [address]- 9775 Apr, [facility] [place] [facility] [address] [id number] [place] [address]- 9426 Mar, [facility] [place] [facility] [address] [id number] [place] [address]- 9863 Mar, [facility] [place] [facility] [address] [id number] [place] [address]- 1204 Mar, [facility] [place] [facility] [address] [id number] [place] [address]- 2079 Mar, [facility] [place] [facility] [address] [id number] [place] [address]- 5289 Feb, [facility] [place] [facility] [address] [id number] [place] [address]- 7672 Feb, [facility] [place] [facility] [address] [id number] [place] [address]- 8040 Feb, [facility] [place] [facility] [address] [id number] [place] [address]- 9257 Feb, [facility] [place] [facility] [address] [id number] [place] [address]- 6305 Jan, [facility] [place] [facility] [address] [id number] [place] [address]- 7113 Jan, [facility] [place] [facility] [address] [id number] [place] [address]- 8543 December, [facility] [place] [facility] [address] [id number] [place] [address]- 3979 December, [facility] [place] [facility] [address] [id number] [place] [address]- 9496 Nov, [facility] [place] [facility] [address] [id number] [place] [address] 2546 Nov, [facility] [address] [id number] [place] [address]- 5956 Oct, [facility] [place] [facility] [address] [id number] [place] [address] 2546 Oct, [facility] [address] [id number] [place] [address]- 3336 Oct, [facility] [place] [facility] [address] [id number] [place] [address]- 9647 Oct, [facility] [place] [facility] [address] [id number] [place] [address]- 1752 Sep, [facility] [place] [facility] [address] [id number] [place] [address]- 4986 Sep, [facility] [place] [facility] [address] [id number] [place] [address]- 4029 Aug, [facility] [address] [id number] [place] [address]- 5805 Aug, [facility] [place] [facility] [address] [id number] [place] [address]- 9162 Aug, [facility] [address] [id number] [place] [address]- 8299 Aug, [facility] [place] [facility] [address] [id number] [place] [address]- 7546 Aug, [facility] [place] [facility] [address] [id number] [place] [address]- 6036 Aug, [facility] [place] [facility] [address] [id number] [place] [address]- 2546 Jul, [facility] [place] [facility] [address] [id number] [place] [address]- 2546 Jul, [facility] [place] [facility] [address] [id number] [place] [address]- 6850 Jul, [facility] [place] [facility] [address] [id number] [place] [address]- 9527 Jun, [facility] [place] [facility] [address] [id number] [place] [address]- 5920 Jun, [facility] [place] [facility] [address] [id number] [place] [address]- 5592 Jun, [facility] [place] [facility] [address] [id number] [place] [address]- 2226 Jun, [facility] [place] [facility] [address] [id number] [place] [address]- 2480 May, [facility] [place] [facility] [address] [id number] [place] [address]- 1031 May, [facility] [place] [facility] [address] [id number] [place] [address]- 5684 May, [facility] [place] [facility] [address] [id number] [place] [address]- 1711 May, [facility] [place] [facility] [address] [id number] [place] [address]- 9090 Apr, [facility] [place] [facility] [address] [id number] [place] [address]- 0112 Apr, [facility] [place] [facility] [address] [id number], [place] [address]- 3082 Apr, [facility] [place] [facility] [address] [id number], [place] [address]- 0470 Apr, [facility] [place] [facility] [address] [id number] [place] [address]- 6714 Apr, [facility] [place] [facility] [address] [id number], [place] [address]- 6844 Mar, [facility] [place] [facility] [address] [id number] [place] [address]- 1372 Mar, [facility] [place] [facility] [address] [id number] [place] [address]- 5551 08 Mar, 2013 [facility] [address] [id number] [place] [address]- 7911 Mar, [facility] [place] [facility] [address] [id number] [place] [address]- 2124 Feb, [facility] [address] [id number] [place] [address]- 0051 Feb, [facility] [place] [facility] [address] [id number] [place] [address]- 7982 Jan, [facility] [address] [id number] [place] [address]- 2591 Jan, [facility] [place] [facility] [address] [id number] [place] [address]- 1685 Jan, [facility] [address] [id number] [place] [address]- 4524 Jan, [facility] [place] [facility] [address] [id number] [place] [address]- 2125 December, [facility] [address] [id number] [place] [address]- 2121 December, [facility] [address] [id number] [place] [address]- 7855 Nov, [facility] [place] [facility] [address] [id number] [place] [address]- 7930 Nov, [facility] [place] [facility] [address] [id number] [place] [address]- 7543 Nov, [facility] [place] [facility] [address] [id number] [place] [address]- 8000 Oct, [facility] [place] [facility] [address] [id number] [place] [address]- 8224 Oct, [facility] [place] [facility] [address] [id number] [place] [address]- 0978 Sep, [facility] [place] [facility] [address] [id number] [place] [address]- 8424 07 Sep, 2012 [facility] [place] [facility] [address] [id number] [place] [address]- 0711 Aug, [facility] [place] [facility] [address] [id number] [place] [address]- 1431 Aug, [facility] [place] [facility] [address] [id number] [place] [address]- 3597 Jul, [facility] [place] [facility] [address] [id number] [place] [address]- 0256 Jul, [facility] [place] [facility] [address] [id number] [place] [address]- 2606 Jul, [facility] [address] [id number] [place] [address]- 8198 Jul, [facility] [address] [id number] [place] [address]- 8384 Jul, [facility] [place] [facility] [address] [id number] [place] [address]- 7681 Jul, [facility] [place] [facility] [address] [id number] [place] [address]- 9467 Jun, [facility] [place] [facility] [address] [id number] [place] [address]- 6120 Jun, [facility] [place] [facility] [address] [id number] [place] [address]- 1086 Jun, [facility] [place] [facility] [address] [id number] [place] [address]- 9953 Jun, [facility] [place] [facility] [address] [id number] [place] [address]- 5520 Jun, [facility] [place] [facility] [address] [id number] [place] [address]- 7301 Jun, [facility] [place] [facility] [address] [id number] [place] [address]- 2546 May, [facility] [place] [facility] [address] [id number] [place] 1030 May, [facility] [place] [facility] [address] [id number] [place] [address]- 8038 May, [facility] [place] [facility] [address] [id number] [place] [address]- 4388 May, [facility] [place] [facility] [address] [id number] [place] [address]- 9099 May, [facility] [place] [facility] [address] [id number] [place] 9646 May, [facility] [place] [facility] [address] [id number] [place] [address]- 0512 May, [facility] [place] [facility] [address] [id number] [place] [address]- 0288 May, [facility] [place] [facility] [address] [id number] [place] [address]- 1832 May, [facility] [place] [facility] [address] [id number] [place] [address]- 3841 18 Apr, 2012 [facility] [place] [facility] [address] [id number] [place] [address]- 1612 Apr, [facility] [place] [facility] [address] [id number] [place] [address]- 7703 27 Mar, 2012 [facility] [place] [facility] [address] [id number] [place] [address]- 1012 22 Mar, 2012 [facility] [place] [facility] [address] [id number] [place] [address]- 1106 15 Mar, 2012 [facility] [place] [facility] [address] [id number] [place] [address]- 7716 14 Mar, 2012 [facility] [place] [facility] [address] [id number] [place] [address]- 5506 13 Mar, 2012 [facility] [place] [facility] [address] [id number] [place] [address] 2546 Mar, [facility] [address] [id number] [place] [address]- 5704 Mar, [facility] [address] [id number] [place] [address] 2546 Mar, [facility] [address] [id number] [place] [address]- 8621 Mar, [facility] [address] [id number] [place] [address]- 8562 Feb, [facility] [address] [id number] [place] [address]- 0229 Feb, [facility] [address] [id number] [place] [address]- 9770 Feb, [facility] [address] [id number] [place] [address] Feb, [facility] [address] [id number] [place] [address] Jan, [facility] [address] [id number] [place] [address] December, [facility] [address] [id number] [place] [address] December, [facility] [address] [id number] [place] [address] December, [facility] [address] [id number] [place] [address] Nov, [facility] [place] [facility] [address] [id number] [place] [address] Nov, [facility] [address] [id number] [place] [address] Nov, [facility] [address] [id number] [place] [address] Nov, [facility] [address] [id number] [place] [address] Oct, [facility] [place] [facility] [address] [id number] [place] [address] 15 Sep, 2011 [facility] [address] [id number] [place] [address] 08 Sep, 2011 [facility] [place] [facility] [address] [id number] [place] [address] 16 Aug, 2011 [facility] [address] [id number] [place] [address] Aug, [facility] [place] [facility] [address] [id number] [place] [address] Aug, [facility] [address] [id number] [place] [address] Aug, [facility] [address] [id number] [place] [address] Aug, [facility] [address] [id number] [place] [address] Jul, [facility] [place] [facility] [address] [id number] [place] [address] 30 Jul, 2011 [facility] [place] [facility] [address] [id number] [place] [address] Jul, [facility] [place] [facility] [address] [id number], [place] [address] 05 Jul, 2011 [facility] [place] [facility] [address] [id number] [place] [address] 29 Jun, 2011 [facility] [place] [facility] [address] [id number] [place] [address]- [address] 17 Jun, 2011 [facility] [place] [facility] [address] [id number] [place] [address] 16 Jun, 2011 [facility] [place] [facility] [address] [id number] [place] [address]- [address] 16 Jun, 2011 [facility] [place] [facility] [address] [id number] [place] [address] 28 May, 2011 [facility] [place] [facility] [address] [id number] [place] [address] 28 May, 2011 [facility] [place] [facility] [address] [id number] [place] [address]- [address] 17 Aug, 2010 [facility] [place] [facility] [address] [id number] [place] [address] 22 Jul, 2010 [facility] [place] [facility] [address] [id number] [place] [address] Jun, [facility] [place] [facility] [address] [id number] [place] [address] May, [facility] [place] [facility] [address] [id number] [place] [address] May, [facility] [place] [facility] [address] [id number] [place] [address] May, [facility] [place] [facility] [address] [id number] [place] [address] December, [facility] [place] [facility] [address] [facility] [id number] [place] [address] Jul, [facility] [place] [facility] [address] [id number] [place] [address] Jul, [facility] [place] [facility] [address] [id number] [place] [address] 254 Jul, [facility] [place] [facility] [address] [id number] [place] [address] 30 Jun, 2009 [facility] [place] [facility] [address] [id number] [place] [address] 13 Jun, 2009 [facility] [place] [facility] [address] [facility] [id number] [place] [address]- 2005 Jun, [facility] [place] [facility] [address] [facility] [id number] [place] [id number] Jun, [facility] [address] [facility] [id number] [place] [address] May, IMMUNIZATIONS No Known Immunizations SOCIAL HISTORY Never Assessed REASON FOR VISIT [employer] PLAN OF CARE VITAL SIGNS MEDICATIONS Unknown [...]
--- OUTSIDE RECORDS SUMMARY | 2018-07-23 14:57 | XMS REPORT ---
Author PATO Spring Organization [employer] Address Unknown Phone Unavailable Care Team Providers Care Safety Deposit Clerk Name Role Phone PATO ANAYA CP Unavailable Allergies No Known Allergies Problems Problem Type Condition Code Onset Dates Condition Status Problem Unsteady gait R26.81 Active Problem Diabetes E11.9 Active Problem Muscular dystrophies G71.0 Active Medications No Known Medications Results No Known Results Summary Purpose [employer] Submission
--- OUTSIDE RECORDS SUMMARY | 2018-07-23 14:57 | XMS REPORT ---
Author Author DON STYLES Organization [employer] Address Unknown Phone Unavailable Care Team Providers Care Electrical Products Engineer Name Role Phone DON STYLES CP Unavailable Allergies, Adverse Reactions, Alerts Substance Reaction Event Type N.K.D.A. Info Not Available Non Drug Allergy Problems Problem Type Condition Code Onset Dates Condition Status Problem Unsteady gait R26.81 Active Problem Diabetes E11.9 Active Problem Muscular dystrophies G71.0 Active Assessment Dysuria R30.0 Active Assessment Cystitis N30.90 Active Medications Medication Code System Code Instructions Start Date End Date Status Dosage Pyridium [facility] [address]-33 200 mg Orally Three times a day Jun 06, 2016 Jun 08, 2016 1 tablet after meals Macrodantin [facility] [address]-95 100 MG Orally 2 times a day Jun 06, 2016 Jun 13, 2016 1 capsule with food or milk Gabapentin [facility] [address]-67 300 MG 2 times a day 2 capsules Fluoxetine HCl [facility] [address]-05 20 MG Once a day 1 capsule in the morning Percocet [facility] [address]-08 5-325 MG Orally every 6 hrs December 24, 2014 1 tablet as needed MS Contin [facility] [address]-76 15 MG every 12 hrs October 29, 2014 1 capsule Ambien [facility] [address]-65 10 mg Orally Once a day 1 tablet at bedtime VESIcare [facility] [address]-48 10 MG Once a day 1 tablet Procedures Procedure Coding System Code Date LAB NOT BILLED BY [facility] CPT-4 NOBLL Jun 06, 2016 [facility] VISIT ESTABLISHED PATIENT CPT-4 G0467 Jun 06, 2016 URINALYSIS, AUTO, W/O SCOPE CPT-4 86871 Jun 06, 2016 Office Visit, Est Pt., Level 3 CPT-4 49386 Jun 06, 2016 Vital Signs Date/Time: Jun 06, 2016 Blood Pressure Systolic 110 mmHg Cardiac Monitoring Heart Rate 60 bpm Height 69 in Blood Pressure Diastolic 56 mmHg Results Name Result Date Reference Range Unit Abnormality Flag UA LONG DIP (IN HOUSE) ----KENNY 1+ 20160606 ----NIT positive 20160606 ----Exp date 20160606 ----Lot # [id number] ----SG >=1.030 20160606 ----KET negative 20160606 ----ISABELA negative 20160606 ----GLU negative 20160606 ----Odor strong 20160606 ----pH 6.5 20160606 ----BLO 1+ 20160606 ----URO 0.2 20160606 ----Protein trace 20160606 ----Lot # [id number] ----Exp date 20160606 ----Clarity cloudy 20160606 ----Color dark yellow 20160606 CULTURE, URINE ----Result 1 Klebsiella pneumoniae [id number] A ----Urine Culture, Routine Final report [id number] Summary Purpose [employer] Submission
--- OUTSIDE RECORDS SUMMARY | 2018-07-23 14:57 | XMS REPORT ---
Author Author PATO ANAYA Organization [facility] Address [address] [place] [address] Care Team Providers Care Brand Sales Consultant Name Role Phone PATO ANAYA Unavailable PROBLEMS Type Condition ICD9-CM Code GDX31-RC Code Onset Dates Condition Status SNOMED Code Problem Diabetes E11.9 Active 51760349 Problem Unsteady gait R26.81 Active 05850396 Problem Muscular dystrophies G71.0 Active 92547467 ALLERGIES No Known Allergies ENCOUNTERS Encounter Location Date Diagnosis [facility] [address] [address] Oct, Muscular dystrophies G71.0 [facility] [address] [address] Aug, Muscular dystrophies G71.0 [facility] [address] [address] 07 Jul, 2017 Urinary tract infection without hematuria, site unspecified N39.0 [facility] [id number] [place] [address] -[address]17 Jul, Urinary tract infection without hematuria, site unspecified N39.0 [facility] [id number] [place] [address] 16903- 9035 May, Muscular dystrophies G71.0 [facility] [address] [address]- [address] Apr, Muscular dystrophies G71.0 [facility] [address] [address]- [address]164 Mar, Muscular dystrophies G71.0 [facility] [address] [address]- [address] Feb, [facility] [address] [address] Feb, Muscular dystrophies G71.0 [facility] [id number] [address] 269[address] Jan, Muscular dystrophies G71.0 and Diabetes E11.9 [facility] [id number] [place] [address] 46900- 8446 Nov, [facility] [id number] [place] [address] 765441- 8101 Nov, [facility] [id number] [place] [address] 305364- 4694 Oct, [facility] [id number] [place] [address] 47793- 0896 Sep, [facility] [id number] [place] [address] 54763- 0089 Sep, [facility] [id number] [place] [address] 87114- 6039 Aug, [facility] [id number] [place] [address] 65825- 4963 Jul, [facility] [address] [address] Jul, [facility] [id number] [address] Jun, [facility] [address] [address] May, Dysuria R30.0 and Cystitis N30.90 [facility] [id number] [address] 5[address] May, [facility] [address] [address]- 8278 May, [facility] [id number] [address]- 1479 May, [facility] [id number] [place] [address] 63162- 3661 May, [facility] [id number] [place] [address] 54439- 3896 Mar, Muscular dystrophies G71.0 [facility] [id number] [place] [address] 13069- 4574 Feb, Muscular dystrophies G71.0 [facility] [id number] [place] [address] 66914- 5988 Feb, [facility] [id number] [place] [address] 70468- 6704 Jan, Muscular dystrophies G71.0 [facility] [id number] [place] [address] 01424- 2523 December, Open bite of left upper arm, initial encounter S41.152A [facility] [id number] [place] [address] 68616 -7756 December, [facility] [id number] [place] [address] 32413- 7463 Nov, [facility] [address] [address]- 8980 Nov, [facility] [id number] [address]- 1461 Oct, [facility] [id number] [place] [address] 25030- 2842 Oct, Diabetes type 2, controlled E11.9 and Polyneuropathy G62.9 [facility] [address] [address]- 6786 Sep, [facility] [id number] [place] [address] 06651- 4878 Aug, [facility] [address] [address]- 8898 Aug, [facility] [id number] [place] [address] 345781- 8171 Jul, [facility] [address] [address]80 Jul, [facility] [id number] [place] [address] 603738- 5506 Jul, [facility] [id number] [place] [address] 94414- 0945 Jun, [facility] [id number] [place] [address] 20480- 2977 Jun, Foot deformity M21.969 [facility] [id number] [place] [address] 92462- 8202 May, [facility] [id number] [place] [address] 96883- 2554 May, [facility] [id number] [place] [address] 13509- 1396 May, [facility] [id number] [address]- 2042 Apr, Diabetes with renal manifestations, type II or unspecified type, not stated as uncontrolled 250.40 and Unsteady gait 781.2 [facility] [address], [place] [address]- 0195 Apr, [facility] [address] [address]- 8849 Apr, [facility] [address] [address] Mar, [facility] [address] [address]- 2522 Feb, [facility] [id number] [place] [address] [place] [address]- 9144 Jan, [facility] [place] [facility] [address] [id number] [place] [address]- 2054 Jan, [facility] [place] [facility] [address] [id number] [place] [address]- 7122 December, [facility] [place] [facility] [address] [id number] [place] [address]- 2494 Nov, [facility] [place] [facility] [address] [id number] [place] [address]- 9477 Nov, [facility] [place] [facility] [address] [id number] [place] [address]- 6547 Oct, [facility] [place] [facility] [address] [id number] [place] [address]- 3420 Oct, [facility] [place] [facility] [id number] [address]- 8668 Oct, [facility] [place] [facility] [address] [id number] [place] [address]- 5970 Oct, [facility] [place] [facility] [address] [id number] [place] [address]- 1637 Oct, [facility] [place] [facility] [address] [facility] [id number] [place] [address]- 6918 Oct, [facility] [place] [facility] [address] [id number] [place] [address]- 1259 Sep, [facility] [place] [facility] [address] [id number] [address]- 8576 Sep, [facility] [place] [facility] [address] [id number] [place] [address]- 0073 Sep, [facility] [place] [facility] [address] [id number] [address]- 8282 Sep, [facility] [place] [facility] [address] [id number], [place] [address]- 9479 Aug, [facility] [place] [facility] [address] [id number] [place] [address]- 5924 Aug, [facility] [place] [facility] [address] [id number] [place] [address]- 9090 Aug, [facility] [place] [facility] [address] [id number] [place] [address]- 5789 Aug, [facility] [place] [facility] [address] [id number] [place] [address]- 3015 Jul, [facility] [place] [facility] [address] [id number] [place] [address]- 0426 Jul, [facility] [place] [facility] [address] [id number] [place] [address]- 2004 Jul, [facility] [place] [facility] [address] [id number] [place] [address]- 5402 Jul, [facility] [place] [facility] [address] [id number] [place] [address]- 1896 Jun, [facility] [place] [facility] [address] [id number] [place] [address]- 5724 Jun, [facility] [place] [facility] [address] [id number] [place] [address]- 8826 Jun, [facility] [place] [facility] [address] [id number] [place] [address]- 5026 Jun, [facility] [place] [facility] [address] [id number] [address]- 6303 May, [facility] [place] [facility] [address] [id number] [place] [address]- 5967 May, [facility] [place] [facility] [address] [id number] [place] [address]- 1576 May, [facility] [place] [facility] [address] [id number] [place] [address]- 5806 May, [facility] [place] [facility] [address] [id number] [place] [address]- 2945 Apr, [facility] [place] [facility] [address] [id number] [place] [address]- 3380 Apr, [facility] [place] [facility] [address] [id number] [place] [address]- 2716 Apr, [facility] [place] [facility] [address] [id number] [place] [address]- 6973 Mar, [facility] [place] [facility] [address] [id number] [place] [address]- 2920 Mar, [facility] [place] [facility] [address] [id number] [place] [address]- 6448 Mar, [facility] [place] [facility] [address] [id number] [place] [address]- 5599 Mar, [facility] [place] [facility] [address] [id number] [place] [address]- 0925 Feb, [facility] [place] [facility] [address] [id number] [place] [address]- 0889 Feb, [facility] [place] [facility] [address] [id number] [place] [address]- 0020 Feb, [facility] [place] [facility] [address] [id number] [place] [address]- 2087 Feb, [facility] [place] [facility] [address] [id number] [place] [address]- 1026 Jan, [facility] [place] [facility] [address] [id number] [place] [address]- 5174 Jan, [facility] [place] [facility] [address] [id number] [place] [address]- 7694 December, [facility] [place] [facility] [address] [id number] [place] [address]- 6594 December, [facility] [place] [facility] [address] [id number] [place] [address]- 7380 Nov, [facility] [place] [facility] [address] [id number] [place] [address]- 7516 Nov, [facility] [address] [id number] [place] [address]- 9796 Oct, [facility] [place] [facility] [address] [id number] [place] [address] 2546 Oct, [facility] [address] [id number] [place] [address]- 3026 Oct, [facility] [place] [facility] [address] [id number] [place] [address]- 5960 Oct, [facility] [place] [facility] [address] [id number] [place] [address]- 3338 Sep, [facility] [place] [facility] [address] [id number] [place] [address]- 1566 Sep, [facility] [place] [facility] [address] [id number] [place] [address]- 2068 Aug, [facility] [address] [id number] [place] [address]- 1024 Aug, [facility] [place] [facility] [address] [id number] [place] [address]- 9366 Aug, [facility] [place] [facility] [address] [id number] [place] [address]- 7186 Aug, [facility] [place] [facility] [address] [id number] [place] [address]- 0438 Aug, [facility] [place] [facility] [address] [id number] [place] [address]- 1886 Aug, [facility] [place] [facility] [address] [id number] [place] [address]- 3196 Jul, [facility] [place] [facility] [address] [id number] [place] [address]- 2546 Jul, [facility] [place] [facility] [address] [id number] [place] [address]- 2489 Jul, [facility] [place] [facility] [address] [id number] [place] [address]- 0216 Jun, [facility] [place] [facility] [address] [id number] [place] [address]- 4488 Jun, [facility] [place] [facility] [address] [id number] [place] [address]- 4328 Jun, [facility] [place] [facility] [address] [id number] [place] [address]- 0029 Jun, [facility] [place] [facility] [address] [id number] [place] [address]- 3325 May, [facility] [place] [facility] [address] [id number] [place] [address]- 7326 May, [facility] [place] [facility] [address] [id number] [place] [address]- 1424 May, [facility] [place] [facility] [address] [id number] [place] [address]- 9374 May, [facility] [place] [facility] [address] [id number] [place] [address]- 1238 Apr, [facility] [place] [facility] [address] [id number] [place] [address]- 3205 Apr, [facility] [place] [facility] [address] [id number], [place] [address]- 6327 Apr, [facility] [place] [facility] [address] [id number], [place] [address]- 7028 Apr, [facility] [place] [facility] [address] [id number] [place] [address]- 5200 Apr, [facility] [place] [facility] [address] [id number], [place] [address]- 4359 Mar, [facility] [place] [facility] [address] [id number] [place] [address]- 3827 Mar, [facility] [place] [facility] [address] [id number] [place] [address]- 0791 Mar, [facility] [address] [id number] [place] [address]- 5795 Mar, [facility] [place] [facility] [address] [id number] [place] [address]- 3369 Feb, [facility] [address] [id number] [place] [address]- 8716 Feb, [facility] [place] [facility] [address] [id number] [place] [address]- 6560 Jan, [facility] [address] [id number] [place] [address]- 8383 Jan, [facility] [place] [facility] [address] [id number] [place] [address]- 6626 Jan, [facility] [address] [id number] [place] [address]- 1745 Jan, [facility] [place] [facility] [address] [id number] [place] [address]- 8415 December, [facility] [place] [facility] [address] [id number] [place] [address]- 0068 December, [facility] [address] [id number] [place] [address]- 4046 Nov, [facility] [place] [facility] [address] [id number] [place] [address]- 6183 Nov, [facility] [place] [facility] [address] [id number] [place] [address]- 2724 Nov, [facility] [place] [facility] [address] [id number] [place] [address]- 0724 Oct, [facility] [place] [facility] [address] [id number] [place] [address]- 7862 Oct, [facility] [place] [facility] [address] [id number] [place] [address]- 4559 Sep, [facility] [place] [facility] [address] [id number] [place] [address]- 9795 07 Sep, 2012 [facility] [place] [facility] [address] [id number] [place] [address]- 5070 Aug, [facility] [place] [facility] [address] [id number] [place] [address]- 6565 08 Aug, 2012 [facility] [place] [facility] [address] [id number] [place] [address]- 6614 Jul, [facility] [address] [id number] [place] [address]- 4510 Jul, [facility] [place] [facility] [address] [id number] [place] [address]- 8074 Jul, [facility] [address] [id number] [place] [address]- 4176 Jul, [facility] [address] [id number] [place] [address]- 8389 Jul, [facility] [place] [facility] [address] [id number] [place] [address]- 6656 Jul, [facility] [place] [facility] [address] [id number] [place] [address]- 1411 Jun, [facility] [place] [facility] [address] [id number] [place] [address]- 6459 Jun, [facility] [place] [facility] [address] [id number] [place] [address]- 6739 Jun, [facility] [place] [facility] [address] [id number] [place] [address]- 4741 Jun, [facility] [place] [facility] [address] [id number] [place] [address]- 0365 Jun, [facility] [place] [facility] [address] [id number] [place] [address]- 8891 Jun, [facility] [place] [facility] [address] [id number] [place] [address]- 0732 May, [facility] [place] [facility] [address] [id number] [place] [address]- 0932 May, [facility] [place] [facility] [address] [id number] [place] [address]- 3544 May, [facility] [place] [facility] [address] [id number] [place] [address]- 7136 May, [facility] [place] [facility] [address] [id number] [place] [address]- 8695 May, [facility] [place] [facility] [address] [id number] [place] [address]- 3542 May, [facility] [place] [facility] [address] [id number] [place] [address]- 2574 May, [facility] [place] [facility] [address] [id number] [place] [address]- 4618 May, [facility] [place] [facility] [address] [id number] [place] [address]- 4139 May, [facility] [place] [facility] [address] [id number] [place] [address]- 3352 18 Apr, 2012 [facility] [place] [facility] [address] [id number] [place] [address]- 4909 17 Apr, 2012 [facility] [place] [facility] [address] [id number] [place] [address]- 0607 27 Mar, 2012 [facility] [place] [facility] [address] [id number] [place] [address]- 5829 22 Mar, 2012 [facility] [place] [facility] [address] [id number] [place] [address]- 5717 15 Mar, 2012 [facility] [place] [facility] [address] [id number] [place] [address]- 3114 14 Mar, 2012 [facility] [place] [facility] [address] [id number] [place] [address]- 4000 13 Mar, 2012 [facility] [place] [facility] [address] [id number] [place] [address] 2546 Mar, [facility] [address] [id number] [place] [address]- 9719 Mar, [facility] [address] [id number] [place] [address] 2546 Mar, [facility] [address] [id number] [place] [address]- 7885 Mar, [facility] [address] [id number] [place] [address]- 5439 Feb, [facility] [address] [id number] [place] [address]- 5867 Feb, [facility] [address] [id number] [place] [address]- 2508 Feb, [facility] [address] [id number] [place] [address] Feb, [facility] [address] [id number] [place] [address] Jan, [facility] [address] [id number] [place] [address] December, [facility] [address] [id number] [place] [address] December, [facility] [address] [id number] [place] [address] December, [facility] [address] [id number] [place] [address] Nov, [facility] [place] [facility] [address] [id number] [place] [address] Nov, [facility] [address] [id number] [place] [address] Nov, [facility] [address] [id number] [place] [address] Nov, [facility] [address] [id number] [place] [address] Oct, [facility] [place] [facility] [address] [id number] [place] [address] 15 Sep, 2011 [facility] [place] [facility] [address] [id number] [place] [address] 08 Sep, 2011 [facility] [place] [facility] [address] [id number] [place] [address] 16 Aug, 2011 [facility] [place] [facility] [address] [id number] [place] [address] Aug, [facility] [place] [facility] [address] [id number] [place] [address] Aug, [facility] [place] [facility] [address] [id number] [place] [address] Aug, [facility] [place] [facility] [address] [id number] [place] [address] Aug, [facility] [place] [facility] [address] [id number] [place] [address] 30 Jul, 2011 [facility] [place] [facility] [address] [id number] [place] [address] 30 Jul, 2011 [facility] [place] [facility] [address] [id number] [place] [address] Jul, [facility] [place] [facility] [address] [id number], [place] [address] 05 Jul, 2011 [facility] [place] [facility] [address] [id number] [place] [address] 29 Jun, 2011 [facility] [place] [facility] [address] [id number] [place] [address] 17 Jun, 2011 [facility] [place] [facility] [address] [facility] [id number] [place] [address] 16 Jun, 2011 [facility] [place] [facility] [address] [id number] [place] [address] 16 Jun, 2011 [facility] [address] [id number] [place] [address] 28 May, 2011 [facility] [place] [facility] [address] [id number] [place] [address] 28 May, 2011 [facility] [place] [facility] [address] [id number] [place] [address] 17 Aug, 2010 [facility] [place] [facility] [address] [id number] [place] [address] Jul, [facility] [place] [facility] [address] [id number] [place] [address] Jun, [facility] [place] [facility] [address] [id number] [place] [address] May, [facility] [place] [facility] [address] [id number] [place] [address] May, [facility] [place] [facility] [address] [id number] [place] [address] May, [facility] [place] [facility] [address] [id number] [place] [address] December, [facility] [place] [facility] [address] [id number] [place] [address] Jul, [facility] [place] [facility] [address] [id number] [place] [address] Jul, [facility] [place] [facility] [address] [id number] [place] [address] Jul, [facility] [place] [facility] [address] [id number] [place] [address] 30 Jun, 2009 [facility] [place] [facility] [address] [id number] [place] [address] Jun, [facility] [place] [facility] [address] [id number] [place] [address] Jun, [facility] [address] [facility] [id number] [place] [id number] Jun, [facility] [address] [facility] [id number] [address] May, IMMUNIZATIONS No Known Immunizations SOCIAL HISTORY Never Assessed REASON FOR VISIT Pain management (chronic), Concerns with his prostrate, Concerns with left shoulder pain, [id number] PLAN OF CARE Activity Details Follow Up 4 Weeks Reason:bph VITAL SIGNS Height 69 in 2017-01-09 Weight 140.7 lbs 2017-01-09 Temperature 98.1 degrees Fahrenheit 2017-01-09 Heart Rate 68 bpm 2017-01-09 Respiratory Rate 20 2017-01-09 BMI 20.78 kg/m2 2017-01-09 Blood pressure systolic 100 mmHg 2017-01-09 Blood pressure diastolic 52 mmHg 2017-01-09 MEDICATIONS Medication Instructions Dosage Frequency Start Date End Date Duration Status Gabapentin 300 MG 2 capsules 12h Active Ambien 10 mg Orally Once a day 1 tablet at bedtime 24h Active Percocet 5-325 MG Orally every 6 hrs 1 tablet as needed 6h Jan, 28 days Active VESIcare 10 mg Orally Once a day 1 tablet 24h Active Fluoxetine HCl 20 MG TAKE ONE CAPSULE BY MOUTH IN THE MORNING 30 Active MS Contin 15 MG Orally every 12 hrs 1 tablet 12h Jan, 28 days Active Finasteride 5 mg Orally Once a day 1 tablet 24h Jan, May, 30 day(s) Active RESULTS No Results PROCEDURES Procedure Date Ordered Result Body Site [facility] VISIT ESTABLISHED PATIENT January 09, 2017 INSTRUCTIONS MEDICATIONS ADMINISTERED No Known Medications [...]
--- OUTSIDE RECORDS SUMMARY | 2018-07-23 14:58 | XMS REPORT ---
Author PATO Spring Organization [employer] Address Unknown Phone Unavailable Care Team Providers Care Ancillary Services Manager Name Role Phone PATO ANAYA CP Unavailable [...]
--- OUTSIDE RECORDS SUMMARY | 2018-07-23 14:58 | XMS REPORT ---
Author Author PATO ANAYA Organization [employer] Address Unknown Phone Unavailable Care Team Providers Care Senior Business Analyst Name Role Phone PATO ANAYA CP Unavailable Allergies No Known Allergies Problems Problem Type Condition Code Onset Dates Condition Status Problem Unsteady gait R26.81 Active Problem Diabetes E11.9 Active Problem Muscular dystrophies G71.0 Active Assessment Muscular dystrophies G71.0 Active Medications Medication Code System Code Instructions Start Date End Date Status Dosage Percocet [facility] [address]-56 5-325 MG Orally every 6 hrs December 24, 2014 1 tablet as needed MS Contin [facility] [address]-90 15 MG every 12 hrs October 29, 2014 1 capsule Ambien [facility] [address]-18 10 mg Orally Once a day 1 tablet at bedtime Results No Known Results Summary Purpose [employer] Submission
--- OUTSIDE RECORDS SUMMARY | 2018-07-23 14:58 | XMS REPORT ---
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 224045592 Problem Diabetes E11.9 Active 16438196 Problem Unsteady gait R26.81 Active 53070398 Problem Muscular dystrophies G71.0 Active 33902076 ALLERGIES No Information ENCOUNTERS Encounter Location Date Diagnosis [facility] [address] [address] December, [facility] [address] [address] December, 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 [facility] [address] [address] Nov, [facility] [id number] [place] [address]- [address] Nov, [facility] [id number] [place] [address]- [address] Nov, Muscular dystrophies G71.0 [facility] [address] [address] Oct, Muscular dystrophies G71.0 [facility] [address] [address] Aug, Muscular dystrophies G71.0 [facility] [address] [address] 07 Jul, 2017 Urinary tract infection without hematuria, site unspecified N39.0 [facility] [address] [address] Jul, Urinary tract infection without hematuria, site unspecified N39.0 [facility] [id number] [place] [address]- [address] May, Muscular dystrophies G71.0 [facility] [id number] [place] [address]- 13[address] Apr, Muscular dystrophies G71.0 [facility] [id number] [place] [address]- 8758 Mar, Muscular dystrophies G71.0 [facility] [id number] [place] [address]- 7[address] Feb, [facility] [id number] [place] [address] 58[address]- 0192 Feb, Muscular dystrophies G71.0 [facility] [id number] [place] [address]- 3[address] Jan, Muscular dystrophies G71.0 and Diabetes E11.9 [facility] [id number] [place] [address]- 2412 Nov, [facility] [address] [address] Nov, [facility] [id number] [place] [address]- 9683 Oct, [facility] [id number] [place] [address] 71345- 4190 Sep, [facility] [id number] [place] [address] 355765- 5909 Sep, [facility] [address] [address] Aug, [facility] [id number] [place] [address] 24714- 6806 Jul, [facility] [id number] [place] [address] 57259- 0795 Jul, [facility] [id number] [place] [address] 13735- 8190 Jun, [facility] [id number] [place] [address] May, Dysuria R30.0 and Cystitis N30.90 [facility] [id number] [place] [address] 35965- 5121 May, [facility] [id number] [place] [address] 6[address]- 3951 May, [facility] [id number] [place] [address] 14864- 3818 May, [facility] [id number] [place] [address] 97465- 8604 May, [facility] [id number] [place] [address] 57591- 3178 Mar, Muscular dystrophies G71.0 [facility] [id number] [place] [address] 20247- 8509 Feb, Muscular dystrophies G71.0 [facility] [id number] [place] [address] 73459- 0145 Feb, [facility] [id number] [place] [address] 12512- 3839 Jan, Muscular dystrophies G71.0 [facility] [id number] [place] [address] 55973- 8515 December, Open bite of left upper arm, initial encounter S41.152A [facility] [address], [place] [address] December, [facility] [id number] [place] [address] 41096- 6354 Nov, [facility] [id number] [address] Nov, [facility] [id number] [place] [address] 104491- 3484 Oct, [facility] [id number] [place] [address], [place] Oct, Diabetes type 2, controlled E11.9 and Polyneuropathy G62.9 [facility] [address] [facility] [id number] [place] [address], [place] [address]- 2[address] Sep, [facility] [id number] [place] [address], [place] [address]- 0132 Aug, [facility] [id number] [place] [address] 08630- 7827 Aug, [facility] [id number] [place] [address] 33694- 4486 Jul, [facility] [address], [place] [address]- 6659 Jul, [facility] [id number] [place] [address] 21385- 3792 Jul, [facility] [address], [place] [address]- 4884 Jun, [facility] [address], [place] [address]- 75[address] Jun, Foot deformity M21.969 [facility] [address], [place] [address]- 4347 May, [facility] [address] [address] May, [facility] [address] [address] May, [facility] [address], [place] [address]- 7[address] Apr, Diabetes with renal manifestations, type II or unspecified type, not stated as uncontrolled 250.40 and Unsteady gait 781.2 [facility] [address], [place] [address]- 8706 16 Apr, 2015 [facility] [address], [place] [address] 2546 Apr, [facility] [address] [facility] [id number] [address]- 25[address] Mar, [facility] [address], [place] [address]- 7522 Feb, [facility] [address], [place] [address]- 5740 Jan, [facility] [address], [place] [address]- 2782 Jan, [facility] [address], [place] [address]- 3065 December, [facility] [address], [place] [address]- 4356 Nov, [facility] [address], [place] [address]- 5927 Nov, [facility] [id number], [place] [address]- 7264 Oct, [facility] [address], [place] [address]- 4223 Oct, [facility] [address], [place] [address]- 7980 Oct, [facility] [address], [place] [address]- 8676 Oct, [facility] [id number], [place] [address]- 2546 Oct, [facility] [id number] [place] [address]- 5[address] Oct, [facility] [place] [facility] [address] [id number] [place] [address]- 0064 Sep, [facility] [place] [facility] [address] [id number] [place] [address]- 4786 Sep, [facility] [place] [facility] [address] [id number] [place] [address]- 4718 Sep, [facility] [place] [facility] [address] [id number] [place] [address]- 2774 Sep, [facility] [place] [facility] [address] [id number] [place] [address]- 8893 Aug, [facility] [place] [facility] [address] [id number] [place] [address]- 5379 Aug, [facility] [place] [facility] [address] [id number] [place] [address]- 0520 Aug, [facility] [place] [facility] [address] [id number] [place] [address]- 8092 Aug, [facility] [place] [facility] [address] [id number] [place] [address]- 3100 Jul, [facility] [place] [facility] [address] [id number] [place] [address]- 6470 Jul, [facility] [place] [facility] [address] [id number] [place] [address]- 6315 Jul, [facility] [place] [facility] [address] [id number] [place]- 4460 Jul, [facility] [place] [facility] [address] [id number] [place] [address]- 9020 Jun, [facility] [place] [facility] [address] [id number] [place] [address]- 3756 Jun, [facility] [place] [facility] [address] [id number] [place] [address]- 0740 Jun, [facility] [place] [facility] [address] [id number] [place] [address]- 3718 Jun, [facility] [place] [facility] [address] [id number] [place] [address]- 3941 May, [facility] [place] [facility] [address] [id number] [place] [address]- 5803 May, [facility] [place] [facility] [address] [id number] [place] [address]- 8794 May, [facility] [place] [facility] [address] [id number] [place] [address]- 0767 May, [facility] [place] [facility] [address] [id number] [place] [address]- 1249 Apr, [facility] [place] [facility] [address] [id number] [place] [address]- 3596 Apr, [facility] [place] [facility] [address] [id number] [place] [address]- 2424 Apr, [facility] [place] [facility] [address] [id number] [place] [address]- 6462 Mar, [facility] [place] [facility] [address] [id number] [place] [address]- 7130 Mar, [facility] [place] [facility] [address] [id number] [place] [address]- 7541 Mar, [facility] [place] [facility] [address] [id number] [place] [address]- 8671 Mar, [facility] [place] [facility] [address] [id number] [place] [address]- 6983 Feb, [facility] [place] [facility] [address] [id number] [place] [address]- 9155 Feb, [facility] [place] [facility] [address] [id number] [place] 3544 Feb, [facility] [place] [facility] [address] [id number] [place] [address]- 9377 Feb, [facility] [place] [facility] [address] [id number] [place] [address]- 0221 Jan, [facility] [place] [facility] [address] [id number] [place] [address]- 8727 Jan, [facility] [place] [facility] [address] [id number] [place] [address]- 6230 December, [facility] [place] [facility] [address] [id number] [place] [address]- 5773 December, [facility] [place] [facility] [address] [id number] [place] [address]- 8593 Nov, [facility] [place] [facility] [address] [id number] [place] [address]- 6363 Nov, [facility] [place] [facility] [address] [id number] [place] [address]- 4446 Oct, [facility] [place] [facility] [address] [id number] [place] [address]- 7484 Oct, [facility] [place] [facility] [address] [id number] [place] [address]- 8771 Oct, [facility] [place] [facility] [address] [id number] [place] [address]- 3195 Oct, [facility] [place] [facility] [address] [id number] [place] [address]- 8531 Sep, [facility] [place] [facility] [address] [id number] [place] [address]- 8608 Sep, [facility] [place] [facility] [address] [id number] [place] [address]- 5745 Aug, [facility] [place] [facility] [address] [id number] [place] [address]- 8396 Aug, [facility] [place] [facility] [address] [id number] [place] [address]- 0719 Aug, [facility] [place] [facility] [address] [id number] [place] [address]- 0563 Aug, [facility] [place] [facility] [address] [id number] [place] [address]- 9866 Aug, [facility] [place] [facility] [address] [id number] [place] [address]- 7816 Aug, [facility] [place] [facility] [address] [id number] [place] [address]- 6423 Jul, [facility] [address] [id number] [place] [address]- 2442 Jul, [facility] [place] [facility] [address] [id number] [place] [address]- 8737 Jul, [facility] [address] [id number] [place] [address]- 1566 Jun, [facility] [place] [facility] [address] [id number] [place] [address]- 3316 Jun, [facility] [place] [facility] [address] [id number] [place] [address]- 7794 Jun, [facility] [place] [facility] [address] [id number] [place] [address]- 7816 Jun, [facility] [place] [facility] [address] [id number] [place] [address]- 9318 May, [facility] [place] [facility] [address] [id number], [place] [address]- 2641 May, [facility] [place] [facility] [address] [id number] [place] [address]- 5428 May, [facility] [place] [facility] [address] [id number] [place] [address]- 8724 May, [facility] [place] [facility] [address] [id number] [place] [address]- 0677 Apr, [facility] [place] [facility] [address] [id number] [place] [address]- 3231 10 Apr, 2013 [facility] [place] [facility] [address] [id number] [place] [address]- 5094 Apr, [facility] [place] [facility] [address] [id number] [place] [address]- 9020 Apr, [facility] [place] [facility] [address] [id number] [place] [address]- 2403 Apr, [facility] [place] [facility] [address] [id number] [place] [address]- 1742 Mar, [facility] [place] [facility] [address] [id number] [place] [address]- 5877 Mar, [facility] [place] [facility] [address] [id number] [place] [address]- 1218 Mar, [facility] [place] [facility] [address] [id number] [place] [address]- 0230 Mar, [facility] [place] [facility] [address] [id number] [place] [address]- 3091 Feb, [facility] [place] [facility] [address] [id number] [place] [address]- 4079 Feb, [facility] [place] [facility] [address] [id number] [place] [address]- 5797 Jan, [facility] [place] [facility] [address] [id number] [place] [address]- 2396 Jan, [facility] [place] [facility] [address] [id number] [place] [address]- 3373 Jan, [facility] [place] [facility] [address] [id number] [place] [address]- 8169 Jan, [facility] [place] [facility] [address] [id number] [place] [address]- 2898 December, [facility] [place] [facility] [address] [id number] [place] [address]- 8474 December, [facility] [place] [facility] [address] [id number] [place] [address]- 9207 Nov, [facility] [address] [id number] [place] [address]- 5466 Nov, [facility] [place] [facility] [address] [id number] [place] [address]- 8466 Nov, [facility] [address] [id number] [place] [address]- 8056 Oct, [facility] [address] [id number] [place] [address]- 5122 Oct, [facility] [address] [id number] [place] [address]- 4736 Sep, [facility] [address] [id number] [place] [address]- 3210 Sep, [facility] [address] [id number] [place] [address]- 3983 Aug, [facility] [address] [id number] [place] [address]- 8957 Aug, [facility] [address] [id number] [place] [address]- 1860 Jul, [facility] [address] [id number] [place] [address]- 4073 Jul, [facility] [address] [id number] [place] [address]- 4936 Jul, [facility] [address] [id number] [place] [address]- 0633 Jul, [facility] [place] [facility] [address] [id number] [place] [address]- 2376 Jul, [facility] [place] [facility] [address] [id number] [place] [address]- 5816 Jul, [facility] [place] [facility] [address] [id number] [place] [address]- 9410 Jun, [facility] [place] [facility] [address] [id number] [place] [address]- 0392 Jun, [facility] [place] [facility] [address] [id number] [place] [address]- 1868 Jun, [facility] [place] [facility] [address] [id number] [place] 8683 Jun, [facility] [place] [facility] [address] [id number] [place] [address]- 6851 Jun, [facility] [place] [facility] [address] [id number] [place] [address]- 1634 Jun, [facility] [place] [facility] [address] [id number] [place] [address]- 1713 May, [facility] [place] [facility] [address] [id number] [place] [address]- 3171 May, [facility] [place] [facility] [address] [id number], [place] [address]- 5187 May, [facility] [place] [facility] [address] [id number] [place] [address]- 7160 May, [facility] [place] [facility] [address] [facility] [id number], [place] [address]- 6597 May, [facility] [place] [facility] [address] [id number], [place] [address]- 9973 May, [facility] [place] [facility] [address] [id number], [place] [address]- 6191 May, [facility] [place] [facility] [address] [id number], [place] [address]- 8699 May, [facility] [place] [facility] [address] [id number] 5681 May, [facility] [place] [facility] [address] [facility] [id number], [place] [address]- 3132 Apr, [facility] [place] [facility] [address] [id number] [place] [address]- 2016 17 Apr, 2012 [facility] [place] [facility] [address] [id number] [place] [address]- 0356 Mar, [facility] [place] [facility] [address] [id number] [place] [address]- 6333 Mar, [facility] [place] [facility] [address] [id number] [place] [address]- 1066 15 Mar, 2012 [facility] [place] [facility] [address] [id number] [place] [address] 14 Mar, 2012 [facility] [place] [facility] [address] [id number] [place] [address] Mar, [facility] [place] [facility] [address] [id number] [place] [address] Mar, [facility] [place] [facility] [address] [id number] [place] [address] Mar, [facility] [place] [facility] [address] [id number] [place] [address] Mar, [facility] [place] [facility] [address] [id number] [place] [address] Mar, [facility] [place] [facility] [address] [id number] [place] [address] Feb, [facility] [place] [facility] [address] [id number] [place] [address] 16 Feb, 2012 [facility] [place] [facility] [address] [id number] [place] [address] Feb, [facility] [place] [facility] [address] [id number] [place] [address] Feb, [facility] [place] [facility] [address] [id number] [place] [address] Jan, [facility] [place] [facility] [address] [id number] [place] [address] December, [facility] [place] [facility] [address] [id number] [place] [address] December, [facility] [address] [id number] [place] [address] December, [facility] [place] [facility] [address] [id number] [place] [address] Nov, [facility] [place] [facility] [address] [id number] [place] [address] Nov, [facility] [place] [facility] [address] [id number] [place] [address] Nov, [facility] [place] [facility] [address] [id number] [place] [address] Nov, [facility] [address] [id number] [place] [address] Oct, [facility] [address] [id number] [place] [address] Sep, [facility] [address] [id number] [place] [address] Sep, [facility] [address] [id number] [place] [address] Aug, [facility] [place] [facility] [address] [id number] [place] [address] Aug, [facility] [place] [facility] [address] [id number] [place] [address] Aug, [facility] [place] [facility] [address] [id number] [place] [address] Aug, [facility] [place] [facility] [address] [id number] [place] [address] Aug, [facility] [place] [facility] [address] [id number] [place] [address] Jul, [facility] [place] [facility] [address] [id number] [place] [address] 30 Jul, 2011 [facility] [place] [facility] [address] [id number] [place] [address] Jul, [facility] [place] [facility] [address] [id number] [place] [address] 05 Jul, 2011 [facility] [place] [facility] [address] [id number] [place] [address] 29 Jun, 2011 [facility] [place] [facility] [address] [id number] [place] [address] 17 Jun, 2011 [facility] [place] [facility] [address] [id number] [place] [address] Jun, [facility] [place] [facility] [address] [id number] [place] [address] Jun, [facility] [place] [facility] [address] [id number] [place] [address] May, [facility] [place] [facility] [address] [id number] [place] [address] May, [facility] [place] [facility] [address] [id number] [place] [address] Aug, [facility] [place] [facility] [address] [id number] [place] [address] Jul, [facility] [place] [facility] [address] [id number] [place] [address] Jun, [facility] [place] [facility] [address] [id number] [place] [address] May, [facility] [place] [facility] [address] [id number] [place] [address] May, [facility] [place] [facility] [address] [id number] [place] [address] May, [facility] [place] [facility] [address] [id number] [place] [address] December, [facility] [place] [facility] [address] [id number] [address] Jul, [facility] [address] [id number] [address] Jul, [facility] [id number] [place] [address] Jul, [facility] [id number], [place] [address] Jun, [facility] [id number] [place] [address] Jun, [facility] [id number], [place] [address] Jun, [facility] [id number] [place] [address] Jun, [facility] [id number] [place] [address] May, IMMUNIZATIONS No Known Immunizations SOCIAL HISTORY Never Assessed REASON FOR VISIT Controlled Med Refill PLAN OF CARE VITAL SIGNS MEDICATIONS Medication Instructions Dosage Frequency Start Date End Date Duration Status Percocet 5-325 MG Orally every 6 hrs 1 tablet as needed 6h May, 28 days Active MS Contin 15 MG Orally every 12 hrs 1 tablet 12h May, 28 days Active RESULTS No Results PROCEDURES [...]
--- OUTSIDE RECORDS SUMMARY | 2018-07-23 14:58 | XMS REPORT ---
Author PATO Spring Organization [employer] Address Unknown Phone Unavailable Care Team Providers Care Ancient Art Curator Name Role Phone PATO ANAYA CP Unavailable [...] Start Date End Date Status Dosage Percocet [facility] [address]-74 5-325 MG Orally every 6 hrs December 24, 2014 1 tablet as needed MS Contin [facility] [address]-89 15 MG October 29, 2014 1 capsule by Oral route every 12 hours Ambien [facility] [address]-28 10 MG Orally Once a day 1 tablet at bedtime Results No Known Results Summary Purpose [employer] Submission
--- OUTSIDE RECORDS SUMMARY | 2018-07-23 14:58 | XMS REPORT ---
Author PATO Spring Organization [employer] Address Unknown Phone Unavailable Care Team Providers Care Car Packer Name Role Phone PATO ANAYA CP Unavailable Allergies No Known Allergies Problems Problem Type Condition Code Onset Dates Condition Status Problem Unsteady gait R26.81 Active Problem Diabetes E11.9 Active Problem Muscular dystrophies G71.0 Active Medications No Known Medications Results No Known Results Summary Purpose [employer] Submission
--- OUTSIDE RECORDS SUMMARY | 2018-07-23 14:58 | XMS REPORT ---
Author Author PATO ANAYA Organization [employer] Address Unknown Phone Unavailable Care Team Providers Care Pipeliner Name Role Phone PATO ANAYA CP Unavailable Allergies No Known Allergies Problems Problem Type Condition Code Onset Dates Condition Status Problem Unsteady gait R26.81 Active Problem Diabetes E11.9 Active Problem Muscular dystrophies G71.0 Active Medications Medication Code System Code Instructions Start Date End Date Status Dosage MS Contin [facility] [address]-55 15 MG every 12 hrs October 29, 2014 1 capsule Results No Known Results Summary Purpose [employer] Submission
--- OUTSIDE RECORDS SUMMARY | 2018-07-23 14:58 | XMS REPORT ---
Author Author PATO ANAYA Organization [employer] Address Unknown Phone Unavailable Care Team Providers Care Social Worker Aide Name Role Phone PATO ANAYA CP Unavailable Allergies No Known Allergies Problems Problem Type Condition Code Onset Dates Condition Status Problem Unsteady gait R26.81 Active Problem Diabetes E11.9 Active Problem Muscular dystrophies G71.0 Active Assessment Muscular dystrophies G71.0 Active Medications Medication Code System Code Instructions Start Date End Date Status Dosage MS Contin [facility] [address]-69 15 MG every 12 hrs October 29, 2014 1 capsule Percocet [facility] [address]-93 5-325 MG Orally every 6 hrs December 24, 2014 1 tablet as needed Results No Known Results Summary Purpose [employer] Submission
--- OUTSIDE RECORDS SUMMARY | 2018-07-23 14:59 | XMS REPORT ---
Author Author PATO ANAYA Organization [facility] Address [address] [place] [address] Care Team Providers Care Digital Media Designer Name Role Phone PATO ANAYA Unavailable PROBLEMS Type Condition ICD9-CM Code MCS98-JN Code Onset Dates Condition Status SNOMED Code Problem Diabetes E11.9 Active 40416978 Problem Unsteady gait R26.81 Active 26207743 Problem Muscular dystrophies G71.0 Active 86950486 ALLERGIES No Information ENCOUNTERS Encounter Location Date Diagnosis [place] [address] [address] December, [facility] [address] [address] Nov, [facility] [address] [address] Nov, [facility] [address] [address] Nov, Muscular dystrophies G71.0 [place] [address] [place] [id number] [place] [address]- 5866 Oct, Muscular dystrophies G71.0 [facility] [address] [address]- [address] Aug, Muscular dystrophies G71.0 [facility] [address] [address] 07 Jul, 2017 Urinary tract infection without hematuria, site unspecified N39.0 [facility] [address] [place] [id number] [place] [address]106 Jul, Urinary tract infection without hematuria, site unspecified N39.0 [facility] [address] [facility] [id number] [place] [address] 2760 May, Muscular dystrophies G71.0 [facility] [address] [place] [address] 67[address] Apr, Muscular dystrophies G71.0 [facility] [address] [place] [address] 89[address] Mar, Muscular dystrophies G71.0 [facility] [id number] [place] [address] Feb, [facility] [id number] [place] [address], [place] [address]- [address] Feb, Muscular dystrophies G71.0 [facility] [address] [place] [address] 7[address] Jan, Muscular dystrophies G71.0 and Diabetes E11.9 [facility] [address] [place] [address]- 117[address] Nov, [facility] [id number] [place] [address]- 1062 Nov, [facility] [address] [place] [address]- 1074 Oct, [facility] [address] [address] Sep, [facility] [address] [address] 68[address] Sep, [facility] [address] [place] [id number] [address]- 4[address] Aug, [facility] [id number] [place] [address]- 1836 Jul, [facility] [address] [place] [address]- 3[address] Jul, [facility] [address] [address] Jun, [facility] [address] [place] [id number] [place] [address] -[address] May, Dysuria R30.0 and Cystitis N30.90 [facility] [address] [place] [id number] [place] [address] 91782- 2504 May, [facility] [address] [place] [id number] [place] [address] 26775- 3233 May, [facility] [address] [place] [id number] [place] [address] 91281- 7297 May, [facility] [address] [place] [id number] [place] [address] 23084- 9827 May, [facility] [address] [place] [id number] [place] [address] 52191- 6346 Mar, Muscular dystrophies G71.0 [facility] [address] [place] [id number] [place] [address] 81532- 3411 Feb, Muscular dystrophies G71.0 [facility] [address] [place] [id number] [place] [address] 62479- 3410 Feb, [facility] [id number] [place] [address] 18416- 8584 Jan, Muscular dystrophies G71.0 [facility] [address] [place] [id number] [place] [address] 94464- 4260 December, Open bite of left upper arm, initial encounter S41.152A [facility] [address] [place] [id number] [address] December, [facility] [address] [place] [id number] [place] [address] 64746- 8601 Nov, [facility] [address] [address]- 4876 Nov, [facility] [address] [place] [id number] [address]- 5665 Oct, [facility] [address] [place] [id number] [place] [address] 27760- 4217 Oct, Diabetes type 2, controlled E11.9 and Polyneuropathy G62.9 [facility] [address] [place] [id number] [place] [address] 01697- 0310 Sep, [facility] [address] [place] [id number] [place] [address] 88280- 0203 Aug, [facility] [address] [place] [id number] [place] [address] 05267- 8648 Aug, [facility] [address] [place] [id number] [place] [address] 31366- 6516 Jul, [facility] [address] [place] [id number] [place] [address] 37260- 3020 Jul, [facility] [address] [place] [id number] [place] [address] 91470- 1213 Jul, [facility] [address] [place] [id number] [place] [address] 24335- 6293 Jun, [facility] [address] [place] [id number] [place] [address] 42086- 1902 Jun, Foot deformity M21.969 [facility] [address] [place] [id number] [place] [address] 39175- 2834 May, [facility] [address] [address]- 0093 May, [facility] [address] [place] [id number] [place] [address] 12303- 2124 May, [facility] [address] [place] [id number] [place] [address] 74171- 5244 Apr, Diabetes with renal manifestations, type II or unspecified type, not stated as uncontrolled 250.40 and Unsteady gait 781.2 [facility] [address] [place] [address]- 2546 16 Apr, 2015 [facility] [address] [id number] [place] [address]- 8986 09 Apr, 2015 [facility] [place] [facility] [address] [id number] [place] [address]- 2546 Mar, [facility] [place] [facility] [address] [id number] [place] [address]- 0556 Feb, [facility] [place] [facility] [address] [id number] [place] [address]- 5281 Jan, [facility] [place] [facility] [address] [id number] [place] [address]- 3586 Jan, [facility] [place] [facility] [address] [id number] [place] [address]- 2996 December, [facility] [place] [facility] [address] [id number] [place] [address]- 6566 Nov, [facility] [address] [id number] [place] [address]- 9478 Nov, [facility] [place] [facility] [address] [id number] [place] [address]- 1910 Oct, [facility] [address] [id number] [place] [address]- 4467 Oct, [facility] [place] [facility] [address] [id number] [place] [address]- 2546 Oct, [facility] [place] [facility] [address] [id number] [place] [address]- 2546 Oct, [facility] [place] [facility] [address] [id number] [place] [address]- 1426 Oct, [facility] [place] [facility] [address] [id number] [place] [address]- 2546 Oct, [facility] [place] [facility] [address] [id number] [place] 3469 Sep, [facility] [place] [facility] [address] [id number] [place] [address]- 7247 Sep, [facility] [place] [facility] [address] [id number] [place] [address]- 6974 Sep, [facility] [place] [facility] [address] [id number] [place] [address]- 9116 Sep, [facility] [place] [facility] [address] [id number] [place] [address]- 0229 Aug, [facility] [place] [facility] [address] [id number] [place] [address]- 4327 Aug, [facility] [place] [facility] [address] [id number] [place] [address]- 2792 Aug, [facility] [place] [facility] [address] [id number] [place] [address]- 7612 Aug, [facility] [place] [facility] [address] [id number] [place] [address]- 9828 Jul, [facility] [place] [facility] [address] [id number] [place] [address]- 0180 Jul, [facility] [place] [facility] [address] [id number] [place] [address]- 4816 Jul, [facility] [place] [facility] [address] [id number] [place] [address]- 9963 Jul, [facility] [place] [facility] [address] [id number], [place] [address]- 5283 Jun, [facility] [place] [facility] [address] [id number] [place] [address]- 8632 Jun, [facility] [place] [facility] [address] [id number] [place] [address]- 1059 Jun, [facility] [place] [facility] [address] [id number] [place] [address]- 3915 Jun, [facility] [place] [facility] [address] [id number] [place] [address]- 6741 May, [facility] [place] [facility] [address] [id number] [place] [address]- 3212 May, [facility] [place] [facility] [address] [id number] [place] 4725 May, [facility] [place] [facility] [address] [id number] [place] 0445 May, [facility] [place] [facility] [address] [id number] [place] [address]- 6072 Apr, [facility] [place] [facility] [address] [id number] [place] [address]- 1436 Apr, [facility] [place] [facility] [address] [id number] [place] [address]- 0492 Apr, [facility] [place] [facility] [address] [id number] [place] [address]- 8911 Mar, [facility] [place] [facility] [address] [id number] [place] [address]- 1600 Mar, [facility] [place] [facility] [address] [id number] [place] [address]- 0127 Mar, [facility] [place] [facility] [address] [id number] [place] [address]- 4072 Mar, [facility] [place] [facility] [address] [id number] [place] [address]- 3481 Feb, [facility] [place] [facility] [address] [id number] [place] [address]- 9777 Feb, [facility] [place] [facility] [address] [id number] [place] [address]- 6120 Feb, [facility] [place] [facility] [address] [id number] [place] [address]- 8720 Feb, [facility] [place] [facility] [address] [id number] [place] 4145 Jan, [facility] [place] [facility] [address] [id number] [place] [address]- 1592 Jan, [facility] [place] [facility] [address] [id number] [place] [address]- 6573 December, [facility] [place] [facility] [address] [id number] [place] [address]- 8258 December, [facility] [place] [facility] [address] [id number] [place] [address]- 5010 Nov, [facility] [place] [facility] [address] [id number] [place] [address]- 0051 Nov, [facility] [place] [facility] [address] [id number] [place] [address]- 5595 Oct, [facility] [place] [facility] [address] [id number] [place] [address]- 6473 Oct, [facility] [place] [facility] [address] [id number] [place] [address]- 4214 Oct, [facility] [place] [facility] [address] [id number] [place] [address]- 5624 Oct, [facility] [place] [facility] [address] [id number] [place] [address]- 0772 Sep, [facility] [place] [facility] [address] [id number] [place] [address]- 5524 Sep, [facility] [place] [facility] [address] [id number] [place] [address]- 3727 Aug, [facility] [place] [facility] [address] [id number] [place] [address]- 5049 Aug, [facility] [place] [facility] [address] [id number] [place] [address]- 7139 Aug, [facility] [place] [facility] [address] [id number] [place] [address]- 6518 Aug, [facility] [place] [facility] [address] [id number], [place] [address]- 3088 Aug, [facility] [place] [facility] [address] [id number] [place] [address]- 3891 Aug, [facility] [place] [facility] [address] [id number], [place] [address]- 3600 Jul, [facility] [place] [facility] [address] [id number] [place] [address]- 7680 Jul, [facility] [place] [facility] [address] [id number] [place] 5623 Jul, [facility] [place] [facility] [address] [id number] [place] [address]- 6165 Jun, [facility] [place] [facility] [address] [id number] [place] [address]- 6346 Jun, [facility] [place] [facility] [address] [id number] [place] [address]- 3058 Jun, [facility] [place] [facility] [address] [id number] [place] [address]- 9895 Jun, [facility] [place] [facility] [address] [id number], [place] [address]- 7746 May, [facility] [place] [facility] [address] [id number] [place] [address]- 2327 May, [facility] [place] [facility] [address] [id number], [place] [address]- 5166 May, [facility] [place] [facility] [address] [id number], [place] [address]- 0574 May, [facility] [place] [facility] [address] [id number], [place] [address]- 9454 Apr, [facility] [place] [facility] [address] [id number], [place] [address]- 9240 Apr, [facility] [place] [facility] [address] [id number], [place] [address]- 9141 Apr, [facility] [place] [facility] [address] [id number] [place] [address]- 2546 Apr, [facility] [address] [id number] [place] [address]- 5299 Apr, [facility] [place] [facility] [address] [id number] [place] [address] 2546 Mar, [facility] [place] [facility] [address] [id number] [place] [address]- 4747 Mar, [facility] [place] [facility] [address] [id number] [place] [address] 254 Mar, [facility] [place] [facility] [address] [id number] [place] [address]- 0685 Mar, [facility] [place] [facility] [address] [id number] [place] [address]- 9061 Feb, [facility] [place] [facility] [address] [id number] [place] [address]- 8178 Feb, [facility] [address] [id number] [place] [address]- 9444 Jan, [facility] [place] [facility] [address] [id number] [place] [address]- 2948 Jan, [facility] [place] [facility] [address] [id number] [place] [address]- 5288 Jan, [facility] [place] [facility] [address] [id number] [place] [address]- 3377 Jan, [facility] [place] [facility] [address] [id number] [place] [address]- 2455 December, [facility] [place] [facility] [address] [id number] [place] [address]- 2700 December, [facility] [place] [facility] [address] [id number] [place] [address]- 2546 Nov, [facility] [place] [facility] [address] [id number] [place] [address]- 1102 Nov, [facility] [address] [id number] [place] [address]- 4055 Nov, [facility] [place] [facility] [address] [id number] [place] [address]- 9285 Oct, [facility] [place] [facility] [address] [id number] [place] [address]- 4413 Oct, [facility] [place] [facility] [address] [id number] [place] [address]- 5412 Sep, [facility] [place] [facility] [address] [id number] [place] [address]- 5721 Sep, [facility] [place] [facility] [address] [id number] [place] [address]- 2732 Aug, [facility] [place] [facility] [address] [id number] [place] [address]- 8936 Aug, [facility] [place] [facility] [address] [id number] [place] [address]- 5935 Jul, [facility] [place] [facility] [address] [id number] [place] [address]- 0937 Jul, [facility] [place] [facility] [address] [id number] [place] [address]- 4732 Jul, [facility] [place] [facility] [address] [id number] [place] [address]- 8344 Jul, [facility] [place] [facility] [address] [id number] [place] [address]- 7375 Jul, [facility] [place] [facility] [address] [id number] [place] [address]- 5298 Jul, [facility] [place] [facility] [address] [id number] [place] [address]- 8399 Jun, [facility] [place] [facility] [address] [id number] [place] [address]- 9245 Jun, [facility] [place] [facility] [address] [id number] [place] [address]- 1025 08 Jun, 2012 [facility] [place] [facility] [address] [id number] [place] [address]- 9845 Jun, [facility] [place] [facility] [address] [id number] [place] [address]- 5594 Jun, [facility] [place] [facility] [address] [facility] [id number] [place] [address]- 2200 Jun, [facility] [place] [facility] [address] [id number] [place] [address]- 2339 May, [facility] [place] [facility] [address] [id number] [place] [address]- 5907 May, [facility] [place] [facility] [address] [id number] [place] [address]- 8685 May, [facility] [place] [facility] [address] [facility] [id number] [place] [address]- 1341 May, [facility] [place] [facility] [address] [id number] [place] [address]- 9277 May, [facility] [place] [facility] [address] [facility] [id number] [place] [address]- 1912 May, [facility] [place] [facility] [address] [facility] [id number] [place] [address]- 9414 May, [facility] [place] [facility] [address] [facility] [id number] [place] [address]- 5196 May, [facility] [place] [facility] [address] [facility] [id number], [place] [address]- 8047 May, [facility] [place] [facility] [address] [id number] [place] [address]- 2524 18 Apr, 2012 [facility] [place] [facility] [address] [facility] [id number] [place] [address]- 9883 Apr, [facility] [place] [facility] [address] [facility] [id number], [place] [address] Mar, [facility] [place] [facility] [address] [id number] [place] [address] Mar, [facility] [place] [facility] [address] [id number] [place] [address] Mar, [facility] [place] [facility] [address] [id number] [place] [address] Mar, [facility] [place] [facility] [address] [id number] [place] [address] Mar, [facility] [place] [facility] [address] [id number] [place] [address] Mar, [facility] [place] [facility] [address] [id number] [place] [address] Mar, [facility] [place] [facility] [address] [id number] [place] [address] Mar, [facility] [place] [facility] [address] [id number] [place] [address] Mar, [facility] [place] [facility] [address] [id number] [place] [address] Feb, [facility] [place] [facility] [address] [id number] [place] [address] Feb, [facility] [place] [facility] [address] [id number] [place] [address] Feb, [facility] [place] [facility] [address] [id number] [place] [address] Feb, [facility] [place] [facility] [address] [id number] [place] [address] Jan, [facility] [place] [facility] [address] [id number] [place] [address] December, [facility] [place] [facility] [address] [id number] [place] [address] December, [facility] [place] [facility] [address] [id number] [place] [address] December, [facility] [address] [id number] [place] [address] 19 Nov, 2011 [facility] [place] [facility] [address] [id number] [place] [address] 17 Nov, 2011 [facility] [place] [facility] [address] [id number] [place] [address] 16 Nov, 2011 [facility] [place] [facility] [address] [id number] [place] [address]- [address] 16 Nov, 2011 [facility] [place] [facility] [address] [id number] [place] [address] Oct, [facility] [place] [facility] [address] [id number] [place] [address]- [address] 15 Sep, 2011 [facility] [place] [facility] [address] [id number] [place] [address] 08 Sep, 2011 [facility] [place] [facility] [address] [id number] [place] [address] Aug, [facility] [place] [facility] [address] [id number] [place] [address] Aug, [facility] [place] [facility] [address] [id number] [place] [address] Aug, [facility] [place] [facility] [address] [id number] [place] [address] Aug, [facility] [place] [facility] [address] [id number] [place] [address] Aug, [facility] [place] [facility] [address] [id number] [place] [address] Jul, [facility] [place] [facility] [address] [id number] [place] [address] Jul, [facility] [place] [facility] [address] [id number] [place] [address] Jul, [facility] [place] [facility] [address] [id number] [place] [address]- [address] 05 Jul, 2011 [facility] [place] [facility] [address] [id number] [place] [address] Jun, [facility] [place] [facility] [address] [id number] [place] [address] Jun, [facility] [place] [facility] [address] [id number] [place] [address] Jun, [facility] [place] [facility] [address] [id number] [place] [address] Jun, [facility] [place] [facility] [address] [id number] [place] [address] May, [facility] [place] [facility] [address] [id number] [place] [address] May, [facility] [place] [facility] [address] [id number] [place] [address] Aug, [facility] [place] [facility] [address] [id number] [place] [address] Jul, [facility] [place] [facility] [address] [id number] [place] [address]- [address] Jun, [facility] [place] [facility] [address] [id number] [place] [address] May, [facility] [place] [facility] [address] [id number] [place] [address] May, [facility] [place] [facility] [address] [id number] [place] [address] May, [facility] [place] [facility] [address] [id number] [place] [address] December, [facility] [place] [facility] [address] [id number] [place] [address] Jul, [facility] [place] [facility] [address] [id number] [place] [address] Jul, [facility] [address] [facility] [id number], [place] [address] Jul, [facility] [id number], [place] [address] Jun, [facility] [address] [facility] [id number], [place] [address] Jun, [facility] [address] [id number], [place] [address] Jun, [facility] [address] [facility] [id number], [place] [address] 25[address] Jun, [facility] [address] [facility] [id number], [place] [address] May, IMMUNIZATIONS No Known Immunizations SOCIAL HISTORY Never Assessed REASON FOR VISIT Controlled Refill Request PLAN OF CARE VITAL SIGNS MEDICATIONS Medication Instructions Dosage Frequency Start Date End Date Duration Status MS Contin 15 MG Orally every 12 hrs 1 tablet 12h Apr, 28 days Active Percocet 5-325 MG Orally every 6 hrs 1 tablet as needed 6h Apr, 28 days Active RESULTS No Results PROCEDURES [...]
--- OUTSIDE RECORDS SUMMARY | 2018-07-23 15:00 | XMS REPORT ---
Author Author PATO ANAYA Organization [employer] Address Unknown Phone Unavailable Care Team Providers Care Lead Assistant Manager Name Role Phone PATO ANAYA CP Unavailable Allergies No Known Allergies Problems Problem Type Condition Code Onset Dates Condition Status Problem Unsteady gait R26.81 Active Problem Muscular dystrophies G71.0 Active Medications Medication Code System Code Instructions Start Date End Date Status Dosage Percocet [facility] [address]-26 5-325 MG Orally every 6 hrs December 24, 2014 1 tablet as needed Gabapentin [facility] 25941181307 300 MG TAKE TWO CAPSULES BY MOUTH TWICE DAILY NEEDED FOR PAIN MS Contin [facility] [address]-37 15 MG October 29, 2014 1 capsule by Oral route every 12 hours Results No Known Results Summary Purpose [employer] Submission
--- OUTSIDE RECORDS SUMMARY | 2018-07-23 15:00 | XMS REPORT ---
Author PATO Spring Organization [employer] Address Unknown Phone Unavailable Care Team Providers Care Backend Python Developer Name Role Phone PATO ANAYA CP Unavailable Allergies No Known Allergies Problems Problem Type Condition Code Onset Dates Condition Status Problem Unsteady gait R26.81 Active Problem Muscular dystrophies G71.0 Active Medications Medication Code System Code Instructions Start Date End Date Status Dosage Ambien [facility] [address]-10 10 MG Orally Once a day 1 tablet at bedtime Results No Known Results Summary Purpose [employer] Submission
--- OUTSIDE RECORDS SUMMARY | 2018-07-23 15:00 | XMS REPORT ---
Author PATO Sprign Organization [employer] Address Unknown Phone Unavailable Care Team Providers Care Blind Lacer Name Role Phone PATO ANAYA CP Unavailable Allergies No Known Allergies Problems Problem Type Condition Code Onset Dates Condition Status Problem Unsteady gait R26.81 Active Problem Muscular dystrophies G71.0 Active Medications No Known Medications Results No Known Results Summary Purpose [employer] Submission
--- OUTSIDE RECORDS SUMMARY | 2018-07-23 15:00 | XMS REPORT ---
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 497148500 Problem Diabetes E11.9 Active 73986282 Problem Unsteady gait R26.81 Active 49340649 Problem Muscular dystrophies G71.0 Active [id number] ALLERGIES No Known Allergies ENCOUNTERS Encounter Location Date Diagnosis [place] [id number] [address] Jan, [facility] [address] [address]- [address] December, [place] [address] [address]- [address] December, Callus of foot L84 ; Nail hypertrophy L60.2 ; Self-care deficit for hygiene R46.0 ; Controlled type 2 diabetes mellitus without complication, unspecified whether shelter insulin use E11.9 and Muscular dystrophies G71.0 [facility] [address] [place] [id number] [place] [address] 88214- 3990 December, Muscular dystrophies G71.0 [facility] [address] [address] -[address] December, 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 [facility] [address] 97383- 1771 Nov, [facility] [address] 04894- 6170 Nov, [facility] [id number] [place] [address] 40742- 7384 Nov, Muscular dystrophies G71.0 [facility] [address] [place] [id number] [place] [address] 44295- 0966 Oct, Muscular dystrophies G71.0 [facility] [address] [place] [address] [id number] [place] [address] 03606- 1141 Aug, Muscular dystrophies G71.0 [facility] [address] [place] [id number] [place] [address] 20560 -7198 Jul, Urinary tract infection without hematuria, site unspecified N39.0 [facility] [address] [place] [id number] [place] [address] 46063 -6554 Jul, Urinary tract infection without hematuria, site unspecified N39.0 [facility] [address] [place] [id number] [place] [address] 61240- 8756 May, Muscular dystrophies G71.0 [facility] [address] [place] [id number] [place] [address] 52956- 3055 Apr, Muscular dystrophies G71.0 [facility] [address] [place] [id number] [place] [address] 10435- 0397 Mar, Muscular dystrophies G71.0 [facility] [id number] [place] [address] 29330- 6886 Feb, [facility] [address] [place] [id number] [place] [address] 77512- 6290 Feb, Muscular dystrophies G71.0 [facility] [address] [place] [id number] [place] [address] 02032- 1585 Jan, Muscular dystrophies G71.0 and Diabetes E11.9 [facility] [id number] [place] [address] 69601- 9260 Nov, [facility] [address] [place] [id number] [place] [address] 34842- 9309 Nov, [facility] [id number] [place] [address]- 3085 Oct, [facility] [address] [address]- 6513 Sep, [facility] [address] [place] [address]- 9466 Sep, [facility] [address] [place] [id number] [place] [address] 837968- 5341 Aug, [facility] [id number] [place] [address], [place]- 1267 Jul, [facility] [address] [place] [id number] [place] [address], [place] [address]- 4515 Jul, [facility] [id number] [place] [address] 47837- 4454 Jun, [facility] [address] [address] May, Dysuria R30.0 and Cystitis N30.90 [facility] [address] [address]- 3510 May, [facility] [address], [place] [address]- 4805 May, [facility] [address], [place] [address]- 5571 May, [facility] [address], [place] [address]- 1261 May, [facility] [address] [place] [id number] [place] [address] 20052- 8802 Mar, Muscular dystrophies G71.0 [facility] [address] [address]- 0298 Feb, Muscular dystrophies G71.0 [facility] [address], [place] [address]- 6281 Feb, [facility] [address] [place] [id number] [place] [address] 44687- 2239 Jan, Muscular dystrophies G71.0 [facility] [address], [place] [address]- 1387 December, Open bite of left upper arm, initial encounter S41.152A [facility] [address], [place] [address] December, [facility] [address] [place] [id number] [place] [address] 59981- 6807 Nov, [facility] [address] [place] [id number] [place] [address] 02215- 1604 Nov, [facility] [address] [place] [id number] [place] [address] 74227- 4532 Oct, [facility] [id number] [place] [address] 99586- 7815 Oct, Diabetes type 2, controlled E11.9 and Polyneuropathy G62.9 [facility] [address], [place] [address]- 7970 Sep, [facility] [address], [place] [address]- 6168 Aug, [facility] [address] [place] [id number] [address]- 4905 Aug, [facility] [address] [address]- 8861 Jul, [facility] [address] [place] [id number] [place] [address] 37219- 4826 Jul, [facility] [address], [place] [address]- 9620 Jul, [facility] [address] [place] [id number] [place] [address] 89127- 3769 Jun, [facility] [address], [place] [address]- 0539 Jun, Foot deformity M21.969 [facility] [id number] [place] [address] 270405- 8640 May, [facility] [address] [place] [id number] [place] [address] 999049- 5117 May, [facility] [address] [place] [id number] [place] [address] 27097- 4761 May, [facility] [address] [place] [id number] [place] [address] 531444- 7603 Apr, Diabetes with renal manifestations, type II or unspecified type, not stated as uncontrolled 250.40 and Unsteady gait 781.2 [facility] [address] [place] [id number] [place] [address] 24895- 3564 Apr, [facility] [address] [place] [id number] [place] [address] 46786- 1544 Apr, [facility] [address] [place] [id number] [place] [address] 762505- 8305 Mar, [facility] [address], [place] [address]- 5063 Feb, [facility] [address], [place] [address]- 8417 Jan, [facility] [address], [place] [address]- 8117 Jan, [facility] [id number] [place] [address] 42104- 8971 December, [facility] [address], [place] [address]- 0362 Nov, [facility] [address] 1322 Nov, [facility] [place] [facility] [address] [id number] [place] [address]- 3002 Oct, [facility] [place] [facility] [address] [id number] [place] [address]- 9780 Oct, [facility] [place] [facility] [address] [id number] [place] [address]- 4453 Oct, [facility] [place] [facility] [address] [id number] [place] [address]- 0050 Oct, [facility] [place] [facility] [address] [id number] [place] [address]- 2593 Oct, [facility] [place] [facility] [address] [id number] [place] [address]- 3746 Oct, [facility] [place] [facility] [address] [id number] [place] [address]- 6344 Sep, [facility] [place] [facility] [address] [id number] [place] [address]- 5370 Sep, [facility] [place] [facility] [address] [id number] [place] [address]- 0492 Sep, [facility] [place] [facility] [address] [facility] [id number] [place] [address]- 5585 Sep, [facility] [place] [facility] [address] [id number] [place] [address]- 0034 Aug, [facility] [place] [facility] [address] [id number] [place] [address]- 3381 Aug, [facility] [place] [facility] [address] [id number] [place] [address]- 1559 Aug, [facility] [place] [facility] [address] [id number] [place] [address]- 0908 Aug, [facility] [place] [facility] [address] [id number] [place] [address]- 3235 Jul, [facility] [place] [facility] [address] [id number], [place] [address]- 6473 Jul, [facility] [place] [facility] [address] [id number] [place] [address]- 5070 Jul, [facility] [place] [facility] [address] [id number] [place] 2753 Jul, [facility] [place] [facility] [address] [id number] [place] [address]- 2532 Jun, [facility] [place] [facility] [address] [id number] [place] [address]- 8883 Jun, [facility] [place] [facility] [address] [id number] [place] [address]- 8831 Jun, [facility] [place] [facility] [address] [id number] [place] [address]- 7433 Jun, [facility] [place] [facility] [address] [id number] [place] [address]- 5002 May, [facility] [place] [facility] [address] [id number] [place] [address]- 0956 May, [facility] [place] [facility] [address] [id number] [place] [address]- 3964 May, [facility] [place] [facility] [address] [id number] [place] [address]- 2184 May, [facility] [place] [facility] [address] [id number], [place] [address]- 5369 Apr, [facility] [place] [facility] [address] [id number], [place] [address]- 8430 Apr, [facility] [place] [facility] [address] [id number] [place] [address]- 5057 Apr, [facility] [place] [facility] [address] [id number] [place] [address]- 3265 Mar, [facility] [place] [facility] [address] [id number] [place] [address]- 6725 Mar, [facility] [place] [facility] [address] [id number] [place] [address]- 1490 Mar, [facility] [place] [facility] [address] [id number] [place] [address]- 5460 Mar, [facility] [place] [facility] [address] [id number] [place] [address]- 1394 Feb, [facility] [place] [facility] [address] [id number] [place] [address]- 2835 Feb, [facility] [place] [facility] [address] [id number] [place] [address]- 8080 Feb, [facility] [place] [facility] [address] [id number] [place] [address]- 5135 Feb, [facility] [place] [facility] [address] [id number] [place] [address]- 3859 Jan, [facility] [place] [facility] [address] [id number] [place] [address]- 3886 Jan, [facility] [place] [facility] [address] [id number] [place] [address]- 8623 December, [facility] [place] [facility] [address] [id number] [place] [address]- 5058 December, [facility] [place] [facility] [address] [id number] [place] [address]- 9960 Nov, [facility] [place] [facility] [address] [id number] [place] [address]- 1033 Nov, [facility] [place] [facility] [address] [id number] [place] [address]- 0657 Oct, [facility] [place] [facility] [address] [id number] [place] [address]- 6370 Oct, [facility] [place] [facility] [address] [id number] [place] [address]- 2126 Oct, [facility] [place] [facility] [address] [id number] [place] [address]- 2949 Oct, [facility] [place] [facility] [address] [id number] [place] [address]- 7190 Sep, [facility] [place] [facility] [address] [id number] [place] [address]- 4526 Sep, [facility] [place] [facility] [address] [id number] [place] [address]- 1880 Aug, [facility] [place] [facility] [address] [id number] [place] [address]- 2297 Aug, [facility] [place] [facility] [address] [id number] [place] [address]- 7265 Aug, [facility] [place] [facility] [address] [id number] [place] [address]- 4516 Aug, [facility] [place] [facility] [address] [id number] [place] [address]- 7015 Aug, [facility] [place] [facility] [address] [id number], [place] [address]- 2887 Aug, [facility] [place] [facility] [address] [id number] [place] [address]- 2072 Jul, [facility] [place] [facility] [address] [id number], [place] [address]- 1438 Jul, [facility] [place] [facility] [address] [id number], [place] [address]- 2828 Jul, [facility] [place] [facility] [address] [id number], [place] [address]- 4095 Jun, [facility] [place] [facility] [address] [id number] [place] [address]- 7887 Jun, [facility] [place] [facility] [address] [id number], [place] [address]- 4376 Jun, [facility] [place] [facility] [address] [id number] [place] [address]- 4998 Jun, [facility] [place] [facility] [address] [id number] [place] [address]- 4150 16 May, 2012 [facility] [place] [facility] [address] [id number] [place] [address]- 6597 16 May, 2012 [facility] [place] [facility] [address] [id number] [place] [address]- 6696 May, [facility] [place] [facility] [address] [id number] [place] [address]- 0796 May, [facility] [place] [facility] [address] [id number] [place] [address]- 2710 10 Apr, 2012 [facility] [place] [facility] [address] [id number] [place] [address]- 9192 10 Apr, 2012 [facility] [place] [facility] [address] [id number] [place] [address]- 4188 Apr, [facility] [place] [facility] [address] [id number] [place] [address]- 8747 Apr, 2012 [facility] [place] [facility] [address] [id number] [place] [address]- 9465 Apr, [facility] [place] [facility] [address] [id number] [place] [address]- 1827 Mar, [facility] [place] [facility] [address] [id number] [place] [address]- 9223 Mar, [facility] [place] [facility] [address] [id number] [place] [address]- 8068 Mar, [facility] [place] [facility] [address] [id number] [place] [address]- 5642 Mar, [facility] [place] [facility] [address] [id number] [place] [address]- 6406 Feb, [facility] [place] [facility] [address] [id number] [place] [address]- 7205 Feb, [facility] [place] [facility] [address] [id number] [place] [address]- 5174 Jan, [facility] [place] [facility] [address] [id number] [place] [address]- 3070 Jan, [facility] [address] [id number] [place] [address]- 0263 Jan, [facility] [address] [id number] [place] [address]- 8550 Jan, [facility] [address] [id number] [place] [address]- 1202 December, [facility] [address] [id number] [place] [address]- 4560 December, [facility] [address] [id number] [place] [address]- 0945 Nov, [facility] [address] [id number] [place] [address]- 7834 Nov, [facility] [address] [id number] [place] [address]- 4200 Nov, [facility] [address] [id number] [place] [address]- 3347 Oct, [facility] [address] [id number] [place] [address]- 6732 Oct, [facility] [address] [id number] [place] [address]- 0813 Sep, [facility] [address] [id number], [place] [address]- 9656 Sep, [facility] [address] [id number] [place] [address]- 2654 Aug, [facility] [place] [facility] [address] [id number] [place] [address]- 4118 Aug, [facility] [address] [id number] [place] [address]- 8582 Jul, [facility] [address] [id number], [place] [address]- 8373 Jul, [facility] [place] [facility] [address] [id number] [place] [address]- 5831 Jul, [facility] [place] [facility] [address] [id number] [place] [address]- 8485 Jul, [facility] [place] [facility] [address] [facility] [id number] [place] [address]- 7361 Jul, [facility] [place] [facility] [address] [id number] [place] [address]- 1942 Jul, [facility] [place] [facility] [address] [id number] [place] [address]- 1428 Jun, [facility] [place] [facility] [address] [id number] [place] [address]- 0662 Jun, [facility] [place] [facility] [address] [facility] [id number] [place] [address]- 1574 Jun, [facility] [place] [facility] [address] [id number] [place] [address]- 4098 Jun, [facility] [place] [facility] [address] [facility] [id number], [place] [address]- 9727 Jun, [facility] [place] [facility] [address] [facility] [id number] [place] [address]- 0900 Jun, [facility] [place] [facility] [address] [id number], [place] [address]- 1897 May, [facility] [place] [facility] [address] [id number], [place] [address]- 1111 May, [facility] [place] [facility] [address] [id number], [place] [address]- 0787 May, [facility] [place] [facility] [address] [facility] [id number] [place] [address]- 5949 May, [facility] [place] [facility] [address] [facility] [id number] [place] [address]- 7919 18 May, 2012 [facility] [place] [facility] [address] [id number] [place] [address]- 4082 18 May, 2012 [facility] [place] [facility] [address] [id number] [place] [address]- 8973 May, [facility] [place] [facility] [address] [id number] [place] [address]- 5756 May, [facility] [place] [facility] [address] [id number] [place] [address]- 0824 May, [facility] [place] [facility] [address] [id number] [place] [address]- 4993 18 Apr, 2012 [facility] [place] [facility] [address] [id number] [place] [address]- 8289 Apr, [facility] [place] [facility] [address] [id number] [place] [address]- 7952 Mar, [facility] [place] [facility] [address] [id number] [place] [address]- 6025 Mar, [facility] [place] [facility] [address] [id number] [place] [address]- 8481 15 Mar, 2012 [facility] [place] [facility] [address] [id number] [place] [address]- 6394 Mar, [facility] [place] [facility] [address] [id number] [place] [address] Mar, [facility] [place] [facility] [address] [id number] [place] [address] Mar, [facility] [place] [facility] [address] [id number] [place] [address] Mar, [facility] [place] [facility] [address] [id number] [place] [address] Mar, [facility] [place] [facility] [address] [id number] [place] [address] Mar, [facility] [place] [facility] [address] [id number] [place] [address] Feb, [facility] [address] [id number] [place] [address] Feb, [facility] [place] [facility] [address] [id number] [place] [address] Feb, [facility] [place] [facility] [address] [id number] [place] [address] Feb, [facility] [place] [facility] [address] [id number] [place] [address] Jan, [facility] [place] [facility] [address] [id number] [place] [address] December, [facility] [place] [facility] [address] [id number] [place] [address] December, [facility] [place] [facility] [address] [id number] [place] [address] December, [facility] [place] [facility] [address] [id number] [place] [address] Nov, [facility] [place] [facility] [address] [id number] [place] [address] Nov, [facility] [place] [facility] [address] [id number] [place] [address] Nov, [facility] [place] [facility] [address] [id number] [place] [address] Nov, [facility] [place] [facility] [address] [id number] [place] [address] Oct, [facility] [place] [facility] [address] [id number] [place] [address] Sep, [facility] [place] [facility] [address] [id number] [place] [address] 08 Sep, 2011 [facility] [place] [facility] [address] [id number] [place] [address] Aug, [facility] [place] [facility] [address] [id number] [place] [address]- 6587 12 Aug, 2011 [facility] [place] [facility] [address] [id number] [place] [address]- 5381 11 Aug, 2011 [facility] [place] [facility] [address] [id number] [place] [address]- [address] 10 Aug, 2011 [facility] [address] [id number] [place] [address] 5639 04 Aug, 2011 [facility] [place] [facility] [address] [id number] [place] [address] 30 Jul, 2011 [facility] [place] [facility] [address] [id number] [place] [address] 30 Jul, 2011 [facility] [place] [facility] [address] [id number] [place] [address]684 Jul, [facility] [place] [facility] [address] [id number] [place] [address] 05 Jul, 2011 [facility] [place] [facility] [address] [id number] [place] [address] 29 Jun, 2011 [facility] [place] [facility] [address] [id number] [place] [address]763 17 Jun, 2011 [facility] [place] [facility] [address] [facility] [id number] [place] [address]241 16 Jun, 2011 [facility] [place] [facility] [address] [id number] [place] [address]290 16 Jun, 2011 [facility] [place] [facility] [address] [id number] [place] [address] May, [facility] [place] [facility] [address] [id number] [place] [address] May, [facility] [place] [facility] [address] [id number] [place] [address] 45[address] Aug, [facility] [place] [facility] [address] [id number] [place] [address] Jul, [facility] [address] [facility] [id number], [place] [address] Jun, [facility] [id number] [address] [address] May, [facility] [address] [facility] [id number][place] [address] [address] May, [facility] [id number] [place] [address] May, [facility] [address] [facility] [id number] [address] December, [facility] [id number] [place] [address] Jul, [facility] [id number] [address] Jul, [facility] [id number], [place] [address] Jul, [facility] [address], [place] [address] Jun, [facility] [id number], [place] [address] Jun, [facility] [address], [place] [address] Jun, [facility] [address] [address] Jun, [facility] [id number] [address] May, IMMUNIZATIONS No Known Immunizations SOCIAL HISTORY Never Assessed REASON FOR VISIT Urinary incontinence x 2 months. KBoleRN PLAN OF CARE Activity Details Follow Up prn Reason: VITAL SIGNS Height 69 in 2017-07-10 Weight 138.4 lbs 2017-07-10 Temperature 98.2 degrees Fahrenheit 2017-07-10 Heart Rate 80 bpm 2017-07-10 Respiratory Rate 20 2017-07-10 BMI 20.44 kg/m2 2017-07-10 Blood pressure systolic 112 mmHg 2017-07-10 Blood pressure diastolic 72 mmHg 2017-07-10 MEDICATIONS Medication Instructions Dosage Frequency Start Date End Date Duration Status Fluoxetine HCl 20 MG TAKE ONE CAPSULE BY MOUTH IN THE MORNING 30 Active Gabapentin 300 MG 2 capsules 12h Active Macrobid 100 MG Orally every 12 hrs 1 capsule with food 12h Jul, Jul, 7 day(s) Active VESIcare 10 mg Orally Once a day 1 tablet 24h Active Ambien 10 MG Orally Once a day 1 tablet at bedtime 24h 30 days Active Finasteride 5 mg Orally Once a day 1 tablet 24h 30 Active MS Contin 15 MG Orally every 12 hrs 1 tablet 12h May, 28 days Active Percocet 5-325 MG Orally every 6 hrs 1 tablet as needed 6h May, 28 days Active RESULTS No Results PROCEDURES Procedure Date Ordered Result Body Site [facility]IS[facility] ESTABLISHED PATIENT Jul 10, 2017 URINALYSIS, AUTO, W/O SCOPE Jul 10, 2017 LAB [facility] Jul 10, 2017 INSTRUCTIONS MEDICATIONS ADMINISTERED No Known Medications [...]
--- OUTSIDE RECORDS SUMMARY | 2018-07-23 15:00 | XMS REPORT ---
Author PATO Spring Organization [employer] Address Unknown Phone Unavailable Care Team Providers Care Patient Observer Name Role Phone PATO ANAYA CP Unavailable [...] Date End Date Status Dosage MS Contin [facility] [address]-09 15 MG October 29, 2014 1 capsule by Oral route every 12 hours Ambien [facility] [address]-50 10 MG Orally Once a day 1 tablet at bedtime Percocet [facility] [address]-77 5-325 MG Orally every 6 hrs December 24, 2014 1 tablet as needed Results No Known Results Summary Purpose [employer] Submission
--- OUTSIDE RECORDS SUMMARY | 2018-07-23 15:01 | XMS REPORT ---
Author PATO Spring Organization [employer] Address Unknown Phone Unavailable Care Team Providers Care Grab Setter Name Role Phone PATO ANAYA CP Unavailable [...]
--- OUTSIDE RECORDS SUMMARY | 2018-07-23 15:01 | XMS REPORT ---
Author Author PATO ANAYA Organization [facility] Address [address] [place] [address] Care Team Providers Care Character Impersonator Name Role Phone PATO ANAYA Unavailable PROBLEMS Type Condition ICD9-CM Code VHJ65-RM Code Onset Dates Condition Status SNOMED Code Problem Diabetes E11.9 Active 88684951 Problem Unsteady gait R26.81 Active 59707576 Problem Muscular dystrophies G71.0 Active [id number] ALLERGIES No Information ENCOUNTERS Encounter Location Date Diagnosis [facility] [address] [address] Oct, Muscular dystrophies G71.0 [facility] [address] [address] Aug, Muscular dystrophies G71.0 [facility] [address] [address] 07 Jul, 2017 Urinary tract infection without hematuria, site unspecified N39.0 [facility] [id number] [place] [address] -[address]13 Jul, Urinary tract infection without hematuria, site unspecified N39.0 [facility] [id number] [place] [address] 85669- 6419 May, Muscular dystrophies G71.0 [facility] [address] [address]- [address] Apr, Muscular dystrophies G71.0 [facility] [address] [address]- 6[address] Mar, Muscular dystrophies G71.0 [facility] [address] [address]- [address] Feb, [facility] [id number] [place] [address] 87290- 4730 Feb, Muscular dystrophies G71.0 [facility] [id number] [place] [address] 41051- 4112 Jan, Muscular dystrophies G71.0 and Diabetes E11.9 [facility] [id number] [place] [address] 82577- 7019 Nov, [facility] [id number] [place] [address] 65460- 5554 Nov, [facility] [id number] [place] [address] 49917- 8642 Oct, [facility] [id number] [place] [address] 081885- 8040 Sep, [facility] [id number] [place] [address] 295381- 5607 Sep, [facility] [id number] [place] [address] 61975- 8526 Aug, [facility] [id number] [place] [address] 85658- 0569 Jul, [facility] [id number] [place] [address] 04100- 5424 Jul, [facility] [id number] [place] [address] 076913- 2038 Jun, [facility] [id number] [place] [address] 25977 -7361 May, Dysuria R30.0 and Cystitis N30.90 [facility] [id number] [address] 29[address] May, [facility] [id number] [place] [address] 49632- 3977 May, [facility] [address] [address]- 2846 May, [facility] [id number] [place] [address] 51767- 0539 May, [facility] [id number] [place] [address] 92237- 9534 Mar, Muscular dystrophies G71.0 [facility] [id number] [place] [address] 51488- 1927 Feb, Muscular dystrophies G71.0 [facility] [id number] [place] [address] 05180- 5015 Feb, [facility] [id number] [place] [address] 18885- 0090 Jan, Muscular dystrophies G71.0 [facility] [id number] [place] [address] 77947- 9700 December, Open bite of left upper arm, initial encounter S41.152A [facility] [id number] [place] [address] 92729 -3934 December, [facility] [id number] [place] [address] 23537- 0092 Nov, [facility] [address] [address]- 9023 Nov, [facility] [id number] [place] [address] 90259- 6503 Oct, [facility] [id number] [place] [address] 30134- 1099 Oct, Diabetes type 2, controlled E11.9 and Polyneuropathy G62.9 [facility] [address] [address]- 5176 Sep, [facility] [id number] [place] [address] 23369- 2829 Aug, [facility] [address] [address]- 9370 Aug, [facility] [id number] [place] [address] 583613- 8254 Jul, [facility] [id number] [place] [address] 299319- 1753 Jul, [facility] [id number] [place] [address] 703434- 4413 Jul, [facility] [id number] [place] [address] 34476- 0237 Jun, [facility] [id number] [place] [address] 82977- 2587 Jun, Foot deformity M21.969 [facility] [id number] [place] [address] 49346- 2347 May, [facility] [id number] [place] [address] 16459- 0051 May, [facility] [id number] [place] [address] 21982- 4891 May, [facility] [id number] [place] [address] 14760- 3438 Apr, Diabetes with renal manifestations, type II or unspecified type, not stated as uncontrolled 250.40 and Unsteady gait 781.2 [facility] [id number] [address]- 3565 Apr, [facility] [id number] [place] [address] 62197- 6264 Apr, [facility] [id number] [place] [address] 24700- 0498 Mar, [facility] [id number] [place] [address] 63281- 3103 Feb, [facility] [id number] [place] [address] 45371- 9125 Jan, [facility] [place] [facility] [address] [id number] [place] [address]- 2573 Jan, [facility] [place] [facility] [address] [facility] [id number] [place] [address]- 7018 December, [facility] [place] [facility] [address] [facility] [id number] [place] [address]- 1514 Nov, [facility] [place] [facility] [address] [facility] [id number] [place] [address]- 2990 Nov, [facility] [place] [facility] [id number] [place] [address]- 7576 Oct, [facility] [place] [facility] [address] [facility] [id number] [place] [address]- 0746 Oct, [facility] [place] [facility] [address] [address]- 1297 Oct, [facility] [place] [facility] [address] [facility] [id number] [place] [address]- 1500 Oct, [facility] [place] [facility] [id number] [place] [address]- 9448 Oct, [facility] [place] [facility] [id number] [place] [address]- 2151 Oct, [facility] [place] [facility] [address] [facility] [id number] [address]- 9691 Sep, [facility] [place] [facility] [address] [facility] [id number] [address]- 0036 Sep, [facility] [place] [facility] [address] [facility] [id number] [place] [address]- 2037 Sep, [facility] [place] [facility] [address] [facility] [id number] [address]- 6178 Sep, [facility] [place] [facility] [id number] [address]- 3828 Aug, [facility] [place] [facility] [address] [id number] [place] [address]- 2319 Aug, [facility] [place] [facility] [address] [id number] [place] [address]- 3312 Aug, [facility] [place] [facility] [address] [id number] [place] [address]- 7987 Aug, [facility] [place] [facility] [address] [id number] [place] [address]- 8279 Jul, [facility] [place] [facility] [address] [id number] [place] [address]- 9263 Jul, [facility] [place] [facility] [address] [id number] [place] [address]- 8854 Jul, [facility] [place] [facility] [address] [id number] [place] [address]- 9639 Jul, [facility] [place] [facility] [address] [id number] [place] [address]- 5389 Jun, [facility] [place] [facility] [address] [id number] [place] [address]- 6860 Jun, [facility] [place] [facility] [address] [id number] [place] [address]- 9409 Jun, [facility] [place] [facility] [address] [id number] [place] [address]- 9484 Jun, [facility] [place] [facility] [address] [id number] [place] [address]- 4947 May, [facility] [place] [facility] [address] [id number] [place] [address]- 9336 May, [facility] [place] [facility] [address] [id number] [place] [address]- 7115 May, [facility] [place] [facility] [address] [id number] [place] [address]- 5209 May, [facility] [place] [facility] [address] [id number] [place] [address]- 8683 Apr, [facility] [place] [facility] [address] [id number] [place] [address]- 5118 Apr, [facility] [place] [facility] [address] [id number] [place] [address]- 5029 Apr, [facility] [place] [facility] [address] [id number] [place] [address]- 6923 Mar, [facility] [place] [facility] [address] [id number] [place] [address]- 7304 Mar, [facility] [place] [facility] [address] [id number] [place] [address]- 5767 Mar, [facility] [place] [facility] [address] [id number] [place] [address]- 5676 Mar, [facility] [place] [facility] [address] [id number] [place] [address]- 2138 Feb, [facility] [place] [facility] [address] [id number] [place] [address]- 3590 Feb, [facility] [place] [facility] [address] [id number] [place] [address]- 0384 Feb, [facility] [place] [facility] [address] [id number] [place] [address]- 9681 Feb, [facility] [place] [facility] [address] [id number] [place] [address]- 4824 Jan, [facility] [place] [facility] [address] [id number] [place] [address]- 4563 Jan, [facility] [place] [facility] [address] [id number] [place] [address]- 2182 December, [facility] [place] [facility] [address] [id number] [place] [address]- 2004 December, [facility] [place] [facility] [address] [id number] [place] [address]- 8949 Nov, [facility] [place] [facility] [address] [id number] [place] [address] 2546 Nov, [facility] [address] [id number] [place] [address]- 5846 Oct, [facility] [place] [facility] [address] [id number] [place] [address] 2546 Oct, [facility] [address] [id number] [place] [address]- 5846 Oct, [facility] [place] [facility] [address] [id number] [place] [address]- 2336 Oct, [facility] [place] [facility] [address] [id number] [place] [address]- 5063 Sep, [facility] [place] [facility] [address] [id number] [place] [address]- 4346 Sep, [facility] [place] [facility] [address] [id number] [place] [address]- 9988 Aug, [facility] [address] [id number] [place] [address]- 5246 Aug, [facility] [place] [facility] [address] [id number] [place] [address]- 4818 Aug, [facility] [address] [id number] [place] [address]- 2070 Aug, [facility] [place] [facility] [address] [id number] [place] [address]- 4416 Aug, [facility] [place] [facility] [address] [id number] [place] [address]- 4206 Aug, [facility] [place] [facility] [address] [id number] [place] [address]- 2546 Jul, [facility] [place] [facility] [address] [id number] [place] [address]- 2546 Jul, [facility] [place] [facility] [address] [id number] [place] [address]- 3636 Jul, [facility] [place] [facility] [address] [id number] [place] [address]- 9195 Jun, [facility] [place] [facility] [address] [id number] [place] [address]- 2480 Jun, [facility] [place] [facility] [address] [id number] [place] [address]- 3366 Jun, [facility] [place] [facility] [address] [id number] [place] [address]- 9643 Jun, [facility] [place] [facility] [address] [id number] [place] [address]- 7176 May, [facility] [place] [facility] [address] [id number] [place] [address]- 0846 May, [facility] [place] [facility] [address] [id number] [place] [address]- 4293 May, [facility] [place] [facility] [address] [id number] [place] [address]- 4703 May, [facility] [place] [facility] [address] [id number] [place] [address]- 9560 Apr, [facility] [place] [facility] [address] [id number] [place] [address]- 0356 Apr, [facility] [place] [facility] [address] [id number], [place] [address]- 3501 Apr, [facility] [place] [facility] [address] [id number], [place] [address]- 8679 Apr, [facility] [place] [facility] [address] [id number] [place] [address]- 3925 Apr, [facility] [place] [facility] [address] [id number], [place] [address]- 8773 Mar, [facility] [place] [facility] [address] [id number] [place] [address]- 0325 Mar, [facility] [place] [facility] [address] [id number] [place] [address]- 3633 08 Mar, 2013 [facility] [address] [id number] [place] [address]- 0114 Mar, [facility] [place] [facility] [address] [id number] [place] [address]- 3457 Feb, [facility] [address] [id number] [place] [address]- 8132 Feb, [facility] [place] [facility] [address] [id number] [place] [address]- 9371 Jan, [facility] [address] [id number] [place] [address]- 2642 Jan, [facility] [place] [facility] [address] [id number] [place] [address]- 9199 Jan, [facility] [address] [id number] [place] [address]- 7664 Jan, [facility] [place] [facility] [address] [id number] [place] [address]- 7746 December, [facility] [address] [id number] [place] [address]- 7147 December, [facility] [address] [id number] [place] [address]- 1506 Nov, [facility] [place] [facility] [address] [id number] [place] [address]- 5022 Nov, [facility] [place] [facility] [address] [id number] [place] [address]- 4747 Nov, [facility] [place] [facility] [address] [id number] [place] [address]- 8452 Oct, [facility] [place] [facility] [address] [id number] [place] [address]- 2687 Oct, [facility] [place] [facility] [address] [id number] [place] [address]- 9828 Sep, [facility] [place] [facility] [address] [id number] [place] [address]- 1373 07 Sep, 2012 [facility] [place] [facility] [address] [id number] [place] [address]- 3300 Aug, [facility] [place] [facility] [address] [id number] [place] [address]- 0978 Aug, [facility] [place] [facility] [address] [id number] [place] [address]- 3853 Jul, [facility] [place] [facility] [address] [id number] [place] [address]- 0426 Jul, [facility] [place] [facility] [address] [id number] [place] [address]- 6934 Jul, [facility] [address] [id number] [place] [address]- 2038 Jul, [facility] [address] [id number] [place] [address]- 7139 Jul, [facility] [place] [facility] [address] [id number] [place] [address]- 0887 Jul, [facility] [place] [facility] [address] [id number] [place] [address]- 6974 Jun, [facility] [place] [facility] [address] [id number] [place] [address]- 1274 Jun, [facility] [place] [facility] [address] [id number] [place] [address]- 4195 Jun, [facility] [place] [facility] [address] [id number] [place] [address]- 3449 Jun, [facility] [place] [facility] [address] [id number] [place] [address]- 6967 Jun, [facility] [place] [facility] [address] [id number] [place] [address]- 9509 Jun, [facility] [place] [facility] [address] [id number] [place] [address]- 2546 May, [facility] [place] [facility] [address] [id number] [place] 7237 May, [facility] [place] [facility] [address] [id number] [place] [address]- 9680 May, [facility] [place] [facility] [address] [id number] [place] [address]- 1789 May, [facility] [place] [facility] [address] [id number] [place] [address]- 1397 May, [facility] [place] [facility] [address] [id number] [place] 8726 May, [facility] [place] [facility] [address] [id number] [place] [address]- 9263 May, [facility] [place] [facility] [address] [id number] [place] [address]- 0378 May, [facility] [place] [facility] [address] [id number] [place] [address]- 0476 May, [facility] [place] [facility] [address] [id number] [place] [address]- 9577 18 Apr, 2012 [facility] [place] [facility] [address] [id number] [place] [address]- 3793 Apr, [facility] [place] [facility] [address] [id number] [place] [address]- 8637 27 Mar, 2012 [facility] [place] [facility] [address] [id number] [place] [address]- 7581 22 Mar, 2012 [facility] [place] [facility] [address] [id number] [place] [address]- 8613 15 Mar, 2012 [facility] [place] [facility] [address] [id number] [place] [address]- 8944 14 Mar, 2012 [facility] [place] [facility] [address] [id number] [place] [address]- 3294 13 Mar, 2012 [facility] [place] [facility] [address] [id number] [place] [address] 2546 Mar, [facility] [address] [id number] [place] [address]- 4227 Mar, [facility] [address] [id number] [place] [address] 2546 Mar, [facility] [address] [id number] [place] [address]- 8661 Mar, [facility] [address] [id number] [place] [address]- 9735 Feb, [facility] [address] [id number] [place] [address] Feb, [facility] [address] [id number] [place] [address] Feb, [facility] [address] [id number] [place] [address] Feb, [facility] [address] [id number] [place] [address] Jan, [facility] [address] [id number] [place] [address] December, [facility] [address] [id number] [place] [address] December, [facility] [address] [id number] [place] [address] December, [facility] [address] [id number] [place] [address] Nov, [facility] [place] [facility] [address] [id number] [place] [address] Nov, [facility] [address] [id number] [place] [address] Nov, [facility] [address] [id number] [place] [address] Nov, [facility] [address] [id number] [place] [address] Oct, [facility] [place] [facility] [address] [id number] [place] [address] 15 Sep, 2011 [facility] [address] [id number] [place] [address] 08 Sep, 2011 [facility] [place] [facility] [address] [id number] [place] [address] 16 Aug, 2011 [facility] [address] [id number] [place] [address] Aug, [facility] [place] [facility] [address] [id number] [place] [address] Aug, [facility] [address] [id number] [place] [address] Aug, [facility] [address] [id number] [place] [address] Aug, [facility] [address] [id number] [place] [address] Jul, [facility] [place] [facility] [address] [id number] [place] [address] 30 Jul, 2011 [facility] [place] [facility] [address] [id number] [place] [address] Jul, [facility] [place] [facility] [address] [id number] [address] 05 Jul, 2011 [facility] [place] [facility] [address] [id number] [place] [address] 29 Jun, 2011 [facility] [place] [facility] [address] [id number] [place] [address] 17 Jun, 2011 [facility] [place] [facility] [address] [id number] [place] [address] 16 Jun, 2011 [facility] [place] [facility] [address] [id number] [place] [address] 16 Jun, 2011 [facility] [place] [facility] [address] [id number] [place] [address] 28 May, 2011 [facility] [place] [facility] [address] [id number] [place] [address] 28 May, 2011 [facility] [place] [facility] [address] [id number] [place] [address] 17 Aug, 2010 [facility] [place] [facility] [address] [id number] [place] [address] 22 Jul, 2010 [facility] [place] [facility] [address] [id number] [place] [address] Jun, [facility] [place] [facility] [address] [id number] [place] [address] May, [facility] [place] [facility] [address] [id number] [place] [address] May, [facility] [place] [facility] [address] [id number] [place] [address] May, [facility] [place] [facility] [address] [id number] [place] [address] December, [facility] [place] [facility] [address] [facility] [id number] [place] [address] Jul, [facility] [place] [facility] [address] [id number] [place] [address] Jul, [facility] [place] [facility] [address] [id number] [place] [address] Jul, [facility] [place] [facility] [address] [id number] [place] [address] 30 Jun, 2009 [facility] [place] [facility] [address] [id number] [place] [address] 13 Jun, 2009 [facility] [place] [facility] [address] [facility] [id number] [place] [address] Jun, [facility] [place] [facility] [address] [facility] [id number] [place] [id number] Jun, [facility] [address] [facility] [id number] [id number] May, IMMUNIZATIONS No Known Immunizations SOCIAL HISTORY Never Assessed REASON FOR VISIT Controlled Refill Request PLAN OF CARE VITAL SIGNS MEDICATIONS Medication Instructions Dosage Frequency Start Date End Date Duration Status MS Contin 15 MG Orally every 12 hrs 1 tablet 12h Mar, 28 days Active Percocet 5-325 MG Orally every 6 hrs 1 tablet as needed 6h Mar, 28 days Active RESULTS No Results PROCEDURES [...]
--- OUTSIDE RECORDS SUMMARY | 2018-07-23 15:02 | XMS REPORT | Continuity of Care Document ---
Author Author [facility] Address Unknown Phone Unavailable Allergies Active Description Code Type Severity Reaction Onset Reported/Identified Relationship to Patient Clinical Status Yes ezetimibe [id number] Drug Allergy Unknown N/A 04/23/2011 Medications There is no data. Problems Date Dx Coded Attending Type Code Diagnosis Diagnosed By 03/11/2008 MEG SALDANA DO 250.00 DIABETES MELLITUS 03/11/2008 MEG SALDANA DO 272.4 HYPERLIPIDEMIA HYPERLIPOPROTEINEMIAS (Old Classification) 03/11/2008 MEG SALDANA DO 250.00 DIABETES MELLITUS 03/11/2008 MEG SALDANA DO 272.4 HYPERLIPIDEMIA HYPERLIPOPROTEINEMIAS (Old Classification) 03/11/2008 250.00 DIABETES MELLITUS 03/11/2008 272.4 HYPERLIPIDEMIA HYPERLIPOPROTEINEMIAS (Old Classification) 03/11/2008 250.00 DIABETES MELLITUS 03/11/2008 272.4 HYPERLIPIDEMIA HYPERLIPOPROTEINEMIAS (Old Classification) 03/11/2008 250.00 DIABETES MELLITUS 03/11/2008 272.4 HYPERLIPIDEMIA HYPERLIPOPROTEINEMIAS (Old Classification) 03/11/2008 250.00 DIABETES MELLITUS 03/11/2008 272.4 HYPERLIPIDEMIA HYPERLIPOPROTEINEMIAS (Old Classification) 03/11/2008 PATO ANAYA APRN 250.00 DIABETES MELLITUS 03/11/2008 PAOT ANAYA APRN 272.4 HYPERLIPIDEMIA HYPERLIPOPROTEINEMIAS (Old Classification) 03/11/2008 PATO ANAYA APRN 250.00 DIABETES MELLITUS 03/11/2008 PATO ANAYA APRN 272.4 HYPERLIPIDEMIA HYPERLIPOPROTEINEMIAS (Old Classification) 03/11/2008 PATO ANAYA APRN 250.00 DIABETES MELLITUS 03/11/2008 PATO ANAYA APRN 272.4 HYPERLIPIDEMIA HYPERLIPOPROTEINEMIAS (Old Classification) 03/11/2008 MEG SALDANA DO 250.00 DIABETES MELLITUS 03/11/2008 MEG SALDANA DO 272.4 HYPERLIPIDEMIA HYPERLIPOPROTEINEMIAS (Old Classification) 03/11/2008 HÉCTOR RESEARCH [employer] INSIGHTS EXECUTIVE, PATO T 250.00 DIABETES MELLITUS 03/11/2008 HÉCTOR RESEARCH [employer] INSIGHTS EXECUTIVE, PATO T 272.4 HYPERLIPIDEMIA HYPERLIPOPROTEINEMIAS (Old Classification) 03/11/2008 HÉCTOR RESEARCH & INSIGHTS EXECUTIVE, PATO T 250.00 DIABETES MELLITUS 03/11/2008 HÉCTOR RESEARCH & INSIGHTS EXECUTIVE, PATO T 272.4 HYPERLIPIDEMIA HYPERLIPOPROTEINEMIAS (Old Classification) 03/11/2008 HÉCTOR RESEARCH [employer] INSIGHTS EXECUTIVE, PATO T 250.00 DIABETES MELLITUS 03/11/2008 HÉCTOR RESEARCH [employer] INSIGHTS EXECUTIVE, PATO T 272.4 HYPERLIPIDEMIA HYPERLIPOPROTEINEMIAS (Old Classification) 03/11/2008 HÉCTOR RESEARCH & INSIGHTS EXECUTIVE, PATO T 250.00 DIABETES MELLITUS 03/11/2008 HÉCTOR RESEARCH [employer] INSIGHTS EXECUTIVE, PATO T 272.4 HYPERLIPIDEMIA HYPERLIPOPROTEINEMIAS (Old Classification) 03/11/2008 HÉCTOR RESEARCH & INSIGHTS EXECUTIVE, PATO T 250.00 DIABETES MELLITUS 03/11/2008 HÉCTOR RESEARCH & INSIGHTS EXECUTIVE, PATO T 272.4 HYPERLIPIDEMIA HYPERLIPOPROTEINEMIAS (Old Classification) 03/11/2008 HÉCTOR RESEARCH & INSIGHTS EXECUTIVE, PATO T 250.00 DIABETES MELLITUS 03/11/2008 HÉCTOR RESEARCH & INSIGHTS EXECUTIVE, PATO T 272.4 HYPERLIPIDEMIA HYPERLIPOPROTEINEMIAS (Old Classification) 03/11/2008 HÉCTOR RESEARCH & INSIGHTS EXECUTIVE, PATO T 250.00 DIABETES MELLITUS 03/11/2008 HÉCTOR RESEARCH [employer] INSIGHTS EXECUTIVE, PATO T 272.4 HYPERLIPIDEMIA HYPERLIPOPROTEINEMIAS (Old Classification) 10/06/2008 MEG SALDANA DO 338.4 CHRONIC PAIN SYNDROME 10/06/2008 MEG SALDANA DO 790.93 Serology Prostate-specific Antigen (PSA) Elevated 10/06/2008 MEG SALDANA DO 338.4 CHRONIC PAIN SYNDROME 10/06/2008 MEG SALDANA DO 790.93 Serology Prostate-specific Antigen (PSA) Elevated 10/06/2008 338.4 CHRONIC PAIN SYNDROME 10/06/2008 790.93 Serology Prostate-specific Antigen (PSA) Elevated 10/06/2008 338.4 CHRONIC PAIN SYNDROME 10/06/2008 790.93 Serology Prostate-specific Antigen (PSA) Elevated 10/06/2008 338.4 CHRONIC PAIN SYNDROME 10/06/2008 790.93 Serology Prostate-specific Antigen (PSA) Elevated 10/06/2008 338.4 CHRONIC PAIN SYNDROME 10/06/2008 790.93 Serology Prostate-specific Antigen (PSA) Elevated 10/06/2008 PATO ANAYA APRN T 338.4 CHRONIC PAIN SYNDROME 10/06/2008 PATO ANAYA APRN T 790.93 Serology Prostate-specific Antigen (PSA) Elevated 10/06/2008 PATO ANAYA APRN T 338.4 CHRONIC PAIN SYNDROME 10/06/2008 PATO ANAYA APRN T 790.93 Serology Prostate-specific Antigen (PSA) Elevated 10/06/2008 PATO ANAYA APRN T 338.4 CHRONIC PAIN SYNDROME 10/06/2008 PATO ANAYA APRN T 790.93 Serology Prostate-specific Antigen (PSA) Elevated 10/06/2008 SALDANA DO MEG K 338.4 CHRONIC PAIN SYNDROME 10/06/2008 SALDANA DO MEG K 790.93 Serology Prostate-specific Antigen (PSA) Elevated 10/06/2008 PATO ANAYA APRN T 338.4 CHRONIC PAIN SYNDROME 10/06/2008 PATO ANAYA APRN T 790.93 Serology Prostate-specific Antigen (PSA) Elevated 10/06/2008 PATO ANAYA APRN 338.4 CHRONIC PAIN SYNDROME 10/06/2008 PATO ANAYA APRN T 790.93 Serology Prostate-specific Antigen (PSA) Elevated 10/06/2008 PATO ANAYA APRN 338.4 CHRONIC PAIN SYNDROME 10/06/2008 PATO ANAYA APRN T 790.93 Serology Prostate-specific Antigen (PSA) Elevated 10/06/2008 PATO ANAYA APRN T 338.4 CHRONIC PAIN SYNDROME 10/06/2008 PATO ANAYA APRN T 790.93 Serology Prostate-specific Antigen (PSA) Elevated 10/06/2008 PATO ANAYA APRN 338.4 CHRONIC PAIN SYNDROME 10/06/2008 PATO ANAYA APRN T 790.93 Serology Prostate-specific Antigen (PSA) Elevated 10/06/2008 PATO ANAYA APRN T 338.4 CHRONIC PAIN SYNDROME 10/06/2008 PATO ANAYA APRN T 790.93 Serology Prostate-specific Antigen (PSA) Elevated 10/06/2008 PATO ANAYA APRN T 338.4 CHRONIC PAIN SYNDROME 10/06/2008 PATO ANAYA APRN T 790.93 Serology Prostate-specific Antigen (PSA) Elevated 11/11/2009 SALDANA DO, MEG K 596.51 OVERACTIVE BLADDER 11/11/2009 SALDANA DO, MEG K 596.51 OVERACTIVE BLADDER 11/11/2009 596.51 OVERACTIVE BLADDER 11/11/2009 596.51 OVERACTIVE BLADDER 11/11/2009 596.51 OVERACTIVE BLADDER 11/11/2009 596.51 OVERACTIVE BLADDER 11/11/2009 PATO ANAYA APRN T 596.51 OVERACTIVE BLADDER 11/11/2009 PATO ANAYA APRN T 596.51 OVERACTIVE BLADDER 11/11/2009 PATO ANAYA APRN T 596.51 OVERACTIVE BLADDER 11/11/2009 SALDANA DO, MEG K 596.51 OVERACTIVE BLADDER 11/11/2009 PATO ANAYA APRN T 596.51 OVERACTIVE BLADDER 11/11/2009 PATO ANAYA APRN 596.51 OVERACTIVE BLADDER 11/11/2009 PATO AANYA APRN 596.51 OVERACTIVE BLADDER 11/11/2009 PATO ANAYA APRN 596.51 OVERACTIVE BLADDER 11/11/2009 PATO ANAYA APRN T 596.51 OVERACTIVE BLADDER 11/11/2009 PAOT ANAYA APRN T 596.51 OVERACTIVE BLADDER 11/11/2009 PATO ANAYA APRN 596.51 OVERACTIVE BLADDER 12/14/2009 SALDANA DO, MEG K 716.91 ARTHROPATHY SHOULDER REGION LEFT 12/14/2009 SALDANA DO, MEG K 716.91 ARTHROPATHY SHOULDER REGION LEFT 12/14/2009 716.91 ARTHROPATHY SHOULDER REGION LEFT 12/14/2009 716.91 ARTHROPATHY SHOULDER REGION LEFT 12/14/2009 716.91 ARTHROPATHY SHOULDER REGION LEFT 12/14/2009 716.91 ARTHROPATHY SHOULDER REGION LEFT 12/14/2009 PATO ANAYA APRN 716.91 ARTHROPATHY SHOULDER REGION LEFT 12/14/2009 PATO ANAYA APRN 716.91 ARTHROPATHY SHOULDER REGION LEFT 12/14/2009 PATO ANAYA APRN 716.91 ARTHROPATHY SHOULDER REGION LEFT 12/14/2009 SALDANA DO, MEG K 716.91 ARTHROPATHY SHOULDER REGION LEFT 12/14/2009 PATO ANAYA APRN 716.91 ARTHROPATHY SHOULDER REGION LEFT 12/14/2009 PATO ANAYA APRN 716.91 ARTHROPATHY SHOULDER REGION LEFT 12/14/2009 PATO ANAYA APRN 716.91 ARTHROPATHY SHOULDER REGION LEFT 12/14/2009 PATO ANAYA APRN 716.91 ARTHROPATHY SHOULDER REGION LEFT 12/14/2009 PATO ANAYA APRN 716.91 ARTHROPATHY SHOULDER REGION LEFT 12/14/2009 PATO ANAYA APRN 716.91 ARTHROPATHY SHOULDER REGION LEFT 12/14/2009 PATO ANAYA APRN 716.91 ARTHROPATHY SHOULDER REGION LEFT 08/23/2010 MEG SALDANA DO 727.61 NONTRAUMATIC TENDON ROTATOR CUFF TEAR (COMPLETE) LEFT 08/23/2010 MEG SALDANA DO K 727.61 NONTRAUMATIC TENDON ROTATOR CUFF TEAR (COMPLETE) LEFT 08/23/2010 727.61 NONTRAUMATIC TENDON ROTATOR CUFF TEAR (COMPLETE) LEFT 08/23/2010 727.61 NONTRAUMATIC TENDON ROTATOR CUFF TEAR (COMPLETE) LEFT 08/23/2010 727.61 NONTRAUMATIC TENDON ROTATOR CUFF TEAR (COMPLETE) LEFT 08/23/2010 727.61 NONTRAUMATIC TENDON ROTATOR CUFF TEAR (COMPLETE) LEFT 08/23/2010 PATO ANAYA APRN 727.61 NONTRAUMATIC TENDON ROTATOR CUFF TEAR (COMPLETE) LEFT 08/23/2010 PATO ANAYA APRN 727.61 NONTRAUMATIC TENDON ROTATOR CUFF TEAR (COMPLETE) LEFT 08/23/2010 PATO ANAYA APRN 727.61 NONTRAUMATIC TENDON ROTATOR CUFF TEAR (COMPLETE) LEFT 08/23/2010 MEG SALDANA DO 727.61 NONTRAUMATIC TENDON ROTATOR CUFF TEAR (COMPLETE) LEFT 08/23/2010 PATO ANAYA APRN 727.61 NONTRAUMATIC TENDON ROTATOR CUFF TEAR (COMPLETE) LEFT 08/23/2010 PATO ANAYA APRN 727.61 NONTRAUMATIC TENDON ROTATOR CUFF TEAR (COMPLETE) LEFT 08/23/2010 PATO ANAYA APRN 727.61 NONTRAUMATIC TENDON ROTATOR CUFF TEAR (COMPLETE) LEFT 08/23/2010 PATO ANAYA APRN 727.61 NONTRAUMATIC TENDON ROTATOR CUFF TEAR (COMPLETE) LEFT 08/23/2010 PATO ANAYA APRN 727.61 NONTRAUMATIC TENDON ROTATOR CUFF TEAR (COMPLETE) LEFT 08/23/2010 PATO ANAYA APRN 727.61 NONTRAUMATIC TENDON ROTATOR CUFF TEAR (COMPLETE) LEFT 08/23/2010 PATO ANAYA APRN 727.61 NONTRAUMATIC TENDON ROTATOR CUFF TEAR (COMPLETE) LEFT 03/28/2011 MEG SALDANA DO K 780.79 FATIGUE 03/28/2011 MEG SALDANA DO 792.1 Light Colored Bowel Movement (acholic Stools) 03/28/2011 SALDANA DO, MEG K 780.79 FATIGUE 03/28/2011 SALDANA DO, MEG K 792.1 Light Colored Bowel Movement (acholic Stools) 03/28/2011 780.79 FATIGUE 03/28/2011 792.1 Light Colored Bowel Movement (acholic Stools) 03/28/2011 780.79 FATIGUE 03/28/2011 792.1 Light Colored Bowel Movement (acholic Stools) 03/28/2011 780.79 FATIGUE 03/28/2011 792.1 Light Colored Bowel Movement (acholic Stools) 03/28/2011 780.79 FATIGUE 03/28/2011 792.1 Light Colored Bowel Movement (acholic Stools) 03/28/2011 PATO ANAYA APRN 780.79 FATIGUE 03/28/2011 PATO ANAYA APRN 792.1 Light Colored Bowel Movement (acholic Stools) 03/28/2011 PATO ANAYA APRN 780.79 FATIGUE 03/28/2011 PATO ANAYA APRN 792.1 Light Colored Bowel Movement (acholic Stools) 03/28/2011 PATO ANAYA APRN 780.79 FATIGUE 03/28/2011 PATO ANAYA APRN 792.1 Light Colored Bowel Movement (acholic Stools) 03/28/2011 SALDANA DO MEG K 780.79 FATIGUE 03/28/2011 SALDANA DOANGELITOA K 792.1 Light Colored Bowel Movement (acholic Stools) 03/28/2011 PATO ANAYA APRN 780.79 FATIGUE 03/28/2011 PATO ANAYA APRN 792.1 Light Colored Bowel Movement (acholic Stools) 03/28/2011 PATO ANAYA APRN 780.79 FATIGUE 03/28/2011 PATO ANAYA APRN 792.1 Light Colored Bowel Movement (acholic Stools) 03/28/2011 PATO ANAYA APRN 780.79 FATIGUE 03/28/2011 PATO ANAYA APRN 792.1 Light Colored Bowel Movement (acholic Stools) 03/28/2011 PATO ANAYA APRN T 780.79 FATIGUE 03/28/2011 PATO ANAYA APRN 792.1 Light Colored Bowel Movement (acholic Stools) 03/28/2011 PATO ANAYA APRN 780.79 FATIGUE 03/28/2011 PATO ANAYA APRN 792.1 Light Colored Bowel Movement (acholic Stools) 03/28/2011 PATO ANAYA APRN 780.79 FATIGUE 03/28/2011 PATO ANAYA APRN 792.1 Light Colored Bowel Movement (acholic Stools) 03/28/2011 PATO ANAYA APRN 780.79 FATIGUE 03/28/2011 PATO ANAYA APRN 792.1 Light Colored Bowel Movement (acholic Stools) 04/23/2011 Ot 813.42 04/23/2011 Ot 959.3 04/23/2011 Ot E000.8 04/23/2011 Ot E001.0 04/23/2011 Ot E849.0 04/23/2011 Ot E888.9 06/11/2011 Ot 564.00 06/11/2011 Ot 789.00 08/17/2011 MEG SALDANA DO 780.99 loss of pleasure from usual activities (anhedonia) 08/17/2011 MEG SALDANA DO 780.99 loss of pleasure from usual activities (anhedonia) 08/17/2011 780.99 loss of pleasure from usual activities (anhedonia) 08/17/2011 780.99 loss of pleasure from usual activities (anhedonia) 08/17/2011 780.99 loss of pleasure from usual activities (anhedonia) 08/17/2011 780.99 loss of pleasure from usual activities (anhedonia) 08/17/2011 PATO ANAYA APRN 780.99 loss of pleasure from usual activities (anhedonia) 08/17/2011 PATO ANAYA APRN 780.99 loss of pleasure from usual activities (anhedonia) 08/17/2011 PATO ANAYA APRN 780.99 loss of pleasure from usual activities (anhedonia) 08/17/2011 MEG SALDANA DO 780.99 loss of pleasure from usual activities (anhedonia) 08/17/2011 PATO ANAYA APRN 780.99 loss of pleasure from usual activities (anhedonia) 08/17/2011 PATO ANAYA APRN 780.99 loss of pleasure from usual activities (anhedonia) 08/17/2011 PATO ANAYA APRN 780.99 loss of pleasure from usual activities (anhedonia) 08/17/2011 PATO ANAYA APRN 780.99 loss of pleasure from usual activities (anhedonia) 08/17/2011 HÉCTOR RESEARCH & INSIGHTS EXECUTIVE, PATO T 780.99 loss of pleasure from usual activities (anhedonia) 08/17/2011 PATO ANAYA APRN 780.99 loss of pleasure from usual activities (anhedonia) 08/17/2011 PATO ANAYA APRN 780.99 loss of pleasure from usual activities (anhedonia) 02/20/2012 MEG SALDANA DO K 702.0 ACTINIC KERATOSIS 02/20/2012 MEG SALDANA DO K 702.0 ACTINIC KERATOSIS 02/20/2012 702.0 ACTINIC KERATOSIS 02/20/2012 702.0 ACTINIC KERATOSIS 02/20/2012 702.0 ACTINIC KERATOSIS 02/20/2012 702.0 ACTINIC KERATOSIS 02/20/2012 PATO ANAYA APRN 702.0 ACTINIC KERATOSIS 02/20/2012 PATO ANAYA APRN 702.0 ACTINIC KERATOSIS 02/20/2012 PATO ANAYA APRN 702.0 ACTINIC KERATOSIS 02/20/2012 MEG SALDANA DO 702.0 ACTINIC KERATOSIS 02/20/2012 PATO ANAYA APRN 702.0 ACTINIC KERATOSIS 02/20/2012 PATO ANAYA APRN 702.0 ACTINIC KERATOSIS 02/20/2012 PATO ANAYA APRN T 702.0 ACTINIC KERATOSIS 02/20/2012 PATO ANAYA APRN T 702.0 ACTINIC KERATOSIS 02/20/2012 PATO ANAYA APRN T 702.0 ACTINIC KERATOSIS 02/20/2012 PATO ANAYA APRN T 702.0 ACTINIC KERATOSIS 02/20/2012 PATO ANAYA APRN 702.0 ACTINIC KERATOSIS 03/21/2012 MEG SALDANA DO K 300.4 MO DYSTHYMIC DISORDER 03/21/2012 MEG SALDANA DO K 300.4 MO DYSTHYMIC DISORDER 03/21/2012 300.4 MO DYSTHYMIC DISORDER 03/21/2012 300.4 MO DYSTHYMIC DISORDER 03/21/2012 300.4 MO DYSTHYMIC DISORDER 03/21/2012 300.4 MO DYSTHYMIC DISORDER 03/21/2012 PATO ANAYA APRN 300.4 MO DYSTHYMIC DISORDER 03/21/2012 PATO ANAYA APRN 300.4 MO DYSTHYMIC DISORDER 03/21/2012 PATO ANAYA APRN 300.4 MO DYSTHYMIC DISORDER 03/21/2012 MEG SALDANA DO K 300.4 MO DYSTHYMIC DISORDER 03/21/2012 PATO ANAYA APRN T 300.4 MO DYSTHYMIC DISORDER 03/21/2012 HÉCTOR RONDON, PATO T 300.4 MO DYSTHYMIC DISORDER 03/21/2012 HÉCTOR RONDON, PATO T 300.4 MO DYSTHYMIC DISORDER 03/21/2012 PATO ANAYA APRN T 300.4 MO DYSTHYMIC DISORDER 03/21/2012 PATO ANAYA APRN T 300.4 MO DYSTHYMIC DISORDER 03/21/2012 HÉCTOR RONDON, PATO T 300.4 MO DYSTHYMIC DISORDER 03/21/2012 HÉCTOR RONDON, PATO T 300.4 MO DYSTHYMIC DISORDER 03/28/2012 MEG SALDANA DO K 703.8 OTHER SPECIFIED DISEASES OF NAIL 03/28/2012 MEG SALDANA DO K 703.8 OTHER SPECIFIED DISEASES OF NAIL 03/28/2012 703.8 OTHER SPECIFIED DISEASES OF NAIL 03/28/2012 703.8 OTHER SPECIFIED DISEASES OF NAIL 03/28/2012 703.8 OTHER SPECIFIED DISEASES OF NAIL 03/28/2012 703.8 OTHER SPECIFIED DISEASES OF NAIL 03/28/2012 PATO ANAYA APRN 703.8 OTHER SPECIFIED DISEASES OF NAIL 03/28/2012 PATO ANAYA APRN 703.8 OTHER SPECIFIED DISEASES OF NAIL 03/28/2012 PATO ANAYA APRN 703.8 OTHER SPECIFIED DISEASES OF NAIL 03/28/2012 MEG SALDANA DO K 703.8 OTHER SPECIFIED DISEASES OF NAIL 03/28/2012 PATO ANAYA APRN 703.8 OTHER SPECIFIED DISEASES OF NAIL 03/28/2012 PATO ANAYA APRN 703.8 OTHER SPECIFIED DISEASES OF NAIL 03/28/2012 PATO ANAYA APRN 703.8 OTHER SPECIFIED DISEASES OF NAIL 03/28/2012 PATO ANAYA APRN 703.8 OTHER SPECIFIED DISEASES OF NAIL 03/28/2012 PATO ANAYA APRN 703.8 OTHER SPECIFIED DISEASES OF NAIL 03/28/2012 PATO ANAYA APRN 703.8 OTHER SPECIFIED DISEASES OF NAIL 03/28/2012 PATO ANAYA APRN 703.8 OTHER SPECIFIED DISEASES OF NAIL 06/06/2012 MEG SALDANA DO V03.82 PPV23 (PNEUMOVAX) DX 06/06/2012 MEG SALDANA DO V03.82 PPV23 (PNEUMOVAX) DX 06/06/2012 V03.82 PPV23 ( PNEUMOVAX) DX 06/06/2012 V03.82 PPV23 ( PNEUMOVAX) DX 06/06/2012 V03.82 PPV23 ( PNEUMOVAX) DX 06/06/2012 V03.82 PPV23 ( PNEUMOVAX) DX 06/06/2012 PATO ANAYA APRN V03.82 PPV23 (PNEUMOVAX) DX 06/06/2012 PATO ANAYA APRN V03.82 PPV23 (PNEUMOVAX) DX 06/06/2012 PATO ANAYA APRN V03.82 PPV23 (PNEUMOVAX) DX 06/06/2012 MEG SALDANA DO V03.82 PPV23 (PNEUMOVAX) DX 06/06/2012 PATO ANAYA APRN V03.82 PPV23 (PNEUMOVAX) DX 06/06/2012 PATO ANAYA APRN V03.82 PPV23 (PNEUMOVAX) DX 06/06/2012 PATO ANAYA APRN V03.82 PPV23 (PNEUMOVAX) DX 06/06/2012 PATO ANAYA APRN V03.82 PPV23 (PNEUMOVAX) DX 06/06/2012 PATO ANAYA APRN V03.82 PPV23 (PNEUMOVAX) DX 06/06/2012 PATO ANAYA APRN V03.82 PPV23 (PNEUMOVAX) DX 06/06/2012 PATO ANAYA APRN V03.82 PPV23 (PNEUMOVAX) DX 03/18/2013 250.40 DIABETES W/ NEPHROPATHY, DM TYPE 2 03/18/2013 250.40 DIABETES W/ NEPHROPATHY, DM TYPE 2 03/18/2013 PATO ANAYA APRN 250.40 DIABETES W/ NEPHROPATHY, DM TYPE 2 03/18/2013 PATO ANAYA APRN 250.40 DIABETES W/ NEPHROPATHY, DM TYPE 2 03/18/2013 PATO ANAYA APRN 250.40 DIABETES W/ NEPHROPATHY, DM TYPE 2 03/18/2013 MEG SALDANA DO 250.40 DIABETES W/ NEPHROPATHY, DM TYPE 2 03/18/2013 PATO ANAYA APRN 250.40 DIABETES W/ NEPHROPATHY, DM TYPE 2 03/18/2013 PATO ANAYA APRN 250.40 DIABETES W/ NEPHROPATHY, DM TYPE 2 03/18/2013 PATO ANAYA APRN T 250.40 DIABETES W/ NEPHROPATHY, DM TYPE 2 03/18/2013 PATO ANAYA APRN T 250.40 DIABETES W/ NEPHROPATHY, DM TYPE 2 03/18/2013 PATO ANAYA APRN T 250.40 DIABETES W/ NEPHROPATHY, DM TYPE 2 03/18/2013 PATO ANAYA APRN T 250.40 DIABETES W/ NEPHROPATHY, DM TYPE 2 03/18/2013 PATO ANAYA APRN T 250.40 DIABETES W/ NEPHROPATHY, DM TYPE 2 05/22/2013 PATO ANAYA APRN T V04.81 FLU SHOT 05/22/2013 PATO AANYA APRN T V04.81 FLU SHOT 05/22/2013 MEG SALDANA DO V04.81 FLU SHOT 05/22/2013 PATO ANAYA APRN T V04.81 FLU SHOT 05/22/2013 PATO ANAYA APRN V04.81 FLU SHOT 05/22/2013 PATO ANAYA APRN T V04.81 FLU SHOT 05/22/2013 PATO ANAYA APRN T V04.81 FLU SHOT 05/22/2013 PATO ANAYA APRN T V04.81 FLU SHOT 05/22/2013 PATO ANAYA APRN T V04.81 FLU SHOT 05/22/2013 PATO ANAYA APRN V04.81 FLU SHOT 10/28/2013 MEG SALDANA DO 719.43 PAIN IN JOINT INVOLVING FOREARM 10/28/2013 MEG SALDANA DO E888.9 UNSPECIFIED ACCIDENTAL FALL 10/28/2013 PATO ANAYA APRN 719.43 PAIN IN JOINT INVOLVING FOREARM 10/28/2013 PATO ANAYA APRN E888.9 UNSPECIFIED ACCIDENTAL FALL 10/28/2013 PATO ANAYA APRN 719.43 PAIN IN JOINT INVOLVING FOREARM 10/28/2013 PATO ANAYA APRN E888.9 UNSPECIFIED ACCIDENTAL FALL 10/28/2013 PATO ANAYA APRN 719.43 PAIN IN JOINT INVOLVING FOREARM 10/28/2013 PATO ANAYA APRN E888.9 UNSPECIFIED ACCIDENTAL FALL 10/28/2013 PATO ANAYA APRN 719.43 PAIN IN JOINT INVOLVING FOREARM 10/28/2013 PATO ANAYA APRN E888.9 UNSPECIFIED ACCIDENTAL FALL 10/28/2013 PATO ANAYA APRN 719.43 PAIN IN JOINT INVOLVING FOREARM 10/28/2013 PATO ANAYA APRN E888.9 UNSPECIFIED ACCIDENTAL FALL 10/28/2013 PATO ANAYA APRN 719.43 PAIN IN JOINT INVOLVING FOREARM 10/28/2013 PATO ANAYA APRN E888.9 UNSPECIFIED ACCIDENTAL FALL 10/28/2013 PATO ANAYA APRN 719.43 PAIN IN JOINT INVOLVING FOREARM 10/28/2013 PATO ANAYA APRN E888.9 UNSPECIFIED ACCIDENTAL FALL 10/06/2014 PATO ANAYA APRN V05.8 ZOSTAVAX DX 10/06/2014 PATO ANAYA APRN V05.8 ZOSTAVAX DX 02/11/2015 Ot 719.01 02/11/2015 Ot 719.41 02/11/2015 LETICIA CISNEROS Ot 924.11 CONTUSION OF KNEE 02/11/2015 LETICIA CISNEROS Ot 959.7 LOWER LEG INJURY NOS 02/11/2015 LETICIA CISNEROS Ot E000.8 OTHER EXTERNAL CAUSE STATUS 02/11/2015 LETICIA CISNEROS Ot E849.0 ACCIDENT IN HOME 02/11/2015 LETICIA CISNEROS Ot E885.9 FALL FROM SLIPPING, TRIPPING, OR STUMBLI Procedures Code Description [place] [address] A1C (IN-HOUSE) 06/06/2012 78419 ROUTINE VENIPUNCTURE 01/07/2013 55884 A1C (IN-HOUSE) 01/07/2013 33626 MICRO ALBUMIN-IN HOUSE 01/07/2013 98301 CMP 01/07/2013 53390 LIPID PANEL 01/07/2013 67853 TSH 01/07/2013 19265 CBC 01/07/2013 90940 A1C (IN-HOUSE) 05/22/2013 G0008 FLU ADMINISTRATION ( MEDICARE ONLY) 05/22/2013 48621 XRAY WRIST RIGHT 2 VIEWS 10/28/2013 86863 A1C (IN-HOUSE) 11/29/2013 21072 A1C (IN-HOUSE) 02/21/2014 69028 MICRO ALBUMIN-IN HOUSE 02/21/2014 Results Test Result Range CULTURE, URINE - 07/10/17 14:43 CULTURE, URINE, ROUTINE SEE NOTE NRG LIPID PANEL - 12/21/17 10:31 CHOLESTEROL, TOTAL 172 mg/dL <200 HDL CHOLESTEROL 41 mg/dL >40 TRIGLYCERIDES 79 mg/dL <150 LDL-CHOLESTEROL 113 mg/dL (calc) NRG CHOL/HDLC RATIO 4.2 (calc) <5.0 NON HDL CHOLESTEROL 131 mg/dL (calc) <130 Encounters ACCT No. Visit Date/Time Discharge Status Pt. Type Provider Facility Loc./Unit Complaint [id number] 10/06/2014 10:03:00 10/06/2014 23:59:59 CLS Outpatient PATO ANAYA APRN [id number] 10/06/2014 10:03:00 10/06/2014 23:59:59 CLS Outpatient PATO ANAYA APRN [id number] 05/23/2014 09:56:00 05/23/2014 23:59:59 CLS Outpatient PATO ANAYA APRN [id number] 02/21/2014 12:19:00 02/21/2014 23:59:59 CLS Outpatient PATO ANAYA APRN [id number] 02/21/2014 12:19:00 02/21/2014 23:59:59 CLS Outpatient PATO ANAYA APRN [id number] 11/29/2013 10:24:00 11/29/2013 23:59:59 CLS Outpatient PATO ANAYA APRN [id number] 11/29/2013 10:24:00 11/29/2013 23:59:59 CLS Outpatient PATO ANAYA APRN [id number] 10/28/2013 16:06:00 10/28/2013 23:59:59 CLS Outpatient MEG SALDANA DO [id number] 05/22/2013 14:50:00 05/22/2013 23:59:59 CLS Outpatient PATO ANAYA APRN [id number] 05/22/2013 14:50:00 05/22/2013 23:59:59 CLS Outpatient PATO ANAYA APRN [id number] 04/10/2013 14:22:00 04/10/2013 23:59:59 CLS Outpatient PATO ANAYA APRN [id number] 06/06/2012 13:51:00 06/06/2012 23:59:59 CLS Outpatient MEG SALDANA DO [id number] 06/06/2012 13:51:00 06/06/2012 23:59:59 CLS Outpatient MEG SALDANA DO [id number] 04/03/2013 15:23:00 Document Registration [id number] 03/05/2013 15:33:00 Document Registration [id number] 01/07/2013 15:38:00 Document Registration [id number] 01/07/2013 15:38:00 Document Registration [id number] 02/11/2015 14:44:00 02/11/2015 17:16:00 DIS Emergency LETICIA CISNEROS [facility] ER FALL/LEFT KNEE PAIN [id number] 02/11/2015 14:44:00 Document Registration [id number] 02/11/2015 14:44:00 Document Registration [id number] 02/11/2015 14:44:00 Document Registration [id number] 06/11/2011 13:33:00 Document Registration [id number] 04/23/2011 16:16:00 Document Registration [id number] 07/18/2018 10:20:00 07/18/2018 23:59:59 [facility] Outpatient PATO ANAYA APRN [facility] [id number] 12/21/2017 10:20:00 Document Registration [id number] 07/10/2017 13:10:00 Document Registration [id number] 02/11/2015 14:45:07 ACT Document Registration
[2018-07-23 15:13] LABS: BASOPHILS % (AUTO) 1 % (0-10); EOSINOPHILS # (AUTO) 0.2 10^3/uL (0.0-0.3); EOSINOPHILS % (AUTO) 2 % (0-10); HEMATOCRIT 37 % (40-54); HEMOGLOBIN 12.5 G/DL (13.3-17.7); LYMPHOCYTES # (AUTO) 1.4 X 10^3 (1.0-4.0); LYMPHOCYTES % (AUTO) 16 % (12-44); MEAN CORPUSCULAR HEMOGLOBIN 32 PG (25-34); MEAN CORPUSCULAR HGB CONC 33 G/DL (32-36); MEAN CORPUSCULAR VOLUME 96 FL (80-99); MEAN PLATELET VOLUME 10.3 FL (7.4-10.4); MONOCYTES # (AUTO) 0.6 X 10^3 (0.0-1.0); MONOCYTES % (AUTO) 6 % (0-12); NEUTROPHILS # (AUTO) 6.8 X 10^3 (1.8-7.8); NEUTROPHILS % (AUTO) 76 % (42-75); PLATELET COUNT 217 10^3/uL (130-400); WHITE BLOOD COUNT 8.9 10^3/uL (4.3-11.0)
[2018-07-23 15:16] LABS: BILIRUBIN,URINE NEGATIVE (NEGATIVE); CLARITY,URINE VERY CLOUDY; COLOR,URINE AMBER; GLUCOSE, URINE (UA) NEGATIVE (NEGATIVE); KETONES,URINE 1+ (NEGATIVE); LEUKOCYTE ESTERASE ,URINE 2+ (NEGATIVE); NITRITE,URINE POSITIVE (NEGATIVE); PH,URINE 6 (5-9); PROTEIN,URINE 2+ (NEGATIVE); UROBILINOGEN,URINE 8 MG/DL (NORMAL)
[2018-07-23 15:23] LABS: BACTERIA,URINE LARGE /HPF; RBC,URINE 50-100 /HPF; WBC,URINE 25-50 /HPF
--- NOTE | 2018-07-23 15:26 | Diagnostic Imaging Report ---
PROCEDURE: CT head and CT cervical spine without contrast. TECHNIQUE: Multiple contiguous axial images were obtained through the brain and cervical spine without the use of intravenous contrast. Sagittal and coronal reformations through the cervical spine were then performed. INDICATION: Disequilibrium with fall and head and neck injuries. FINDINGS: CT HEAD: Comparison is made to study of 05/30/2009. There has been progression of volume loss throughout the brain parenchyma. There is also an increase in low-density within the deep white matter of both cerebral hemispheres. There is asymmetric atrophy involving the left cerebellar hemisphere and left midbrain. There is no evidence of hemorrhage and no acute infarct is seen by CT imaging. The calvarium is intact and the visualized paranasal sinuses are clear. IMPRESSION: Progression of senescent findings in the brain without CT evidence of acute intracranial abnormality. CT CERVICAL SPINE: There is loss of normal cervical lordosis. There is moderate endplate spurring throughout the cervical spine with advanced uncovertebral degenerative change. There is no paraspinous hematoma appreciated and there is no evidence of acute fracture or subluxation. IMPRESSION: Degenerative findings throughout the cervical spine. Loss of cervical lordosis may be secondary to muscle spasm or positioning. Otherwise, there is no CT evidence of acute abnormality in the cervical spine. Dictated by: Dictated on workstation # [id number]
[2018-07-23 15:36] LABS: ALANINE AMINOTRANSFERASE 27 U/L (0-55); ALBUMIN 4.2 GM/DL (3.2-4.5); ALKALINE PHOSPHATASE 93 U/L (40-136); BILIRUBIN,TOTAL 0.6 MG/DL (0.1-1.0); BUN/CREATININE RATIO 27; CALCIUM 9.7 MG/DL (8.5-10.1); CARBON DIOXIDE 28 MMOL/L (21-32); CHLORIDE 104 MMOL/L (98-107); CREATININE SERUM 0.75 MG/DL (0.60-1.30); GFR ESTIMATED > 60; GLUCOSE 92 MG/DL (70-105); POTASSIUM 4.3 MMOL/L (3.6-5.0); SODIUM 143 MMOL/L (135-145); TOTAL PROTEIN 7.6 GM/DL (6.4-8.2)
[2018-07-23] MEDS ORDERED: ESCI10TA55 PO (15:36)
[2018-07-23] MEDS ORDERED: GABA-488 PO (15:36)
[2018-07-23] MEDS ORDERED: SOLI10TA2 PO (15:36)
[2018-07-23] MEDS ORDERED: FLUO20CA25 PO (15:36)
[2018-07-23] MEDS ORDERED: FINA5TAB6 PO (15:36)
[2018-07-23] MEDS ORDERED: OXYC-471 PO (15:36)
--- NOTE | 2018-07-23 15:44 | ED Fall/Injury ---
General Chief Complaint: Trauma-Non Activation Stated Complaint: FALL W/LOC Nursing Triage Note: PT ARRIVED PER EMS, PT FELL LOST BALANCE, HIT HEAD ON R SIDE HAS SMALL LAC NOTED APPROX 1CM NOTED. PT SMELLS OF URINE. EMS REPORTS NO RUNNING WATER IN HOME. PT HAS HX OF HEAD INJURY AT AGE OF 16YRS, WALKS WITH ARM DEVICE CRUTCH. PT STATES HAS BEEN PEEING ON SELF FOR ABOUT 2 WEEKS. PT STATES HAS NOT EATEN OR DRANK ANYTHING YET TODAY Source: patient Exam Limitations: no limitations History of Present Illness Date Seen by Provider: Jul 23, 2018 Time Seen by Provider: 14:45 Initial Comments Here with report of head injury today. Apparently he was pouring water in the toilet to get the toilet the flush because he has no water in his house. When he was doing that he lost his balance and fell and hit his head on the toilet. He did have bleeding to the right brow area where he has a 2 cm Y-shaped laceration that is superficial. No loss of consciousness. Does report that he has had urinary incontinence over the last week. 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 Does walk with a crutch. His home situation is very concerning per EMS. Does complain of some mild neck pain and is in c-collar. Denies other injury or pain. Location Injury Occurred: HOME Occurred: just prior to arrival (approximately 45 minutes prior to arrival) Severity: mild Injuries/Pain Location: head, neck Context: lost balance Loss of Consciousness: no loss of consciousness Associated Symptoms (Fall): No Abdominal Pain, No Chest Pain, No Confusion; Headache; No Lightheadedness, No Muscle Spasms, No Nausea/Vomiting; Neck Pain, Other (strong odor of foul-smelling urine.) Allergies and Home Medications Allergies Coded Allergies: Ezetimibe (Unverified Allergy, 04/23/11) Patient Home Medication List Home Medication List Reviewed: Yes Review of Systems Review of Systems Constitutional: see HPI; No chills, No fever; weakness Eyes: No Symptoms Reported Ears, Nose, Mouth, Throat: denies nose pain, denies throat pain Respiratory: No cough, No short of breath Cardiovascular: No chest pain, No palpitations Gastrointestinal: No abdominal pain, No nausea, No vomiting Genitourinary: see HPI, frequency, incontinence Musculoskeletal: No back pain; neck pain Skin: change in color, lesions Psychiatric/Neurological: Headache, Weakness All Other Systems Reviewed Negative Unless Noted: Yes Past Ikqzxro-Bvwjyz-Mdupbe Hx Past Med/Social Hx: Reviewed Nursing Past Med/Soc Hx Patient Social History Alcohol Use: Denies Use Recreational Drug Use: No Smoking Status: Current Someday Smoker Type Used: Cigarettes Recent Foreign Travel: No Contact w/Someone Who Travel: No Recent Infectious Disease Expo: No Recent Hopitalizations: No Past Medical History Surgeries: Yes Respiratory: No Cardiac: No Neurological: Yes Traumatic Brain Injury Reproductive Disorders: No Gastrointestinal: No Musculoskeletal: No Endocrine: Yes Diabetes, Non-Insulin dep Cancer: No Psychosocial: No Integumentary: No Blood Disorders: No Family Medical History Reviewed Nursing Family Hx No Pertinent Family Hx Physical Exam Vital Signs Vital Signs - First Documented 07/23/18 14:41 Temp 97.0 Pulse 84 Resp 18 B/P (MAP) 151/62 (91) Pulse Ox 97 Capillary Refill : Less Than 3 Seconds Height, Weight, BMI Height: 5'9.00" Weight: 130lbs. oz. 58.957969qb; 20.09 BMI Method:Stated General Appearance: no apparent distress, thin HEENT: PERRL/EOMI, pharynx normal Neck: supple, tender lateral Cardiovascular: regular rate, rhythm, no murmur Respiratory: lungs clear, normal breath sounds Gastrointestinal: non tender, soft Back: normal inspection, no CVA tenderness, no vertebral tenderness Extremities: non-tender, other (contractures to the right arm) Neurologic/Psychiatric: alert, oriented x 3 Skin: warm/dry, other (2 cm Y-shaped laceration to the right brow) [place] Coma Score Best Eye Response: (4) Open Spontaneously Best Verbal Response: (5) Oriented Best Motor Response: (6) Obeys Commands Procedures/Interventions Wound Location: Face Other Wound Location Right brow Wound Length (cm): 2 Wound's Depth, Shape: irregular Wound Explored: contaminated Irrigated w/ Saline (ccs): 100 Betadine Prep?: Yes Anesthesia: 1% Lidocaine Volume Anesthetic (ccs): 5 Wound Debrided: minimal Other Closure Supply: Wound Adhesive Progress Copiously cleaned with Betasept and saline and scrubbing. Wound anesthetized with LET. Closed with skin glue. Tolerated procedure well with no complications. Progress/Results/Core Measures Results/Orders Lab Results Laboratory Tests Test 07/23/18 14:48 07/23/18 14:55 07/23/18 15:50 Range/Units White Blood Count 8.9 4.3-11.0 10^3/uL Red Blood Count 3.90 L 4.35-5.85 10^6/uL Hemoglobin 12.5 L 13.3-17.7 G/DL Hematocrit 37 L 40-54 % Mean Corpuscular Volume 96 80-99 FL Mean Corpuscular Hemoglobin 32 25-34 PG Mean Corpuscular Hemoglobin Concent 33 32-36 G/DL Red Cell Distribution Width 12.0 10.0-14.5 % Platelet Count 217 130-400 10^3/uL Mean Platelet Volume 10.3 7.4-10.4 FL Neutrophils (%) (Auto) 76 H 42-75 % Lymphocytes (%) (Auto) 16 12-44 % Monocytes (%) (Auto) 6 0-12 % Eosinophils (%) (Auto) 2 0-10 % Basophils (%) (Auto) 1 0-10 % Neutrophils # (Auto) 6.8 1.8-7.8 X 10^3 Lymphocytes # (Auto) 1.4 1.0-4.0 X 10^3 Monocytes # (Auto) 0.6 0.0-1.0 X 10^3 Eosinophils # (Auto) 0.2 0.0-0.3 10^3/uL Basophils # (Auto) 0.0 0.0-0.1 10^3/uL Sodium Level 143 135-145 MMOL/L Potassium Level 4.3 3.6-5.0 MMOL/L Chloride Level 104 98-107 MMOL/L Carbon Dioxide Level 28 21-32 MMOL/L Anion Gap 11 5-14 MMOL/L Blood Urea Nitrogen 20 H 7-18 MG/DL Creatinine 0.75 0.60-1.30 MG/DL Estimat Glomerular Filtration Rate > 60 BUN/Creatinine Ratio 27 Glucose Level 92 70-105 MG/DL Calcium Level 9.7 8.5-10.1 MG/DL Corrected Calcium 9.5 8.5-10.1 MG/DL Total Bilirubin 0.6 0.1-1.0 MG/DL Aspartate Amino Transf (AST/SGOT) 26 5-34 U/L Alanine Aminotransferase (ALT/SGPT) 27 0-55 U/L Alkaline Phosphatase 93 40-136 U/L C-Reactive Protein High Sensitivity 1.15 H 0.00-0.50 MG/DL Total Protein 7.6 6.4-8.2 GM/DL Albumin 4.2 3.2-4.5 GM/DL Urine Color AUGUST H Urine Clarity VERY CLOUDY H Urine pH 6 5-9 Urine Specific [place] 1.025 H 1.016-1.022 Urine Protein 2+ H NEGATIVE Urine Glucose (UA) NEGATIVE NEGATIVE Urine Ketones 1+ H NEGATIVE Urine Nitrite POSITIVE H NEGATIVE Urine Bilirubin NEGATIVE NEGATIVE Urine Urobilinogen 8 H NORMAL MG/DL Urine Leukocyte Esterase 2+ H NEGATIVE Urine RBC (Auto) 5+ H NEGATIVE Urine RBC 50-100 H /HPF Urine WBC 25-50 H /HPF Urine Crystals NONE /LPF Urine Bacteria LARGE H /HPF Urine Casts NONE /LPF Urine Mucus NEGATIVE /LPF Urine Culture Indicated YES Lactic Acid Level 1.17 0.50-2.00 MMOL/L My Orders Orders - LITTLE ARMENTA MD Cbc With Automated Diff (07/23/18 14:50) Comprehensive Metabolic Panel (07/23/18 14:50) Hs C Reactive Protein (07/23/18 14:50) Ua Culture If Indicated (07/23/18 14:50) Saline Lock/Iv-Start (07/23/18 14:50) Ns Iv 500 Ml (Sodium Chloride 0.9%) (07/23/18 14:50) Ct Head/Cervical Spine Wo (07/23/18 14:50) Straight Cath For Spec.-Adult (07/23/18 14:50) Dipht,Pertuss(Acell),Tet Adult (Boostrix (07/23/18 14:50) Let Solution (Let Solution) (07/23/18 14:50) Urine Culture (07/23/18 14:55) Lactic Acid Analyzer (07/23/18 15:40) Blood Culture (07/23/18 15:40) Ceftriaxone For Iv Use (Rocephin For I (07/23/18 16:15) Medications Given in ED Current Medications Medications Dose Ordered Sig/Ujs Route Start Time Stop Time Status Last Admin Dose Admin Ceftriaxone Sodium 1000 mg/ Sodium Chloride 60 ml @ 100 mls/hr ONCE ONCE IV 07/23/18 16:15 07/23/18 16:50 07/23/18 16:26 100 MLS/HR Sodium Chloride 500 ml @ 0 mls/hr Q0M ONCE IV 07/23/18 14:50 07/23/18 14:52 DC 07/23/18 15:35 500 MLS/HR Vital Signs/I&O 07/23/18 14:41 Temp 97.0 Pulse 84 Resp 18 B/P (MAP) 151/62 (91) Pulse Ox 97 Blood Pressure Mean: 91 Progress Progress Note : Progress Note Seen and evaluated. IV by EMS. CT head and neck ordered. Labs and UA ordered. Monitor patient. 1540: Blood cultures and lactic acid ordered due to urinary tract infection finding. Rocephin 1 g IV. 1630: I did discuss the case with Dr. Vee after repairing the laceration with glue to the right for head. Patient to be admitted and Dr. Vee will be on consult as trauma surgeon. 1635: I did discuss the case with Dr. Reddy and she accepts patient for admission. We will continue Rocephin IV and gentle hydration. Findings and concerns discussed with patient and he agrees with plan. Diagnostic Imaging Diagonstic Imaging: CT Plain Films/CT/US/NM/MRI: c-spine, head Comments [facility] [place] NAME: ADIS HAIRSTON [facility] REC#: [id number] PT STATUS: REG ER : 1945 PHYSICIAN: LITTLE ARMENTA MD ADMIT DATE: 07/23/18/ER Draft Date of Exam:07/23/18 CT HEAD/CERVICAL SPINE WO PROCEDURE: CT head and CT cervical spine without contrast. TECHNIQUE: Multiple contiguous axial images were obtained through the brain and cervical spine without the use of intravenous contrast. Sagittal and coronal reformations through the cervical spine were then performed. INDICATION: Disequilibrium with fall and head and neck injuries. FINDINGS: CT HEAD: Comparison is made to study of 05/30/2009. There has been progression of volume loss throughout the brain parenchyma. There is also an increase in low-density within the deep white matter of both cerebral hemispheres. There is asymmetric atrophy involving the left cerebellar hemisphere and left midbrain. There is no evidence of hemorrhage and no acute infarct is seen by CT imaging. The calvarium is intact and the visualized paranasal sinuses are clear. IMPRESSION: Progression of senescent findings in the brain without CT evidence of acute intracranial abnormality. CT CERVICAL SPINE: There is loss of normal cervical lordosis. There is moderate endplate spurring throughout the cervical spine with advanced uncovertebral degenerative change. There is no paraspinous hematoma appreciated and there is no evidence of acute fracture or subluxation. IMPRESSION: Degenerative findings throughout the cervical spine. Loss of cervical lordosis may be secondary to muscle spasm or positioning. Otherwise, there is no CT evidence of acute abnormality in the cervical spine. Dictated on workstation # [id number] Dict: 07/23/18 1514 Trans: 07/23/18 1526 [id number] Interpreted by: NERISSA THOMPSON MD Electronically signed by: Departure Communication (Admissions) Time/Spoke to Admitting Phy: 16:35 Time/Spoke to Consulting Phy: 16:30 Impression Primary Impression: Urinary tract infection Qualified Codes: N30.01 - Acute cystitis with hematuria Additional Impression: Head injury, acute, without loss of consciousness Qualified Codes: S09.90XA - Unspecified injury of head, initial encounter Disposition: ADMITTED INPATIENT Condition: Stable Admissions Decision to Admit Reason: Admit from ER (General) Decision to Admit/Date: Jul 23, 2018 Time/Decision to Admit Time: 16:30 Departure-Patient Inst. Referrals: MEG SALDANA DO (PCP/Family) Primary Care Physician LITTLE ARMENTA MD Jul 23, 2018 15:43
[2018-07-23] MEDS ORDERED: cefTRIAXone FOR IV USE 1,000 MG in NS (IVPB) 50 ML IV ONE (16:15)
--- OUTSIDE RECORDS SUMMARY | 2018-07-23 16:58 | XMS REPORT | Continuity of Care Document ---
Author Author Formerly [facility] Address Unknown Phone Unavailable Allergies Active Description Code Type Severity Reaction Onset Reported/Identified Relationship to Patient Clinical Status Yes ezetimibe [id number] Drug Allergy Unknown N/A 04/23/2011 Medications There [...] 272.4 HYPERLIPIDEMIA HYPERLIPOPROTEINEMIAS (Old Classification) 03/11/[address] SIGN INSTALLER, PATO T 250.00 DIABETES MELLITUS 03/11/[address] SIGN INSTALLER, PATO T 272.4 HYPERLIPIDEMIA HYPERLIPOPROTEINEMIAS (Old Classification) 03/11/[address] SIGN INSTALLER, PATO T 250.00 DIABETES MELLITUS 03/11/[address] SIGN INSTALLER, PATO T 272.4 HYPERLIPIDEMIA HYPERLIPOPROTEINEMIAS (Old Classification) 03/11/[address] SIGN INSTALLER, PATO T 250.00 DIABETES MELLITUS 03/11/[address] SIGN INSTALLER, PATO T 272.4 HYPERLIPIDEMIA HYPERLIPOPROTEINEMIAS (Old Classification) 03/11/[address] SIGN INSTALLER, PATO T 250.00 DIABETES MELLITUS 03/11/[address] SIGN INSTALLER, PATO T 272.4 HYPERLIPIDEMIA HYPERLIPOPROTEINEMIAS (Old Classification) 03/11/[address] SIGN INSTALLER, PATO T 250.00 DIABETES MELLITUS 03/11/[address] SIGN INSTALLER, PATO T 272.4 HYPERLIPIDEMIA HYPERLIPOPROTEINEMIAS (Old Classification) 03/11/[address] SIGN INSTALLER, PATO T 250.00 DIABETES MELLITUS 03/11/[address] SIGN INSTALLER, PATO T 272.4 HYPERLIPIDEMIA HYPERLIPOPROTEINEMIAS (Old Classification) 03/11/[address] SIGN INSTALLER, PATO T 250.00 DIABETES MELLITUS 03/11/[address] SIGN INSTALLER, PATO T 272.4 HYPERLIPIDEMIA HYPERLIPOPROTEINEMIAS (Old Classification) [...] pleasure from usual activities (anhedonia) 08/17/[address] SIGN INSTALLER, PATO T 780.99 loss of pleasure from [...] 03/21/2012 300.4 MO DYSTHYMIC DISORDER 03/21/2012 PATO NAAYA APRN 300.4 MO DYSTHYMIC DISORDER 03/21/2012 PATO [...] OTHER SPECIFIED DISEASES OF NAIL 03/28/2012 PATO NAAYA APRN 703.8 OTHER SPECIFIED DISEASES OF NAIL [...] ANAYA APRN T V04.81 FLU SHOT 05/22/2013 MEG [...] ANAYA APRN E888.9 UNSPECIFIED ACCIDENTAL FALL 10/06/2014 PAOT ANAYA APRN V05.8 ZOSTAVAX DX 10/06/2014 PATO [...] Procedures Code Description [place] [address] A1C (IN-HOUSE) 06/06/2012 49637 ROUTINE VENIPUNCTURE 01/07/2013 33639 A1C (IN-HOUSE) 01/07/2013 01768 MICRO ALBUMIN-IN HOUSE 01/07/2013 90264 CMP 01/07/2013 17693 LIPID PANEL 01/07/2013 61336 TSH 01/07/2013 74359 CBC 01/07/2013 03878 A1C (IN-HOUSE) 05/22/2013 G0008 FLU ADMINISTRATION ( MEDICARE ONLY) 05/22/2013 20403 XRAY WRIST RIGHT 2 VIEWS 10/28/2013 27607 A1C (IN-HOUSE) 11/29/2013 30642 A1C (IN-HOUSE) 02/21/2014 92802 MICRO ALBUMIN-IN HOUSE 02/21/2014 Results Test Result [...] Status Pt. Type Provider Facility Loc./Unit Complaint [id number] 10/06/2014 10:03:00 10/06/2014 23:59:59 CLS Outpatient PATO ANAYA APRN [id number] 10/06/2014 10:03:00 10/06/2014 23:59:59 CLS Outpatient PATO ANAYA APRN [id number] 05/23/2014 09:56:00 05/23/2014 23:59:59 CLS Outpatient PATO ANAYA APRN [id number] 02/21/2014 12:19:00 02/21/2014 23:59:59 CLS Outpatient PATO ANAYA APRN [id number] 02/21/2014 12:19:00 02/21/2014 23:59:59 CLS Outpatient PATO ANAYA APRN [id number] 11/29/2013 10:24:00 11/29/2013 23:59:59 CLS Outpatient PATO ANAYA APRN [id number] 11/29/2013 10:24:00 11/29/2013 23:59:59 CLS Outpatient PATO ANAYA APRN [id number] 10/28/2013 16:06:00 10/28/2013 23:59:59 CLS Outpatient MEG SALDANA DO [id number] 05/22/2013 14:50:00 05/22/2013 23:59:59 CLS Outpatient PATO ANAYA APRN [id number] 05/22/2013 14:50:00 05/22/2013 23:59:59 CLS Outpatient PATO ANAYA APRN [id number] 04/10/2013 14:22:00 04/10/2013 23:59:59 CLS Outpatient PATO ANAYA APRN [id number] 06/06/2012 13:51:00 06/06/2012 23:59:59 CLS Outpatient MEG SALDANA DO [id number] 06/06/2012 13:51:00 06/06/2012 23:59:59 CLS Outpatient MEG SALDANA DO [id number] 04/03/2013 15:23:00 Document Registration [id number] 03/05/2013 15:33:00 Document Registration [id number] 01/07/2013 15:38:00 Document Registration [id number] 01/07/2013 15:38:00 Document Registration [id number] 02/11/2015 14:44:00 02/11/2015 17:16:00 DIS Emergency LETICIA CISNEROS [facility] ER FALL/LEFT KNEE PAIN [id number] 02/11/2015 14:44:00 Document Registration [id number] 02/11/2015 14:44:00 Document Registration [id number] 02/11/2015 14:44:00 Document Registration [id number] 06/11/2011 13:33:00 Document Registration [id number] 04/23/2011 16:16:00 Document Registration [id number] 07/18/2018 10:20:00 07/18/2018 23:59:59 [facility] Outpatient PATO ANAYA APRN [facility] [id number] 12/21/2017 10:20:00 Document Registration [id number] 07/10/2017 13:10:00 Document Registration [id number] 02/11/2015 14:45:07 ACT Document Registration
[2018-07-23] MEDS ORDERED: NS IV 1000 ML 1,000 ML IV SCH (17:30)
[2018-07-23] MEDS ORDERED: CATHETER FLUSH 10 ML SYR IV PRN (17:30)
[2018-07-23] MEDS ORDERED: HYDROcodone/APAP 5 MG/325 MG (LORTAB) TAB PO PRN (17:45)
[2018-07-23] MEDS ORDERED: ACETAMINOPHEN 500 MG TAB (TYLENOL) PO PRN (17:45)
[2018-07-23] MEDS ORDERED: ALPRAZolam 0.25 MG (XANAX) TAB PO PRN (17:45)
[2018-07-23] MEDS ORDERED: IBUPROFEN TABLET 200 MG TAB PO PRN (17:45)
[2018-07-23] MEDS ORDERED: DOCUSATE SODIUM 100 MG (COLACE) CAP PO PRN (17:45)
[2018-07-23] MEDS ORDERED: fentaNYL INJECTION 100 MCG/2 ML AMP IVP PRN (17:45)
[2018-07-23] MEDS ORDERED: POLYETHYLENE GLYCOL 17 GM (MIRALAX) PACK PO PRN (17:45)
[2018-07-23] MEDS ORDERED: ONDANSETRON 4 MG/2 ML (SDV) Z0FRAN IVP PRN (17:45)
[2018-07-23] MEDS ORDERED: diphenhydrAMINE 25 MG TAB (BENADRYL) PO PRN (17:45)
[2018-07-23] MEDS ORDERED: CALCIUM CARBONATE 500 MG (TUMS) TAB.CHEW PO PRN (17:45)
--- NOTE | 2018-07-23 19:08 | CONSULTATION REPORT ---
DATE OF SERVICE: 07/23/2018 ATTENDING PRIMARY CARE PHYSICIAN: Marc Morataya APRN. ADMITTING PHYSICIAN: Verna Reddy DO. HISTORY OF PRESENT ILLNESS: The patient is a 72-year-old male who was brought in by EMS due to a loss of balance, recent fall and a small laceration noted just above and lateral to the right eyebrow. This was not infected and amenable to Dermabond. The patient does not show good hygiene and does smell of urine. EMS reports that there was no running water in her home. He reports that he does ambulate with a walker and that he does take care of his and is able to normally take a taxi to grocery stores approximately two times a week to get some groceries. Upon examination, he shows normal mentation with no focal deficits, Arlene coma scale of 15. PAST MEDICAL HISTORY: Diabetes, previous head injury 15 years ago. PAST SURGICAL HISTORY: None known. ALLERGIES: EZETIMIBE. MEDICATIONS: Escitalopram 10 mg daily, finasteride 5 mg daily, fluoxetine 20 mg daily, gabapentin 300 mg daily, oxycodone 5/325 p.r.n., and VESIcare 10 mg daily. SOCIAL HISTORY: Positive smoke, 50 pack years. Negative alcohol. FAMILY HISTORY: Noncontributory. REVIEW OF SYSTEMS: This is a slightly thin-appearing male who is awake and alert with a slight loss of focus; however, appears to be normal mentation for this gentleman. He does answer majority of questions appropriately. He is not experiencing any shortness of breath or difficulty breathing. No chest pain, palpitations, diaphoresis. No nausea or vomiting, no diarrhea or constipation. No cough or sputum production. No fever or chills, no recent inadvertent weight loss. No headache or visual changes. PHYSICAL EXAMINATION: VITAL SIGNS: Blood pressure is 151/62, temperature 97.0, pulse 84, respirations 18, and pulse ox 97% on room air. CHEST: A few scattered rales and rhonchi bilaterally. HEART: Regular, no murmurs. EXTREMITIES: No lower extremity edema, negative Homans sign. HEENT: No scleral icterus. NECK: No cervical lymphadenopathy. ABDOMEN: Soft, nontender, and nondistended. SKIN: Warm, dry. NEUROLOGIC: Alert and oriented x3. No focal deficits. ASSESSMENT AND PLAN: A 72-year-old male with a same level fall. At this time, he is awake and alert and shows normal mentation and no focal deficits. He does not appear to have any other distracting injuries. He appears to be in a very poor hygiene at this point, and will likely require admission, observation as well as Social Work intervention to proceed with change of living venues versus possible extended care facility. For now, we will continue with observation. Job ID: [id number] DocumentID: [id number] Dictated Date: 07/23/2018 18:39:58 Tip Cementer Date: 07/23/2018 19:07:32 Dictated By: TAMIA AYON MD
[2018-07-23 20:00] VITALS: BP 135/72
[2018-07-24] VITALS: BP 145/64
[2018-07-24 04:00] VITALS: BP 132/63
[2018-07-24 05:39] LABS: BASOPHILS % (AUTO) 0 % (0-10); EOSINOPHILS # (AUTO) 0.5 10^3/uL (0.0-0.3); EOSINOPHILS % (AUTO) 6 % (0-10); HEMATOCRIT 35 % (40-54); HEMOGLOBIN 11.4 G/DL (13.3-17.7); LYMPHOCYTES # (AUTO) 2.4 X 10^3 (1.0-4.0); LYMPHOCYTES % (AUTO) 33 % (12-44); MEAN CORPUSCULAR HEMOGLOBIN 31 PG (25-34); MEAN CORPUSCULAR HGB CONC 33 G/DL (32-36); MEAN CORPUSCULAR VOLUME 95 FL (80-99); MEAN PLATELET VOLUME 10.1 FL (7.4-10.4); MONOCYTES # (AUTO) 0.7 X 10^3 (0.0-1.0); MONOCYTES % (AUTO) 10 % (0-12); NEUTROPHILS # (AUTO) 3.8 X 10^3 (1.8-7.8); NEUTROPHILS % (AUTO) 51 % (42-75); PLATELET COUNT 216 10^3/uL (130-400); RED BLOOD COUNT 3.66 10^6/uL (4.35-5.85); RED CELL DISTRIBUTION WIDTH 12.3 % (10.0-14.5); WHITE BLOOD COUNT 7.5 10^3/uL (4.3-11.0)
[2018-07-24 06:00] LABS: ALANINE AMINOTRANSFERASE 24 U/L (0-55); ALBUMIN 3.8 GM/DL (3.2-4.5); ALKALINE PHOSPHATASE 75 U/L (40-136); BILIRUBIN,TOTAL 0.8 MG/DL (0.1-1.0); BUN/CREATININE RATIO 22; CALCIUM 8.6 MG/DL (8.5-10.1); CARBON DIOXIDE 26 MMOL/L (21-32); CHLORIDE 107 MMOL/L (98-107); CREATININE SERUM 0.74 MG/DL (0.60-1.30); GFR ESTIMATED > 60; GLUCOSE 91 MG/DL (70-105); SODIUM 141 MMOL/L (135-145); TOTAL PROTEIN 6.7 GM/DL (6.4-8.2)
[2018-07-24 08:51] VITALS: BP 124/64
[2018-07-24] MEDS ORDERED: CHRO400T10 PO (08:59)
[2018-07-24] MEDS ORDERED: MULT-324 PO (08:59)
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
[2018-07-24] MEDS ORDERED: CEFD300C3 PO (09:50)
[2018-07-24 12:57] VITALS: BP 139/62
--- NOTE | 2018-07-24 13:15 | Diagnostic Imaging Report ---
INDICATION: Fell on his shoulder a couple of weeks ago with continued pain. TECHNIQUE: Three views of the left shoulder were performed. CORRELATION STUDY: None. FINDINGS: No acute fracture or dislocation. Hypertrophic changes with spur-like formation at the acromioclavicular joint including inferiorly. Minimal osteophyte about the inferior bony glenoid. The visualized soft tissues are unremarkable. IMPRESSION: Negative for acute bony abnormality about the shoulder. Mildly advanced degenerative change about the left shoulder. Dictated by: Dictated on workstation # [id number]
[2018-07-24 14:30] VITALS: BP 139/62
[2018-07-24] MEDS ORDERED: cefTRIAXone 1 GM/NS 50 ML IVPB IV SCH ×2 (16:00)
== END 2018-07-24 14:30 | disposition home or self-care (01) | DRG 125 ==
LOC: EDUNIT# 14:40 → ER 14:42 → 4TH 16:35
PROVIDERS: ADMIT Internal Medicine; ATTEND Internal Medicine
DX: S01.111A Laceration without foreign body of right eyelid and periocular area, initial encounter (principal); N30.01 Acute cystitis with hematuria; R32 Unspecified urinary incontinence; M54.2 Cervicalgia; E11.9 Type 2 diabetes mellitus without complications; F17.210 Nicotine dependence, cigarettes, uncomplicated; R47.9 Unspecified speech disturbances; M62.421 Contracture of muscle, right upper arm; M25.511 Pain in right shoulder; W01.198A Fall on same level from slipping, tripping and stumbling with subsequent striking against other object, initial encounter; Y92.002 Bathroom of unspecified non-institutional (private) residence as the place of occurrence of the external cause; Z87.820 Personal history of traumatic brain injury
CPT/HCPCS: 36415; 51701; 70450; 72125; 73030; 80053; 81000; 83605; 85025; 86141; 87040; 87077; 87088; 87186; 90715

== ENCOUNTER 2018-09-03 11:47 | Inpatient (IN) | payer MEDICARE, MEDICAID ==
[~2018-09-03] VITALS: Ht 170.2 cm; Wt 58.0 kg
[~2018-09-03 11:47] MED LIST changes: +CEFD300C3 PO; +CHRO400T10 PO; +ESCI10TA55 PO; +FINA5TAB6 PO; +GABA-488 PO; +MULT-834 PO; +OXYC-471 PO; +SOLI10TA2 PO
[2018-09-03] MEDS ORDERED: NS IV 1000 ML 1,000 ML IV ONE (12:00)
[2018-09-03] MEDS ORDERED: cefTRIAXone FOR IV USE 1,000 MG in NS (IVPB) 50 ML IV ONE (12:00)
[2018-09-03 12:04] LABS: BASOPHILS % (AUTO) 0 % (0-10); EOSINOPHILS % (AUTO) 0 % (0-10); HEMATOCRIT 37 % (40-54); HEMOGLOBIN 12.3 G/DL (13.3-17.7); LYMPHOCYTES # (AUTO) 0.7 X 10^3 (1.0-4.0); LYMPHOCYTES % (AUTO) 6 % (12-44); MEAN CORPUSCULAR HEMOGLOBIN 32 PG (25-34); MEAN CORPUSCULAR HGB CONC 34 G/DL (32-36); MEAN CORPUSCULAR VOLUME 95 FL (80-99); MEAN PLATELET VOLUME 10.8 FL (7.4-10.4); MONOCYTES # (AUTO) 1.4 X 10^3 (0.0-1.0); MONOCYTES % (AUTO) 11 % (0-12); NEUTROPHILS # (AUTO) 10.8 X 10^3 (1.8-7.8); NEUTROPHILS % (AUTO) 84 % (42-75); PLATELET COUNT 253 10^3/uL (130-400); RED CELL DISTRIBUTION WIDTH 12.7 % (10.0-14.5); WHITE BLOOD COUNT 12.9 10^3/uL (4.3-11.0)
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
--- OUTSIDE RECORDS SUMMARY | 2018-09-03 12:06 | XMS REPORT | Continuity of Care Document ---
Author Author [facility] Address Unknown Phone Unavailable Allergies Active Description Code Type Severity Reaction Onset Reported/Identified Relationship to Patient Clinical Status Yes ezetimibe [id number] Drug Allergy Unknown N/A 07/23/2018 Medications There is no data. Problems Date Dx Coded Attending Type Code Diagnosis Diagnosed By 03/11/2008 MEG SALDANA DO 250.00 DIABETES MELLITUS 03/11/2008 MEG SALDANA DO 272.4 HYPERLIPIDEMIA HYPERLIPOPROTEINEMIAS (Old Classification) 03/11/2008 MEG SALDANA DO 250.00 DIABETES MELLITUS 03/11/2008 MEG SALDNAA DO 272.4 HYPERLIPIDEMIA HYPERLIPOPROTEINEMIAS (Old Classification) 03/11/2008 [...] 272.4 HYPERLIPIDEMIA HYPERLIPOPROTEINEMIAS (Old Classification) 03/11/2008 HÉCTOR [facility], PATO T 250.00 DIABETES MELLITUS 03/11/2008 HÉCTOR [facility], PATO T 272.4 HYPERLIPIDEMIA HYPERLIPOPROTEINEMIAS (Old Classification) 03/11/2008 HÉCTOR [facility], PATO T 250.00 DIABETES MELLITUS 03/11/2008 HÉCTOR [facility], PATO T 272.4 HYPERLIPIDEMIA HYPERLIPOPROTEINEMIAS (Old Classification) 03/11/2008 HÉCTOR [facility], PATO T 250.00 DIABETES MELLITUS 03/11/2008 HÉCTOR [facility], PATO T 272.4 HYPERLIPIDEMIA HYPERLIPOPROTEINEMIAS (Old Classification) 03/11/2008 HÉCTOR [facility], PATO T 250.00 DIABETES MELLITUS 03/11/2008 HÉCTOR [facility], PATO T 272.4 HYPERLIPIDEMIA HYPERLIPOPROTEINEMIAS (Old Classification) 03/11/2008 HÉCTOR [facility], PATO T 250.00 DIABETES MELLITUS 03/11/2008 HÉCTOR [facility], PATO T 272.4 HYPERLIPIDEMIA HYPERLIPOPROTEINEMIAS (Old Classification) 03/11/2008 HÉCTOR [facility], PATO T 250.00 DIABETES MELLITUS 03/11/2008 HÉCTOR [facility], PATO T 272.4 HYPERLIPIDEMIA HYPERLIPOPROTEINEMIAS (Old Classification) 03/11/2008 HÉCTOR [facility], PATO T 250.00 DIABETES MELLITUS 03/11/2008 H[facility]CTOR [facility], PATO T 272.4 HYPERLIPIDEMIA HYPERLIPOPROTEINEMIAS (Old Classification) [...] Colored Bowel Movement (acholic Stools) 03/28/2011 PATO NAAYA APRN 780.79 FATIGUE 03/28/2011 PATO ANAYA APRN [...] pleasure from usual activities (anhedonia) 08/17/2011 HÉCTOR [facility], PATO T 780.99 loss of pleasure from [...] E885.9 FALL FROM SLIPPING, TRIPPING, OR STUMBLI 07/24/2018 [place] MUNIZ ARIELLE Ot E11.9 TYPE 2 DIABETES MELLITUS WITHOUT COMPLIC 07/24/2018 [place] MUNIZ ARIELLE Ot F17.210 NICOTINE DEPENDENCE, CIGARETTES, UNCOMPL 07/24/2018 [place] MUNIZ ARIELLE Ot M25.511 PAIN IN RIGHT SHOULDER 07/24/2018 [place] MUNIZ ARIELLE Ot M54.2 CERVICALGIA 07/24/2018 [place] MUNZI ARIELLE Ot 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, RIGHT UPPER ARM 07/24/2018 [place] MUNIZ ARIELLE Ot N30.01 ACUTE CYSTITIS WITH HEMATURIA 07/24/2018 [place] MUNIZ ARIELLE Ot R32 UNSPECIFIED URINARY INCONTINENCE 07/24/2018 [place] MUNIZ ARIELLE Ot R47.9 UNSPECIFIED SPEECH DISTURBANCES 07/24/2018 [place] MUNIZ ARIELLE Ot S01.111A LACERATION W/O FB OF RIGHT EYELID AND PE 07/24/2018 [place] MUNIZ ARIELLE Ot W01.198A FALL SAME LEV FROM SLIP/TRIP W STRIKE AG 07/24/2018 [place] MUNIZ ARIELLE Ot Y92.002 [facility] 07/24/2018 ARIELLE COLEMAN DO Ot Z87.820 PERSONAL HISTORY OF TRAUMATIC BRAIN INJU Procedures Code [place] [address] A1C (IN-HOUSE) 06/06/2012 83028 ROUTINE VENIPUNCTURE 01/07/2013 44427 A1C (IN-HOUSE) 01/07/2013 35782 MICRO ALBUMIN-IN HOUSE 01/07/2013 40468 CMP 01/07/2013 31404 LIPID PANEL 01/07/2013 90253 TSH 01/07/2013 33903 CBC 01/07/2013 47771 A1C (IN-HOUSE) 05/22/2013 G0008 FLU ADMINISTRATION ( MEDICARE ONLY) 05/22/2013 74641 XRAY WRIST RIGHT 2 VIEWS 10/28/2013 68498 A1C (IN-HOUSE) 11/29/2013 85420 A1C (IN-HOUSE) 02/21/2014 74671 MICRO ALBUMIN-IN HOUSE 02/21/2014 Results Test Result Range CULTURE, URINE - 07/10/17 14:43 CULTURE, URINE, ROUTINE SEE NOTE NRG LIPID PANEL - 12/21/17 10:31 CHOLESTEROL, TOTAL 172 mg/dL <200 HDL CHOLESTEROL 41 mg/dL >40 TRIGLYCERIDES 79 mg/dL <150 LDL-CHOLESTEROL 113 mg/dL (calc) NRG CHOL/HDLC RATIO 4.2 (calc) <5.0 NON HDL CHOLESTEROL 131 mg/dL (calc) <130 Complete blood count (CBC) with automated white blood cell (WBC) differential - 07/23/18 14:48 Blood leukocytes automated count (number/volume) 8.9 10*3/uL 4.3-11.0 Blood erythrocytes automated count (number/volume) 3.90 10*6/uL 4.35-5.85 Venous blood hemoglobin measurement (mass/volume) 12.5 g/dL 13.3-17.7 Blood hematocrit (volume fraction) 37 % 40-54 Automated erythrocyte mean corpuscular volume 96 [foz_us] 80-99 Automated erythrocyte mean corpuscular hemoglobin (mass per erythrocyte) 32 pg 25-34 Automated erythrocyte mean corpuscular hemoglobin concentration measurement ( mass/volume) 33 g/dL 32-36 Automated erythrocyte distribution width ratio 12.0 % 10.0-14.5 Automated blood platelet count (count/volume) 217 10*3/uL 130-400 Automated blood platelet mean volume measurement 10.3 [foz_us] 7.4-10.4 Automated blood neutrophils/100 leukocytes 76 % 42-75 Automated blood lymphocytes/100 leukocytes 16 % 12-44 Blood monocytes/100 leukocytes 6 % 0-12 Automated blood eosinophils/100 leukocytes 2 % 0-10 Automated blood basophils/100 leukocytes 1 % 0-10 Blood neutrophils automated count (number/volume) 6.8 10*3 1.8-7.8 Blood lymphocytes automated count (number/volume) 1.4 10*3 1.0-4.0 Blood monocytes automated count (number/volume) 0.6 10*3 0.0-1.0 Automated eosinophil count 0.2 10*3/uL 0.0-0.3 Automated blood basophil count (count/volume) 0.0 10*3/uL 0.0-0.1 Comprehensive metabolic panel - 07/23/18 14:48 Serum or plasma sodium measurement (moles/volume) 143 mmol/L 135-145 Serum or plasma potassium measurement (moles/volume) 4.3 mmol/L 3.6-5.0 Serum or plasma chloride measurement (moles/volume) 104 mmol/L 98-107 Carbon dioxide 28 mmol/L 21-32 Serum or plasma anion gap determination (moles/volume) 11 mmol/L 5-14 Serum or plasma urea nitrogen measurement (mass/volume) 20 mg/dL 7-18 Serum or plasma creatinine measurement (mass/volume) 0.75 mg/dL 0.60-1.30 Serum or plasma urea nitrogen/creatinine mass ratio 27 NRG Serum or plasma creatinine measurement with calculation of estimated glomerular filtration rate > NRG Serum or plasma glucose measurement (mass/volume) 92 mg/dL 70-105 Serum or plasma calcium measurement (mass/volume) 9.7 mg/dL 8.5-10.1 Serum or plasma total bilirubin measurement (mass/volume) 0.6 mg/dL 0.1-1.0 Serum or plasma alkaline phosphatase measurement (enzymatic activity/volume) 93 U/L 40-136 Serum or plasma aspartate aminotransferase measurement (enzymatic activity/ volume) 26 U/L 5-34 Serum or plasma alanine aminotransferase measurement (enzymatic activity/volume ) 27 U/L 0-55 Serum or plasma protein measurement (mass/volume) 7.6 g/dL 6.4-8.2 Serum or plasma albumin measurement (mass/volume) 4.2 g/dL 3.2-4.5 CALCIUM CORRECTED 9.5 mg/dL 8.5-10.1 Serum or plasma C reactive protein measurement (mass/volume) - 07/23/18 14:48 Serum or plasma C reactive protein measurement (mass/volume) 1.15 mg /dL 0.00-0.50 Complete urinalysis with reflex to culture - 07/23/18 14:55 Urine color determination AUGUST NRG Urine clarity determination VERY CLOUDY NRG Urine pH measurement by test strip 6 5-9 Specific gravity of urine by test strip 1.025 1.016- 1.022 Urine protein assay by test strip, semi-quantitative 2+ NEGATIVE Urine glucose detection by automated test strip NEGATIVE NEGATIVE Erythrocytes detection in urine sediment by light microscopy 5+ NEGATIVE Urine ketones detection by automated test strip 1+ NEGATIVE Urine nitrite detection by test strip POSITIVE NEGATIVE Urine total bilirubin detection by test strip NEGATIVE NEGATIVE Urine urobilinogen measurement by automated test strip (mass/volume) 8 mg/dL NORMAL Urine leukocyte esterase detection by dipstick 2+ NEGATIVE Automated urine sediment erythrocyte count by microscopy (number/high power field) [HPF] NRG Automated urine sediment leukocyte count by microscopy (number/high power field ) [HPF] NRG Bacteria detection in urine sediment by light microscopy LARGE NRG Crystals detection in urine sediment by light microscopy NONE NRG Casts detection in urine sediment by light microscopy NONE NRG Mucus detection in urine sediment by light microscopy NEGATIVE NRG Complete urinalysis with reflex to culture YES NRG Bacterial urine culture - 07/23/18 14:55 Bacterial urine culture [id number] NRG COLONY COUNT >100,000/ML NRG FTX;REPORTABLE RML REPORTED ID 07/24/18 14:05 NR FREE TEXT ENTRY 2 SENSITIVITY REPORTED 07/25/18 08:05 NR RML Sensitivity Panel - 07/23/18 14:55 Gentamicin susceptibility test by minimum inhibitory concentration < = NRG Trimethoprim/sulfamethoxazole susceptibility test by minimum inhibitoryconcentration <= NRG Levofloxacin susceptibility test by minimum inhibitory concentration <= NRG Ampicillin susceptibility test by minimum inhibitory concentration < = NRG Cefazolin susceptibility test by minimum inhibitory concentration < = NRG Ceftriaxone susceptibility test by minimum inhibitory concentration <= NRG Ciprofloxacin susceptibility test by minimum inhibitory concentration <= NRG Meropenem susceptibility test by minimum inhibitory concentration < = NRG Nitrofurantoin susceptibility test by minimum inhibitory concentration <= NRG Amoxicillin and clavulanate potassium susc JANETT = NRG Blood lactic acid measurement (moles/volume) - 07/23/18 15:50 Blood lactic acid measurement (moles/volume) 1.17 mmol/L 0.50-2.00 Bacterial blood culture - 07/23/18 15:50 QUANTITY OF GROWTH . NRG Bacterial blood culture SEE REPORT NRG Bacterial blood culture - 07/23/18 16:24 Bacterial blood culture NG NR Complete blood count (CBC) with automated white blood cell (WBC) differential - 07/24/18 05:25 Blood leukocytes automated count (number/volume) 7.5 10*3/uL 4.3-11.0 Blood erythrocytes automated count (number/volume) 3.66 10*6/uL 4.35-5.85 Venous blood hemoglobin measurement (mass/volume) 11.4 g/dL 13.3-17.7 Blood hematocrit (volume fraction) 35 % 40-54 Automated erythrocyte mean corpuscular volume 95 [foz_us] 80-99 Automated erythrocyte mean corpuscular hemoglobin (mass per erythrocyte) 31 pg 25-34 Automated erythrocyte mean corpuscular hemoglobin concentration measurement ( mass/volume) 33 g/dL 32-36 Automated erythrocyte distribution width ratio 12.3 % 10.0-14.5 Automated blood platelet count (count/volume) 216 10*3/uL 130-400 Automated blood platelet mean volume measurement 10.1 [foz_us] 7.4-10.4 Automated blood neutrophils/100 leukocytes 51 % 42-75 Automated blood lymphocytes/100 leukocytes 33 % 12-44 Blood monocytes/100 leukocytes 10 % 0-12 Automated blood eosinophils/100 leukocytes 6 % 0-10 Automated blood basophils/100 leukocytes 0 % 0-10 Blood neutrophils automated count (number/volume) 3.8 10*3 1.8-7.8 Blood lymphocytes automated count (number/volume) 2.4 10*3 1.0-4.0 Blood monocytes automated count (number/volume) 0.7 10*3 0.0-1.0 Automated eosinophil count 0.5 10*3/uL 0.0-0.3 Automated blood basophil count (count/volume) 0.0 10*3/uL 0.0-0.1 Comprehensive metabolic panel - 07/24/18 05:25 Serum or plasma sodium measurement (moles/volume) 141 mmol/L 135-145 Serum or plasma potassium measurement (moles/volume) 4.0 mmol/L 3.6-5.0 Serum or plasma chloride measurement (moles/volume) 107 mmol/L 98-107 Carbon dioxide 26 mmol/L 21-32 Serum or plasma anion gap determination (moles/volume) 8 mmol/L 5-14 Serum or plasma urea nitrogen measurement (mass/volume) 16 mg/dL 7-18 Serum or plasma creatinine measurement (mass/volume) 0.74 mg/dL 0.60-1.30 Serum or plasma urea nitrogen/creatinine mass ratio 22 NRG Serum or plasma creatinine measurement with calculation of estimated glomerular filtration rate > NRG Serum or plasma glucose measurement (mass/volume) 91 mg/dL 70-105 Serum or plasma calcium measurement (mass/volume) 8.6 mg/dL 8.5-10.1 Serum or plasma total bilirubin measurement (mass/volume) 0.8 mg/dL 0.1-1.0 Serum or plasma alkaline phosphatase measurement (enzymatic activity/volume) 75 U/L 40-136 Serum or plasma aspartate aminotransferase measurement (enzymatic activity/ volume) 26 U/L 5-34 Serum or plasma alanine aminotransferase measurement (enzymatic activity/volume ) 24 U/L 0-55 Serum or plasma protein measurement (mass/volume) 6.7 g/dL 6.4-8.2 Serum or plasma albumin measurement (mass/volume) 3.8 g/dL 3.2-4.5 CALCIUM CORRECTED 8.8 mg/dL 8.5-10.1 Encounters ACCT No. Visit Date/Time Discharge Status Pt. Type Provider Facility Loc./Unit Complaint [id number] 10/06/2014 10:03:00 10/06/2014 23:59:59 CLS Outpatient PATO ANAYA APRN [id number] 10/06/2014 10:03:00 10/06/2014 23:59:59 CLS Outpatient PATO ANAYA APRN [id number] 05/23/2014 09:56:00 05/23/2014 23:59:59 CLS Outpatient PTAO ANAYA APRN [id number] 02/21/2014 12:19:00 02/21/2014 23:59:59 CLS Outpatient PATO ANAYA APRN [id number] 02/21/2014 12:19:00 02/21/2014 23:59:59 CLS Outpatient PATO ANAYA APRN [id number] 11/29/2013 10:24:00 11/29/2013 23:59:59 CLS Outpatient PATO ANAYA APRN [id number] 11/29/2013 10:24:00 11/29/2013 23:59:59 CLS Outpatient PATO ANAYA APRN [id number] 10/28/2013 16:06:00 10/28/2013 23:59:59 CLS Outpatient MEG SALDANA DO [id number] 05/22/2013 14:50:00 05/22/2013 23:59:59 CLS Outpatient PATO ANAYA APRN [id number] 05/22/2013 14:50:00 05/22/2013 23:59:59 CLS Outpatient PATO ANAYA APRN [id number] 04/10/2013 14:22:00 04/10/2013 23:59:59 CLS Outpatient PATO ANAYA APRN [id number] 06/06/2012 13:51:00 06/06/2012 23:59:59 CLS Outpatient MEG SALDANA DO [facility] [id number] 06/06/2012 13:51:00 06/06/2012 23:59:59 CLS Outpatient MEG SALDANA DO [id number] 04/03/2013 15:23:00 Document Registration [id number] 03/05/2013 15:33:00 Document Registration [id number] 01/07/2013 15:38:00 Document Registration [id number] 01/07/2013 15:38:00 Document Registration [id number] 07/23/2018 16:35:00 07/24/2018 14:30:00 DIS Inpatient ARIELLE COLEMAN DO [facility] 4TH UTI,HAND INJURY [id number] 02/11/2015 14:44:00 02/11/2015 17:16:00 DIS Emergency LETICIA CISNEROS [facility] ER FALL/LEFT KNEE PAIN [id number] 02/11/2015 14:44:00 Document Registration [id number] 02/11/2015 14:44:00 Document Registration [id number] 02/11/2015 14:44:00 Document Registration [id number] 06/11/2011 13:33:00 Document Registration [id number] 04/23/2011 16:16:00 Document Registration [id number] 07/18/2018 10:20:00 07/18/2018 23:59:59 [facility] Outpatient PATO ANAYA APRN [facility] [id number] 12/21/2017 10:20:00 Document Registration [id number] 07/10/2017 13:10:00 Document Registration [id number] 02/11/2015 14:45:07 ACT Document Registration
[2018-09-03 12:12] LABS: PROTHROMBIN TIME PATIENT 13.5 SEC (12.2-14.7)
[2018-09-03 12:19] LABS: ALANINE AMINOTRANSFERASE 81 U/L (0-55); ALBUMIN 4.3 GM/DL (3.2-4.5); ALKALINE PHOSPHATASE 83 U/L (40-136); BILIRUBIN,TOTAL 0.6 MG/DL (0.1-1.0); BUN/CREATININE RATIO 58; CARBON DIOXIDE 27 MMOL/L (21-32); CHLORIDE 105 MMOL/L (98-107); CREATININE SERUM 0.74 MG/DL (0.60-1.30); GFR ESTIMATED > 60; GLUCOSE 163 MG/DL (70-105); POTASSIUM 3.9 MMOL/L (3.6-5.0); SODIUM 146 MMOL/L (135-145); TOTAL PROTEIN 7.6 GM/DL (6.4-8.2)
[2018-09-03 12:22] LABS: BILIRUBIN,URINE NEGATIVE (NEGATIVE); CLARITY,URINE CLEAR; COLOR,URINE YELLOW; GLUCOSE, URINE (UA) NEGATIVE (NEGATIVE); KETONES,URINE 4+ (NEGATIVE); LEUKOCYTE ESTERASE ,URINE NEGATIVE (NEGATIVE); NITRITE,URINE NEGATIVE (NEGATIVE); PH,URINE 6 (5-9); PROTEIN,URINE 1+ (NEGATIVE); UROBILINOGEN,URINE NORMAL (NORMAL)
[2018-09-03 12:29] LABS: BACTERIA,URINE TRACE /HPF; SQUAMOUS EPITHELIAL CELL,UR RARE /HPF; WBC,URINE 0-2 /HPF
[2018-09-03 12:37] LABS: BAND NEUTROPHILS 1 %; BASOPHILS % (MANUAL) 0 %; EOSINOPHILS % (MANUAL) 0 %; LYMPHOCYTES % (MANUAL) 10 %; MONOCYTES % (MANUAL) 9 %; NEUTROPHILS % (MANUAL) 80 %; RBC MORPH NORMAL
--- NOTE | 2018-09-03 12:49 | Diagnostic Imaging Report ---
INDICATION: Confusion. Altered mental status. COMPARISON: 10/11/2009. FINDINGS: Single frontal view of the chest demonstrates normal heart size and pulmonary vascularity. The lungs are well aerated and clear. No large pleural effusion or pneumothorax is seen. The visualized osseous structures show no acute abnormalities. IMPRESSION: 1. No acute cardiopulmonary process. Dictated by: Dictated on workstation # [id number]
--- NOTE | 2018-09-03 14:28 | Diagnostic Imaging Report ---
PROCEDURE: CT head and CT cervical spine without contrast. TECHNIQUE: Multiple contiguous axial images were obtained through the brain and cervical spine without the use of intravenous contrast. Sagittal and coronal reformations through the cervical spine were then performed. INDICATION: Confusion. CT OF THE HEAD: There is no mass, shift of the midline, or hemorrhage to suggest an acute intracranial abnormality. The ventricles are not abnormally dilated and stable in size when compared to the prior exam of 07/23/2018. The senescent changes seen previously including cortical atrophy and periventricular encephalomalacia again visualized and no different. The bone windows show no evidence for a fracture or for a destructive lesion. The orbits are symmetrical and within normal limits. The sinuses are generally clear. IMPRESSION: 1. There is no evidence for an acute intracranial abnormality. When compared to the prior study, there has been no significant change. 2. If clinical concern regarding an underlying abnormality persists and the patient is anticoagulated, then a short-term (24-hour) followup CT head exam should be obtained. CT CERVICAL SPINE: The previous CT cervical spine exam of 07/23/2018 noted degenerative disc and bony disease but failed to show any sign of an acute abnormality. On this exam, the degenerative changes do not appear to have progressed. There is no fracture or acute bony abnormality identified. There is no sign of retropharyngeal edema. The thyroid gland is generally unremarkable. There is a small focus of scar formation in the right apex. The lung apices are otherwise clear. IMPRESSION: 1. There is no evidence for an acute bony abnormality. 2. These results were discussed with Dr. Knowles in the ER. Dictated by: Dictated on workstation # [id number]
--- OUTSIDE RECORDS SUMMARY | 2018-09-03 15:18 | XMS REPORT | Continuity of Care Document ---
Author Author Formerly [facility], Later [facility] Address Unknown Phone Unavailable Allergies Active Description Code Type Severity Reaction Onset Reported/Identified Relationship to Patient Clinical Status Yes ezetimibe [id number] Drug Allergy Unknown N/A 07/23/2018 Medications There [...] PATO ANAYA APRN 250.00 DIABETES MELLITUS 03/11/2008 APTO ANAYA APRN 272.4 HYPERLIPIDEMIA HYPERLIPOPROTEINEMIAS (Old Classification) 03/11/2008 MEG SALDANA DO 250.00 DIABETES MELLITUS 03/11/2008 MEG SALDANA DO 272.4 HYPERLIPIDEMIA HYPERLIPOPROTEINEMIAS (Old Classification) 03/11/2008 HÉCTOR HOSIERY REPAIRER, PATO T 250.00 DIABETES MELLITUS 03/11/2008 HÉCTOR HOSIERY REPAIRER, PATO T 272.4 HYPERLIPIDEMIA HYPERLIPOPROTEINEMIAS (Old Classification) 03/11/2008 HÉCTOR HOSIERY REPAIRER, PATO T 250.00 DIABETES MELLITUS 03/11/2008 HÉCTOR HOSIERY REPAIRER, PATO T 272.4 HYPERLIPIDEMIA HYPERLIPOPROTEINEMIAS (Old Classification) 03/11/2008 HÉCTOR HOSIERY REPAIRER, PATO T 250.00 DIABETES MELLITUS 03/11/2008 HÉCTOR HOSIERY REPAIRER, PATO T 272.4 HYPERLIPIDEMIA HYPERLIPOPROTEINEMIAS (Old Classification) 03/11/2008 HÉCTOR HOSIERY REPAIRER, PATO T 250.00 DIABETES MELLITUS 03/11/2008 HÉCTOR HOSIERY REPAIRER, PATO T 272.4 HYPERLIPIDEMIA HYPERLIPOPROTEINEMIAS (Old Classification) 03/11/2008 HÉCTOR HOSIERY REPAIRER, PATO T 250.00 DIABETES MELLITUS 03/11/2008 HÉCTOR HOSIERY REPAIRER, PATO T 272.4 HYPERLIPIDEMIA HYPERLIPOPROTEINEMIAS (Old Classification) 03/11/2008 HÉCTOR HOSIERY REPAIRER, PATO T 250.00 DIABETES MELLITUS 03/11/2008 HÉCTOR HOSIERY REPAIRER, PATO T 272.4 HYPERLIPIDEMIA HYPERLIPOPROTEINEMIAS (Old Classification) 03/11/2008 HÉCTOR HOSIERY REPAIRER, PATO T 250.00 DIABETES MELLITUS 03/11/2008 HÉCTOR HOSIERY REPAIRER, PATO T 272.4 HYPERLIPIDEMIA HYPERLIPOPROTEINEMIAS (Old Classification) [...] ROTATOR CUFF TEAR (COMPLETE) LEFT 08/23/2010 PATO ANYAA APRN 727.61 NONTRAUMATIC TENDON ROTATOR CUFF TEAR [...] pleasure from usual activities (anhedonia) 08/17/2011 HÉCTOR HOSIERY REPAIRER, PATO T 780.99 loss of pleasure from [...] T 300.4 MO DYSTHYMIC DISORDER 03/21/2012 HÉCTOR RONODN, PATO T 300.4 MO DYSTHYMIC DISORDER 03/21/2012 [...] MUNIZ ARIELLE Ot M54.2 CERVICALGIA 07/24/2018 [place] MUNIZ ARIELLE Ot 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, RIGHT UPPER ARM 07/24/2018 [place] MUNIZ ARIELLE Ot N30.01 ACUTE CYSTITIS WITH HEMATURIA 07/24/2018 [place] MUNIZ ARIELLE Ot R32 UNSPECIFIED URINARY INCONTINENCE 07/24/2018 [place] MUNIZ ARIELLE Ot R47.9 UNSPECIFIED SPEECH DISTURBANCES 07/24/2018 [place] MUNIZ ARIELLE Ot S01.111A LACERATION W/O FB OF RIGHT EYELID AND PE 07/24/2018 [place] MUNIZ ARIELLE Ot W01.198A FALL SAME LEV FROM SLIP/TRIP W STRIKE AG 07/24/2018 [place] MUNIZ ARIELLE Ot Y92.002 [facility] 07/24/2018 ARIELLE COLEMAN DO Ot Z87.820 PERSONAL HISTORY OF TRAUMATIC BRAIN INJU Procedures Code [place] [address] A1C (IN-HOUSE) 06/06/2012 79441 ROUTINE VENIPUNCTURE 01/07/2013 76702 A1C (IN-HOUSE) 01/07/2013 68459 MICRO ALBUMIN-IN HOUSE 01/07/2013 45284 CMP 01/07/2013 12373 LIPID PANEL 01/07/2013 72620 TSH 01/07/2013 74650 CBC 01/07/2013 83422 A1C (IN-HOUSE) 05/22/2013 G0008 FLU ADMINISTRATION ( MEDICARE ONLY) 05/22/2013 95605 XRAY WRIST RIGHT 2 VIEWS 10/28/2013 60860 A1C (IN-HOUSE) 11/29/2013 32197 A1C (IN-HOUSE) 02/21/2014 02584 MICRO ALBUMIN-IN HOUSE 02/21/2014 Results Test Result [...] culture - 07/23/18 14:55 Bacterial urine culture [id number] NRG COLONY COUNT >100,000/ML NRG FTX;REPORTABLE RML [...] g/dL 3.2-4.5 CALCIUM CORRECTED 8.8 mg/dL 8.5-10.1 Complete blood count (CBC) with automated white blood cell (WBC) differential - 09/03/18 11:53 Blood leukocytes automated count (number/volume) 12.9 10*3/uL 4.3-11.0 Blood erythrocytes automated count (number/volume) 3.88 10*6/uL 4.35-5.85 Venous blood hemoglobin measurement (mass/volume) 12.3 g/dL 13.3-17.7 Blood hematocrit (volume fraction) 37 % 40-54 Automated erythrocyte mean corpuscular volume 95 [foz_us] 80-99 Automated erythrocyte mean corpuscular hemoglobin (mass per erythrocyte) 32 pg 25-34 Automated erythrocyte mean corpuscular hemoglobin concentration measurement ( mass/volume) 34 g/dL 32-36 Automated erythrocyte distribution width ratio 12.7 % 10.0-14.5 Automated blood platelet count (count/volume) 253 10*3/uL 130-400 Automated blood platelet mean volume measurement 10.8 [foz_us] 7.4-10.4 Automated blood neutrophils/100 leukocytes 84 % 42-75 Automated blood lymphocytes/100 leukocytes 6 % 12-44 Blood monocytes/100 leukocytes 11 % 0-12 Automated blood eosinophils/100 leukocytes 0 % 0-10 Automated blood basophils/100 leukocytes 0 % 0-10 Blood neutrophils automated count (number/volume) 10.8 10*3 1.8-7.8 Blood lymphocytes automated count (number/volume) 0.7 10*3 1.0-4.0 Blood monocytes automated count (number/volume) 1.4 10*3 0.0-1.0 Automated eosinophil count 0.0 10*3/uL 0.0-0.3 Automated blood basophil count (count/volume) 0.0 10*3/uL 0.0-0.1 Comprehensive metabolic panel - 09/03/18 11:53 Serum or plasma sodium measurement (moles/volume) 146 mmol/L 135-145 Serum or plasma potassium measurement (moles/volume) 3.9 mmol/L 3.6-5.0 Serum or plasma chloride measurement (moles/volume) 105 mmol/L 98-107 Carbon dioxide 27 mmol/L 21-32 Serum or plasma anion gap determination (moles/volume) 14 mmol/L 5-14 Serum or plasma urea nitrogen measurement (mass/volume) 43 mg/dL 7-18 Serum or plasma creatinine measurement (mass/volume) 0.74 mg/dL 0.60-1.30 Serum or plasma urea nitrogen/creatinine mass ratio 58 NRG Serum or plasma creatinine measurement with calculation of estimated glomerular filtration rate > NRG Serum or plasma glucose measurement (mass/volume) 163 mg/dL 70-105 Serum or plasma calcium measurement (mass/volume) 10.0 mg/dL 8.5-10.1 Serum or plasma total bilirubin measurement (mass/volume) 0.6 mg/dL 0.1-1.0 Serum or plasma alkaline phosphatase measurement (enzymatic activity/volume) 83 U/L 40-136 Serum or plasma aspartate aminotransferase measurement (enzymatic activity/ volume) 140 U/L 5-34 Serum or plasma alanine aminotransferase measurement (enzymatic activity/volume ) 81 U/L 0-55 Serum or plasma protein measurement (mass/volume) 7.6 g/dL 6.4-8.2 Serum or plasma albumin measurement (mass/volume) 4.3 g/dL 3.2-4.5 CALCIUM CORRECTED 9.8 mg/dL 8.5-10.1 PT panel in platelet poor plasma by coagulation assay - 09/03/18 11:53 Prothrombin time (PT) in platelet poor plasma by coagulation assay 13.5 s 12.2-14.7 INR in platelet poor plasma or blood by coagulation assay 1.0 0.8-1.4 Activated partial thromboplastin time (aPTT) in platelet poor plasma bycoagulation assay - 09/03/18 11:53 Activated partial thromboplastin time (aPTT) in platelet poor plasma bycoagulation assay 31 s 24-35 Blood manual differential performed detection - 09/03/18 11:53 Blood monocytes/100 leukocytes 9 % NRG Manual blood segmented neutrophils/100 leukocytes 80 % NRG Blood band neutrophils/100 leukocytes 1 % NRG Manual blood lymphocytes/100 leukocytes 10 % NRG Manual eosinophils/100 leukocytes in nose 0 % NRG Manual blood basophils/100 leukocytes 0 % NRG Blood erythrocyte morphology finding identification NORMAL NRG Serum or plasma creatine kinase measurement (enzymatic activity/volume) - 09/03 11:53 Serum or plasma creatine kinase measurement (enzymatic activity/volume) 1788 U/L 30-200 Blood lactic acid measurement (moles/volume) - 09/03/18 12:05 Blood lactic acid measurement (moles/volume) 1.23 mmol/L 0.50-2.00 Complete urinalysis with reflex to culture - 09/03/18 12:16 Urine color determination YELLOW NRG Urine clarity determination CLEAR NRG Urine pH measurement by test strip 6 5-9 Specific gravity of urine by test strip 1.025 1.016- 1.022 Urine protein assay by test strip, semi-quantitative 1+ NEGATIVE Urine glucose detection by automated test strip NEGATIVE NEGATIVE Erythrocytes detection in urine sediment by light microscopy 2+ NEGATIVE Urine ketones detection by automated test strip 4+ NEGATIVE Urine nitrite detection by test strip NEGATIVE NEGATIVE Urine total bilirubin detection by test strip NEGATIVE NEGATIVE Urine urobilinogen measurement by automated test strip (mass/volume) NORMAL NORMAL Urine leukocyte esterase detection by dipstick NEGATIVE NEGATIVE Automated urine sediment erythrocyte count by microscopy (number/high power field) [HPF] NRG Automated urine sediment leukocyte count by microscopy (number/high power field ) [HPF] NRG Bacteria detection in urine sediment by light microscopy TRACE NRG Squamous epithelial cells detection in urine sediment by light microscopy RARE NRG Crystals detection in urine sediment by light microscopy NONE NRG Casts detection in urine sediment by light microscopy NONE NRG Mucus detection in urine sediment by light microscopy NEGATIVE NRG Complete urinalysis with reflex to culture NO NRG Microscopic examination by SELENE preparation - 09/03/18 12:20 SELENE RESULT POSITIVE; YEAST CELLS SEEN ON DIRECT EXAM NRG Encounters ACCT No. Visit Date/Time Discharge Status Pt. Type Provider Facility Loc./Unit Complaint [id number] 10/06/2014 10:03:00 10/06/2014 23:59:59 CLS Outpatient PATO ANAYA APRN [id number] 10/06/2014 10:03:00 10/06/2014 23:59:59 CLS Outpatient PATO ANAYA APRN [id number] 05/23/2014 09:56:00 05/23/2014 23:59:59 CLS Outpatient PATO ANAYA APRN [id number] 02/21/2014 12:19:00 02/21/2014 23:59:59 CLS Outpatient PATO ANAYA APRN [id number] 02/21/2014 12:19:00 02/21/2014 23:59:59 CLS Outpatient PATO ANAYA APRN [id number] 11/29/2013 10:24:00 11/29/2013 23:59:59 CLS Outpatient PATO ANAYA APRN [id number] 11/29/2013 10:24:00 11/29/2013 23:59:59 CLS Outpatient PATO ANAYA APRN [id number] 10/28/2013 16:06:00 10/28/2013 23:59:59 CLS Outpatient MEG SALDANA DO [id number] 05/22/2013 14:50:00 05/22/2013 23:59:59 CLS Outpatient PATO ANAYA APRN [id number] 05/22/2013 14:50:00 05/22/2013 23:59:59 CLS Outpatient PATO ANAYA APRN [id number] 04/10/2013 14:22:00 04/10/2013 23:59:59 CLS Outpatient PATO ANAYA APRN [id number] 06/06/2012 13:51:00 06/06/2012 23:59:59 CLS Outpatient MEG SALDANA DO [id number] 06/06/2012 13:51:00 06/06/2012 23:59:59 CLS Outpatient MEG SALDANA DO [id number] 04/03/2013 15:23:00 Document Registration [id number] 03/05/2013 15:33:00 Document Registration [id number] 01/07/2013 15:38:00 Document Registration [id number] 01/07/2013 15:38:00 Document Registration [id number] 07/23/2018 16:35:00 07/24/2018 14:30:00 DIS Inpatient [place] ARIELLE [facility] 4TH UTI,HAND INJURY [id number] 02/11/2015 14:44:00 02/11/2015 17:16:00 DIS Emergency LETICIA CISNEROS [facility] ER FALL/LEFT KNEE PAIN [id number] 09/03/2018 12:05:00 Document Registration [id number] 02/11/2015 14:44:00 Document Registration [id number] 02/11/2015 14:44:00 Document Registration [id number] 02/11/2015 14:44:00 Document Registration [id number] 06/11/2011 13:33:00 Document Registration [id number] 04/23/2011 16:16:00 Document Registration [id number] 07/18/2018 10:20:00 07/18/2018 23:59:59 CLS Outpatient PATO ANAYA APRN [facility] [id number] 12/21/2017 10:20:00 Document Registration [id number] 07/10/2017 13:10:00 Document Registration [id number] 02/11/2015 14:45:07 ACT Document Registration
--- NOTE | 2018-09-03 15:24 | NUR ---
attempted to call report
--- NOTE | 2018-09-03 15:30 | NUR ---
REPORT FROM ANGELA ELIZALDE. AWAITING PT.
--- NOTE | 2018-09-03 16:00 | NUR ---
REC'D PER BED FROM ER. SEE ASSESSMENT. ADIS HAIRSTON admitted to room 417-1, with an admitting diagnosis of SCROTAL CELLULITIS, RHABDO, THRUSH, PRESSURE ULCERS, on 09/03/18 from ED via CART, accompanied by STAFF. ADIS HAIRSTON introduced to surroundings, call light, bed controls, phone, TV, temperature control, lights, meal times, smoking policy, visitor policy, side rail policy, bathrooms and showers. Patient Rights given to patient in the handbook. ADIS HAIRSTON verbalizes understanding that [facility] is not responsible for the loss or damage to any personal effects or valuables that are kept in the patients posession during their hospitalization. The following Patient Care Plans were discussed with the PT: Discharge Planning, IMPAIRED MOBILITY, FALLS, PAIN. ADIS HAIRSTON verbalizes understanding of Interdisciplinary Patient Education. Patient and/or family were informed about the Rapid Response Team and its purpose.
[2018-09-03 16:11] VITALS: BP 134/63
[2018-09-03 16:21] VITALS: BP 134/63
[2018-09-03] MEDS ORDERED: RECEIVED CONTRAST (Hold Metformin) IV SCH (16:30)
[2018-09-03] MEDS ORDERED: ONDANSETRON 4 MG/2 ML (SDV) Z0FRAN IV PRN (16:30)
[2018-09-03] MEDS ORDERED: NS 100 ML (IVPB) BAG IV ONE (16:30)
[2018-09-03] MEDS ORDERED: IOHEXOL 350 MG/ML 100 ML (OMNIPAQUE 350) VIAL IV ONE (16:30)
[2018-09-03] MEDS ORDERED: oxyCODONE/APAP 5/325MG (PERCOCET 5) TABLET PO PRN (16:30)
[2018-09-03] MEDS ORDERED: ACETAMINOPHEN 500 MG TAB (TYLENOL) PO PRN (16:30)
[2018-09-03] MEDS ORDERED: CATHETER FLUSH 10 ML SYR IV PRN (16:30)
--- NOTE | 2018-09-03 16:30 | NUR ---
DR. ALLEN OFFICE NOTIFIED OF CONSULT.
[2018-09-03] MEDS: 1/2 NS W/KCL 20 MEQ/L 1,000 ML IV SCH ×2 (16:44→23:15)
--- NOTE | 2018-09-03 18:21 | Wound Care Assessment ---
Wound Care Assessment Date Seen by Provider: Sep 03, 2018 Time Seen by Provider: 18:18 Chief Complaint Sacral pressure ulcer, scrotal dermatitis. HPI The patient is a 72 year old male found down for an unknown period with poor hygiene, noted to have a Stage 2 pressure ulcer of the sacrum, bilateral medial Stage 1 pressure ulcers of the knees, and a fungal dermatitis of the scrotum and R groin. Orders are written. Past Medical History: Admits Diabetes Type II Traumatic Brain Injury at age 17; Contracture RUE, speech impediment. Smoking Status: Current Everyday Smoker Recreational Drug Use: No Alcohol Use: Denies Use Review of Systems Pulmonary: No Dyspnea Cardiovascular: No: Chest Pain Exam Vital Signs Date Time Temp Pulse Resp B/P (MAP) Pulse Ox O2 Delivery O2 Flow Rate FiO2 09/03/18 17:04 Room Air 09/03/18 16:21 98.9 90 20 134/63 (86) 97 Capillary Refill : Less Than 3 SecondsLess Than 3 Seconds General Appearance: no apparent distress Respiratory: no respiratory distress Skin: other (Sacral area - 1.3 x 1.0 x 0.1 cm, base 50% slough, 50% regenerating, border irregular, periwound macerated.) Results Laboratory Tests 09/03/18 11:53: White Blood Count 12.9H, Red Blood Count 3.88L, Hemoglobin 12.3L, Hematocrit 37L , Mean Corpuscular Volume 95, Mean Corpuscular Hemoglobin 32, Mean Corpuscular Hemoglobin Concent 34, Red Cell Distribution Width 12.7, Platelet Count 253, Mean Platelet Volume 10.8H, Neutrophils (%) (Auto) 84H, Lymphocytes (%) (Auto) 6L, Monocytes (%) (Auto) 11, Eosinophils (%) (Auto) 0, Basophils (%) (Auto) 0, Neutrophils # (Auto) 10.8H, Lymphocytes # (Auto) 0.7L, Monocytes # (Auto) 1.4H, Eosinophils # (Auto) 0.0, Basophils # (Auto) 0.0, Neutrophils % (Manual) 80, Lymphocytes % (Manual) 10, Monocytes % (Manual) 9, Eosinophils % (Manual) 0, Basophils % (Manual) 0, Band Neutrophils 1, Blood Morphology Comment NORMAL, Prothrombin Time 13.5, INR Comment 1.0, Activated Partial Thromboplast Time 31, Sodium Level 146H, Potassium Level 3.9, Chloride Level 105, Carbon Dioxide Level 27, Anion Gap 14, Blood Urea Nitrogen 43H, Creatinine 0.74, Estimat Glomerular Filtration Rate > 60, BUN/Creatinine Ratio 58, Glucose Level 163H, Calcium Level 10.0, Corrected Calcium 9.8, Total Bilirubin 0.6, Aspartate Amino Transf (AST/SGOT) 140H, Alanine Aminotransferase (ALT/SGPT) 81H, Alkaline Phosphatase 83, Total Creatine Kinase 1788H, Total Protein 7.6, Albumin 4.3 09/03/18 12:05: Lactic Acid Level 1.23 09/03/18 12:16: Urine Color YELLOW, Urine Clarity CLEAR, Urine pH 6, Urine Specific [place] 1.025H, Urine Protein 1+H, Urine Glucose (UA) NEGATIVE, Urine Ketones 4+H, Urine Nitrite NEGATIVE, Urine Bilirubin NEGATIVE, Urine Urobilinogen NORMAL, Urine Leukocyte Esterase NEGATIVE, Urine RBC (Auto) 2+H, Urine RBC 2-5H, Urine WBC 0-2, Urine Squamous Epithelial Cells RARE, Urine Crystals NONE, Urine Bacteria TRACE, Urine Casts NONE, Urine Mucus NEGATIVE, Urine Culture Indicated NO Microbiology 09/03/18 SELENE Preparation - Final, Complete Microbiology 09/03/18 SELENE Preparation - Final, Complete Assessment/Plan/Dx 1. Pressure ulcer, sacrum, Stage 2, with a moisture component. 2. Remote traumatic brain injury with hemiplegia, R. 3. Urinary, fecal incontinence. 4. Fungal dermatitis, related to # 3. Plan: Off-load, barrier cream, hygiene. Concern in regards to nutrition. MESFIN WING MD Sep 03, 2018 18:21
--- NOTE | 2018-09-03 18:23 | Consultation ---
History of Present Illness History of Present Illness Patient Consulted On(ai/time) 09/03/18 18:21 Date Seen by Provider: Sep 03, 2018 Time Seen by Provider: 18:21 Reason for Visit: scrotal cellulitis History of Present Illness this gentleman was brought emergency room with a history of a fall at home and appears to have a sacral decubitus ulcer. I have been asked to see him regarding cellulitis around his scrotum. Allergies and Home Medications Allergies Coded Allergies: ezetimibe (Verified Allergy, Unknown, 09/03/18) Home Medications Cefdinir 300 Mg Capsule, 300 MG PO BID Prescribed by: ARIELLE COLEMAN on 07/24/18 0950 Chromium Amino Acid Chelate 400 Mcg Tablet, 400 MCG PO DAILY, (Reported) Escitalopram Oxalate 10 Mg Tablet, 10 MG PO DAILY, (Reported) Finasteride 5 Mg Tablet, 5 MG PO DAILY, (Reported) Fluoxetine HCl 20 Mg Capsule, 20 MG PO DAILY, (Reported) Gabapentin 300 Mg Capsule, 600 MG PO BID, (Reported) TAKES 2 (300MG) CAPSULES Multivitamin 1 Each Tablet, 1 TAB PO DAILY, (Reported) Oxycodone HCl/Acetaminophen 1 Each Tablet, 1 TAB PO BID PRN for PAIN-MODERATE, ( Reported) Solifenacin Succinate 10 Mg Tablet, 10 MG PO DAILY, (Reported) Patient Home Medication List Home Medication List Reviewed: Yes Past Ouhadcz-Owxlvu-Srwzxr Hx Patient Social History Alcohol Use: Denies Use Recreational Drug Use: No Smoking Status: Current Everyday Smoker Type Used: Cigarettes 2nd Hand Smoke Exposure: Yes Recent Foreign Travel: No Contact w/Someone Who Travel: No Recent Infectious Disease Expo: No Recent Hopitalizations: Yes Physical Abuse: No Sexual Abuse: No Immunizations Up To Date Date of Influenza Vaccine: Jul 12, 2018 Seasonal Allergies Seasonal Allergies: No Past Medical History Surgeries: No Respiratory: No Currently Using CPAP: No Currently Using BIPAP: No Cardiac: No Neurological: Yes Traumatic Brain Injury Reproductive Disorders: No Genitourinary: No Gastrointestinal: No Musculoskeletal: Yes (Right arm) Contracture Endocrine: Yes Diabetes, Non-Insulin dep HEENT: No Cancer: No Psychosocial: No Integumentary: No Recent Skin Changes Blood Disorders: No Adverse Reaction/Blood Tranf: No Family Medical History No Pertinent Family Hx Physical Exam-General Problems Physical Exam Vital Signs Vital Signs - First Documented 09/03/18 11:47 Temp 97.3 Pulse 90 Resp 17 B/P (MAP) 134/74 (94) Pulse Ox 97 O2 Delivery Room Air Capillary Refill : Less Than 3 SecondsLess Than 3 Seconds General Appearance: no apparent distress Gastrointestinal: non tender, soft Genital/Rectal: other Comments erythema along the scrotal edges on both sides. No evidence of abscess. Assessment/Plan Assessment/Plan Admission Diagnosis/Plan gentleman with medical problems, sacral decubitus ulcer and what appears to be erythema along the scrotal margin. Reasonable to manage conservatively. Admission Status: Observation Clinical Quality Measures DVT/VTE Risk/Contraindication: Risk Factor Score Per Nursin RFS Level Per Nursing on Admit: 4+=Very High BRENT LARKIN MD Sep 03, 2018 18:23
[2018-09-03] MEDS ORDERED: ZINC OXIDE 16% OINT (BUTT PASTE) 113 GM TUBE TOP PRN ×2 (18:30→18:45)
[2018-09-03 19:31] VITALS: BP 125/57
[2018-09-03] MEDS: NYSTATIN ORAL SUSP 5 ML UDC PO SCH (21:18)
[2018-09-03] MEDS: ZINC OXIDE 16% OINT (BUTT PASTE) 113 GM TUBE TOP SCH (21:19)
[2018-09-04] VITALS: BP 106/54
[2018-09-04 04:26] VITALS: BP 144/66
[2018-09-04] MEDS: 1/2 NS W/KCL 20 MEQ/L 1,000 ML IV SCH ×3 (05:50→20:23)
[2018-09-04 06:09] LABS: BASOPHILS % (AUTO) 0 % (0-10); EOSINOPHILS % (AUTO) 0 % (0-10); HEMATOCRIT 30 % (40-54); HEMOGLOBIN 9.7 G/DL (13.3-17.7); LYMPHOCYTES # (AUTO) 1.1 X 10^3 (1.0-4.0); LYMPHOCYTES % (AUTO) 13 % (12-44); MEAN CORPUSCULAR HEMOGLOBIN 31 PG (25-34); MEAN CORPUSCULAR HGB CONC 32 G/DL (32-36); MEAN CORPUSCULAR VOLUME 97 FL (80-99); MEAN PLATELET VOLUME 11.1 FL (7.4-10.4); MONOCYTES # (AUTO) 1.6 X 10^3 (0.0-1.0); MONOCYTES % (AUTO) 18 % (0-12); NEUTROPHILS % (AUTO) 69 % (42-75); PLATELET COUNT 185 10^3/uL (130-400); RED CELL DISTRIBUTION WIDTH 12.8 % (10.0-14.5); WHITE BLOOD COUNT 8.8 10^3/uL (4.3-11.0)
[2018-09-04 06:29] LABS: BUN/CREATININE RATIO 52; CARBON DIOXIDE 24 MMOL/L (21-32); CHLORIDE 112 MMOL/L (98-107); CREATINE KINASE 937 U/L (30-200); CREATININE SERUM 0.63 MG/DL (0.60-1.30); GFR ESTIMATED > 60; GLUCOSE 116 MG/DL (70-105); POTASSIUM 3.9 MMOL/L (3.6-5.0); SODIUM 146 MMOL/L (135-145)
[2018-09-04 08:16] VITALS: BP 147/65
[2018-09-04] MEDS: ZINC OXIDE 16% OINT (BUTT PASTE) 113 GM TUBE TOP SCH ×2 (08:34→20:24)
[2018-09-04] MEDS: NYSTATIN ORAL SUSP 5 ML UDC PO SCH ×2 (08:34→20:23)
--- NOTE | 2018-09-04 08:34 | ST Dysphagia Evaluation ---
Speech Evaluation-General Medical Diagnosis Sepsis Onset Date: Sep 04, 2018 Therapy Diagnosis Therapy Diagnosis: Oropharyngeal Dysphagia Precautions Precautions: Aspiration Precautions/Isolations: Fall Prevention Referral Referring Physician: Dr. Verna Reddy Reason for Referral: Evaluation/Treatment Medical History Reviewed History: Yes Social History Current Living Status: Alone Speech PLF/Current-Dysphagia Prior Level of Function Patient's level of function is unknown. He stated he ate well at home, however due to his current state this is questionable. Subjective Patient was pleasant and cooperative for the Bedside Dysphagia Evaluation. Cognitive Status Patient Orientation: Person, Place Oral Motor Skills Dentition: Edentalous It is unclear what diet level the patient was eating prior to his admission. Patient was placed NPO by the physician pending the swallow evaluation. Voice Voice Phonatory-Based Quality: Breathy Voice Pitch: Mildly Low Voice Loudness: Mildly Soft/Quiet Face Facial Symmetry: Symmetrical Oral-Facial Assessment Oral-Facial Dentition: Normal Labial Seal Description: Weak, Poor Coordination Smile: Normal Puff Cheeks: Reduced Strength Lingual Protrusion: Abnormal Lingual ROM: Abnormal Lingual Strength: Abnormal Dysphagia Evaluation Consistencies Presented: Thin Liquid, Mechanical Soft, [place] Thick Liquid, Pureed Oral Phase: Oral Residue, Reduced Oral Transit Pharyngeal Phase: Decreased A/P Bolus Transit, Multiple Swallow Attempts Funct. Velo/Pharyngeal Symptom: Cough After Swallow Swallowing Precautions: Alternate Liquids/Solids, Double Swallow, Decreased Rate of Oral Intake, Sitting Upright 90 Degrees, Sitting 90 Degrees 30 Post Intake Dysphagia Evaluation Summary Patient is a pleasant 72 year old male who was referred by Dr. Verna Reddy for a Bedside Dysphagia Evaluation. Patient is edentulous but was able to swallow all consistencies presented. He was noted to cough post thin liquid intake and had slight difficulty with management of the banana bolus. Patient's tongue was noted to be coated and dry. Patient exhibited adequate intake abilities with puree and nectar consistencies. Clarification completed for Dysphagia I diet level with nectar consistency liquids. Results communicated with his nurse, Julieta. Barriers to Learning Patient appears to have some decreased function due to medical status. Speech Short Term Goals Short Term Goals Short Term Goals 1) Patient will tolerate least restrictive diet level without s/s of aspiration at 90% or greater. 2) Patient will utilize compensatory strategies as trained for safe oral intake at 90% or greater. Speech Mcc Goals Box Attacher Goals Patient will maintain adequate nutrition/hydration via safe effective swallow function. Speech-Plan Patient/Family Goals Patient/Family Goals: Patient plans to return home post hospital discharge. Treatment Plan Speech Therapy Treatment Plan: Continue Plan of Care Patient will receive skilled ST services for dysphagia. Treatment Duration: Sep 06, 2018 Frequency: 5 times per week Estimated Hrs Per Day: .25 hour per day Rehab Potential: Fair Barriers to Learning: Patient's current medical status. Pt/Family Agrees to Plan: Yes Safety Risks/Education Teaching Recipient: Patient Teaching Methods: Discussion Response to Teaching: Verbalize Understanding Education Topics Provided: Diet level and safety of oral intake. Time Speech Therapy Time In: 08:00 Speech Therapy Time Out: 08:15 Total Billed Time: 15 Billed Treatment Time 1, ANABEL Salazar Sep 04, 2018 08:34
[2018-09-04] MEDS ORDERED: MORP15TA69 PO (08:45)
--- NOTE | 2018-09-04 08:45 | NUR ---
PATIENT ADMITTED LAST MONTH, I LEFT THE MED REC THE WAY IT WAS REPORTED THEN WHICH MATCHES WHAT HAS BEEN FILLED ACCORDING TO THE EXT MED HX WITH THE EXCEPTION OF THE OTC MEDS. THERE ARE SEVERAL BOTTLES IN LOCK UP IN THE PATIENTS ROOM HOWEVER NOT ALL OF THEM THAT HAVE BEEN FILLED RECENTLY ARE IN THE ROOM. THERE IS A BOTTLE OF MS CONTIN 15MG THAT WAS FILLED #56 8-4-17 IN THE ROOM, THIS WAS NOT REPORTED AT HIS LAST ADMISSION. ACCORDING TO [facility] THE MORPHINE HAS BEEN FILLED SEVERAL TIMES SINCE THE DATE ONT HE BOTTLE IN THE ROOM HOWEVER THE BOTTLE IS FULL OF PILLS, IT IS UNCLEAR HOW OFTEN THE PATIENT IS TAKING THE MEDICATION. HE DOES NOT KNOW ANYTHING ABOUT HIS MEDS. I ADDED THE MORPHINE TO THE MED REC AT THIS TIME.
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
[2018-09-04] MEDS ORDERED: oxyCODONE/APAP 5/325MG (PERCOCET 5) TABLET PO PRN (09:30)
[2018-09-04] MEDS ORDERED: morphine ER 15 MG (MS CONTIN) TAB PO PRN (09:30)
--- NOTE | 2018-09-04 10:12 | Diagnostic Imaging Report ---
INDICATION: Fall. Head injury. TECHNIQUE: Routine non contrast-enhanced axial images were obtained from the skull base to the vertex. COMPARISON: 09/03/2018. FINDINGS: The ventricles and cortical sulci are diffusely prominent, compatible with age-related volume loss. There are confluent areas of abnormal, low attenuation in the periventricular white matter. This is consistent with chronic small vessel ischemic changes. There is no midline shift or mass-effect. No acute intra-axial hemorrhage is seen. There are no abnormal areas of increased or decreased density to suggest acute hemorrhage or edema. No extra-axial masses or collections are present. The bony calvarium is intact. The visualized paranasal sinuses are unremarkable. The mastoid air cells are clear. IMPRESSION: 1. No acute intracranial abnormality. No CT evidence of mass, acute infarct or intracranial hemorrhage. 2. Chronic small vessel ischemic changes within the deep white matter. Dictated by: Dictated on workstation # [id number]
--- NOTE | 2018-09-04 10:47 | NUR ---
CM/SS responded to consult. Patient would like referral sent to [facility]. Referral packet was sent. Addendum: 09/04/18 at 1049 by THOMAS ESPINOZA Attempt to call ([place], ) and number was not in service.
[2018-09-04] MEDS: FLUoxetine HCL 20 MG (PROzac) CAP PO SCH (11:02)
[2018-09-04] MEDS: GABAPENTIN 600 MG (NEURONTIN) TAB PO SCH ×2 (11:03→20:23)
[2018-09-04] MEDS: FINASTERIDE (PROSCAR) 5 MG TAB PO SCH (11:03)
--- NOTE | 2018-09-04 11:08 | NUR ---
CM/SS filed an DCF report, intake # [id number].
--- NOTE | 2018-09-04 11:32 | NUR ---
NOTE THAT PT WAS FED AND HE STARTED COUGHING A LOT -- NOTE THAT HE WAS CHECKED FOR POCKETING FOOD -- HE WAS NOT -- HOB WAS UP HIGH PERDOMO -- PT WAS CONTINUING TO COUGH AFTER FEEDING STOPPED AND THIS RN CALLED S.T. - TO ADVISE HER
[2018-09-04 11:44] VITALS: BP 122/58
[2018-09-04 15:33] VITALS: BP 133/62
[2018-09-04] MEDS: TROSPIUM 20 MG (SANCTURA) TAB PO SCH (17:11)
[2018-09-04 19:33] VITALS: BP 126/54
[2018-09-05] VITALS (7 sets, daily range): BP systolic 100–133; BP diastolic 54–63
[2018-09-05] MEDS: 1/2 NS W/KCL 20 MEQ/L 1,000 ML IV SCH ×4 (04:04→21:59)
[2018-09-05] MEDS: TROSPIUM 20 MG (SANCTURA) TAB PO SCH ×2 (06:32→15:45)
[2018-09-05 07:12] LABS: BASOPHILS % (AUTO) 0 % (0-10); EOSINOPHILS # (AUTO) 0.3 10^3/uL (0.0-0.3); EOSINOPHILS % (AUTO) 4 % (0-10); HEMATOCRIT 29 % (40-54); HEMOGLOBIN 9.6 G/DL (13.3-17.7); LYMPHOCYTES # (AUTO) 1.6 X 10^3 (1.0-4.0); LYMPHOCYTES % (AUTO) 23 % (12-44); MEAN CORPUSCULAR HEMOGLOBIN 32 PG (25-34); MEAN CORPUSCULAR HGB CONC 33 G/DL (32-36); MEAN CORPUSCULAR VOLUME 98 FL (80-99); MEAN PLATELET VOLUME 10.7 FL (7.4-10.4); MONOCYTES # (AUTO) 1.1 X 10^3 (0.0-1.0); MONOCYTES % (AUTO) 15 % (0-12); NEUTROPHILS # (AUTO) 4.1 X 10^3 (1.8-7.8); NEUTROPHILS % (AUTO) 58 % (42-75); PLATELET COUNT 173 10^3/uL (130-400); RED CELL DISTRIBUTION WIDTH 12.8 % (10.0-14.5); WHITE BLOOD COUNT 7.1 10^3/uL (4.3-11.0)
[2018-09-05 07:35] LABS: ALANINE AMINOTRANSFERASE 62 U/L (0-55); ALKALINE PHOSPHATASE 63 U/L (40-136); BILIRUBIN,TOTAL 0.5 MG/DL (0.1-1.0); BUN/CREATININE RATIO 30; CALCIUM 8.7 MG/DL (8.5-10.1); CARBON DIOXIDE 25 MMOL/L (21-32); CHLORIDE 106 MMOL/L (98-107); CREATINE KINASE 575 U/L (30-200); CREATININE SERUM 0.61 MG/DL (0.60-1.30); GFR ESTIMATED > 60; GLUCOSE 134 MG/DL (70-105); POTASSIUM 4.1 MMOL/L (3.6-5.0); SODIUM 138 MMOL/L (135-145); TOTAL PROTEIN 5.5 GM/DL (6.4-8.2)
[2018-09-05] MEDS: FLUoxetine HCL 20 MG (PROzac) CAP PO SCH (08:50)
[2018-09-05] MEDS: NYSTATIN ORAL SUSP 5 ML UDC PO SCH ×2 (08:50→21:00)
[2018-09-05] MEDS: GABAPENTIN 600 MG (NEURONTIN) TAB PO SCH ×2 (08:50→21:00)
[2018-09-05] MEDS: FINASTERIDE (PROSCAR) 5 MG TAB PO SCH (08:50)
[2018-09-05] MEDS: ZINC OXIDE 16% OINT (BUTT PASTE) 113 GM TUBE TOP SCH ×2 (08:53→21:00)
--- NOTE | 2018-09-05 09:49 | NUR ---
CM/SS ML-P will be over this day to speak with the patient and his .
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
--- NOTE | 2018-09-05 11:07 | NUR ---
CM/SS [facility] (Radha) came to speak with the patient and his . They are waiting for approval from the patient's insurance before can accept the patient. Facility will let this news writer know this day.
--- NOTE | 2018-09-05 11:18 | Speech Therapy Daily Note ---
Speech Daily Progress Note Subjective Date Seen by Provider: Sep 05, 2018 Time Seen by Provider: 00:15 Patient stated he was very hungry. He was noted to cough x3 prior to eating. Objective Patient consumed 100% of his Dysphagia 1 diet with nectar consistency liquids with total assistance, Assessment Assessment Current Status: Good Progress Treatment Plan Continue Plan of Care Speech Short Term Goals Short Term Goals Short Term Goals 1) Patient will tolerate least restrictive diet level without s/s of aspiration at 90% or greater. 2) Patient will utilize compensatory strategies as trained for safe oral intake at 90% or greater. Speech Accounts Receivable Assistant Goals Accounts Receivable Assistant Goals Patient will maintain adequate nutrition/hydration via safe effective swallow function. Speech-Plan Patient/Family Goals Patient/Family Goals: Patient plans to return home post discharge, however this is questionable due to the status he is physically in. Treatment Plan Speech Therapy Treatment Plan: Continue Plan of Care Patient was able to consume 100% of his meal with total assistance. He had cough /clear x3 with intake. Treatment Duration: Sep 07, 2018 Frequency: 5 times per week Estimated Hrs Per Day: .25 hour per day Rehab Potential: Fair Barriers to Learning: Patient's medical status. Pt/Family Agrees to Plan: Yes Safety Risks/Education Teaching Recipient: Patient Teaching Methods: Discussion Response to Teaching: Verbalize Understanding Education Topics Provided: Safety of oral intake. Time Speech Therapy Time In: 09:00 Speech Therapy Time Out: 09:15 Total Billed Time: 15 Billed Treatment Time 1, KAL ANABEL Brand Sep 05, 2018 11:18
--- NOTE | 2018-09-05 11:48 | Physical Therapy Evaluation ---
PT Evaluation-General Medical Diagnosis Admission Date Sep 03, 2018 at 14:48 Medical Diagnosis: Sepsis Onset Date: Sep 03, 2018 Therapy Diagnosis Therapy Diagnosis: impaired mobility, strength, endurance Height/Weight Height (Feet): 5 Height (Inches): 7.00 Weight (Pounds): 127 Weight (Ounces): 14.0 Precautions Precautions/Isolations: Fall Prevention Referral Physician: Verna Reddy DO Reason for Referral: Evaluation/Treatment Medical History Pertinent Medical History: DM, Smoking, TBI Current History went to ER with sacral decubitus ulcer and cellulitis on scrotum, had a fall, rhabdomyolysis Reviewed History: Yes Social History Current Living Status: Significant Other Entry Into Home: Level Entry Patient lives with his but he will be [place] [facility]. Prior/Core FIM Prior Level of Function Therapy Code Descriptions/Definitions Functional [place] Measure: 0=Not Assessed/NA 4=Minimal Assistance 1=Total Assistance 5=Supervision or Setup 2=Maximal Assistance 6=Modified [place] 3=Moderate Assistance 7=Complete [place] Therapy Quality Codes: 6 Independent with activity with or without an assistive device 5 Patient requires set up or clean up by helper. Patient completes activity by themselves 4 Supervision or touching assist (CGA). [place] provide cues , steadying assist 3 The helper provides less than half the effort to complete the activity 2 The helper provides more than half the effort to complete the activity 1 Dependent. The helper does all the effort to complete an activity 7 Patient refused to complete or attempt activity 9 The patient did not perform the activity before the current illness or injury 88 Not attempted due to Medical conditions or safety concerns Functional Abilities and Goals: Independent: Patient completed the activities by him/herself, with or without an assistive device, with no assistance from a helper. Needed Some Help: Patient needed partial assistance from another person to complete activities. Dependent: A helper completed the activities for the patient. Unknown: Not Applicable: Previous functional mobility level is uncertain. He was using a lofstrand crutch for ambulation but his states he was falling a lot. Patient cannot use a rolling walker due to right arm contractures/weakness. PT Evaluation-Current Subjective Patient in bed pre tx, agrees to PT, states he has some soreness in his bottom but it is unrated. Pt/Family Goals none stated Objective Patient Orientation: Unable to Assess, Mumbles ROM/Strength ROM Lower Extremities unable to test (patient resists motion) Strength Lower Extremities RLE gross 3+/5, LLE gross 4+/5 Integumentary/Posture Integumentary sacral wound, see nursing notes Sensory Vision: Wears Glasses Hearing: Functional Sensation Right Lower Extremit: Intact Sensation Left Lower Extremity: Intact Transfers Therapy Code Descriptions/Definitions Functional [place] Measure: 0=Not Assessed/NA 4=Minimal Assistance 1=Total Assistance 5=Supervision or Setup 2=Maximal Assistance 6=Modified [place] 3=Moderate Assistance 7=Complete [place] Transfers (B, C, W/C) (FIM): 3 Scootin Rollin Supine to/from Sit: 3 Sit to/from Stand: 4 Patient needs assist with both legs getting into and out of bed, assist with balance when standing. He can only restaurant kitchen manager a rolling walker with the right arm. Patient was able to stand at the side of the bed for several minutes. Patient has poor sitting balance and falls backwards. Gait Anticipated Mode of Locomotion: Both Gait (FIM): 1 Distance: 3' Gait Level of Assist: 4 Gait Persons Needed: 1 Gait Assistive Device: FWW Comments/Gait Description Patient was able to take a few steps sideways toward the head of the bed with min assist, needs assist with balance and to help with the walker because he can only restaurant kitchen manager it with the right hand. Balance Sitting Static: Poor Sitting Dynamic: Poor Standing Static: Poor Standing Dynamic: Poor Assessment/Needs Patient has impaired mobility, strength, endurance, balance. Patient's states she wanted this therapist to make a note that he needed a new lofstrand crutch. Rehab Potential: Guarded PT Short Term Goals Short Term Goals Time Frame: Sep 12, 2018 Transfers (B,C,W/C) (FIM): 4 Gait (FIM): 1 Gait Distance Comment: 10' Gait Level of Assist: 4 Gait Assistive Device: Handheld Assist PT Plan Problem List Problem List: Activity Tolerance, Functional Strength, Safety, Balance, Gait, Transfer, Bed Mobility, ROM Treatment/Plan Treatment Plan: Continue Plan of Care Treatment Plan: Bed Mobility, Concurrent Therapy, Education, Functional Activity Earnest, Functional Strength, Gait, Safety, Therapeutic Exercise, Transfers Treatment Duration: Sep 12, 2018 Frequency: 6 times per week Estimated Hrs Per Day: .25 hour per day (15-30') Patient and/or Family Agrees t: Yes Safety Risks/Education Patient Education: Gait Training, Transfer Techniques, Correct Positioning, Safety Issues Teaching Recipient: Patient Teaching Methods: Demonstration, Discussion Response to Teaching: Reinforcement Needed Time/GCodes Time In: 1115 Time Out: 1145 Total Billed Treatment Time: 30 Total Billed Treatment 1 visit MOYM 20' FA 10' CALVIN LUCAS PT Sep 05, 2018 11:48
--- NOTE | 2018-09-05 13:35 | NUR ---
CM/SS sent PT and Speech notes to [facility], they are waiting for insurance still for preauthorization.
--- NOTE | 2018-09-05 14:51 | NUR ---
CM/SS spoke with Ashlee Pelaez ([employer]) she stated that [facility] was not in network and questioned the reasons that referral was sent there. Discussed it was families first choice facility and that the patient's is considering assisted living facility within close proximity to the SNF, which would allow her to walk there as they have no means of transforation.
--- NOTE | 2018-09-05 15:03 | NUR ---
Pastoral care visit, pts and pt both shared concerns and stressors, listened, supported and offered prayer,
--- NOTE | 2018-09-05 15:11 | Occupational Therapy Eval ---
OT Evaluation-General/PLF Medical Diagnosis Admission Date Sep 03, 2018 at 14:48 Medical Diagnosis: Sepsis Onset Date: Sep 03, 2018 Therapy Diagnosis Therapy Diagnosis: Weakness, contractures of Rt arm. Height/Weight Height (Feet): 5 Height (Inches): 7.00 Weight (Pounds): 127 Weight (Ounces): 14.0 Precautions Precautions/Isolations: Fall Prevention, Standard Precautions Safety Interventions: Bed Exit Alarm Referral Physician: Verna Reddy DO Referral Reason: Activity Tolerance, Self Care, Evaluation/Treatment, Strengthening/ROM Medical History Pertinent Medical History: Arthritis, DM, Dementia, Smoking, TBI Additional Medical History contusion of knee, UTI, Dehydration, speech impediment, Incontinence of urine Current History 72 yrs old w/m admitted to ER due to Sacral decubitus ulcer & cellulitis on scrotum , Had a fall. Very unsteady standing balance. Distract very easily. Pt left handed . Reviewed History: Yes Social History Home: Single Level Current Living Status: Spouse Entry Into Home: Level Entry ADL-Prior Level of Function Therapy Code Descriptions/Definitions Functional [place] Measure: 0=Not Assessed/NA 4=Minimal Assistance 1=Total Assistance 5=Supervision or Setup 2=Maximal Assistance 6=Modified [place] 3=Moderate Assistance 7=Complete [place] Therapy Quality Codes: 6 Independent with activity with or without an assistive device 5 Patient requires set up or clean up by helper. Patient completes activity by themselves 4 Supervision or touching assist (CGA). [place] provide cues , steadying assist 3 The helper provides less than half the effort to complete the activity 2 The helper provides more than half the effort to complete the activity 1 Dependent. The helper does all the effort to complete an activity 7 Patient refused to complete or attempt activity 9 The patient did not perform the activity before the current illness or injury 88 Not attempted due to Medical conditions or safety concerns Functional Abilities and Goals: Independent: Patient completed the activities by him/herself, with or without an assistive device, with no assistance from a helper. Needed Some Help: Patient needed partial assistance from another person to complete activities. Dependent: A helper completed the activities for the patient. Unknown: Not Applicable: ADL PLOF Comments Pt was living with his at single level house & was requiring SBA in LB dressing & in shower only. Independent in bed mobility & ambulation & func transfers, grooming, toilet & hyigine activity. OT Current Status Subjective Pt in bed, a golf player assistant Nurse was helping pt in proper positioning. Pt stated, " I am fine , hurting my butts. 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 Therapy Code Descriptions/Definitions Functional [place] Measure: 0=Not Assessed/NA 4=Minimal Assistance 1=Total Assistance 5=Supervision or Setup 2=Maximal Assistance 6=Modified [place] 3=Moderate Assistance 7=Complete [place] Therapy Quality Codes: 6 Independent with activity with or without an assistive device 5 Patient requires set up or clean up by helper. Patient completes activity by themselves 4 Supervision or touching assist (CGA). [place] provide cues , steadying assist 3 The helper provides less than half the effort to complete the activity 2 The helper provides more than half the effort to complete the activity 1 Dependent. The helper does all the effort to complete an activity 7 Patient refused to complete or attempt activity 9 The patient did not perform the activity before the current illness or injury 88 Not attempted due to Medical conditions or safety concerns Eating (FIM): 6 Grooming (FIM): 6 Bathing (FIM): 0 Upper Body Dressing (FIM): 3 Lower Body Dressing (FIM): 2 Toileting (FIM): 2 Transfers (B, C, W/C) (FIM): 3 Toilet/Commode Transfer (FIM): 3 Tub Transfer (FIM): 0 Shower Transfer (FIM): 0 Education OT Patient Education: Correct positioning, Instructions to caregiver, Safety issues Teaching Recipient: Patient Teaching Methods: Demonstration Response to Teaching: Verbalize Understanding OT Short Term Goals Short Term Goals Time Frame: Sep 19, 2018 Eating(FIM): 7 Grooming(FIM): 5 Bathing(FIM): 0 Bathing Location: L Arm, R Arm, L Upper Leg, R Upper Leg, L Lower Leg ( including foot), R Lower Leg (including foot), Abdomen, Buttocks, Perineal Area Upper Body Dressing(FIM): 5 Lower Body Dressing(FIM): 4 Toileting(FIM): 4 Transfers (B,C,W/C) (FIM): 5 Toilet/Commode Transfer(FIM): 5 Tub Transfer(FIM): 0 Shower Transfer(FIM): 4 Additional Short Term Goals: 1-Demonstrate ADL Tasks, 2-Verbalize Understanding , 3-ImproveStrength/Earnest 1=Demonstrate adherence to instructed precautions during ADL tasks. 2=Patient will verbalize/demonstrate understanding of assistive devices/ modifications for ADL. 3=Patient will improve strength/tolerance for activity to enable patient to perform ADL's. OT Orthopedic Designer Goals Intermediate Goals Time Frame: Oct 03, 2018 Grooming(FIM): 5 Bathing(FIM): 0 Bathing Location: L Arm, R Arm, L Upper Leg, R Upper Leg, L Lower Leg ( including foot), R Lower Leg (including foot), Chest, Abdomen, Buttocks, Perineal Area Upper Body Dressing(FIM): 5 Lower Body Dressing(FIM): 4 Toileting(FIM): 5 Transfers (B,C,W/C) (FIM): 5 Toilet/Commode Transfer(FIM): 5 Tub Transfer(FIM): 0 Shower Transfer(FIM): 4 Additional Goals: 1-Demonstrate ADL Tasks, 2-Verbalize Understanding, 3- ImproveStrength/Earnest 1=Demonstrate adherence to instructed precautions during ADL tasks. 2=Patient will verbalize/demonstrate understanding of assistive devices/ modifications for ADL. 3=Patient will improve strength/tolerance for activity to enable patient to perform ADL's. OT Education/Plan Problem List/Assessment Assessment: Decreased Activ Tolerance, Decreased Safety Aware, Decreased UE Strength, Dependent Transfers, Impaired Bed Mobility, Impaired Cognition, Impaired Coordination, Impaired Funct Balance, Impaired Self-Care Skills, Restricted Funct UE ROM Discharge Recommendations Plan/Recommendations: Continue POC Therapy D/C Recommendations: Home w/ Family Support, Occupational Therapy Home Care, Halfway (TCU/NH) Equpiment Recommendations-D/C: Toilet Riser with Rails, Bath Chair, Extended Shower Sprayer, Literacy Education Professor Barriers to Progress Rt arm contrctures & Left arm weakness Patient/Family Goals To return home Independently with . Treatment Plan/Plan of Care Treatment,Training & Education: Yes Patient would benefit from OT for education, treatment and training to promote independence in ADL's, mobility, safety and/or upper extremity function for ADL' s. Plan of Care: ADL Retraining, Caregiver Training, Functional Mobility, UE Funct Exercise/Act, UE Neuromus Re-Ed/Coord Treatment Duration: Oct 03, 2018 Frequency: 5 times per week Estimated Hrs Per Day: .25 hour per day Agreement: Yes (0205) Rehab Potential: Guarded Time/GCodes Start Time: 13:45 Stop Time: 14:17 Total Time Billed (hr/min): 32 Billed Treatment Time 1, EVM 20 , Ex 12 Total 32 minutes LIA YANCEY OT Sep 05, 2018 15:11
--- NOTE | 2018-09-05 16:10 | NUR ---
CM/SS sent [facility] OT Eval for them to pass along to insurance for consideration in pre auth. Rosa Ferraro ([facility]) will be out to talk to the patient on 09/06.
[2018-09-06] MEDS: 1/2 NS W/KCL 20 MEQ/L 1,000 ML IV SCH ×4 (00:56→22:05)
[2018-09-06 04:00] VITALS: BP 129/66
[2018-09-06] MEDS: TROSPIUM 20 MG (SANCTURA) TAB PO SCH ×2 (05:57→17:37)
[2018-09-06 08:00] VITALS: BP 122/62
[2018-09-06] MEDS: GABAPENTIN 600 MG (NEURONTIN) TAB PO SCH ×2 (08:53→20:30)
[2018-09-06] MEDS: FLUoxetine HCL 20 MG (PROzac) CAP PO SCH (08:53)
[2018-09-06] MEDS: NYSTATIN ORAL SUSP 5 ML UDC PO SCH ×2 (08:53→20:30)
[2018-09-06] MEDS: ZINC OXIDE 16% OINT (BUTT PASTE) 113 GM TUBE TOP SCH ×2 (08:54→20:31)
[2018-09-06] MEDS: FINASTERIDE (PROSCAR) 5 MG TAB PO SCH (09:01)
--- NOTE | 2018-09-06 09:46 | NUR ---
CM/SS left a message for Natalie with [employer] to check on their pre auth with Cori. July Gonzalez (step daughter, ) has spoken to the patient his and wants to complete DPOA paperwork. Will get them the paperwork and have notary come up when she is at hospital and available.
[2018-09-06] MEDS ORDERED: NYST1000 PO (10:09)
[2018-09-06] MEDS ORDERED: OXYC-471 PO (10:09)
[2018-09-06] MEDS ORDERED: MORP15TA69 PO (10:09)
[2018-09-06] MEDS ORDERED: ZINC28PA TOP (10:09)
--- NOTE | 2018-09-06 10:12 | Discharge Inst-Skilled Nursing ---
Discharge Inst-Skilled NF Patient Instructions Patient Problems: Chronic contracture Speech difficulty Dysphagia Chronic pain Goal: Return to indepedent living Consult/Follow Up/Orders Follow Up Appt.: [facility] on NH rounds Skilled NF Admit to: [facility] Certification (SNF) I certify that SNF services are required to be given on an inpatient basis because of the above named patient's need for long term care on a continuing basis for the conditions(s) for which he/she was receiving inpatient hospital services prior to his/her transfer to the SNF. Snf Facility Order: Nursing Services, Cat Operator-Evaluate & Treat, Physical Therapy-Evaluate & Treat, Speech Language-Evaluate & Treat, Wound Care-Eval/Treat Discharge Diet: Other Diet (pureed) Daily Activity as Tolerated: Yes New & Resume Previous Orders Verna Reddy Sep 06, 2018 10:11 Pneu Vac Indicated: Yes VERNA REDDY DO Sep 06, 2018 10:12
--- NOTE | 2018-09-06 11:00 | Discharge Summary-Hospitalist ---
ARIELLE COLEMAN DO 09/06/18 1100: Diagnosis/Chief Complaint Date of Admission Sep 03, 2018 at 14:48 Date of Discharge Discharge Date: Sep 06, 2018 Admission Diagnosis Assessment: Fall and found down for undetermined amount of time Acute rhabdomyolysis Chronic disability Contractures chronic Cachexia Acute renal failure Decubitus ulcers Plan: SW Wound care Abx Monitor renal function Discharge Diagnosis (1) Fall Status: Acute (2) Rhabdomyolysis Status: Resolved (3) Cellulitis of scrotum Status: Acute (4) Thrush, oral Status: Acute (5) Pressure ulcer Status: Acute (6) Dementia Status: Resolved (7) Incontinence of bowel Status: Acute (8) Dehydration Status: Acute (9) Incontinence of urine Status: Acute (10) Speech impediment Status: Chronic (11) Contracture of muscle, right upper arm Status: Chronic (12) Poor social situation Status: Chronic Discharge Summary Discharge Physical Exam Allergies: Coded Allergies: ezetimibe (Verified Allergy, Unknown, 09/03/18) Vitals & I&Os Vital Signs Date Time Temp Pulse Resp B/P (MAP) Pulse Ox O2 Delivery O2 Flow Rate FiO2 09/07/18 08:00 99.2 78 18 130/72 (91) 100 Room Air General Appearance: No Apparent Distress, WD/WN, Chronically ill, Cachetic Respiratory: Chest Non Tender, Lungs Clear, Normal Breath Sounds, No Accessory Muscle Use, No Respiratory Distress Cardiovascular: Regular Rate, Rhythm, No Edema, No Gallop, No JVD, No Murmur, Normal Peripheral Pulses Neurologic/Psychiatric: Alert, Oriented x3, No Motor/Sensory Deficits, Normal Mood/Affect, Other (poor recall) Hospital Course Was the Problem List Reviewed?: Yes This is a 72-year-old but had an uncomplicated hospital course actually was admitted following a fall and could not get up diagnosed with acute rhabdomyolysis and placed on IV fluids and pain medication. Patient was placed back on all home meds and physical therapy and occupational therapy were consulted. All acute issues resolved Glasgow catheter discontinued and voiding on his own eating and drinking a dysphagia pured diet without aspiration from speech therapy recommendations and he was stable for discharge to be at [facility] for skilled care 2 days after ready for DC at [facility]. Labs (last 24 hrs) Microbiology 09/03/18 Blood Culture - Preliminary, Resulted No growth 09/03/18 SELENE Preparation - Final, Complete 09/03/18 Urine Culture - Final, Complete NO GROWTH Patient resulted labs reviewed. Imaging: Reviewed Imaging Report Discussion & Recommendations Discharge Planning: <30 minutes discharge planning Discharge Home Medications: Active Scripts Active Boudreauxs (Zinc Oxide) 28 Gm Oint 0 Gm TOP NEEDED PRN 30 Days Nystatin 100,000 Unit/1 Ml Oral.susp 15 Ml PO QID Ms Contin (Morphine Sulfate) 15 Mg Tablet.er 15 Mg PO Q12H PRN Oxycodone-Acetaminophen 5-325 (Oxycodone HCl/Acetaminophen) 1 Each Tablet 1 Tab PO BID PRN Reported One Daily (Multivitamin) 1 Each Tablet 1 Tab PO DAILY Chromium (Chromium Amino Acid Chelate) 400 Mcg Tablet 400 Mcg PO DAILY Escitalopram Oxalate 10 Mg Tablet 10 Mg PO DAILY Fluoxetine HCl 20 Mg Capsule 20 Mg PO DAILY Finasteride 5 Mg Tablet 5 Mg PO DAILY Vesicare (Solifenacin Succinate) 10 Mg Tablet 10 Mg PO DAILY Gabapentin 300 Mg Capsule 600 Mg PO BID TAKES 2 (300MG) CAPSULES Instructions to patient/family Please see electronic discharge instructions given to patient. Clinical Quality Measures DVT/VTE Risk/Contraindication: Risk Factor Score Per Nursin RFS Level Per Nursing on Admit: 4+=Very High NEVIN KENNEDY MEDICAL STUDENT 09/06/18 1219: Diagnosis/Chief Complaint Admission Diagnosis Admission diagnosis: Rhabdomyolysis s/p fall with unknown downtime Discharge Diagnosis Rhabdomyolysis (1) Rhabdomyolysis Status: Resolved (2) Cellulitis of scrotum Status: Acute (3) Pressure ulcer Status: Acute (4) Dementia Status: Resolved (5) Incontinence Status: Acute (6) Speech impediment Status: Chronic (7) Contracture of muscle, right upper arm Status: Chronic (8) Poor social situation Status: Chronic Discharge Summary Discharge Physical Exam Allergies: Coded Allergies: ezetimibe (Verified Allergy, Unknown, 09/03/18) General Appearance: No Apparent Distress, WD/WN, Chronically ill, Cachetic HEENT: PERRL/EOMI, Pharynx Normal, Moist Mucous Membranes; No Tonsillar Exudate Respiratory: Chest Non Tender, Lungs Clear, Normal Breath Sounds, No Accessory Muscle Use, No Respiratory Distress Cardiovascular: Regular Rate, Rhythm, No Edema, No Gallop, No Murmur, Normal Peripheral Pulses Gastrointestinal: Normal Bowel Sounds, No Organomegaly, No Pulsatile Mass, Non Tender, Soft Extremity: Normal Capillary Refill, Non Tender, No Calf Tenderness Skin: Normal Color, Warm/Dry Neurologic/Psychiatric: Alert, Oriented x3, No Motor/Sensory Deficits, Normal Mood/Affect Hospital Course Was the Problem List Reviewed?: Yes Hospital course: This is a 72 yo male with a hx of TBI, speech impediment, and R arm contracture who was brought to the ER by EMS after being found down for an unknown amount of time by his . She told EMS and ER physician that she was primarily concerned by his change in speech, saying it sounded "thick" compared to normal. In the ED, the patient was found to severely dehydrated with acute kidney failure and rhabdomyolysis. Examination also revealed scrotal cellulitis w/ incontinence of feces/urine. A stage II sacral decubitus ulcer was also found. The pt was admitted for IV fluid rehydration and wound care. He was also evaluated by speech pathology and PT/OT. His hydration status, mentation, and speech all improved over the course of a few days. He is to be discharged to [facility] w/ wound care outpatient follow up. Problem Qualifiers (1) Fall: Encounter type: initial encounter Qualified Codes: W19.XXXA - Unspecified fall, initial encounter (2) Rhabdomyolysis: Rhabdomyolysis type: non-traumatic Qualified Codes: M62.82 - Rhabdomyolysis (3) Pressure ulcer: Pressure injury location: sacral region Pressure injury stage: stage 2 Qualified Codes: L89.152 - Pressure ulcer of sacral region, stage 2 (4) Dementia: Dementia type: unspecified type Dementia behavioral disturbance: without behavioral disturbance Qualified Codes: F03.90 - Unspecified dementia without behavioral disturbance (5) Incontinence of bowel: Fecal incontinence type: fecal smearing Qualified Codes: R15.1 - Fecal smearing (6) Incontinence of urine: Urinary Incontinence type: functional incontinence Qualified Codes: R39.81 - Functional urinary incontinence (7) Incontinence: Incontinence type: urinary Urinary Incontinence type: unspecified incontinence Qualified Codes: R32 - Unspecified urinary incontinence ARIELLE COLEMAN DO Sep 06, 2018 11:00 NEVIN KENNEDY MEDICAL STUDENT Sep 06, 2018 12:19
[2018-09-06 12:04] VITALS: BP 112/72
--- NOTE | 2018-09-06 12:22 | NUR ---
CM/SS spoke with Radha at [facility] and they have not heard a determination from the insurance ([employer]) for pre auth. This commercial real estate underwriter attempted to call Ashlee with [facility] and was only able to leave her a message with call back number.
--- NOTE | 2018-09-06 12:55 | NUR ---
CM/SS Ashlee Persaud returned call, she stated that the insurance would not have coverage for out of network providers. The only local SNF that is in network is [facility]. Referral was sent to [facility] with the patient, his and the step daughter's approval. They will consider having him at [facility] for the Skilled stay and then would transition to the [facility] for intermediate project manager as that will work better for the who will be transitioning to [facility]. Messages left for Natalie at [facility] and Callie at [facility].
--- NOTE | 2018-09-06 14:54 | NUR ---
CM/SS provided the family with DPOA paperwork. Colleen Farmer provided notary services for the DPOA paperwork, file in chart and copies to the family. Callie with [facility] called and they have to have acceptance from [facility] before will accept the patient and that will not be until likely tomorrow.
--- NOTE | 2018-09-06 15:03 | Occupational Ther Daily Note ---
OT Current Status-Daily Note Subjective Pt in bed , sitting in recliner. Pt states that , " I just had my lunch." Pain Numeric Pain Scale: 6 Location: Soft Tissue Location Body Site: Sacrum Pain Description: Throbbing, Sharp Mental Status/Objective Patient Orientation: Person, Place, Time Therapy Code Descriptions/Definitions Functional [place] Measure: 0=Not Assessed/NA 4=Minimal Assistance 1=Total Assistance 5=Supervision or Setup 2=Maximal Assistance 6=Modified [place] 3=Moderate Assistance 7=Complete [place] Attachments: IV ADL-Treatment Pt ate lunch 100% using left hand. Needs mod A in wiping face & max A in brushing hairs using left hand , mod A supine to sit in bed & mod-max A in sit to stand from the edge of bed . Pt participated in gentle passive & AAROM & stretching ex to Rt hand , elbow & shoulder which is severely contractured , 20 reps with hand gripper to increase strength in both hand science editor. 25 reps x 2 lbs wt with Left UE flex/ext with elbow & shoulder. Pt very unsteady & high risk of fall Eating (FIM): 5 Grooming (FIM): 4 Bathing (FIM): 0 Transfers (B, C, W/C) (FIM): 3 Education OT Patient Education: Correct positioning, Instructions to caregiver, Safety issues Teaching Recipient: Patient, Family Teaching Methods: Demonstration, Discussion Response to Teaching: Verbalize Understanding, Return Demonstration OT Short Term Goals Short Term Goals Time Frame: Sep 19, 2018 Eating(FIM): 7 Grooming(FIM): 5 Bathing(FIM): 0 Bathing Location: L Arm, R Arm, L Upper Leg, R Upper Leg, L Lower Leg ( including foot), R Lower Leg (including foot), Abdomen, Buttocks, Perineal Area Upper Body Dressing(FIM): 5 Lower Body Dressing(FIM): 4 Toileting(FIM): 4 Transfers (B,C,W/C) (FIM): 5 Toilet/Commode Transfer(FIM): 5 Tub Transfer(FIM): 0 Shower Transfer(FIM): 4 Additional Short Term Goals: 1-Demonstrate ADL Tasks, 2-Verbalize Understanding , 3-ImproveStrength/Earnest 1=Demonstrate adherence to instructed precautions during ADL tasks. 2=Patient will verbalize/demonstrate understanding of assistive devices/ modifications for ADL. 3=Patient will improve strength/tolerance for activity to enable patient to perform ADL's. OT Snf Goals [employer] Member Goals Time Frame: Oct 03, 2018 Grooming(FIM): 5 Bathing(FIM): 0 Bathing Location: L Arm, R Arm, L Upper Leg, R Upper Leg, L Lower Leg ( including foot), R Lower Leg (including foot), Chest, Abdomen, Buttocks, Perineal Area Upper Body Dressing(FIM): 5 Lower Body Dressing(FIM): 4 Toileting(FIM): 5 Transfers (B,C,W/C) (FIM): 5 Toilet/Commode Transfer(FIM): 5 Tub Transfer(FIM): 0 Shower Transfer(FIM): 4 Additional Goals: 1-Demonstrate ADL Tasks, 2-Verbalize Understanding, 3- ImproveStrength/Earnest 1=Demonstrate adherence to instructed precautions during ADL tasks. 2=Patient will verbalize/demonstrate understanding of assistive devices/ modifications for ADL. 3=Patient will improve strength/tolerance for activity to enable patient to perform ADL's. OT Education/Plan Problem List/Assessment Assessment: Decreased Activ Tolerance, Decreased Safety Aware, Dependent Transfers, Impaired Bed Mobility, Impaired Coordination, Impaired Funct Balance , Impaired Self-Care Skills, Restricted Funct UE ROM Discharge Recommendations Plan/Recommendations: Continue POC Therapy D/C Recommendations: Home w/ Family Support, Occupational Therapy Home Care Treatment Plan/Plan of Care Treatment,Training & Education: Yes Patient would benefit from OT for education, treatment and training to promote independence in ADL's, mobility, safety and/or upper extremity function for ADL' s. Plan of Care: ADL Retraining, Caregiver Training, Functional Mobility, UE Funct Exercise/Act, UE Neuromus Re-Ed/Coord Treatment Duration: Oct 03, 2018 Frequency: 5 times per week Estimated Hrs Per Day: .25 hour per day Agreement: Yes (3515) Rehab Potential: Guarded Time/GCodes Start Time: 13:00 Stop Time: 13:27 Total Time Billed (hr/min): 27 Billed Treatment Time 1, ADL 16 min , Ex 11 min Total 27 min. LIA YANCEY OT Sep 06, 2018 15:03
--- NOTE | 2018-09-06 15:08 | Physical Therapy Progress Note ---
Therapy Progress Note No TX today due to pt not available. CORONA BARNETT PT Sep 06, 2018 15:08
--- NOTE | 2018-09-06 16:20 | NUR ---
CM/SS Rosa Ferraro with [facility] came to hospital and met with the patient and his . Provided her with the information she required. She stated that the case would likely be substantiated of self neglect. This would be ratified then with him having SNF placement. She stated that she has had many previous dealings with this family.
[2018-09-06 16:39] VITALS: BP 116/71
[2018-09-06 19:17] VITALS: BP 126/68
[2018-09-07 00:48] VITALS: BP 132/64
[2018-09-07] MEDS: 1/2 NS W/KCL 20 MEQ/L 1,000 ML IV SCH ×2 (04:48→09:51)
[2018-09-07] MEDS: TROSPIUM 20 MG (SANCTURA) TAB PO SCH (05:24)
[2018-09-07 08:00] VITALS: BP 130/72
[2018-09-07] MEDS: NYSTATIN ORAL SUSP 5 ML UDC PO SCH (09:49)
[2018-09-07] MEDS: FINASTERIDE (PROSCAR) 5 MG TAB PO SCH (09:49)
[2018-09-07] MEDS: ZINC OXIDE 16% OINT (BUTT PASTE) 113 GM TUBE TOP SCH (09:50)
[2018-09-07] MEDS: FLUoxetine HCL 20 MG (PROzac) CAP PO SCH (09:50)
[2018-09-07] MEDS: GABAPENTIN 600 MG (NEURONTIN) TAB PO SCH (09:50)
--- NOTE | 2018-09-07 11:36 | NUR ---
CM/SS [facility] will be able to accept the patient this day. They will transport at 3pm. CARE Assessment completed with the patient, copy sent to facility, [facility] and copy retained for chart. [facility] was faxed all discharge information and medications. Patient, his and his step daughter were updated.
--- NOTE | 2018-09-07 11:53 | Physical Therapy Daily Note ---
PT Daily Note-Current Subjective Patient in bed pre tx, agrees to PT, has no complaints of pain. Patient has wet the bed and needs gown and bed changed, nurse will do this during treatment. Appearance Patient in bed post tx with nurse call, phone, tray, nurse and in room. Mental Status Patient Orientation: Person, Unable to Assess Attachments: IV Transfers Therapy Code Descriptions/Definitions Functional [place] Measure: 0=Not Assessed/NA 4=Minimal Assistance 1=Total Assistance 5=Supervision or Setup 2=Maximal Assistance 6=Modified [place] 3=Moderate Assistance 7=Complete [place] Therapy Quality Codes: 6 Independent with activity with or without an assistive device 5 Patient requires set up or clean up by helper. Patient completes activity by themselves 4 Supervision or touching assist (CGA). [place] provide cues , steadying assist 3 The helper provides less than half the effort to complete the activity 2 The helper provides more than half the effort to complete the activity 1 Dependent. The helper does all the effort to complete an activity 7 Patient refused to complete or attempt activity 9 The patient did not perform the activity before the current illness or injury 88 Not attempted due to Medical conditions or safety concerns Transfers (B, C, W/C) (FIM): 3 Scootin Rollin Supine to/from Sit: 4 Sit to/from Stand: 4 Patient needed assist with both legs getting in and out of bed. Gait Training Gait (FIM): 1 Distance: 10'x2 Gait Level of Assist: 4 Gait Persons Needed: 1 Gait Assistive Device: FWW Patient ambulated 5' forward and 5' back twice. He then sidestepped to the head of the bed and sat after the nurse got his bedding changed. Patient needs assist with right side of walker due to impaired right arm, has uncoordinated steps with poor foot clearance. Exercises Seated Therapy Exercises: Ankle pumps, Long arc quads Seated Reps: 15 Treatments bed mobility and transfers, ambulation, functional strengthening Assessment Current Status: Fair Progress improved ambulation PT Short Term Goals Short Term Goals Time Frame: Sep 12, 2018 Transfers (B,C,W/C) (FIM): 5 Gait (FIM): 1 Gait Distance Comment: 10' Gait Level of Assist: 4 Gait Assistive Device: Handheld Assist PT Block Operator Goals Block Operator Goals Rollin PT Plan Problem List Problem List: Activity Tolerance, Functional Strength, Safety, Balance, Gait, Transfer, Bed Mobility, ROM Treatment/Plan Treatment Plan: Continue Plan of Care Treatment Plan: Bed Mobility, Concurrent Therapy, Education, Functional Activity Earnest, Functional Strength, Gait, Safety, Therapeutic Exercise, Transfers Treatment Duration: Sep 12, 2018 Frequency: 6 times per week Estimated Hrs Per Day: .25 hour per day (15-30') Patient and/or Family Agrees t: Yes Safety Risks/Education Patient Education: Gait Training, Transfer Techniques, Correct Positioning, Safety Issues Teaching Recipient: Patient Teaching Methods: Demonstration, Discussion Response to Teaching: Reinforcement Needed Time/GCodes Time In: 1130 Time Out: 1145 Total Billed Treatment Time: 15 Total Billed Treatment 1 visit GT 15' CALVIN LUCAS PT Sep 07, 2018 11:53
--- NOTE | 2018-09-07 11:57 | Occupational Ther Daily Note ---
OT Current Status-Daily Note Subjective Pt in bed. Pts sitted with him in recliner. Pt states, " I am doing good, having late breakfast." Pain Numeric Pain Scale: 5-Moderate Pain Location: Right Location Body Site: Elbow Pain Description: Dull, Throbbing Mental Status/Objective Patient Orientation: Person, Place, Time Therapy Code Descriptions/Definitions Functional [place] Measure: 0=Not Assessed/NA 4=Minimal Assistance 1=Total Assistance 5=Supervision or Setup 2=Maximal Assistance 6=Modified [place] 3=Moderate Assistance 7=Complete [place] Attachments: Drains, [place] Catheter ADL-Treatment Pt left hand dominant, Pt participated strengthening ex to Lf UE & gentle PROM , retrograde Massage & stretching ex to Rt elbow, wrist & shoulder , Pt performed 20 reps x 2 sets x 1 lb wts with Lf UE elbow & shoulder flexion/ extension ex , 25 reps with red theraband in all motions to strengthen BUE & Ex with hand gripper to strengthen hand supervisor plasma of left & rt hand. Pt has severe wrist, elbow & shoulder flexion contractures . supine to sit with mod A & sit to stand with mod-max A . Pt high risk of fall. Eating (FIM): 6 Grooming (FIM): 4 Bathing (FIM): 0 Upper Body (FIM): 2 Lower Body Dressing (FIM): 1 Toileting (FIM): 2 Transfers (B, C, W/C) (FIM): 3 Toilet/Commode Transfer (FIM): 3 Tub Transfer(FIM): 0 Education OT Patient Education: Correct positioning, Instructions to caregiver, Safety issues Teaching Recipient: Patient, Family Teaching Methods: Demonstration, Discussion Response to Teaching: Verbalize Understanding, Return Demonstration OT Short Term Goals Short Term Goals Time Frame: Sep 19, 2018 Eating(FIM): 7 Grooming(FIM): 5 Bathing(FIM): 0 Bathing Location: L Arm, R Arm, L Upper Leg, R Upper Leg, L Lower Leg ( including foot), R Lower Leg (including foot), Abdomen, Buttocks, Perineal Area Upper Body Dressing(FIM): 5 Lower Body Dressing(FIM): 4 Toileting(FIM): 4 Transfers (B,C,W/C) (FIM): 5 Toilet/Commode Transfer(FIM): 5 Tub Transfer(FIM): 0 Shower Transfer(FIM): 4 Additional Short Term Goals: 1-Demonstrate ADL Tasks, 2-Verbalize Understanding , 3-ImproveStrength/Earnest 1=Demonstrate adherence to instructed precautions during ADL tasks. 2=Patient will verbalize/demonstrate understanding of assistive devices/ modifications for ADL. 3=Patient will improve strength/tolerance for activity to enable patient to perform ADL's. OT Penitentiary Goals Penitentiary Goals Time Frame: Oct 03, 2018 Grooming(FIM): 5 Bathing(FIM): 0 Bathing Location: L Arm, R Arm, L Upper Leg, R Upper Leg, L Lower Leg ( including foot), R Lower Leg (including foot), Chest, Abdomen, Buttocks, Perineal Area Upper Body Dressing(FIM): 5 Lower Body Dressing(FIM): 4 Toileting(FIM): 5 Transfers (B,C,W/C) (FIM): 5 Toilet/Commode Transfer(FIM): 5 Tub Transfer(FIM): 0 Shower Transfer(FIM): 4 Additional Goals: 1-Demonstrate ADL Tasks, 2-Verbalize Understanding, 3- ImproveStrength/Earnest 1=Demonstrate adherence to instructed precautions during ADL tasks. 2=Patient will verbalize/demonstrate understanding of assistive devices/ modifications for ADL. 3=Patient will improve strength/tolerance for activity to enable patient to perform ADL's. OT Education/Plan Problem List/Assessment Assessment: Decreased Activ Tolerance, Decreased Safety Aware, Decreased UE Strength, Dependent Transfers, Impaired Bed Mobility, Impaired Funct Balance, Impaired Self-Care Skills Discharge Recommendations Plan/Recommendations: Continue POC Therapy D/C Recommendations: Assisted Placement Equpiment Recommendations-D/C: Extended Shower Sprayer, Clinical Psychologist Licensed Patient/Family Goals Pt's stated, we might put him in long-term . Treatment Plan/Plan of Care Treatment,Training & Education: Yes Patient would benefit from OT for education, treatment and training to promote independence in ADL's, mobility, safety and/or upper extremity function for ADL' s. Plan of Care: ADL Retraining, Caregiver Training, Functional Mobility, UE Funct Exercise/Act, UE Neuromus Re-Ed/Coord Treatment Duration: Oct 03, 2018 Frequency: 5 times per week Estimated Hrs Per Day: .25 hour per day Agreement: Yes (3193) Rehab Potential: Guarded Time/GCodes Start Time: 11:00 Stop Time: 11:30 Total Time Billed (hr/min): 30 Billed Treatment Time 1, Ex 30 min total 30 min LIA YANCEY OT Sep 07, 2018 11:57
--- NOTE | 2018-09-07 14:45 | NUR ---
ADIS HAIRSTON discharged to [facility]. Family and [facility] staff notified of discharge and report given to FIDE Loo. ADIS HAIRSTON belongings sent with [facility] staff. Vital signs are stable at time of discharge. Condition is stable at time of discharge. Discharge instructions and copies of H&P, discharge summary, physician's order, lab reports, consultation reports, other dictated reports, diagnostic imaging reports, Advance Directive, eMAR, vital signs, intake and output sent with patient and [facility] staff. Patient discharged from room 418 on 09/07/18 at 1345 ADIS HAIRSTON left floor via wheelchair, accompanied by [facility] staff. ADIS HAIRSTON and family/DPOA notified and verbalize understanding of discharge to [facility].
[2018-09-07 15:00] VITALS: BP 130/72
--- NOTE | 2018-09-10 21:36 | Physician Query Clarification ---
PQ-Uncertain Diagnosis Admission/Discharge Admission Date: Sep 03, 2018 at 14:48 Discharge Date: Sep 07, 2018 at 14:45 The medical record reflects the following clinical scenario: History/Risk Factors: rhabdomyolysis Clinical Findings: rhabdomyolysis, acute renal failure Treatment: IV fluids Question: Is sepsis a clinically valid diagnosis? Sepsis was documented in the 09/05 progress note with no further documentation in the medical record. Please document a response below. PHYSICIAN RESPONSE Diagnosis clinically valid: No, conditon ruled out In responding to this query, please exercise your independent professional judgment. The purpose of this communication is to more accurately reflect the complexity of your patients condition. The fact that a question is asked does not imply that any particular answer is desired or expected. Thank you for your timely response to this clarification. Requestors name: [ ] Phone # [ ] THIS PHYSICIAN QUERY FORM IS A PERMANENT PART OF THE MEDICAL RECORD ASHISH ALLISON Sep 10, 2018 21:36 ARIELLE COLEMAN DO Sep 11, 2018 08:56
== END 2018-09-07 14:45 | DRG 558 ==
LOC: ER 11:47 → EDUNIT# 11:49 → 4TH 14:48
PROVIDERS: ADMIT Internal Medicine; ATTEND Internal Medicine
DX: M62.82 Rhabdomyolysis (principal); B37.0 Candidal stomatitis; R47.01 Aphasia; R64 Cachexia; N17.9 Acute kidney failure, unspecified; E86.0 Dehydration; N49.2 Inflammatory disorders of scrotum; F03.90 Unspecified dementia, unspecified severity, without behavioral disturbance, psychotic disturbance, mood disturbance, and anxiety; L89.152 Pressure ulcer of sacral region, stage 2; R15.1 Fecal smearing; R39.81 Functional urinary incontinence; F17.210 Nicotine dependence, cigarettes, uncomplicated; L89.891 Pressure ulcer of other site, stage 1; E11.9 Type 2 diabetes mellitus without complications; B36.9 Superficial mycosis, unspecified; N40.1 Benign prostatic hyperplasia with lower urinary tract symptoms; M24.511 Contracture, right shoulder; R47.1 Dysarthria and anarthria; R74.8 Abnormal levels of other serum enzymes; R79.89 Other specified abnormal findings of blood chemistry; Z87.820 Personal history of traumatic brain injury; W19.XXXA Unspecified fall, initial encounter
CPT/HCPCS: 36415; 51702; 70450; 71045; 72125; 80048; 80053; 81000; 82550; 83605; 85007; 85025; 85027; 85610; 85730; 87040; 87088; 87220; 96361; 96365

== ENCOUNTER → 2018-12-10 | Outpatient (CLI) | payer MEDICAID, MEDICARE ==
[~2018-12-10] MED LIST changes: +MORP15TA69 PO; +NYST1000 PO; +ZINC28PA TOP
--- NOTE | 2018-12-10 13:42 | Diagnostic Imaging Report ---
MRI LT UPPER EXT JOINT W/O TECHNIQUE: Multiplanar, multisequence MR imaging of the left shoulder was performed without contrast. COMPARISON: None available. INDICATION: Left shoulder pain, fall approximately four months ago. FINDINGS: Rotator cuff: Full-thickness and complete tear of the supraspinatus, as the torn fibers attached to the level of the mid humeral head. The infraspinatus also has full-thickness tearing and is retracted to the level of the mid humeral head. Moderate atrophy of the supraspinatus and infraspinatus muscle bellies. Subscapularis remains intact. Teres minor is normal. Glenoid labrum: By non-arthrogram imaging, the glenoid labrum appears intact. No para-labral cyst. Long head of biceps: The intracapsular segment of long head of biceps is difficult to visualize due to patient motion artifact. Allowing for this, there may be at least partial-thickness tearing of the intracapsular segment and/or tendinopathy. Bones and cartilage: Humeral head is normal in morphology without fracture or focal osseous lesion. No glenohumeral chondromalacia. Mild hypertrophic degenerative changes of acromioclavicular joint. Soft tissues: Small glenohumeral joint effusion. No MRI findings to suggest adhesive capsulitis. Fluid in the subacromial subdeltoid bursa is compatible with full-thickness cuff tear. IMPRESSION: 1. Full-thickness and complete tears of the supraspinatus and infraspinatus are retracted to the level of mid humeral head. Moderate fatty atrophy of the respective muscle bellies is present. 2. Potential partial-thickness tearing of the intracapsular segment of long head of the biceps. 3. 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 Dictated by: Dictated on workstation # [id number]
== END ==
LOC: RAD 12:01
PROVIDERS: ATTEND Nurse Practitioner Community Health
DX: S46.012A Strain of muscle(s) and tendon(s) of the rotator cuff of left shoulder, initial encounter (principal); S46.111A Strain of muscle, fascia and tendon of long head of biceps, right arm, initial encounter; S46.112A Strain of muscle, fascia and tendon of long head of biceps, left arm, initial encounter; M19.011 Primary osteoarthritis, right shoulder; M62.512 Muscle wasting and atrophy, not elsewhere classified, left shoulder; W19.XXXA Unspecified fall, initial encounter
CPT/HCPCS: 73221

== ENCOUNTER → 2019-01-14 | Outpatient (CLI) | payer MEDICARE ==
--- NOTE | 2019-01-14 12:17 | Diagnostic Imaging Report ---
EXAMINATION: Modified barium swallow. INDICATION: Dysphagia. This study was performed in the presence of speech pathologist, Laura. COMPARISON: There are no prior studies available for comparison. FINDINGS: The patient was given barium in different substances to swallow including thin barium, nectar, puree, soft mechanical (banana and meat). The patient did exhibit a sluggish swallowing mechanism. There was also penetration with the thin barium. The patient was able to swallow the other substances without penetration or aspiration. 2 minutes and 44 seconds of fluoroscopy time was utilized. IMPRESSION: The swallowing mechanism is compromised as there was penetration with the thin barium. Dictated by: Dictated on workstation # [id number]
== END ==
LOC: RAD 10:09
PROVIDERS: ATTEND Nurse Practitioner Community Health
DX: R13.10 Dysphagia, unspecified (principal)
CPT/HCPCS: 74230

== ENCOUNTER 2019-05-30 11:21 | Outpatient (CLI) | payer MEDICARE, MEDICAID ==
[~2019-05-30] VITALS: Ht 180 cm; Wt 78.2 kg
[2019-05-30] MEDS ORDERED: MIRT7.5T8 PO (14:43)
[2019-05-30] MEDS ORDERED: VENL75CA PO (14:43)
[2019-05-30] MEDS ORDERED: OXYC-471 PO (14:43)
[2019-05-30] MEDS ORDERED: INSU100I23 SQ (14:43)
[2019-05-30] MEDS ORDERED: RANI-514 PO (14:43)
[2019-05-30] MEDS ORDERED: ACET325T49 PO (14:43)
[2019-05-30] MEDS ORDERED: OXYB5TAB9 PO (14:43)
[2019-05-30] MEDS ORDERED: ASCO500C17 PO (14:43)
[2019-05-30] MEDS ORDERED: MULT-166 PO (14:43)
== END 2019-05-30 14:47 | disposition home or self-care (01) ==
LOC: PREOP 11:21
PROVIDERS: ATTEND Specialist
DX: Z01.818 Encounter for other preprocedural examination (principal)

== ENCOUNTER 2019-06-05 10:47 | Day surgery (SDC) | payer MEDICARE, MEDICAID ==
[~2019-06-05] VITALS: Wt 78.2 kg
[~2019-06-05 10:47] MED LIST changes: +ACET325T49 PO; +ASCO500C17 PO; +INSU100I23 SQ; +MIRT7.5T8 PO; +MULT-166 PO; +OXYB5TAB9 PO; +RANI-514 PO; +VENL75CA PO
[2019-06-05 10:55] VITALS: BP 129/78
[2019-06-05] MEDS ORDERED: TROPICAMIDE 1% OPH SOLN (MYDRIACYL) 15 ML BTL OU PRN (11:15)
[2019-06-05] MEDS ORDERED: PHENYLEPHRINE 10% OPHTH (NEO-SYN) 5 ML BTL OU PRN (11:15)
[2019-06-05] MEDS: TETRACAINE 0.5% OPHTH SOLN 4 ML BTL (SINGLE DOSE ONLY) OU PRN ×2 (11:20→11:30)
[2019-06-05 12:15] VITALS: BP 129/78
--- NOTE | 2019-06-05 13:06 | Ophthalmologist Pre-Op Note ---
Pre-Operative Progress Note H&P Reviewed The H&P was reviewed, patient examined and no changes noted. Date H&P Reviewed: Jun 05, 2019 Time H&P Reviewed: 11:40 Pre-Op Dx Secondary Cataract, Bilateral Eyes HENRY THAO MD Jun 05, 2019 13:06 POS
--- NOTE | 2019-06-05 13:07 | Ophthalmology Operative Report ---
YAG Capsulotomy PREOPERATIVE DIAGNOSIS: Secondary Cataract Bilateral POSTOPERATIVE DIAGNOSIS: Secondary Cataract Bilateral PROCEDURE: YAG Capsulotomy, Bilateral SURGEON: Anil Thao ANESTHESIA: Topical anesthesia COMPLICATIONS: None ESTIMATED BLOOD LOSS: Minimal DESCRIPTION OF PROCEDURE: After proper informed consent was obtained, the patient's, a 73 male , received one drop of Tropicamide and one drop of Tetracaine in each eye. The patient was then placed at the YAG laser and using a power of [ 3.5] millijoules and bursts [17 ] right eye and [ 19] left eye were used to fashion a central capsulotomy. The patient tolerated the procedure well without complications. ANIL THAO MD Jun 05, 2019 13:07 POS
== END 2019-06-05 12:15 | disposition home or self-care (01) ==
LOC: SDC 10:47
PROVIDERS: ATTEND Specialist
DX: H26.493 Other secondary cataract, bilateral (principal)

== ENCOUNTER → 2019-08-10 | Outpatient (CLI) | payer MEDICARE, MEDICAID | LOC: LABNPT 15:07 | PROVIDERS: ATTEND Nurse Practitioner Family | DX: R06.2 Wheezing (principal); R05 Cough; R52 Pain, unspecified | CPT/HCPCS: 87804 ==

== ENCOUNTER → 2020-07-11 | Outpatient (CLI) | payer OTHER, MEDICARE, MEDICAID ==
[~2020-07-11] MED LIST changes: +FLUO20CA46 PO; +OXYB5TAB13 PO; -OXYB5TAB9 PO; -RANI-514 PO; +RANI-607 PO
[2020-07-13 09:43] LABS: CLARITY,URINE CLEAR; COLOR,URINE YELLOW; GLUCOSE, URINE (UA) NEGATIVE (NEGATIVE); PROTEIN,URINE NEGATIVE (NEGATIVE)
[2020-07-13 09:44] LABS: AMORPHOUS SEDIMENT,UR MOD AMOR PHOSPHATE /LPF; BACTERIA,URINE NEGATIVE /HPF; BILIRUBIN,URINE NEGATIVE (NEGATIVE); KETONES,URINE NEGATIVE (NEGATIVE); LEUKOCYTE ESTERASE ,URINE NEGATIVE (NEGATIVE); NITRITE,URINE NEGATIVE (NEGATIVE); WBC,URINE 0-2 /HPF
== END ==
LOC: LABNPT 15:45
PROVIDERS: ATTEND Internal Medicine
DX: R30.0 Dysuria (principal)
CPT/HCPCS: 81000

== ENCOUNTER → 2020-07-13 | Outpatient (CLI) | payer MEDICARE, MEDICAID ==
[~2020-07-13] MED LIST changes: +BARIUM for suspension 96% w/w (Vanilla Silq Medium Density) PO ONE; +BARIUM for suspension 98% w/w (Vanilla Silq High Density) PO ONE
--- NOTE | 2020-07-13 11:40 | Diagnostic Imaging Report ---
INDICATION: Cough and weight loss. Study was performed in conjunction with speech pathology. Video fluoroscopy was performed during swallowing of barium in multiple consistencies. The patient ingested nectar consistency as well as puree as well as a cottage cheese consistency. Oral phase is unremarkable. There is normal epiglottic tilt and laryngeal elevation. No aspiration or penetration was observed. There is mild vallecular residue noted. A total of 1 minute 11 seconds fluoroscopic time was utilized. IMPRESSION: Modified barium swallow demonstrating mild vallecular residue. No aspiration was observed. Dictated by: Dictated on workstation # [id number]
== END ==
LOC: RAD 08:49
PROVIDERS: ATTEND Nurse Practitioner Community Health
DX: R13.10 Dysphagia, unspecified (principal); R05 Cough; R63.4 Abnormal weight loss
CPT/HCPCS: 74230

== ENCOUNTER → 2020-07-27 | Outpatient (CLI) | payer OTHER, MEDICARE, MEDICAID ==
[~2020-07-27] MED LIST changes: -BARIUM for suspension 96% w/w (Vanilla Silq Medium Density) PO ONE; -BARIUM for suspension 98% w/w (Vanilla Silq High Density) PO ONE
== END ==
LOC: GIR 16:09
PROVIDERS: ATTEND Nurse Practitioner Family
DX: Z20.828 Contact with and (suspected) exposure to other viral communicable diseases (principal)
CPT/HCPCS: 87635